=== PATIENT | female | born 1955 | race Caucasian/White ===

== ENCOUNTER 2016-11-24 10:54 | Inpatient (IN) | payer OTHER ==
--- NOTE | 2016-11-24 11:01 | EDPHY ---
[id number] in emergently by EMS from [place], presenting with altered mental status. The patient was admitted 10/28/16 with pneumonia and severe sepsis. She was treated with Vancomycin and Zosyn for 7 days. Over the past 3- 4 days the patient's mental status has decreased. Her family visited this morning and had difficulty arousing the patient. She had slurred speech and appeared altered. BGL in the field was 179. Pulse oxygen was 70s during transport, but improved to 90s after supplemental O2. Patient's family insisted the patient be transferred here instead of [place]. Further history is unobtainable due to patient's altered mental status. REVIEW OF SYSTEMS: ROS is unobtainable due to patient's altered mental status. Past Medical/Surgical History: Past medical records reviewed form admission 10/28/16 with pneumonia and severe sepsis. Ongoing Diabetes II, Hypertension, Morbid obesity, Chronic pain with narcotic dependency Social History: . Lives in [place]. Physical Exam: General Appearance: Responds to name Eyes: Pupils equal and round, no conjunctival pallor or injection ENT, Mouth: Mucous membranes moist Neck: Normal inspection Respiratory: Lungs are clear to auscultation Cardiovascular: Regular rate and rhythm Gastrointestinal: Abdomen is soft and non-tender Neurological: A&O, nonfocal, normal gait Skin: Warm and dry, no rash Extremities: Nontender, no pedal edema Psychiatric: Mood and affect normal Constitutional: Initial Vital Signs Temperature (C) 37.7 C 11/24/16 11:00 Heart Rate 97 11/24/16 11:00 Respiratory Rate 16 11/24/16 11:00 Blood Pressure 110/91 H 11/24/16 11:00 O2 Sat (%) 94 11/24/16 11:00 O2 Delivery Mode Nasal Cannula O2 (L/minute) 5 Allergies/Adverse Reactions: pregabalin [From Lyrica] Allergy (Severe, Verified 09/03/16 13:57) MOUTH SORES/ AFFECTS VISION Sulfa (Sulfonamide Antibiotics) Allergy (Severe, Verified 09/03/16 13:57) Anaphylaxis lactose Allergy (Intermediate, Verified 11/02/16 14:03) Diarrhea niacin [From Niaspan Extended-Release] Allergy (Intermediate, Verified 09/03/16 13:57) FLUSHING EXTREME ketorolac tromethamine [From Toradol] Allergy (Mild, Verified 09/03/16 13:57) DOESN'T WORK atorvastatin calcium [From Lipitor] Allergy (Unknown, Verified 09/03/16 13:57) MOLDS Allergy (Intermediate, Uncoded 08/30/14 10:44) WHEEZING /HIVES ENVIRONMENTAL Allergy (Mild, Uncoded 08/30/14 10:44) RUNNY NOSE/NASAL CONGESTION Home Medications: Medication Instructions Recorded Albuterol [Proventil Inhaler HFA 2 puffs IH QID PRN 08/30/14 (*)] Cyclobenzaprine [Flexeril 10 MG 10 mg PO TID@,,08/30/14 (*)] Fluticasone/Salmeter 250/50Mcg 1 puffs IH BID 08/30/14 [Advair 250/50 (*)] HYDROcodone/APAP 10325 [[place] 1 tab PO Q8 PRN 08/30/14 10325 (*)] Montelukast Sodium [Singulair 10 10 mg PO DAILY@08/30/14 mg (*)] oxyCODONE CR [Oxycontin] 20 mg PO TID@,,08/30/14 Diazepam [Valium 10 MG (*)] 5 mg PO BID PRN 09/03/16 Gabapentin [Neurontin 300 MG (*)] 900 mg PO TID@,,09/03/16 Sertraline HCl [Zoloft 100mg (*)] 150 mg PO DAILY 09/03/16 Amlodipine Besylate 5 mg PO DAILY@199910/28/16 Lisinopril [Zestril 20 mg (*)] 20 mg PO DAILY@199910/28/16 Furosemide [Lasix 40 MG (*)] 40 mg PO DAILY #2 tab 11/11/16 Acetaminophen/Caffeine [Excedrin 2 each PO TID PRN 11/24/16 Tension Headache Cplt] Cetirizine [ZyrTEC 10 mg (*)] 10 mg PO DAILY@199911/24/16 Cholecalciferol Vit D3 [Vitamin D3 2,000 units PO DAILY@199911/24/16 2000 units tab (OTC)] Herbals/Supplements -Info Only 1 ea PO AD 11/24/16 Ipratropium/Albuterol [Duoneb (*)] 3 ml IH TID@06,13,20 11/24/16 Lisinopril/Hydrochlorothiazide 1 each PO DAILY 11/24/16 [Zestoretic 20-25 mg Tablet] Multivitamins [Multivitamin (*)] 1 each PO DAILY@199911/24/16 Simpson-3 Fatty Acids [Fish Oil 1000 2,000 mg PO DAILY@1300 11/24/16 mg (*)] Sennosides/Docusate Sodium 1 each PO DAILY PRN 11/24/16 [Senokot-S (OTC)] Medical Decision Making - Diagnostics Imaging: Study: X-ray of the chest was obtained. Results: Hypoventilation, bibasilar atelectasis, and small left pleural effusion. Images were interpreted by the radiologist, Dr. Bradley. I viewed the images myself on the PACS system. ED Course/Re-evaluation: This patient presents with altered mental status, respiratory failure and probable recurrent pneumonia. The patient was placed on BiPAP on arrival. Chest x-ray reveals poor inspiration and no definite pneumonia. Blood cultures were drawn. Levaquin and Zosyn IV given as well as 125mg Solu-MEDROL IV. Tylenol administered rectally. 11:30 am: ABG shows CO2 of 68. Initial lactate normal. This ABG was performed while patient was on 100% non rebreather. Now on BiPAP 70% O2 and will decrease oxygen level. 11:35 am: I consulted the hospitalist, the patient will be admitted to Dr. Davis. 12:00 pm: After first liter of fluid, patient has pressure of 76 systolically. Plan for second liter of fluids. Pt much more alert. Now on O2 45% BIPAP. Repeat ABG reveals CO2 55. The patient is now more alert and conversant. Mars catheter was placed. The patient continues to be hypotensive. IV fluids given per the sepsis protocol, in case of early sepsis, though pt does not clearly fit the sepsis protocol. PICC line placed on way to ICU. Differential Diagnosis: Altered mental status including but not limited to respiratory failure, bronchospasm, hypoglycemia, infectious process, electrolyte abnormality, head injury and intoxicants. - Data Points Laboratory Results: Laboratory Results 11/24/16 10:50 11/24/16 10:50 Microbiology Results: MICROBIOLOGY 11/24/16 11:02 Blood Blood Culture - Preliminary Gram Positive Dameon Medications Given: Discontinued Medications Acetaminophen (Tylenol Rectal) 650 mg NC EDNOW ONE Stop: 11/24/16 11:26 Last Admin: 11/24/16 12:01 Dose: 650 mg Heparin Sodium (Porcine) (Heparin Injection) 0 unit IVP ONCE ONE PRN Reason: Protocol Stop: 11/24/16 15:02 Last Admin: 11/24/16 16:20 Dose: 7,000 units Sodium Chloride (Ns) 1,000 mls @ 0 mls/hr IV ONCE ONE PRN Reason: Wide Open Stop: 11/24/16 11:06 Last Admin: 11/24/16 11:20 Dose: 1,000 mls Levofloxacin/Dextrose (Levaquin 750 Mg (Premix)) 150 mls @ 100 mls/hr IV EDNOW ONE PRN Reason: Protocol Stop: 11/24/16 12:53 Last Admin: 11/24/16 11:43 Dose: 150 mls Piperacillin/Tazobactam/Dextrose (Zosyn (Premix)) 100 mls @ 200 mls/hr IV EDNOW ONE PRN Reason: Protocol Stop: 11/24/16 11:53 Last Admin: 11/24/16 12:15 Dose: 100 mls Sodium Chloride (Ns) 1,000 mls @ 0 mls/hr IV ONCE ONE PRN Reason: Wide Open Stop: 11/24/16 12:08 Last Admin: 11/24/16 12:45 Dose: 1,000 mls Heparin Sodium (Porcine) (Heparin 50 Units/Ml (Premix)) 500 mls @ 0 mls/hr IV CONT FATOUMATA; Per Protocol PRN Reason: Protocol Stop: 05/23/17 15:29 Last Admin: 11/24/16 21:58 Dose: 500 mls Sodium Chloride (Ns) 1,000 mls @ 0 mls/hr IV ONCE ONE PRN Reason: Wide Open Stop: 11/24/16 16:31 Last Admin: 11/24/16 16:19 Dose: 1,000 mls Sodium Chloride (Ns) 1,000 mls @ 0 mls/hr IV ONCE ONE PRN Reason: Wide Open Stop: 11/24/16 16:31 Last Admin: 11/24/16 16:20 Dose: 1,000 mls Famotidine/Sodium Chloride (Pepcid 20 Mg (Premix)) 50 mls @ 200 mls/hr IV DAILY FATOUMATA Stop: 05/24/17 08:59 Last Admin: 11/25/16 08:13 Dose: 50 mls Methylprednisolone Sodium Succinate (Solu-Medrol) 125 mg IVP EDNOW ONE Stop: 11/24/16 11:22 Last Admin: 11/24/16 11:26 Dose: 125 mg Departure - Departure Disposition: [facility] Inpatient Acute Clinical Impression: Altered mental status Qualifiers: Altered mental status type: stupor Qualifier Code: (R40.1) Stupor Pneumonia Qualifiers: Pneumonia type: due to unspecified organism Condition: Fair Report Scribed for: Gina Mcmahon Report Scribed by: Shayla Molina Date of Report: 11/24/16 Time of Report: 11:01 Physician Review and Approval Statement: 11/24/16 11:01 Portions of this note were transcribed by a emergency medicine medical director. I personally performed the history, physical exam, and medical decision-making; and confirmed the accuracy of the information in the transcribed note.
[2016-11-24] MEDS ORDERED: NS 1,000 ML IV ONE ×2 (11:05→12:07)
[2016-11-24 11:11] LABS: % IMMATURE GRANULYOCYTES 0.8 % (0.0-1.1); ABSOLUTE IMMATURE GRANULOCYTES 0.14 10^3/uL (0.00-0.10); ADD DIFF? NO; ADD MORPH? NO; ADD SCAN? NO; ATYPICAL LYMPHOCYTE FLAG 0 (0-99); FRAGMENT RBC FLAG 0 (0-99); HEMOGLOBIN 13.5 g/dL (12.6-16.3); LEFT SHIFT FLG 10 (0-99); LIPEMIA HEMOLYSIS FLAG 80 (0-99); MEAN CELL HEMOGLOBIN 31.5 pg (27.9-34.1); MEAN CELL HEMOGLOBIN CONCENTR. 32.9 g/dL (32.4-36.7); MEAN CELL VOLUME 95.8 fL (81.5-99.8); MEAN PLATELET VOLUME 10.5 fL (8.7-11.7); PLATELET CLUMPS FLAG 0 (0-99); PLATELET COUNT 243 10^3/uL (150-400); RED BLOOD CELL COUNT 4.28 10^6/uL (4.18-5.33); RED CELL DISTRIBUTION WIDTH 13.6 % (11.5-15.2)
[2016-11-24 11:21] LABS: BASE EXCESS 0.2 mEq/L (-2.5-2.5); BICARBONATE 29 mEq/L (22-26); MEASURED OXYGEN SATURATION 98 % (92-95); PCO2 68 mmHg (34-38); PO2 111 mmHg (65-75); TCO2 31 mEq/L (23-27)
[2016-11-24] MEDS ORDERED: methylPREDNISolone SOD SUCC 125 MG/2 ML VIAL IVP ONE (11:21)
--- NOTE | 2016-11-24 11:23 | CPEKG ---
Heart Rate: 96 RR Interval: 625 P-R Interval: 168 QRSD Interval: 90 QT Interval: 368 QTC Interval: 465 P Prosper: 44 QRS Prosper: -8 T Wave Prosper: 37 EKG Severity - NORMAL ECG - EKG Impression: SINUS RHYTHM Electronically Signed By: Gina Mcmahon 24-Nov-2016 15:05:55
[2016-11-24] MEDS ORDERED: PIPERACILLIN/TAZO 4.5 GM/DEX 100 ML IV ONE (11:24)
[2016-11-24] MEDS ORDERED: ACETAMINOPHEN 650 MG SUPP PR ONE (11:25)
[2016-11-24 11:26] LABS: APTT 26.7 SEC (23.0-38.0); INR 1.06 (0.83-1.16); PROTIME(PATIENT) 13.7 SEC (12.0-15.0)
[2016-11-24 11:31] LABS: ANION GAP 11 mEq/L (8-16); BILIRUBIN,TOTAL 0.8 mg/dL (0.1-1.4); CALCIUM 8.7 mg/dL (8.5-10.4); CARBON DIOXIDE 32 mEq/l (22-31); CHLORIDE 98 mEq/L (97-110); CREATININE 2.5 mg/dL (0.6-1.0); GLOMERULAR FILTRATION RATE 20; GLUCOSE 151 mg/dL (70-100); POTASSIUM 3.9 mEq/L (3.5-5.2); SODIUM 141 mEq/L (134-144)
--- NOTE | 2016-11-24 11:35 | DX ---
Portable Chest, Single View November 24, 2016 11:11 a.m. Indication: Altered mental status. Comparison: Two-view chest and CT chest dated November 11, 2016. Findings: Hypoventilation, diffuse peribronchial thickening, and bibasilar linear opacities, likely r eflecting atelectasis, are worse. The left costophrenic angle is blunted suggesting new small left pl eural effusion. Retrocardiac fat superimposed on the heart is unchanged. Heart size within normal anderson it for degree of inspiration and AP technique. Impression: Hypoventilation, bibasilar atelectasis, and small left pleural effusion.
[2016-11-24 12:44] LABS: COLOR YELLOW; LEUKOCYTE ESTERASE,URINE NEGATIVE (NEGATIVE); NITRITE,URINE NEGATIVE (NEGATIVE)
[2016-11-24 13:00] LABS: BASE EXCESS -0.7 mEq/L (-2.5-2.5); BICARBONATE 26 mEq/L (22-26); MEASURED OXYGEN SATURATION 95 % (92-95); PCO2 55 mmHg (34-38); PO2 87 mmHg (65-75); TCO2 28 mEq/L (23-27)
[2016-11-24 13:02] LABS: BIPAP YES
[2016-11-24 13:03] LABS: EXP PRESSURE 5; INSP PRESSURE 12; O2 CONCENTRATIION 45 % (0-100); P/F RATIO 193 RATIO
[2016-11-24 13:04] LABS: I-TIME 1 SECS; PIP 13
--- NOTE | 2016-11-24 14:22 | DX ---
PICC Clinical Indication: Respiratory failure. Procedures Performed: 1. Ultrasound-guided puncture of the right basilic vein. 2. Microwire was passed under ultrasound guidance and serially exchanged for the peel-away. 3. Measuring wire was used to estimate the length of the PICC, and it was trimmed at the 50 cm armando. It was pulled back 5 cm between the first and second film. 4. The PICC was advanced to the SVC/right atrial junction over the measuring wire. The measuring wire and dilator were removed. 5. A stat chest x-ray was ordered to document positioning. EBL: Less than 10 mL. Specimens: None. Fluoroscopy Time: 0 minutes. 0 mGy. Operative Report: After obtaining informed consent and performing a formal timeout, the right arm was prepped and draped. 1% lidocaine local field block was achieved. The basilic vein was punctured unde r direct ultrasound visualization after deeming the vessel patent. Microwire was passed under ultraso und guidance and serially exchanged for the peel-away dilator. The patient was measured to estimate t he length of the PICC. The PICC was trimmed at 50 cm. The PICC was advanced over the measuring wire t o the SVC/right atrial junction. The measuring wire and peel-away were removed. The PICC was secured and dressed with sterile gauze dressing. A stat chest x-ray was ordered to document positioning, was pulled back 5 cm and the second film was obtained. Informed consent: Obtained from the patient. Risks and benefits were discussed. Crosscutting Measure: Patient's current list of medications including all known prescriptions, over- the-counters, herbals, and vitamin/mineral/dietary supplements are reviewed. Medications' name, dosa ge, frequency, and route of administration are confirmed. Prophylactic Antibiotic: Cefazolin was not ordered and administered for antimicrobial prophylaxis be cause it was not medically necessary. VTE Prophylaxis: There is not an order for VTE prophylaxis to be given within 24 hours of the proced ure end time. VTE prophylaxis was not given because it was not medically necessary. Technique: Patient was placed in supine position. A "timeout" procedure was performed to identify t he correct patient and the correct procedure. 1% Xylocaine was used for local anesthetic. All eleme nts of maximal sterile barrier technique including cap, mask, sterile gown, sterile gloves, large edin rile sheet, hand hygiene, and 2% chlorhexidine for cutaneous antisepsis, followed. Ultrasound evaluation of potential access site was performed. After successfully identifying a patent vessel, ultrasound guidance was used to puncture the vein. A permanent recording was created for the patient's record. When ultrasound is used, sterile gel and probe covers are used. Plan: Triple-lumen PICC ready for use.
[2016-11-24] MEDS ORDERED: NOREPINEPHRINE BITARTRATE 16 MG in D5W 250 ML IV SCH (15:00)
[2016-11-24] MEDS ORDERED: HEPARIN 10,000 UNIT/10 ML MDV IVP PRN (15:01)
[2016-11-24] MEDS ORDERED: HEPARIN 10,000 UNIT/10 ML MDV IVP ONE (15:01)
[2016-11-24 15:15] LABS: BASE EXCESS -3.6 mEq/L (-2.5-2.5); BICARBONATE 25 mEq/L (22-26); MEASURED OXYGEN SATURATION 92 % (92-95); PCO2 62 mmHg (34-38); PO2 69 mmHg (65-75); TCO2 27 mEq/L (23-27)
[2016-11-24 15:17] LABS: BIPAP YES; EXP PRESSURE 5; INSP PRESSURE 12; O2 CONCENTRATIION 45 % (0-100); P/F RATIO 153 RATIO
[2016-11-24 15:22] LABS: % IMMATURE GRANULYOCYTES 0.9 % (0.0-1.1); ABSOLUTE IMMATURE GRANULOCYTES 0.14 10^3/uL (0.00-0.10); ADD DIFF? NO; ADD MORPH? NO; ADD SCAN? NO; ATYPICAL LYMPHOCYTE FLAG 0 (0-99); FRAGMENT RBC FLAG 0 (0-99); HEMATOCRIT 35.9 % (38.0-47.0); HEMOGLOBIN 11.8 g/dL (12.6-16.3); LEFT SHIFT FLG 10 (0-99); LIPEMIA HEMOLYSIS FLAG 80 (0-99); MEAN CELL HEMOGLOBIN 32.2 pg (27.9-34.1); MEAN CELL HEMOGLOBIN CONCENTR. 32.9 g/dL (32.4-36.7); MEAN CELL VOLUME 97.8 fL (81.5-99.8); MEAN PLATELET VOLUME 10.4 fL (8.7-11.7); PLATELET CLUMPS FLAG 0 (0-99); PLATELET COUNT 198 10^3/uL (150-400); RED BLOOD CELL COUNT 3.67 10^6/uL (4.18-5.33); RED CELL DISTRIBUTION WIDTH 13.6 % (11.5-15.2)
[2016-11-24] MEDS ORDERED: NOREPINEPHRINE BITARTRATE 4 MG in D5W 500 ML IV SCH (15:30)
[2016-11-24 15:31] LABS: INR 1.19 (0.83-1.16); PROTIME(PATIENT) 15.1 SEC (12.0-15.0)
[2016-11-24 15:32] LABS: APTT 27.7 SEC (23.0-38.0)
[2016-11-24] MEDS: NS 1,000 ML IV SCH (16:20)
[2016-11-24] MEDS: HEPARIN/DEXTROSE 500 ML IV SCH ×2 (16:21→21:58)
[2016-11-24] MEDS ORDERED: NS BOLUS 1000 ML (Wide open) IV ONE ×2 (16:30)
--- NOTE | 2016-11-24 17:31 | PDGENHP ---
History and Physical History and Physical: HISTORY: brought in obtunded with sob and hypoxemia, no hx of chest pain little other acute hx On arrival to ER she was normal BP and no fever, but in ER developed she has chronic lung dz with CO2 retention and home O2 has two prior episodes of acute resp failure and hypotension in Oct and Dec PMHx septic shock asthma pneumonia chronic resp failure w co2 retention chronic pain syndrome chronic prescribed narcotics gait instabilitiy falls retinal art occlusion no known dvt/pe hx Family hx: mother may have have DVT per social: nonsmoker no etoh lives w wants full cor and intubation ASSESSMENT: # ACUTE RESP FAILURE, PRIMARILY HYPERCARBIC REQUIRING BIPAP AT PRESENT -would not rule out need for mech vent overnight # ACUTE FEVER WITH HYPOTENSION WITH ACUTE RENAL FAILURE - diff dx includes septic shock and PE -can not do contrast CT due to renal # ACUTE RENAL FAILURE # ? ACUTE RESP INFECTION # CHRONIC HYPERCARBIC/HYPOXEMIC RESP FAILURE # CPS with chronic prescirbed narcotics She has had two other very similar episodes in 08/27 and 10/27 here, requiring mech ventilation, and for both there was not a defining etiology found though they were presumed to be caused by infeciton and or mentation changes from her chronic narcotics At this time she has received 5 L NS which has chandni CVT from 4 to 19, and has a good BP on levofed; She is on bipap and still w some mixed but primarily resp acidosis but w good O2 sats. I have reviewed in detial w Dr Neville Richter who has seen her. PLANS: contineu current abx, pressor support, and BIPAP may need mech vent during night repeat CXR and labs in am anticoagulation, consider CT angio if renal fxn resolves
[2016-11-24] MEDS ORDERED: ACETAMINOPHEN 325 MG TAB PO PRN (17:38)
[2016-11-24] MEDS ORDERED: PIPERACILLIN SODIUM/TAZOBACTAM 3.375 GM in D5W 50 ML IV SCH (18:30)
--- NOTE | 2016-11-24 20:41 | US ---
Bilateral Lower Extremity Venous Duplex Doppler Studies Clinical Indications: 61-year-old female inpatient with pneumonia and respiratory failure; rule out D VT. Technique: A high-frequency transducer was used for compression imaging and Doppler study of the deep veins of both legs, from the upper calves to the groins. Pulsed Doppler and color Doppler were utili zed, along with various maneuvers to assess flow in the deep veins. Comparison Study: None. Findings: Right Leg: The deep veins of the groin, thigh, knee, and upper calf are well-displayed, and are norm ally compressible. Doppler flow patterns are unremarkable. There is no evidence of deep venous thro mbosis. The greater saphenous vein is patent. The popliteal fossa is unremarkable. Left Leg: The deep veins of the groin, thigh, knee, and upper calf are well-displayed, and are clarice lly compressible. Doppler flow patterns are unremarkable. There is no evidence of deep venous throm bosis. There is normal compression of the greater saphenous vein, without superficial thrombosis. The popliteal fossa is unremarkable. Impression: Normal bilateral lower extremity venous Doppler studies.
[2016-11-24] MEDS: FLUTICASONE/SALMETER 250/50MCG DISKUS IH SCH (20:59)
[2016-11-24] MEDS: IPRATROPIUM/ALBUTEROL 3 ML DEYVIAL IH SCH ×2 (21:00→21:05)
--- NOTE | 2016-11-24 21:25 | GCON ---
[f rep st] CONSULTATION PULMONARY CRITICAL CARE CONSULTATION DATE OF CONSULTATION: 11/24/2016 REASON FOR CONSULTATION: Acute respiratory failure, altered mental status. HISTORY: The patient was reportedly found down at home by her . She was transported to the e mergency department, where she initially had a normal blood pressure. She developed a fever in the e mergency department and dropped her blood pressure. Apparently, for several days prior to her presen tation today, she has had gradually declining mental status. She has had hospitalizations recently for similar presentations. Her last was 3 to 4 weeks ago when she presented with altered mental status and acute respiratory failure. Narcotic overdose was felt t o be playing a role as she is on chronic narcotics. At that time, she had recently been treated for pneumonia and had a persistent infiltrate. She initially responded to Narcan on that admission, but despite ongoing Narcan, she became more somnolent and required intubation. Bronchoscopy was unremark able for evidence of purulent sputum and it was felt that her infiltrate was likely residual from a p reviously treated pneumonia. She also has a history of asthma but was not wheezing on that admission . No wheezing was reported on this admission. In the emergency department, blood cultures were drawn and she was started on Levaquin, Zosyn and Mary u-Medrol. I do not believe that Narcan was given on this admission. A PICC line was placed. She was transported to the intensive care unit on BiPAP. She has remained on BiPAP, arouses weakly a nd does respond appropriately to commands. ALLERGIES: Past medical history is remarkable for multiple drug allergies. These include Lyrica, deluna lfa preparations, lactose, niacin, Toradol, Lipitor, and environmental agents. PAST MEDICAL HISTORY: As outlined in her previous charts. This includes a chronic pain syndrome and chronic narcotics, recent hospitalizations as outlined above, cervical stenosis and cervical surgery , asthma, systemic hypertension, depression, chronic hypoxemic and hypercarbic respiratory failure re quiring oxygen, obesity, and diverticulitis. Sleep apnea is also a possible diagnosis from the past. SOCIAL HISTORY: The patient is . She lives in [place]. She has a pain physician but I do n ot know if she has seen him recently. In the past, she was getting prescriptions from multiple provi ders. These included various opiates, Flexeril, and benzodiazepines. FAMILY HISTORY: Noncontributory/unobtainable. REVIEW OF SYSTEMS: Unobtainable. PHYSICAL EXAMINATION: GENERAL: Physical examination reveals an obese woman who is on BiPAP. She is somnolent but will arouse. VITAL SIGNS: Blood pressure is approximately 105/60, respiratory rate 1 2, saturations 90% on 45% oxygen BiPAP mask, CVP is 18. Heart rate is 80 with sinus rhythm on the mo nitor. HEENT: Remarkable for relatively small pupils. BiPAP mask is in place. Mucous membranes ar e dry. NECK: The neck is large. Jugular venous distention is present. There is no lymphadenopathy or thyromegaly. The trachea is midline. LUNGS: Clear bilaterally. Excursions are diminished, in part secondary to body habitus. HEART: Regular in rate and rhythm. Heart tones are quite distant. No obvious murmurs or gallops are appreciated. ABDOMEN: Obese, soft, nontender. Bowel sounds are diminished but present. EXTREMITIES: Remarkable for trace plus edema. There is no obvious swelling of the calves, and no cords. NEUROLOGIC: Nonfocal. She does move all extremities to command. DATABASE: Chest x-ray shows hypoventilatory changes with some mild basilar atelectasis. A small lef t pleural effusion cannot be excluded. Laboratory: White blood cell count is 15,000, hematocrit 36. Platelets are normal. PT was 13.7 on admission, PTT 26. D-dimer was 0.7. pH on BiPAP is 7.22 with a pCO2 of 62 and a pO2 of 69. Sodium is 141, potassium 3.9, CO2 32, BUN 43, with a creatinine of 2.5. Creatinine has been close to 1 prev iously. Glucose is 151. Urinalysis was negative. A toxicology screen was not done. ASSESSMENT: 1. Acute respiratory failure. The patient came in obtunded and hypoxemic. The etiology for this is not entirely known at this time. It is likely multifactorial and includes home use of opiates and b enzodiazepines, obesity/hypoventilation, and possibly acute infectious illness as temperature did spi ke to 38 degrees and was associated with hypotension. Sepsis cannot be excluded. Thromboembolic dis ease seems unlikely. When she was last here, a CT angiogram of the chest was negative, lower extremi ties appear normal. However, she has been started on heparin until this can be evaluated in more det ail. CT angiogram was not done secondary to her elevated BUN and creatinine. 2. Possible sepsis. This seems unlikely as blood lactate was less than 1. However, early sepsis or a systemic inflammatory response syndrome cannot be excluded. 3. Possible infection. Pneumonia cannot absolutely be excluded at this time, as chest x-ray is mild ly abnormal. The urine is clean. White blood cell count was elevated and she was febrile. She is b eing treated currently with broad-spectrum antibiotics pending cultures and further evaluation. She is being given Levaquin and Zosyn. She also received steroids in the emergency department. 4. History of asthma. There is no wheezing, no prolongation of the expiratory phase. She is on Duo Nebs. PLAN AND RECOMMENDATIONS: The patient will be kept in the intensive care unit. BiPAP ventilatory deluna pport will be used as needed. If indicated, she may need to be intubated and placed on the ventilato r. This does not appear to be the case currently. Cultures will be awaited. Intravenous fluids allen l be given. Antibiotics will be continued. Heparin will be continued for now. Ultrasounds of the l ower extremities will be considered tomorrow and repeat CT angiogram of the chest can be considered i f indicated once her renal function normalizes. Laboratory, chest x-ray, and blood gas will be follo wed. Further plans and recommendations will be made based on her progress over the next 12 to 24 hours. /[id number]/MODL
[2016-11-24 21:27] LABS: ALBUMIN 3.3 g/dL (3.5-5.0); ANION GAP 13 mEq/L (8-16); CALCIUM 7.9 mg/dL (8.5-10.4); CARBON DIOXIDE 29 mEq/l (22-31); CHLORIDE 101 mEq/L (97-110); CREATININE 1.4 mg/dL (0.6-1.0); GLOMERULAR FILTRATION RATE 38; GLUCOSE 266 mg/dL (70-100); MAGNESIUM 2.2 mg/dL (1.6-2.3); POTASSIUM 3.6 mEq/L (3.5-5.2); SODIUM 143 mEq/L (134-144)
[2016-11-24] MEDS: PIPERACILLIN SODIUM/TAZOBACTAM 3.375 GM in D5W 50 ML IV SCH (21:58)
[2016-11-24] MEDS ORDERED: PIPERACILLIN/TAZO 3.375 GM/DEX 50 ML IV SCH (22:00)
[2016-11-25 01:45] LABS: BASE EXCESS -0.8 mEq/L (-2.5-2.5); BICARBONATE 25 mEq/L (22-26); MEASURED OXYGEN SATURATION 95 % (92-95); PCO2 50 mmHg (34-38); PO2 74 mmHg (65-75); TCO2 27 mEq/L (23-27)
[2016-11-25 03:54] LABS: PCO2 VENOUS 57 mmHg (40-44); PH VENOUS BLOOD 7.31 (7.31-7.42); PO2 VENOUS 74 mmHg (35-40); TCO2 VENOUS 30 mEq/L (23-27); VEN MEASURED OXYGEN SATURATION 95 % (65-75)
[2016-11-25 03:55] LABS: ABSOLUTE IMMATURE GRANULOCYTES 0.12 10^3/uL (0.00-0.10); ADD DIFF? NO; ADD MORPH? NO; ADD SCAN? NO; ATYPICAL LYMPHOCYTE FLAG 0 (0-99); FRAGMENT RBC FLAG 0 (0-99); HEMATOCRIT 35.1 % (38.0-47.0); HEMOGLOBIN 12.1 g/dL (12.6-16.3); LEFT SHIFT FLG 10 (0-99); LIPEMIA HEMOLYSIS FLAG 90 (0-99); MEAN CELL HEMOGLOBIN 31.9 pg (27.9-34.1); MEAN CELL HEMOGLOBIN CONCENTR. 34.5 g/dL (32.4-36.7); MEAN CELL VOLUME 92.6 fL (81.5-99.8); MEAN PLATELET VOLUME 10.4 fL (8.7-11.7); PLATELET CLUMPS FLAG 0 (0-99); PLATELET COUNT 196 10^3/uL (150-400); RED BLOOD CELL COUNT 3.79 10^6/uL (4.18-5.33); RED CELL DISTRIBUTION WIDTH 12.8 % (11.5-15.2)
[2016-11-25 04:35] LABS: ALANINE AMINOTRANSFERASE 30 IU/L (9-52); ALBUMIN 2.8 g/dL (3.5-5.0); ALKALINE PHOSPHATASE 43 IU/L (38-126); ANION GAP 10 mEq/L (8-16); ASPARTATE AMINOTRANSFERASE 24 IU/L (14-46); BILIRUBIN,TOTAL 0.5 mg/dL (0.1-1.4); CALCIUM 7.6 mg/dL (8.5-10.4); CARBON DIOXIDE 29 mEq/l (22-31); CHLORIDE 106 mEq/L (97-110); GLOMERULAR FILTRATION RATE 56; GLUCOSE 224 mg/dL (70-100); MAGNESIUM 2.2 mg/dL (1.6-2.3); POTASSIUM 3.7 mEq/L (3.5-5.2); SODIUM 145 mEq/L (134-144); TOTAL PROTEIN 5.3 g/dL (6.3-8.2)
[2016-11-25] MEDS: NS 1,000 ML IV SCH (05:05)
[2016-11-25] MEDS: PIPERACILLIN SODIUM/TAZOBACTAM 3.375 GM in D5W 50 ML IV SCH ×3 (05:30→21:58)
[2016-11-25] MEDS: IPRATROPIUM/ALBUTEROL 3 ML DEYVIAL IH SCH ×4 (06:11→21:15)
[2016-11-25 08:10] LABS: BASE EXCESS 1.6 mEq/L (-2.5-2.5); BICARBONATE 27 mEq/L (22-26); MEASURED OXYGEN SATURATION 74 % (92-95); PCO2 50 mmHg (34-38); TCO2 29 mEq/L (23-27)
--- NOTE | 2016-11-25 08:18 | DX ---
Portable Chest November 25, 2016 at 0600 hours Clinical Indications: Altered mental status; followup atelectasis with comparison to the prior study November 24, 2016. Findings: Hypoventilatory changes are again identified. Bibasilar atelectasis is noted. The heart siz e is normal allowing for portable technique. The right PICC is in stable position. Impression: Atelectasis with hypoventilatory changes.
[2016-11-25 08:31] LABS: BASE EXCESS 1.1 mEq/L (-2.5-2.5); BICARBONATE 26 mEq/L (22-26); MEASURED OXYGEN SATURATION 96 % (92-95); PCO2 44 mmHg (34-38); PO2 73 mmHg (65-75); TCO2 27 mEq/L (23-27)
[2016-11-25] MEDS ORDERED: FAMOTIDINE 20 MG/NACL 50 ML IV SCH (09:00)
[2016-11-25 09:30] LABS: PO2 38 mmHg (65-75)
--- NOTE | 2016-11-25 09:54 | HOSPPROG ---
Hospitalist Progress Note Assessment/Plan: DIAGNOSIS: # ACUTE RESP FAILURE, PRIMARILY HYPERCARBIC REQUIRING BIPAP AT PRESENT # ACUTE FEVER WITH HYPOTENSION WITH ACUTE RENAL FAILURE - diff dx includes septic shock and PE, other potential causes # ACUTE RENAL FAILURE # ? ACUTE RESP INFECTION # CHRONIC HYPERCARBIC/HYPOXEMIC RESP FAILURE/OBESITY HYPOVENTILATION SYNDROME, ? GRICEL # CPS with chronic prescirbed narcotics Overnight she has improved quite remarkably and is now doing very well breathing nasal cannula oxygen comfortably, and is off pressor support. She has very stable vital signs. Her arterial blood gas is now essentially normal Initially this morning she was somewhat delirious but will much more alert and interactive and conversant. However now after a large bowel movement she is actually much better oriented very near to normal mental function. Her renal function has very quickly normalized back to her baseline creatinine 1.0. At this time I do not feel like she needs to stay in ICU but particularly without a known etiology for her illness would watch at least 1 more day in the hospital. It is still not clear to me what the underlying cause of this episode was. We have identified nothing in cultures. There is no deep venous thrombosis. She had a CT angio chest in October with a similar episode and there was no PE or other specific finding then. The rapidity of complete recovery seems likely inconsistant with an infectious etiology, and her previous episodes did not have an identified infectious agent. One possibility could be that she gets oversedated from multiple home meds, leading to acute CO2 retention/narcosis, followed by aspiration and atelectasis, with positive feedback loop leading to collapse. PLANS: -transfer out of intensive care unit -for now continue her current antibiotics, and will review w ID -will stop her heparin -I have asked Dr Lugo to see her from ID -will check for influenza -she should have a sleep study; this was prevoiusly scheduled as outpt, but she had cancelled it; we have reviewed need for this study w pt and -for now will keep only resume her usual pain meds if significant pain resumes; will try to review all of above with Dr Madie Morales, her pain specialist I have reviewed the patient's condition and care plan in detail with Dr Richter Pt also seen on multidisc rounds today SUBJECTIVE: She is not short of breath. She has some ache in both shoulders but no other new pains. She has some chronic neck pain. Her mouth is very dry and irritated Is not hungry but not nauseous Denies abdominal pain OBJECTIVE Vitals reviewed: now overall quite stable without fever quality assurance monitor chassis, my personal review: Sinus rhythm with now normal rate Exam: alert oriented skin warm dry color ok resps not labored lungs clear BSs heart regular abd soft nondistended nontender, bowel sounds present limbs warm, no edema iv site ok Labs reviewed: marked improvement in renal fxn Objective: Vital Signs Temp Pulse Resp BP Pulse Ox 36.6 C 94 16 132/62 H 93 11/25/16 07:00 11/25/16 09:00 11/25/16 09:00 11/25/16 09:00 11/25/16 09:00 Laboratory Results 11/25/16 03:45 11/25/16 03:45 11/24/16 11/25/16 11/26/16 06:59 06:59 06:59 Intake Total 5638.5 Output Total 3415 Balance 2223.5 PT 15.1 SEC (12.0-15.0) H 11/24/16 15:13 INR 1.19 (0.83-1.16) H 11/24/16 15:13 ICD10 Worksheet Patient Problems: Problems Problem Status Diagnosed Altered mental status Acute Hypoxemia Acute Narcotic overdose Acute Pneumonia Acute
[2016-11-25] MEDS ORDERED: CAFFEINE PO PRN (11:37)
[2016-11-25] MEDS ORDERED: ACETAMINOPHEN PO PRN (11:37)
[2016-11-25] MEDS: FLUTICASONE/SALMETER 250/50MCG DISKUS IH SCH ×2 (11:44→21:18)
[2016-11-25] MEDS: OMEGA-3 FATTY ACIDS 1,000 MG CAP PO SCH (12:08)
[2016-11-25] MEDS: GABAPENTIN 300 MG CAP PO SCH ×2 (12:08→19:32)
[2016-11-25] MEDS: CYCLOBENZAPRINE 10 MG TAB PO SCH ×2 (12:08→19:33)
[2016-11-25] MEDS: SERTRALINE HCL 100 MG TAB PO SCH (12:11)
[2016-11-25] MEDS ORDERED: ACETAMINOPHEN/ASA/CAFFEINE 1 EACH TAB PO PRN (12:23)
--- NOTE | 2016-11-25 13:59 | PDINTPN ---
Vehicle Trimmer Progress Note Assessment/Plan: Assessment: Acute respiratory failure. I suspect that this was primarily secondary to overuse of narcotics and sedating medications at home. Her does state that he found her increasingly lethargic on the night prior to her admission when he found her unresponsive. I suspect that when she becomes less responsive she hypoventilated more, possibly has more sleep apnea, becomes hypercarbic with further decreases in mental status? Doubt pneumonia. No evidence of ongoing active infection. No evidence of thromboembolic disease. Will stop heparin. I do not feel she needs a CT angiogram. This was negative when she was here 3-4 weeks ago. Morbid obesity Fever. Now resolved. Query secondary to atelectasis or possibly some aspiration? No evidence of significant ongoing infection at present. History of chronic pain and narcotic use, anxiety with benzodiazepine use, Flexeril, etc. Possible obstructive sleep apnea. Has all the risk factors for this. She does have a sleep study ordered but has had to cancel the last 2. This definitely needs to be done as an outpatient. Asthma. No evidence of any wheezing or exacerbation. Medications are appropriate. DVT prophylaxis: Enoxaparin Plan: Continue care. Restart home medications but use narcotics and benzodiazepines sparingly. Mobilize. Can transfer to a medical-surgical bed. Would favor telemetry. Needs to be monitored for another 24 hours prior to discharge however I anticipate she will be stable and do well. Subjective: Doing well, up in the chair, off BiPAP. Awake and alert, not somnolent, no complaints of shortness of breath. Does not recall events of yesterday leading to her hospitalization. Objective: Vital Signs Temp Pulse Resp BP Pulse Ox 36.6 C 103 H 18 132/62 H 94 11/25/16 07:00 11/25/16 11:35 11/25/16 11:35 11/25/16 09:00 11/25/16 11:35 Laboratory Results 11/25/16 03:45 11/25/16 03:45 11/24/16 11/25/16 11/26/16 05:59 05:59 05:59 Intake Total 5638.5 Output Total 3415 100 Balance 2223.5 -100 PT 15.1 SEC (12.0-15.0) H 11/24/16 15:13 INR 1.19 (0.83-1.16) H 11/24/16 15:13 Laboratory Tests 11/25/16 11/25/16 03:45 08:25 Heparin Anti-Xa, Unfract 0.52 pCO2 44 H pO2 73 ABG pH 7.39 Total O2 Concentration 3.0 Sodium 145 H Potassium 3.7 Chloride 106 Carbon Dioxide 29 BUN 26 H Creatinine 1.0 Glucose 224 H Calcium 7.6 L Magnesium 2.2 Total Bilirubin 0.5 AST 24 ALT 30 Albumin 2.8 L CXR: Hypoventilatory changes with some bibasilar atelectasis. No obvious infiltrates. Vascular plethora possible may be related to small lung volumes Physical Exam - Physical Exam General Appearance: alert, no apparent distress, obese, other (In chair) EENT: other (Nasal cannula at 4 L), No PERRL/EOMI Neck: normal inspection (Large neck) Respiratory: lungs clear, decreased breath sounds (At bases. No significant rales, consolidation), No rales, No rhonchi, No wheezing Cardiac/Chest: regular rate, rhythm (Distant heart tones secondary to body habitus) Abdomen: normal bowel sounds, non-tender, soft (Morbidly obese) Pelvic Exam: other (Amrs catheter removed) Skin: normal color, warm/dry Extremities: pedal edema Neuro/Psych: no motor/sensory deficits, oriented x 3, No cognition abnormalities (Awake and alert, responsive.) ICD10 Worksheet Patient Problems: Problems Problem Status Diagnosed Altered mental status Acute Hypoxemia Acute Narcotic overdose Acute Pneumonia Acute
--- NOTE | 2016-11-25 18:15 | DX ---
PA and Lateral Upright Views of the Chest November 25, 2016 at 5:18 p.m. Clinical History: 61-year-old female inpatient; follow-up respiratory status. Comparison Study: Chest, from earlier this morning at 6:00 a.m. Findings: Telemetry monitoring lead lines and oxygen tubing are present. There is a cervical arthrode sis plate. There is a right-sided PICC line which terminates in the inferior right atrium, just above the IVC/right atrial junction. The patient has had an improved inspiratory effort, although there is some persistent bibasilar subsegmental atelectasis. There is less pronounced peribronchial thickenin g. There is no pneumothorax or pleural effusion. The osseous structures are age-appropriate. Impression: Improved inspiratory effort compared to 6:00 a.m., with some persistent bibasilar subsegm ental atelectasis.
[2016-11-25] MEDS: CHOLECALCIFEROL VIT D3 2,000 UNITS TAB/CAP PO SCH (19:33)
[2016-11-25] MEDS: amLODIPine BESYLATE 5 MG TAB PO SCH (19:33)
[2016-11-25] MEDS: MULTIVITAMINS 1 EACH TAB PO SCH (19:42)
[2016-11-25] MEDS: MONTELUKAST SODIUM 10 MG TAB PO SCH (19:42)
[2016-11-25] MEDS ORDERED: CETIRIZINE 10 MG TAB PO SCH (20:00)
[2016-11-26] MEDS: ALTEPLASE 2 MG VIAL IVP PRN (00:41)
[2016-11-26] MEDS: CYCLOBENZAPRINE 10 MG TAB PO SCH ×3 (05:09→21:29)
[2016-11-26] MEDS: GABAPENTIN 300 MG CAP PO SCH ×3 (05:09→21:20)
[2016-11-26] MEDS: PIPERACILLIN SODIUM/TAZOBACTAM 3.375 GM in D5W 50 ML IV SCH (05:09)
[2016-11-26 05:31] LABS: % IMMATURE GRANULYOCYTES 0.7 % (0.0-1.1); ABSOLUTE IMMATURE GRANULOCYTES 0.08 10^3/uL (0.00-0.10); ADD DIFF? NO; ADD MORPH? NO; ADD SCAN? NO; ATYPICAL LYMPHOCYTE FLAG 0 (0-99); FRAGMENT RBC FLAG 0 (0-99); HEMATOCRIT 33.7 % (38.0-47.0); HEMOGLOBIN 11.6 g/dL (12.6-16.3); LEFT SHIFT FLG 0 (0-99); LIPEMIA HEMOLYSIS FLAG 90 (0-99); MEAN CELL HEMOGLOBIN 31.9 pg (27.9-34.1); MEAN CELL HEMOGLOBIN CONCENTR. 34.4 g/dL (32.4-36.7); MEAN CELL VOLUME 92.6 fL (81.5-99.8); MEAN PLATELET VOLUME 10.5 fL (8.7-11.7); PLATELET CLUMPS FLAG 0 (0-99); PLATELET COUNT 198 10^3/uL (150-400); RED BLOOD CELL COUNT 3.64 10^6/uL (4.18-5.33)
[2016-11-26 05:47] LABS: ANION GAP 7 mEq/L (8-16); CALCIUM 8.8 mg/dL (8.5-10.4); CARBON DIOXIDE 31 mEq/l (22-31); CHLORIDE 107 mEq/L (97-110); CREATININE 0.7 mg/dL (0.6-1.0); GLOMERULAR FILTRATION RATE > 60; GLUCOSE 115 mg/dL (70-100); POTASSIUM 3.3 mEq/L (3.5-5.2); SODIUM 145 mEq/L (134-144)
[2016-11-26] MEDS: IPRATROPIUM/ALBUTEROL 3 ML DEYVIAL IH SCH (05:55)
[2016-11-26] MEDS ORDERED: DILTIAZEM 125 MG in D5W 125 ML IV SCH (06:30)
[2016-11-26] MEDS ORDERED: DILTIAZEM 25 MG/5 ML VIAL IVP ONE (06:30)
[2016-11-26] MEDS ORDERED: IPRATROPIUM/ALBUTEROL 3 ML DEYVIAL IH PRN (06:36)
[2016-11-26] MEDS: DILTIAZEM 125 MG in D5W 125 ML IV SCH ×2 (06:43→18:47)
[2016-11-26] MEDS ORDERED: PROTOCOL MAGNESIUM 1 DOSE IV PRN (07:18)
[2016-11-26] MEDS ORDERED: PROTOCOL POTASSIUM 1 DOSE MISC PRN (07:18)
--- NOTE | 2016-11-26 07:27 | HOSPPROG ---
Hospitalist Progress Note Assessment/Plan: STAT team brief note: At approximately 640 am a STAT team was called for the patient for the development of SVT. On my arrival pt's HR was in the 180-190 range, BP stable. Patient reported some mild symptoms of lightheadedness, but denied palpitations , shortness of breath or chest pain. Just prior to the onset of the SVT patient had been receiving a duoneb treatment. On exam, patient did not appear in distress, CV was tachycardic and irregular; lungs did not reveal any wheezing or rhonchi. Vagal maneuvers were attempted, including valsalva and cold ice to the forehead without improvement in HR range. EKG was obtained and revealed a narrow complex tachycardia, appeared to be consistent with Afib. Adenosine 6 mg IVP was then given, with brief improvement in HR to the 130 range. HR however continued to oscillate between 130-160 range, so Diltiazem 10 mg IVP was given and a diltiazem drip was started. Patient remained largely asymptomatic throughout this event. She was transferred to the PCU given her new tachyarrhythmia and for management of the diltiazem drip. A/P: Pt is 61/F with chronic respiratory failure who was admitted on 11/24 with acute on chronic respiratory failure due to possible pneumonia vs narcotic overuse, acute renal failure. On 11/26 AM she developed an SVT, which appeared consistent with atrial fibrillation. HR improved with diltiazem. - repeat EKG now that rate is more controlled - cont diltiazem drip for HR control - appears pt's [id number] is 1 (female), so no indication for systemic anticoagulation at this time - transferred pt to PCU for further management In addition to the above events, patient also expressed her desire to change her code status from full to DNR/DNI. She reports she was intubated once before in her life and would never want to experience that again, and also would not want to be resuscitated. This was changed [facility]. Sammie Woo DO Objective: Vital Signs Temp Pulse Resp BP Pulse Ox 36.6 C 104 H 19 141/94 H 93 11/25/16 22:59 11/26/16 06:43 11/26/16 05:55 11/25/16 22:59 11/26/16 05:55 Laboratory Results 11/26/16 05:20 11/26/16 05:20 11/25/16 11/26/16 11/27/16 05:59 05:59 05:59 Intake Total 5638.5 675 Output Total 3415 100 Balance 2223.5 575 PT 15.1 SEC (12.0-15.0) H 11/24/16 15:13 INR 1.19 (0.83-1.16) H 11/24/16 15:13 ICD10 Worksheet Patient Problems: Problems Problem Status Diagnosed Altered mental status Acute Pneumonia Acute Hypoxemia Acute Narcotic overdose Acute
[2016-11-26] MEDS ORDERED: POTASSIUM CL 10 MEQ TAB PO ONE ×2 (07:29→19:27)
[2016-11-26] MEDS: NS 1,000 ML IV SCH (08:45)
[2016-11-26] MEDS ORDERED: HYDROCHLOROTHIAZIDE PO SCH (09:00)
[2016-11-26] MEDS ORDERED: [UNRECOGNIZED DRUG - OTHER] PO SCH (09:00)
[2016-11-26] MEDS ORDERED: LISINOPRIL PO SCH (09:00)
[2016-11-26] MEDS: SERTRALINE HCL 100 MG TAB PO SCH (09:33)
[2016-11-26] MEDS: LISINOPRIL/HCTZ 10/12.5 MG 1 EA TAB PO SCH (09:34)
[2016-11-26] MEDS: FLUTICASONE/SALMETER 250/50MCG DISKUS IH SCH ×2 (10:04→21:55)
--- NOTE | 2016-11-26 12:51 | CPEKG ---
Heart Rate: 96 RR Interval: 625 P-R Interval: 200 QRSD Interval: 88 QT Interval: 368 QTC Interval: 465 P [place]: 52 QRS [place]: -3 T Wave [place]: 38 EKG Severity - NORMAL ECG - EKG Impression: SINUS RHYTHM Electronically Signed By: Benton Morgan 27-Nov-2016 07:40:52
--- NOTE | 2016-11-26 13:00 | GCON ---
[f rep st] CONSULTATION INFECTIOUS DISEASE CONSULTATION DATE OF CONSULTATION: 11/26/2016 REASON FOR CONSULTATION: Recurrent respiratory failure. HISTORY OF PRESENT ILLNESS: A 61-year-old woman with a past medical history of chronic respiratory failure with CO2 retention, morbid obesity, who has been admitted to the hospital 3 times in the last 4 months for respiratory failure. She was hospitalized from September 03 to , October 28 through , and was most recently admitted on the . Review of her arterial blood gases show initial CO2 retention which required intubation during the October hospitalization. Also during that hospitalization, she underwent BAL in which no pertinent pathogens were identified. Subsequent ER visit on November 11 where she underwent a CT/PE showed no focal infiltrates and no pulmonary embolus. 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 She reports a specific decline in health since 2005 and subsequently was unable to work. Her decline in health is attributed to diffuse, all-over body pain. She does endorse some recurrent episodes of bronchitis in childhood. Otherwise, she is not aware of recurrent infection. She does point out to surgical infections related to left total knee arthroplasty in 1995 and a right foot infection in 2004, but denies a history of MRSA. 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 Prior to these episodes with respiratory failure, she denies any prodrome or syndrome of fever, chills, malaise. She reports that they typically occur while she is sleeping and she has a rapid loss of consciousness for which her calls EMS. She denies dysphagia or trouble swallowing, or recent changes in her appetite. She notes 6 months ago that she had increasing troubles with her memory which she corresponds to initiation of gabapentin which was started in an effort to decrease her narcotics. She also complains of a yeast infection under her breasts and between her abdominal folds that has been difficult to manage and she uses Fraga's goo to manage at home. The patient's hospital course: Initially, patient presented with an ABG with a pH of 7.25, a pCO2 of 68, a PO2 of 111, with BiPAP and supportive care in the ICU. Initially, she had a significant leukocytosis with a white count of 17, 000 and a creatinine of 2.5. Both of these have improved to 11 and 0.7, respectively with supportive ICU care in short order. Chest x-ray imaging was without focal infiltrate. Blood cultures were obtained on admission and are growing 1/2 bacillus which is likely contaminant. Influenza PCR was negative. Currently, patient is on the telemetry floor on 4 L nasal cannula. Patient was transferred to the telemetry floor early this morning after being transferred to a general medical floor after an episode of SVT, diltiazem broke her episode. PAST MEDICAL HISTORY: Multiple episodes of respiratory failure, as per HPI, underlying asthma and pneumonia, presumed chronic respiratory failure with CO2 retention. She has never had a sleep study. Chronic pain with chronic narcotics, history of retinal artery occlusion, left total knee arthroplasty in 1997, right total knee arthroplasty, right foot surgery in 2004. FAMILY HISTORY: Positive for xerocytosis. SOCIAL HISTORY: She is a nonsmoker. No alcohol. She lives with her . She has adult children. They have a dog and a cat. She denies any specific TB exposures. She is not using a hot tub or steam room. No travel of any sort recently. REVIEW OF SYSTEMS: A complete 10-point review of systems was performed and is negative, except as mentioned in the HPI. ALLERGIES: Only antibiotic allergy is to sulfa. MEDICATIONS: The was given Solu-Medrol initially upon presentation and was started on levofloxacin IV daily (11/24) and Zosyn (11/24). She is on Excedrin , Norvasc 5 mg daily, Zyrtec, vitamin D, Flexeril, diltiazem, Neurontin 900 three times daily, lisinopril 2 mg daily, multivitamin daily, Singulair 10 mg daily, Zoloft 150 mg daily, Advair twice daily. PHYSICAL EXAM: VITAL SIGNS: Blood pressure 169/100, heart rate 105, respiratory rate 16, saturation 94% on room air, temperature 37.3, T-max 38. During prior hospitalizations, the patient was afebrile her entire course and, other than a low-grade temperature as above, has been afebrile here. GENERAL: This is a morbidly obese woman with fluent speech. No respiratory distress. HEENT: No conjunctival hemorrhages. Pupils are reactive. Oropharynx: She had good dentition, dry mucous membranes, no oral ulcerations or exudates. NECK : Supple. No lymphadenopathy. CARDIOVASCULAR: Distant heart sounds, tachycardia, no murmurs. CHEST: She had crackles in the right base and distant breath sounds throughout. ABDOMEN: Morbidly obese, soft, nontender. She had very scant intertrigo between her abdominal folds. : No Mars. EXTREMITIES: Trace lower extremity edema. No joint swelling. Obvious prior knee surgeries with well-healed scars. SKIN: No rashes. NEUROLOGICAL: She was alert and oriented x4. Moving all 4 extremities equally. LABS: Laboratory today: White count 11, hematocrit 33, platelets of 198. Creatinine 0.7. LFTs: AST 24, ALT 30, alkaline phosphatase 43, albumin 2.8. Imaging as per HPI. Microbiology as per HPI. ASSESSMENT AND PLAN: This is a 61-year-old woman with recurrent bouts of respiratory failure. Infectious Disease is consulted to comment on whether this was due to recurrent infection versus immune compromise. Current impression is that this could be multifactorial. Suspect that leading etiology is related to anatomic issues, specifically obstructive sleep apnea with underlying CAGE UNLOADER modifying drugs such as gabapentin and narcotics, but cannot completely rule out recurrent aspiration, immunoglobulin deficiency, or could be a combination of all of the above. 1. Current Respiratory failure with associated leukocytosis and acute renal failure consistent with sepsis. Notably no focal infiltrate on CXR. The patient was empirically and appropriately started on Zosyn and levofloxacin with acute resp failure. No specific organisms were isolated; therefore, will tailor antibiotics to levofloxacin alone for short course of 5 days. 2. Recurrent episodes of respiratory failure. The patient reports no prior sleep study. Certainly this would be an important component of the data evaluating patient's respiratory failure. Would recommend an esophagram to evaluate for asymptomatic aspiration, obtain immunoglobulin panel to evaluate for underlying immune deficiency and rule out HIV. Could also consider occult arrhythmia, defer further work up to primary team. 3. Blood cultures 1 of 2 positive for bacillus, likely contaminant, no directed therapy at this time. After all data is obtained, may have to reassess current CAGE UNLOADER modifying agents in this patient with obstructive sleep apnea. Thank you for this consultation. Will continue to follow along with you. /[id number]/MODL MTDD
[2016-11-26] MEDS: OMEGA-3 FATTY ACIDS 1,000 MG CAP PO SCH (14:29)
--- NOTE | 2016-11-26 15:35 | WOCRNPDOC ---
WOCRN Advanced Assessment Note - Skin Integrity Problem, Advanced Assess Bilateral Breast fold Intertrigo Dressing Type: Open to Air Exudate Amount: Scant Exudate Color: Clear Exudate Characteristic(s): Clear Integumentary Issue Intervention: Dressing Applied (--provided Interdry sheets with instructions for use and verbal education to patient and .) Marilin Wound Swelling: None Wound Bed Color: [place] Wound Bed Constitution: Smooth Tissue Site Odor: None Skin Integrity Problem Comment: Mild pink-redness with slightly moist, mostly intact folds at distal breasts. A thread-thin, 2cm wide open area is present at the right breast fold. Report to PARAG Lorenzo about Interdry sheets provided for patient use. Bilateral Pannus Intertrigo Dressing Type: Open to Air Exudate Amount: Scant Exudate Color: Clear Exudate Characteristic(s): Clear Integumentary Issue Intervention: Dressing Applied (--provided Interdry sheets with instructions for use and verbal education to patient and .) Marilin Wound Swelling: None Skin Integrity Problem Comment: Mild pink-redness with slightly moist, intact pannus folds. Report to PARAG Lorenzo about Interdry sheets provided for patient use.
[2016-11-26 18:57] LABS: POTASSIUM 3.3 mEq/L (3.5-5.2)
[2016-11-26] MEDS: amLODIPine BESYLATE 5 MG TAB PO SCH (21:28)
[2016-11-26] MEDS: MULTIVITAMINS 1 EACH TAB PO SCH (21:29)
[2016-11-26] MEDS: LISINOPRIL 20 MG TAB PO SCH (21:29)
[2016-11-26] MEDS: CHOLECALCIFEROL VIT D3 2,000 UNITS TAB/CAP PO SCH (21:29)
[2016-11-26] MEDS: MONTELUKAST SODIUM 10 MG TAB PO SCH (21:29)
[2016-11-27] MEDS: ONDANSETRON 4 MG/2 ML VIAL IVP PRN ×3 (02:51→20:12)
[2016-11-27] MEDS: PROMETHAZINE HCL 25 MG/ML INJ IVP PRN ×3 (03:51→21:03)
[2016-11-27 04:25] LABS: MAGNESIUM 1.7 mg/dL (1.6-2.3); POTASSIUM 3.5 mEq/L (3.5-5.2)
[2016-11-27] MEDS ORDERED: LORazepam 0.5 MG TAB PO PRN (06:07)
[2016-11-27] MEDS ORDERED: POTASSIUM CL 10 MEQ TAB PO ONE (07:12)
[2016-11-27] MEDS: DILTIAZEM 125 MG in D5W 125 ML IV SCH ×2 (07:31→22:57)
[2016-11-27] MEDS: LISINOPRIL/HCTZ 10/12.5 MG 1 EA TAB PO SCH (07:55)
[2016-11-27] MEDS: GABAPENTIN 300 MG CAP PO SCH ×3 (07:55→20:31)
[2016-11-27] MEDS: CYCLOBENZAPRINE 10 MG TAB PO SCH ×3 (07:55→20:31)
[2016-11-27] MEDS: POTASSIUM Cl (KCl) 50 ML IV SCH ×3 (08:07→10:15)
[2016-11-27] MEDS: FLUTICASONE/SALMETER 250/50MCG DISKUS IH SCH ×2 (08:31→21:21)
[2016-11-27] MEDS ORDERED: LORazepam 2 MG/ML INJ IVP ONE (10:21)
--- NOTE | 2016-11-27 10:23 | CPEKG ---
Heart Rate: 158 RR Interval: 380 QRSD Interval: 78 QT Interval: 304 QTC Interval: 493 QRS [place]: -1 T Wave [place]: 59 EKG Severity - ABNORMAL ECG - EKG Impression: atrial flutter with variable A-V block Electronically Signed By: Donovan Ruano 28-Nov-2016 17:23:26
--- NOTE | 2016-11-27 10:23 | HOSPPROG ---
Hospitalist Progress Note Assessment/Plan: DIAGNOSIS: # ATRIAL FLUTTER W RAPID RATE - ? also some VT on tele # WITHDRAWAL FROM NARCOTIC # ACUTE RESP FAILURE, PRIMARILY HYPERCARBIC REQUIRING BIPAP, LARGELY RESOLVED AT PRESENT # ACUTE FEVER WITH HYPOTENSION WITH ACUTE RENAL FAILURE - RESOLVED - diff dx includes septic shock and PE, other potential causes # ACUTE RENAL FAILURE - RESOLVED # ? ACUTE RESP INFECTION OR ASPIRATION # CHRONIC HYPERCARBIC/HYPOXEMIC RESP FAILURE/OBESITY HYPOVENTILATION SYNDROME, ? GRICEL # CPS with chronic prescirbed narcotics PLANS: -increase ativan now; will add some narcotic analgesic and as nausea resolves begin her back on po -will discuss w cardiology, consider amio if does not convert and to assess for ? VT (she had EF 65 in August) -add lovenox -B lyn now for rate control and will likely try to wean off dilt drip today -will stop levaquin with the arrythmias -she should have a sleep study; this was prevoiusly scheduled as outpt, but she had cancelled it; we have reviewed need for this study w pt and SUBJECTIVE: overnight developed abd pain, nausea, vomiting, diarrhea with higher BPs and pulse not sob, still using O2 has been given clonidine and very small dose of ativan w minor benefit OBJECTIVE Vitals reviewed: pulse variable mostly 130s but faster at times; no response high dose diltiazem drip but now < 110 after metoprolol; some HTN, no fever, resps ok night monitor, my personal review: rapid atrial flutter Exam: alert oriented, mildly anxious skin warm dry color ok resps not labored lungs clear BSs heart regular abd soft nondistended nontender, bowel sounds present limbs warm, no edema iv site ok Objective: Vital Signs Temp Pulse Resp BP Pulse Ox 97.6 C H 140 H 19 173/125 H 94 11/27/16 10:06 11/27/16 10:06 11/27/16 07:37 11/27/16 10:06 11/27/16 07:37 Laboratory Results 11/26/16 05:20 11/27/16 04:00 11/26/16 11/27/16 11/28/16 06:59 06:59 06:59 Intake Total 675 1981 Output Total 100 1156 Balance 575 825 PT 15.1 SEC (12.0-15.0) H 11/24/16 15:13 INR 1.19 (0.83-1.16) H 11/24/16 15:13 ICD10 Worksheet Patient Problems: Problems Problem Status Diagnosed Altered mental status Acute Pneumonia Acute Hypoxemia Acute Narcotic overdose Acute
[2016-11-27] MEDS: SERTRALINE HCL 100 MG TAB PO SCH (10:26)
[2016-11-27] MEDS ORDERED: MAGNESIUM SULF 1 GM/DEXTROSE 100 ML IV ONE (10:28)
[2016-11-27] MEDS ORDERED: METOPROLOL TARTRATE 5 MG/5 ML INJ IVP ONE (11:00)
[2016-11-27] MEDS: ENOXAPARIN 120 MG/0.8 ML SYR SC SCH ×2 (12:26→20:25)
--- NOTE | 2016-11-27 13:43 | GCON ---
[f rep st] CONSULTATION CARDIAC CONSULTATION DATE OF CONSULTATION: 11/27/2016 REASON: Atrial tachycardia, possibly ventricular tachycardia. HISTORY OF PRESENT ILLNESS: This is a 61-year-old female who was admitted on November 24, 2016 with a history of altered mental status and acute respiratory failure. She had similar presentation approx imately 1 month ago. There is a question of infectious etiology as well. She has a long history of narcotic use. She had a cervical neck fusion and apparently sees Dr. Morales as a chronic pain specia list. She may have recently been placed on Levaquin as well. Additionally, she has a history of sleep apnea by overnight pulse oximetry. She has not had a formal sleep study or CPAP in the past, which she says. At this time, she is alert and oriented. She apparently required BiPAP and Narcan on admission for a rousal. Apparently, bronchoscopy did not show any significant plugging. She was on BiPAP and in the ICU. She has subsequently been transferred to the floor. At this point, she seems to be maintaining normal sinus rhythm, but has periods of definite 2:1 atria l flutter, which she denies any symptoms of when she was at home, or prior knowledge of any atrial ar rhythmias. There are some wider complex arrhythmias suspicious for possible ventricular tachycardia versus SVT with aberrancy. An echocardiogram done in August of this past year was normal. In reviewing her labs, her magnesium is 1.7, her potassium is 3.5. She was on Levaquin, which was discontinued. In looking at old EKGs, I found the QT of 459. In speaking to her, she has had no known history of coronary artery disease, any syncope. No clear C HF, although she is on oxygen and most likely has significant respiratory issues. MEDICATIONS: Her outpatient meds on this admission, included Lasix, lisinopril, amlodipine, Zoloft, multiple pain medications and pulmonary medicines as well. At this point, she is complaining of "flu-like" syndromes of unknown etiology. Other review of her show her white count initially was 17,000, not it is 11,000. She has a mild left shift. Chemistries: Sodium was 145, creatinine was 0.7. SOCIAL HISTORY: The patient lives at home with her . Apparently, according to her, she has a n "active life" taking care of her dogs. She recently was placed on oxygen. Unclear of her complian ce with that. She is a nonsmoker. She does not abuse alcohol. FAMILY HISTORY: Noncontributory. PHYSICAL EXAM: VITAL SIGNS: Blood pressure is hypertensive at 160/104, pulse at this point is regul ar in the 80s (she has had higher pulse rates when she is in atrial arrhythmias). Her ins and outs a re positive, 825 mL. GENERAL: She is a middle-aged female who is in no acute distress, lying flat. She is obese. She is alert and oriented x3. LUNGS: Were clear anteriorly. No wheezing or cough. CARDIOVASCULAR: Regular rate and rhythm. ABDOMEN: Was nontender. MUSCULOSKELETAL: Showed no carolin ma. She had good peripheral pulses. ASSESSMENT AND PLAN: 1. Atrial arrhythmias, clearly could be influenced by acute respiratory issue as well as probable un treated sleep apnea. At this point, I agree with Lovenox and would initiate Coumadin at this time. She has no active bleeding by history and does not appear at high risk for falls. I think it will be important to evaluate this woman not only in the hospital setting, but as an outpatient to assess th e chronicity of these arrhythmias. She understands, accepts and wishes to proceed with the risk of Ted ac. Echocardiogram in August was essentially normal, with normal LV function. 2. Wide-complex tachycardia, unclear if it is ventricular tachycardia or atrial tachycardia with chloe rrancy. At this point, will make sure that her potassium is kept greater than 4, magnesium greater t cuellar 2. I would stay away from QT prolonging drugs, such as quinolones. Would continue to monitor wh ile in the hospital. She has been given beta blockers, by Dr. Davis and seems to be tolerating thes e well. I would continue the beta blockers not only for potential arrhythmias, but also for hyperten malcolm control. 3. Hypertension. The patient is currently on amlodipine, diltiazem p.r.n. and lisinopril. Beta blo ckers will be given per Dr. Davis as needed. 4. Probable obstructive sleep apnea. This will need to be addressed with an outpatient formal sleep study. Apparently she has seen Dr. Collado in the past, so hopefully this can be done sooner rather than later. 5. Chronic narcotic use. Obviously needs to be closely monitored given her pain situation. At this point, she claims not to take extra medicines. However, she has had 2 hospitalizations with altered mental status in the last month. We will continue to follow the patient in the hospital and make recommendations depending on her clin ical course. /[id number]/MODL
[2016-11-27] MEDS: OMEGA-3 FATTY ACIDS 1,000 MG CAP PO SCH (15:31)
[2016-11-27] MEDS: WARFARIN SODIUM 5 MG TAB PO SCH (15:38)
[2016-11-27] MEDS: ALTEPLASE 2 MG VIAL IVP PRN (17:33)
[2016-11-27] MEDS: METOPROLOL TARTRATE 5 MG/5 ML INJ IVP SCH ×2 (17:40→23:02)
--- NOTE | 2016-11-27 18:14 | PCMIDPN ---
Assessment/Plan: Assessment: episodic presentations of mental status changes and respiratory distress with elements of inflammation -- high lactate levels and hemodynamic instability -- however this state is relatively short lived and no pathogen recovered. Nor does there appear to be any clear source site of infection - no UTI, pneumonia, GI or abdominal source. Odd sequence of presentation and quick recovery for this to be bacterial or viral. 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 She has ongoing severe cervical spine pain and has had numerous fixation procedures. Wonder if there is any possibility of fat emboli periodically being liberated either from cervical vertebrae or from her B knee replacement tibial or femoral stem interface that may explain STATION ENGINEER and pulmonary findings with inflammation but without a bacterial pathogen. Would recommend imaging of her cervical spine hardware as well a baseline brain MRI with gadolinium. She may be too far out from presentation on this event to find embolic FLAIR signs, but there is high chance this happens again given recent history. Plan: 1) No antibiotics. 2) Brain MRI with gadolinium. 3) C-spine imaging - CT probably. 11/28/16 00:03 Subjective: Patient quite sleepy. Resting comfortably. Spoke mostly with her who is present at bedside. No fevers. He states episodes start with amlaise and fatigue for about 8 hours, then progress to STATION ENGINEER/word finding issues, and then ultimately to respiratory distress. Objective: no abx (removed FQ due to arrhythmia) Vital Signs Temp Pulse Resp BP Pulse Ox 36.4 C 96 20 173/106 H 92 11/27/16 16:20 11/27/16 17:49 11/27/16 16:20 11/27/16 17:49 11/27/16 16:20 Laboratory Results 11/26/16 05:20 11/27/16 04:00 11/26/16 11/27/16 11/28/16 05:59 05:59 05:59 Intake Total 675 1981 Output Total 100 1156 Balance 575 825 - Physical Exam General Appearance: WD/WN, alert, obese, non-toxic, No no apparent distress Respiratory: lungs clear, normal breath sounds, No respiratory distress Cardiac/Chest: regular rate, rhythm, No tachycardia Skin: normal color, warm/dry, No rash Neuro/Psych: alert ICD10 Worksheet Patient Problems: Problems Problem Status Diagnosed Altered mental status Acute Pneumonia Acute Hypoxemia Acute Narcotic overdose Acute
[2016-11-27] MEDS: NS 1,000 ML IV SCH (19:04)
[2016-11-27] MEDS: LORazepam 2 MG/ML INJ IVP PRN (20:12)
[2016-11-27 20:24] LABS: POTASSIUM 3.9 mEq/L (3.5-5.2)
[2016-11-27] MEDS: amLODIPine BESYLATE 5 MG TAB PO SCH (20:31)
[2016-11-27] MEDS: MONTELUKAST SODIUM 10 MG TAB PO SCH (20:31)
[2016-11-27] MEDS: LISINOPRIL 20 MG TAB PO SCH (20:31)
[2016-11-27] MEDS ORDERED: POTASSIUM Cl (KCl) 50 ML IV ONE (20:59)
[2016-11-27] MEDS: MULTIVITAMINS 1 EACH TAB PO SCH (21:44)
[2016-11-27] MEDS: CHOLECALCIFEROL VIT D3 2,000 UNITS TAB/CAP PO SCH (21:44)
[2016-11-28] MEDS: NS 1,000 ML IV SCH (03:33)
[2016-11-28] MEDS: LORazepam 2 MG/ML INJ IVP PRN ×2 (03:34→13:26)
[2016-11-28 04:00] LABS: INR 1.31 (0.83-1.16); PROTIME(PATIENT) 16.3 SEC (12.0-15.0)
[2016-11-28 04:05] LABS: MAGNESIUM 1.7 mg/dL (1.6-2.3); POTASSIUM 3.3 mEq/L (3.5-5.2)
[2016-11-28] MEDS: METOPROLOL TARTRATE 5 MG/5 ML INJ IVP SCH ×3 (06:31→19:23)
[2016-11-28] MEDS ORDERED: MAGNESIUM SULF 1 GM/DEXTROSE 100 ML IV ONE (06:34)
[2016-11-28] MEDS: DILTIAZEM 125 MG in D5W 125 ML IV SCH (08:00)
--- NOTE | 2016-11-28 08:41 | CPEKG ---
Heart Rate: 171 RR Interval: 351 QRSD Interval: 80 QT Interval: 268 QTC Interval: 452 QRS [place]: 7 T Wave [place]: 154 EKG Severity - ABNORMAL ECG - EKG Impression: ATRIAL FIBRILLATION WITH RAPID V-RATE EKG Impression: REPOLARIZATION ABNORMALITY, PROB RATE RELATED Electronically Signed By: Tito Langley 28-Nov-2016 13:44:26
[2016-11-28] MEDS: POTASSIUM Cl (KCl) 50 ML IV SCH ×3 (09:27→12:24)
--- NOTE | 2016-11-28 09:42 | SOAPPROG ---
SUSSY Progress Note Assessment/Plan: Assessment:1. p afib...now in nsr....probably multifactorial ..now in nsr..would coumadinize and pt will need 30 day moniter upon d/c 2. htn..restart home b/p meds when taking po hopefully today 3. ? VT may have been due to PICC line irritation..keep electrolytes replaced 4 mike..needs formal sleep study as out pt Plan:1. as ordered 11/28/16 09:42 Subjective: pt feeling better today...PICC line may have been irritating RA and causing some of the arrhythmias..she in in NSR now...none the less she will need coumadin for atrial flutter...when she is taking po we can wean off the dilt drip Objective: Vital Signs Temp Pulse Resp BP Pulse Ox 37.1 C 82 18 129/81 H 92 11/28/16 08:00 11/28/16 08:00 11/28/16 08:00 11/28/16 08:00 11/28/16 08:00 Laboratory Results 11/26/16 05:20 11/28/16 03:35 11/27/16 11/28/16 11/29/16 05:59 05:59 05:59 Intake Total 1981 2975 Output Total 1156 300 Balance 825 2675 PT 16.3 SEC (12.0-15.0) H 11/28/16 03:35 INR 1.31 (0.83-1.16) H 11/28/16 03:35 Physical Exam - Physical Exam Respiratory: lungs clear Cardiac/Chest: normal peripheral pulses, regular rate, rhythm, No edema ICD10 Worksheet Patient Problems: Problems Problem Status Diagnosed Altered mental status Acute Pneumonia Acute Hypoxemia Acute Narcotic overdose Acute
[2016-11-28] MEDS: SERTRALINE HCL 100 MG TAB PO SCH (10:35)
[2016-11-28] MEDS: ENOXAPARIN 120 MG/0.8 ML SYR SC SCH ×2 (10:35→19:51)
[2016-11-28] MEDS: LISINOPRIL/HCTZ 10/12.5 MG 1 EA TAB PO SCH (10:35)
[2016-11-28] MEDS: GABAPENTIN 300 MG CAP PO SCH ×3 (10:36→19:55)
[2016-11-28] MEDS: CYCLOBENZAPRINE 10 MG TAB PO SCH ×3 (10:36→19:54)
[2016-11-28] MEDS: ONDANSETRON 4 MG/2 ML VIAL IVP PRN (10:46)
[2016-11-28] MEDS: FLUTICASONE/SALMETER 250/50MCG DISKUS IH SCH ×2 (12:31→21:36)
[2016-11-28] MEDS ORDERED: MAGNESIUM SULF 1 GM/DEXTROSE 100 ML BAG IV ONE (15:09)
[2016-11-28 16:47] LABS: IMMUNOGLOBULIN A 118 mg/dL (61 - 356); IMMUNOGLOBULIN G 588 mg/dL (767 - 1590); IMMUNOGLOBULIN M 80 mg/dL (37 - 286)
[2016-11-28] MEDS: OMEGA-3 FATTY ACIDS 1,000 MG CAP PO SCH (17:20)
[2016-11-28] MEDS: WARFARIN SODIUM 5 MG TAB PO SCH (17:21)
--- NOTE | 2016-11-28 19:07 | HOSPPROG ---
Hospitalist Progress Note Assessment/Plan: HOSPITAL SUMMARY: This is the 3rd recent hospitalization for this patient with a very similar story which appears acute respiratory failure with a syndrome that looks like sepsis both with rapid recovery from that sepsis with brief resuscitation and with no evidence of a diagnosed infection. As we refer retrospectively look at her picture it is suspected that was actually happening is a woman with obesity hypoventilation syndrome and CO2 retention and likely sleep apnea is taking chronic prescribe narcotics for pain syndrome. It is suspected that the narcotics induce increased CO2 retention which leads to a CO2 narcosis decreasing further her respirations which leads to obtundation and acute respiratory failure with a hypercarbic state. She does have a diagnosis of chronic respiratory failure from obesity hypoventilation syndrome. She has been set up for outpatient sleep apnea testing but this has not occurred yet. This hospitalization started with obtundation dyspnea but normal vital signs including blood pressure and temperature which brought her here from hospital. She was treated with BiPAP and this did improve things. However in the ER she did develop fever and hypotension. It is now suspected that this may have been either from aspiration but we have not specifically found any other organism or specific infection. She had a dramatic improvement in what was profound hypotension, respiratory suppression, and renal failure in a very short time of 12 hours overnight. Since then her hospital stay has been complicated in other ways. Initially the patient developed some atrial fibrillation/flutter and she is now on rate control with beta-lyn for that and also on anticoagulation. It is unclear whether this is something she will have in the future as it may have just been triggered by her severe illness. She is currently in sinus rhythm and has converted from atrial flutter spontaneously after several episodes of atrial flutter. She has no prior history of palpitations syncope or arrhythmia. In addition here she had ventricular tachycardia and this actually appears to have been caused by the tip of the PICC catheter advanced into the inferior right atrial appendage. The ventricular tachycardia appears to have stopped as we have pulled back on the catheter. As she did have Levaquin prescribed initially we have stopped the Levaquin in part because of the arrhythmia but also in part is it did not appear to be further indicated. At this time she is remaining in a sinus rhythm. Additionally the patient, given the above scenario, had desire to not take further narcotics. She had originally been prescribed OxyContin 40 twice daily as an outpatient along with some short-acting and she had herself cut this back to 20 mg twice daily with less short-acting medicine. Here without any narcotic she did start to develop some narcotic withdrawal which required briefly treatment with some Ativan, clonidine, and some IV narcotics. She is now not in withdrawal and able to eat and drink well so we are starting her back on a lower dose of 15 mg twice daily OxyContin without short-acting oral medicine. She would desire to attempt going home on 10 mg twice daily if she does well on the 15 here. DIAGNOSIS: # ATRIAL FLUTTER W RAPID RATE - spontaneously converted to sinus # VENTRICULAR TACHYCARDIA CAUSED BY PICC CATHETER IN LOW RIGHT ATRIUM, RESOLVED WITH 5 CM WITHDRAWAL OF THE PICC CATHETER # WITHDRAWAL FROM NARCOTIC RESOLVED # ACUTE ON CHRONIC RESP FAILURE, PRIMARILY HYPERCARBIC REQUIRING BIPAP, LARGELY RESOLVED AT PRESENT # ACUTE FEVER WITH HYPOTENSION WITH ACUTE RENAL FAILURE - RESOLVED # ACUTE RENAL FAILURE - RESOLVED # CHRONIC HYPERCARBIC/HYPOXEMIC RESP FAILURE/OBESITY HYPOVENTILATION SYNDROME, SUSPECTED GRICEL # CPS with chronic prescirbed narcotics; PATIENT AT THIS TIME DESIRES TO CONTINUE TAPERING SLOWLY OFF OF HER CHRONIC NARCOTICS WHICH SHE HAD STARTED PREVIOUSLY AT HOME PLANS: -start her on a lower dose of OxyContin 15 mg twice daily -continue on potline monitor overnight -continue beta-lyn and lovenox for AFib; cardiology intense to send her with a potline monitor at home to see how much AFib she is having determine what treatment need to be continued -she should have an outpatient sleep study; this was prevoiusly scheduled as outpt, but she had cancelled it; we have reviewed need for this study w pt and and she is very interested in getting the study done If the patient does well overnight it is anticipated she may be able to go home on November 29 or depending on her cardiac rhythm issues SUBJECTIVE: Doing much better now without nausea and with not more than her usual abdominal pain. She is eating now. She is voiding her bladder significantly better now OBJECTIVE Vitals reviewed: Current Ras stable with sinus rhythm pulse in the 80s, no fever air sampling and monitoring, my personal review: Sinus rhythm is recurrent rhythm this evening. This morning she was still having ventricular tachycardia in fact increasingly frequently in longer runs. However is noted by nurses that she had this much more prominently when lying on her right side and it disappeared when she lay on her left side. We reviewed her chest x-ray which showed her PICC catheter tip in the low right atrium. The V-tach seems to have stopped as we have pulled the catheter back 5 cm. Exam: alert oriented, mildly anxious skin warm dry color ok resps not labored lungs clear BSs heart regular abd soft nondistended nontender, bowel sounds present limbs warm, no edema iv site ok Objective: Vital Signs Temp Pulse Resp BP Pulse Ox 37.1 C 85 18 151/92 H 95 11/28/16 16:00 11/28/16 16:00 11/28/16 16:00 11/28/16 16:00 11/28/16 16:00 Laboratory Results 11/26/16 05:20 11/28/16 03:35 11/27/16 11/28/16 11/29/16 06:59 06:59 06:59 Intake Total 1981 2975 Output Total 1156 300 Balance 825 2675 PT 16.3 SEC (12.0-15.0) H 11/28/16 03:35 INR 1.31 (0.83-1.16) H 11/28/16 03:35 ICD10 Worksheet Patient Problems: Problems Problem Status Diagnosed Altered mental status Acute Pneumonia Acute Hypoxemia Acute Narcotic overdose Acute
[2016-11-28] MEDS: LISINOPRIL 20 MG TAB PO SCH (19:53)
[2016-11-28] MEDS: METOPROLOL TARTRATE 25 MG TAB PO SCH (19:53)
[2016-11-28] MEDS: MULTIVITAMINS 1 EACH TAB PO SCH (19:54)
[2016-11-28] MEDS: CHOLECALCIFEROL VIT D3 2,000 UNITS TAB/CAP PO SCH (19:54)
[2016-11-28] MEDS: guaiFENesin 600 MG TAB.ER PO SCH (19:54)
[2016-11-28] MEDS: MONTELUKAST SODIUM 10 MG TAB PO SCH (19:55)
[2016-11-28] MEDS: amLODIPine BESYLATE 5 MG TAB PO SCH (19:55)
[2016-11-28 20:03] LABS: POTASSIUM 3.3 mEq/L (3.5-5.2)
[2016-11-28] MEDS: oxyCODONE CR 15 MG TAB PO SCH (22:03)
[2016-11-29] MEDS ORDERED: POTASSIUM CL 10 MEQ TAB PO ONE ×3 (00:29→19:56)
[2016-11-29] MEDS: PROMETHAZINE HCL 25 MG/ML INJ IVP PRN ×2 (01:00→08:29)
[2016-11-29] MEDS: CYCLOBENZAPRINE 10 MG TAB PO SCH ×3 (06:00→20:53)
[2016-11-29] MEDS: GABAPENTIN 300 MG CAP PO SCH ×3 (06:00→20:55)
[2016-11-29 06:30] LABS: INR 3.2 (0.83-1.16); PROTIME(PATIENT) 33.2 SEC (12.0-15.0)
[2016-11-29 06:39] LABS: MAGNESIUM 1.8 mg/dL (1.6-2.3); POTASSIUM 3.3 mEq/L (3.5-5.2)
[2016-11-29] MEDS ORDERED: MAGNESIUM SULF 1 GM/DEXTROSE 100 ML IV ONE (07:38)
[2016-11-29] MEDS: ENOXAPARIN 120 MG/0.8 ML SYR SC SCH (08:36)
[2016-11-29] MEDS: SERTRALINE HCL 100 MG TAB PO SCH (09:33)
[2016-11-29] MEDS: LISINOPRIL/HCTZ 10/12.5 MG 1 EA TAB PO SCH (09:33)
[2016-11-29] MEDS: oxyCODONE CR 15 MG TAB PO SCH ×2 (09:34→20:54)
[2016-11-29] MEDS: guaiFENesin 600 MG TAB.ER PO SCH ×2 (09:34→20:58)
[2016-11-29] MEDS: METOPROLOL TARTRATE 25 MG TAB PO SCH (09:34)
[2016-11-29] MEDS: FLUTICASONE/SALMETER 250/50MCG DISKUS IH SCH ×2 (09:46→22:15)
--- NOTE | 2016-11-29 09:48 | SOAPPROG ---
SUSSY Progress Note Assessment/Plan: Assessment:1. p afib...now in nsr....probably multifactorial ..now in nsr..would coumadinize and pt will need 30 day moniter upon d/c 2. htn..restart home b/p meds ..b/p stil high will change metoprolo to labetolol 100 mg po bid and titrate as needed 3. ? VT may have been due to PICC line irritation..keep electrolytes replaced..no VT since picc line adjustments 4 mike..needs formal sleep study as out pt Plan:1. as ordered 11/28/16 09:42 11/29/16 09:47 Subjective: pt without any further arrthymias since pulling back PICC line....diarrhea continues wit low k and mg Objective: Vital Signs Temp Pulse Resp BP Pulse Ox 37.3 C 102 H 18 168/104 H 92 11/29/16 07:47 11/29/16 07:47 11/29/16 07:47 11/29/16 07:47 11/29/16 07:47 Laboratory Results 11/26/16 05:20 11/29/16 06:00 11/28/16 11/29/16 11/30/16 05:59 05:59 05:59 Intake Total 2975 2886 Output Total 300 300 Balance 2675 2586 PT 33.2 SEC (12.0-15.0) H D 11/29/16 06:00 INR 3.20 (0.83-1.16) H 11/29/16 06:00 Physical Exam - Physical Exam Respiratory: lungs clear Cardiac/Chest: normal peripheral pulses, regular rate, rhythm, No edema ICD10 Worksheet Patient Problems: Problems Problem Status Diagnosed Altered mental status Acute Pneumonia Acute Hypoxemia Acute Narcotic overdose Acute
[2016-11-29] MEDS: LABETALOL HCL 100 MG TAB PO SCH ×2 (10:30→20:59)
[2016-11-29] MEDS: OMEGA-3 FATTY ACIDS 1,000 MG CAP PO SCH (13:15)
[2016-11-29] MEDS: LOPERAMIDE HCL 2 MG CAP PO PRN ×2 (17:15→21:19)
[2016-11-29] MEDS: HYDROCODONE/APAP 10/325 TAB PO PRN (17:15)
[2016-11-29] MEDS: WARFARIN SODIUM 5 MG TAB PO SCH (17:16)
--- NOTE | 2016-11-29 17:17 | HOSPPROG ---
Hospitalist Progress Note Assessment/Plan: * new a flutter * back in sinus * will need anticoagulation outpatient * ventricular tachycardia * due to PICC line placement * resolved with pulling PICC back * acute fever with hypertension and acute on chronic respiratory failure * suspecting aspiration from narcotics along with untreated obstructive sleep apnea * off antibiotics * probable obstructive sleep apnea * will need sleep study * acute diarrhea * off antibiotics * C diff negative * will try some Imodium * chronic pain * slowly tapering medications # ATRIAL FLUTTER W RAPID RATE - spontaneously converted to sinus # VENTRICULAR TACHYCARDIA CAUSED BY PICC CATHETER IN LOW RIGHT ATRIUM, RESOLVED WITH 5 CM WITHDRAWAL OF THE PICC CATHETER # WITHDRAWAL FROM NARCOTIC RESOLVED # ACUTE ON CHRONIC RESP FAILURE, PRIMARILY HYPERCARBIC REQUIRING BIPAP, LARGELY RESOLVED AT PRESENT # ACUTE FEVER WITH HYPOTENSION WITH ACUTE RENAL FAILURE - RESOLVED # ACUTE RENAL FAILURE - RESOLVED # CHRONIC HYPERCARBIC/HYPOXEMIC RESP FAILURE/OBESITY HYPOVENTILATION SYNDROME, SUSPECTED GRICEL # CPS with chronic prescirbed narcotics; PATIENT AT THIS TIME DESIRES TO CONTINUE TAPERING SLOWLY OFF OF HER CHRONIC NARCOTICS WHICH SHE HAD STARTED PREVIOUSLY AT HOME Objective: Vital Signs Temp Pulse Resp BP Pulse Ox 36.9 C 79 16 154/94 H 96 11/29/16 15:13 11/29/16 15:13 11/29/16 15:13 11/29/16 15:13 11/29/16 15:13 Laboratory Results 11/26/16 05:20 11/29/16 06:00 11/28/16 11/29/16 11/30/16 05:59 05:59 05:59 Intake Total 2975 2886 Output Total 300 300 Balance 2675 2586 PT 33.2 SEC (12.0-15.0) H D 11/29/16 06:00 INR 3.20 (0.83-1.16) H 11/29/16 06:00 ICD10 Worksheet Patient Problems: Problems Problem Status Diagnosed Altered mental status Acute Pneumonia Acute Hypoxemia Acute Narcotic overdose Acute
[2016-11-29 18:37] LABS: POTASSIUM 2.9 mEq/L (3.5-5.2)
[2016-11-29] MEDS: CHOLECALCIFEROL VIT D3 2,000 UNITS TAB/CAP PO SCH (20:53)
[2016-11-29] MEDS: MULTIVITAMINS 1 EACH TAB PO SCH (20:53)
[2016-11-29] MEDS: amLODIPine BESYLATE 5 MG TAB PO SCH (20:55)
[2016-11-29] MEDS: MONTELUKAST SODIUM 10 MG TAB PO SCH (20:56)
[2016-11-29] MEDS: LISINOPRIL 20 MG TAB PO SCH (20:56)
[2016-11-29] MEDS: LORazepam 2 MG/ML INJ IVP PRN (21:20)
[2016-11-30] MEDS: GABAPENTIN 300 MG CAP PO SCH ×3 (06:07→21:32)
[2016-11-30] MEDS: CYCLOBENZAPRINE 10 MG TAB PO SCH ×3 (06:07→21:28)
[2016-11-30 06:23] LABS: INR 3.8 (0.83-1.16); PROTIME(PATIENT) 38.1 SEC (12.0-15.0)
[2016-11-30 06:36] LABS: MAGNESIUM 1.7 mg/dL (1.6-2.3); POTASSIUM 3.6 mEq/L (3.5-5.2)
[2016-11-30] MEDS ORDERED: POTASSIUM CL 10 MEQ TAB PO ONE ×2 (06:42→10:00)
[2016-11-30] MEDS ORDERED: MAGNESIUM SULF 1 GM/DEXTROSE 100 ML IV ONE (08:13)
[2016-11-30] MEDS: SERTRALINE HCL 100 MG TAB PO SCH (09:40)
[2016-11-30] MEDS: LOPERAMIDE HCL 2 MG CAP PO PRN ×2 (09:40→21:27)
[2016-11-30] MEDS: LABETALOL HCL 100 MG TAB PO SCH (09:41)
[2016-11-30] MEDS: LISINOPRIL/HCTZ 10/12.5 MG 1 EA TAB PO SCH (09:41)
[2016-11-30] MEDS: oxyCODONE CR 15 MG TAB PO SCH (09:41)
[2016-11-30] MEDS: guaiFENesin 600 MG TAB.ER PO SCH ×2 (09:41→21:34)
--- NOTE | 2016-11-30 09:58 | SOAPPROG ---
SOAP Progress Note Assessment/Plan: Assessment:1. p afib...now in nsr....probably multifactorial ..now in nsr..would coumadinize and pt will need 30 day moniter upon d/c 2. htn..restart home b/p meds ..b/p stil high will increase labetolol to 200 mg bid 3. ? VT may have been due to PICC line irritation..keep electrolytes replaced..no VT since picc line adjustments 4 mike..needs formal sleep study as out pt Plan:1. as ordered 11/28/16 09:42 11/29/16 09:47 11/30/16 09:57 Subjective: feeling better today..b/p still high..i.o for the last few days Objective: Vital Signs Temp Pulse Resp BP Pulse Ox 37.2 C 89 14 170/100 H 92 11/30/16 07:50 11/30/16 07:50 11/30/16 07:50 11/30/16 07:50 11/30/16 07:50 Laboratory Results 11/26/16 05:20 11/30/16 06:00 11/29/16 11/30/16 12/01/16 05:59 05:59 05:59 Intake Total 2886 1765 975 Output Total 300 1200 600 Balance 2586 565 375 PT 38.1 SEC (12.0-15.0) H 11/30/16 06:00 INR 3.80 (0.83-1.16) H 11/30/16 06:00 Physical Exam - Physical Exam Respiratory: lungs clear ICD10 Worksheet Patient Problems: Problems Problem Status Diagnosed Altered mental status Acute Pneumonia Acute Hypoxemia Acute Narcotic overdose Acute
[2016-11-30] MEDS ORDERED: LABETALOL HCL 100 MG TAB PO ONE (10:00)
[2016-11-30] MEDS: FLUTICASONE/SALMETER 250/50MCG DISKUS IH SCH ×2 (10:07→20:37)
[2016-11-30] MEDS: OMEGA-3 FATTY ACIDS 1,000 MG CAP PO SCH (13:26)
--- NOTE | 2016-11-30 16:30 | HOSPPROG ---
Hospitalist Progress Note Assessment/Plan: * new a flutter * back in sinus * will need anticoagulation outpatient * ventricular tachycardia * due to PICC line placement * resolved with pulling PICC back * acute fever with hypertension and acute on chronic respiratory failure * off antibiotics * discussed with Infectious Disease. Some suspicion of intermittent fat embolization. They are requesting baseline MRI of head and neck with and without contrast and repeating S if she comes back again with similar symptoms * probable obstructive sleep apnea * will need sleep study * acute diarrhea * off antibiotics * C diff negative * will try some Imodium * chronic pain * slowly tapering medications * requesting to increase OxyContin back to 20 mg Subjective: diarrhea is better. Is feeling better overall. Does have a headache. Also with neck pain Objective: Vital Signs Temp Pulse Resp BP Pulse Ox 36.8 C 86 20 122/102 H 96 11/30/16 12:00 11/30/16 12:00 11/30/16 12:00 11/30/16 12:00 11/30/16 12:00 Laboratory Results 11/26/16 05:20 11/30/16 06:00 11/29/16 11/30/16 12/01/16 05:59 05:59 05:59 Intake Total 2886 1765 1889 Output Total 300 1200 600 Balance 2586 565 1289 PT 38.1 SEC (12.0-15.0) H 11/30/16 06:00 INR 3.80 (0.83-1.16) H 11/30/16 06:00 - Physical Exam Constitutional: no apparent distress, appears nourished, not in pain Eyes: anicteric sclera, EOMI Ears, Nose, Mouth, Throat: moist mucous membranes, hearing normal, ears appear normal Cardiovascular: regular rate and rhythym, no murmur, rub, or gallop Respiratory: no respiratory distress, no rales or rhonchi, clear to auscultation Gastrointestinal: normoactive bowel sounds, soft, non-tender abdomen, no palpable masses Skin: warm Neurologic: AAOx3 Psychiatric: interacting appropriately, not anxious, not encephalopathic, thought process linear ICD10 Worksheet Patient Problems: Problems Problem Status Diagnosed Altered mental status Acute Pneumonia Acute Hypoxemia Acute Narcotic overdose Acute
[2016-11-30 19:37] LABS: POTASSIUM 3.5 mEq/L (3.5-5.2)
[2016-11-30] MEDS ORDERED: POTASSIUM CL 20 MEQ TAB PO ONE (20:58)
[2016-11-30] MEDS: amLODIPine BESYLATE 5 MG TAB PO SCH (21:28)
[2016-11-30] MEDS: LISINOPRIL 20 MG TAB PO SCH (21:30)
[2016-11-30] MEDS: LABETALOL HCL 200 MG TAB PO SCH (21:31)
[2016-11-30] MEDS: MONTELUKAST SODIUM 10 MG TAB PO SCH (21:32)
[2016-11-30] MEDS: CHOLECALCIFEROL VIT D3 2,000 UNITS TAB/CAP PO SCH (21:34)
[2016-11-30] MEDS: MULTIVITAMINS 1 EACH TAB PO SCH (21:34)
[2016-12-01] MEDS: LOPERAMIDE HCL 2 MG CAP PO PRN ×2 (01:49→14:22)
[2016-12-01] MEDS: LABETALOL HCL 200 MG TAB PO SCH ×2 (05:55→22:09)
[2016-12-01] MEDS: CYCLOBENZAPRINE 10 MG TAB PO SCH ×3 (05:56→22:10)
[2016-12-01] MEDS: GABAPENTIN 300 MG CAP PO SCH ×3 (05:56→22:09)
[2016-12-01 06:37] LABS: MAGNESIUM 1.8 mg/dL (1.6-2.3); POTASSIUM 3.5 mEq/L (3.5-5.2)
[2016-12-01 06:55] LABS: INR 2.71 (0.83-1.16); PROTIME(PATIENT) 29.1 SEC (12.0-15.0)
[2016-12-01] MEDS ORDERED: POTASSIUM CL 10 MEQ TAB PO ONE (07:04)
[2016-12-01] MEDS: FLUTICASONE/SALMETER 250/50MCG DISKUS IH SCH ×2 (08:29→20:38)
[2016-12-01] MEDS: SERTRALINE HCL 100 MG TAB PO SCH (08:51)
[2016-12-01] MEDS: LISINOPRIL/HCTZ 10/12.5 MG 1 EA TAB PO SCH (08:51)
[2016-12-01] MEDS: guaiFENesin 600 MG TAB.ER PO SCH ×2 (08:51→22:08)
[2016-12-01] MEDS ORDERED: LABETALOL HCL 100 MG TAB PO ONE ×2 (10:30→13:30)
--- NOTE | 2016-12-01 10:30 | SOAPPROG ---
SUSSY Progress Note Assessment/Plan: Assessment:1. p afib...now in nsr....probably multifactorial ..now in nsr..would coumadinize and pt will need 30 day moniter upon d/c 2. htn..restart home b/p meds ..b/p stil high will increase labetolol to 300 mg bid 3. ? VT may have been due to PICC line irritation..keep electrolytes replaced..no VT since picc line adjustments 4 mike..needs formal sleep study as out pt Plan:1. as ordered 11/28/16 09:42 11/29/16 09:47 11/30/16 09:57 12/01/16 10:29 Subjective: pt continues to improve..answered many questions..hopefully d/c tomorrow Objective: Vital Signs Temp Pulse Resp BP Pulse Ox 37.0 C 78 16 148/96 H 91 L 12/01/16 07:33 12/01/16 08:31 12/01/16 08:31 12/01/16 07:33 12/01/16 08:31 Laboratory Results 11/26/16 05:20 12/01/16 05:45 11/30/16 12/01/16 12/02/16 05:59 05:59 05:59 Intake Total 1765 2889 200 Output Total 1200 600 Balance 565 2289 200 PT 29.1 SEC (12.0-15.0) H D 12/01/16 05:45 INR 2.71 (0.83-1.16) H 12/01/16 05:45 Physical Exam - Physical Exam Respiratory: lungs clear Cardiac/Chest: normal peripheral pulses, regular rate, rhythm, No edema ICD10 Worksheet Patient Problems: Problems Problem Status Diagnosed Altered mental status Acute Pneumonia Acute Hypoxemia Acute Narcotic overdose Acute
[2016-12-01] MEDS ORDERED: GADOBUTROL 10 ML VIAL IVP ONE (11:41)
[2016-12-01] MEDS: OMEGA-3 FATTY ACIDS 1,000 MG CAP PO SCH (13:12)
--- NOTE | 2016-12-01 13:38 | MR ---
MRI of the Brain (Without and With Contrast) at 1132 Hours Clinical Indication: Fever, sepsis, hypoxia. Technique: T1-weighted images were acquired axially and sagittally from the foramen magnum to the ve rtex. Axial fast inversion recovery, fast T2-weighted, and diffusion-weighted axial images were obta ined without contrast. Postcontrast axial and coronal images with the uneventful intravenous administ ration of 10 mL Gadavist contrast. Findings: The ventricles, cisterns, and sulci are normal without atrophy, hydrocephalus, midline parag ft, herniation, or epidural/subdural hematomas. No intracranial hemorrhage or masses. Diffusion-weigh elizabeth images demonstrate no acute infarct. Cerebellar tonsils are in normal position. Pituitary gland i s normal in size. Normal signal flow-void in the superior sagittal sinus, basilar artery, and bilater al internal carotid arteries indicating patency. Postcontrast images demonstrate no enhancing lesions or abnormal leptomeningeal enhancement. Peripheral mucosal thickening involving the inferior aspect of the left maxillary sinus and left sphenoid sinus. No air-fluid levels. Throughout the white matter of bilateral cerebral hemispheres, there are multiple predominantly subcentimeter nonspecific hyperi ntense T2/FLAIR signal abnormalities without hemorrhage or mass effect. Impression: 1. Multiple nonspecific hyperintense T2/FLAIR signal abnormalities in the white matter of bilateral c erebral hemispheres. Differential diagnosis includes moderate microvascular ischemic gliosis, migrain e-related sequela, atypical demyelinating disease, or postinfectious/post inflammatory sequela. 2. Left maxillary and sphenoid sinusitis. 3. No acute infarct, acute hemorrhage, hydrocephalus or mass effect. 4. No intraaxial enhancing lesions, cerebral abscess, or leptomeningeal fluid abscess.
[2016-12-01] MEDS: HYDROCODONE/APAP 10/325 TAB PO PRN (14:22)
[2016-12-01] MEDS ORDERED: MAGNESIUM SULF 1 GM/DEXTROSE 100 ML IV ONE (14:30)
--- NOTE | 2016-12-01 15:44 | MR ---
MRI Cervical Spine (Without and With Contrast) History: Fever, sepsis, suspect infection. Technique: Sagittal T1, T2 and axial T1, T2 MR sequences of the cervical spine without contrast. Post contrast sagittal and axial T1-weighted sequences obtained with the uneventful intravenous administra tion of 10 mL Gadavist contrast for the MRI of the brain and cervical spine. Findings: Anterior cervical fusion hardware noted at C4, C5, C6 and C7 with metal susceptibility artifact. No cervical compression fractures or destructive osseous lesions. No epidural hematomas or abscesses. No enhancing cord lesions or enhancing paraspinal fluid collections. Craniocervical juncti on appears patent. Cerebellar tonsils are in normal position. Cervical spinal cord demonstrates norm al signal without cord edema or myelomalacia. C2-C3: No disc herniation or stenosis. C3-C4: Moderate degenerative disc disease with dorsal disc/osteophyte complex and bilateral uncoverte bral osteophytes with mild bilateral facet arthropathy resulting in mild central canal stenosis and m oderate to severe bilateral neural foraminal stenosis. C4-C5: Previous anterior cervical discectomy and fusion without bony central canal or neural foramina l stenosis. C5-C6: Previous anterior cervical discectomy and fusion without bony central canal or neural foramina l stenosis. Mild bilateral facet arthropathy, left worse than right. C6-C7: Previous anterior cervical discectomy without central canal or neural foraminal stenosis. C7-T1: Moderate bilateral facet arthropathy and degenerative grade 1 anterolisthesis resulting in mil [id number] right neural foraminal stenosis without central canal stenosis or left neural foraminal stenosis. No enhancing lesions, diskitis, or osteomyelitis. Impression: 1. No evidence of discitis, osteomyelitis, epidural abscess, or infectious process. 2. Anterior cervical discectomies and fusion from C4 through C7 without stenosis at these levels. 3. C3-C4 mild central canal and moderate to severe bilateral neural foraminal stenosis secondary to b ilateral uncovertebral osteophytes and moderate degenerative disc disease. 4. C7-T1: Degenerative grade 1 anterolisthesis resulting in [id number] right neural foraminal s tenosis without central canal stenosis.
[2016-12-01] MEDS ORDERED: WARFARIN SODIUM 2.5 MG TAB PO ONE (16:00)
--- NOTE | 2016-12-01 17:00 | HOSPPROG ---
Hospitalist Progress Note Assessment/Plan: * new a flutter * back in sinus * will need anticoagulation outpatient * ventricular tachycardia * due to PICC line placement * resolved with pulling PICC back * acute fever with hypertension and acute on chronic respiratory failure * off antibiotics * discussed with Infectious Disease. Some suspicion of intermittent fat embolization. They are requesting baseline MRI of head and neck with and without contrast and repeating S if she comes back again with similar symptoms * probable obstructive sleep apnea * will need sleep study * acute diarrhea * off antibiotics * C diff negative * will try some Imodium * chronic pain * slowly tapering medications * requesting to increase OxyContin back to 20 mg * hypertension * labetalol being titrated up Subjective: is feeling better overall Objective: Vital Signs Temp Pulse Resp BP Pulse Ox 37.3 C 84 16 155/84 H 91 L 12/01/16 15:10 12/01/16 15:10 12/01/16 15:10 12/01/16 15:10 12/01/16 15:53 Laboratory Results 11/26/16 05:20 12/01/16 05:45 11/30/16 12/01/16 12/02/16 05:59 05:59 05:59 Intake Total 1765 2889 200 Output Total 1200 600 Balance 565 2289 200 PT 29.1 SEC (12.0-15.0) H D 12/01/16 05:45 INR 2.71 (0.83-1.16) H 12/01/16 05:45 - Physical Exam Constitutional: no apparent distress, appears nourished Eyes: anicteric sclera, EOMI Ears, Nose, Mouth, Throat: moist mucous membranes, hearing normal, ears appear normal Cardiovascular: regular rate and rhythym, no murmur, rub, or gallop Respiratory: no respiratory distress, no rales or rhonchi, clear to auscultation Skin: warm Neurologic: AAOx3 Psychiatric: interacting appropriately, not anxious, not encephalopathic, thought process linear ICD10 Worksheet Patient Problems: Problems Problem Status Diagnosed Altered mental status Acute Pneumonia Acute Hypoxemia Acute Narcotic overdose Acute
[2016-12-01 20:18] LABS: POTASSIUM 3.6 mEq/L (3.5-5.2)
[2016-12-01] MEDS: CHOLECALCIFEROL VIT D3 2,000 UNITS TAB/CAP PO SCH (22:08)
[2016-12-01] MEDS: MONTELUKAST SODIUM 10 MG TAB PO SCH (22:09)
[2016-12-01] MEDS: MULTIVITAMINS 1 EACH TAB PO SCH (22:09)
[2016-12-01] MEDS: LISINOPRIL 20 MG TAB PO SCH (22:10)
[2016-12-01] MEDS: amLODIPine BESYLATE 5 MG TAB PO SCH (22:10)
[2016-12-01] MEDS ORDERED: POTASSIUM CL 20 MEQ TAB PO ONE (22:16)
[2016-12-02] MEDS: GABAPENTIN 300 MG CAP PO SCH (05:32)
[2016-12-02] MEDS: HYDROCODONE/APAP 10/325 TAB PO PRN (05:32)
[2016-12-02] MEDS: CYCLOBENZAPRINE 10 MG TAB PO SCH (05:32)
[2016-12-02 06:13] LABS: INR 2.56 (0.83-1.16); PROTIME(PATIENT) 27.8 SEC (12.0-15.0)
[2016-12-02 06:19] LABS: MAGNESIUM 1.9 mg/dL (1.6-2.3); POTASSIUM 4.1 mEq/L (3.5-5.2)
[2016-12-02 08:27] VITALS: BP 118/71; PULSE 88; RESP 16; TEMP 99.7; O2SAT 95
[2016-12-02] MEDS: LABETALOL HCL 200 MG TAB PO SCH (08:30)
[2016-12-02] MEDS: guaiFENesin 600 MG TAB.ER PO SCH (08:31)
[2016-12-02] MEDS: SERTRALINE HCL 100 MG TAB PO SCH (08:32)
[2016-12-02] MEDS: LISINOPRIL/HCTZ 10/12.5 MG 1 EA TAB PO SCH (08:32)
--- NOTE | 2016-12-02 08:40 | PDIAF ---
- Diagnosis Diagnosis: afib, Code Status: Do Not Resuscitate - Medication Management Discharge Medications: Medications to Continue on Transfer Albuterol [Proventil Inhaler HFA (*)] 2 puffs IH QID PRN 08/30/14 [Last Taken ] Cyclobenzaprine [Flexeril 10 MG (*)] 10 mg PO TID@08/30/14 [Last Taken 11/23/16] Fluticasone/Salmeter 250/50Mcg [Advair 250/50 (*)] 1 puffs IH BID 08/30/14 [ Last Taken 11/23/16] HYDROcodone/APAP 10/325 [[place] 10/325 (*)] 1 tab PO Q8 PRN 08/30/14 [Last Taken 11/23/16] Montelukast Sodium [Singulair 10 mg (*)] 10 mg PO DAILY@08/30/14 [Last Taken 11/23/16] Diazepam [Valium 10 MG (*)] 5 mg PO BID PRN 09/03/16 [Last Taken 11/17/16] Gabapentin [Neurontin 300 MG (*)] 900 mg PO TID@09/03/16 [Last Taken ] Sertraline HCl [Zoloft 100mg (*)] 150 mg PO DAILY 09/03/16 [Last Taken 11/23/16] Amlodipine Besylate 5 mg PO DAILY@199910/28/16 [Last Taken 11/23/16] Lisinopril [Zestril 20 mg (*)] 20 mg PO DAILY@199910/28/16 [Last Taken 11/23/16 ] Furosemide [Lasix 40 MG (*)] 40 mg PO DAILY #2 tab 11/11/16 [Last Taken Unknown] Acetaminophen/Caffeine [Excedrin Tension Headache Cplt] 2 each PO TID PRN [Last Taken Unknown] Cetirizine [ZyrTEC 10 mg (*)] 10 mg PO DAILY@199911/24/16 [Last Taken 11/23/16] Cholecalciferol Vit D3 [Vitamin D3 2000 units tab (OTC)] 2,000 units PO DAILY@ 199911/24/16 [Last Taken 11/23/16] Herbals/Supplements -Info Only 1 ea PO AD 11/24/16 [Last Taken Unknown] Ipratropium/Albuterol [Duoneb (*)] 3 ml IH TID@,11/24/16 [Last Taken Unknown] Lisinopril/Hydrochlorothiazide [Zestoretic 20-25 mg Tablet] 1 each PO DAILY [Last Taken 11/23/16] Multivitamins [Multivitamin (*)] 1 each PO DAILY@199911/24/16 [Last Taken 11/23] [place]-3 Fatty Acids [Fish Oil 1000 mg (*)] 2,000 mg PO DAILY@129911/24/16 [ Last Taken 11/23/16] Sennosides/Docusate Sodium [Senokot-S] 1 each PO DAILY PRN 11/24/16 [Last Taken Unknown] Labetalol HCl [Trandate 200 mg (*)] 300 mg PO BID #90 tab 12/02/16 [Last Taken Unknown] Warfarin Sodium 2.5 mg PO MOWEFR #20 tablet 12/02/16 [Last Taken Unknown] Warfarin Sodium [Coumadin] 1.25 mg PO SUTUTHSA #0 tablet 12/02/16 [Last Taken Unknown] oxyCODONE CR [Oxycontin] 20 mg PO BID #0 tab 12/02/16 [Last Taken Unknown] Discharge Medications: Refer to the Discharge Home Medication list for PRN reason. - Orders Services needed: Home Care, Registered Nurse, Physical Therapy, Occupational Therapy Home Care Face to Face: I certify that this patient was under my care and that I had the required [id number] encounter meeting the encounter requirements on the discharge day. My findings support the fact that the patient is homebound as defined in CMS Chapter 7 Medicare Benefits Manual 30.1.1, The condition of the patient is such that there exists a normal inability to leave home and consequently, leaving home would require a considerable and taxing effort. - Labs/Radiology PT/INR Date: 12/06/16 - Follow Up Care Current Providers and Referrals: NONE *PRIMARY CARE P,. [Primary Care Provider] - As per Instructions Donovan Ruano MD [Medical Doctor] - follow up in 2 weeks
[2016-12-02] MEDS: FLUTICASONE/SALMETER 250/50MCG DISKUS IH SCH (09:39)
--- NOTE | 2016-12-02 17:23 | GDS ---
[f rep st] DISCHARGE SUMMARY DISCHARGE DIAGNOSES: 1. Sepsis-like presentation on admission. 2. [id number] hypoxic respiratory failure. 3. Possible obstructive sleep apnea. 4. New onset atrial fibrillation. 5. Acute renal failure, resolved. 6. Chronic pain syndrome with chronic narcotics. 7. Hypertension. HISTORY: This is a 61-year-old female who has had 2 previous hospitalizations with altered mental st atus and sepsis-like presentations with acute respiratory failure. She presented with the same. HOSPITAL COURSE: 1. Possible sepsis. Patient was hypotensive with elevated white blood cell count, although her lact ate was normal, though. She did require pressure support initially. She also was hypercarbic and ac idotic initially. Symptoms resolved fairly quickly. There are 2 running theories about what has bee n going on. The 1st is that she is aspirating, is having aspiration events, complicated by probable obstructive sleep apnea/obesity hypoventilation syndrome. She gets pneumonitis and hypercarbia which quickly resolve. The next theory is that she may be having some embolic phenomenon like a fat embol i, although we are not seeing that on CAT scan. Again, she has quite dramatically improved. She did have an MRI of her C-spine and brain to use as a baseline in case she does do this again. Infectiou s Disease wanted to repeat MRIs of these areas if she were to present again. I more suspect that thi s is aspiration and hypercarbic respiratory failure from narcotics and obstructive sleep apnea. 2. Atrial fibrillation. Patient had new-onset atrial fibrillation. Cardiology was consulted. They do want her to be on Coumadin for a month and they will set up a Holter monitor outpatient. 3. Hypertension. Her blood pressures were quite high and labetalol was started and this has been ti trated up. 4. Chronic pain. The patient initially wanted to reduce her medications, but then complained of mor e pain and has gone back close to her previous doses. DISPOSITION: Home. DISCHARGE MEDICATIONS: She is to resume her home medicines, in addition to begin labetalol and Couma din. FOLLOWUP: 1. She is to follow up with the [facility] next week. 2. She also is to follow up with a sleep study. TIME SPENT: Greater than 30 minutes were spent on discharge. /[id number]/[facility]
== END 2016-12-02 12:03 | disposition home health service (06) | DRG 871 ==
LOC: EDUNIT# → F2N 13:46 → F3E 11-25 14:06 → F2W 11-26 06:58
PROVIDERS: ADMIT Internal Medicine; ATTEND Internal Medicine
PROC: 02HV33Z Insertion of Infusion Device into Superior Vena Cava, Percutaneous Approach (ICD-10-PCS; principal; 2016-11-24)
DX: A41.9 Sepsis, unspecified organism (principal); J96.21 Acute and chronic respiratory failure with hypoxia; N17.9 Acute kidney failure, unspecified; F11.20 Opioid dependence, uncomplicated; G47.33 Obstructive sleep apnea (adult) (pediatric); I48.91 Unspecified atrial fibrillation; G89.29 Other chronic pain; I10 Essential (primary) hypertension; E11.9 Type 2 diabetes mellitus without complications; E66.01 Morbid (severe) obesity due to excess calories; J45.909 Unspecified asthma, uncomplicated; Z66 Do not resuscitate
CPT/HCPCS: 82784-90; 85520-90; 97110-GP; 97116-GP; 97162-GP; 97166-GO; 97530-GO; 97530-GP; 97535-GO; A9585; C1751; J1644; J1650; J1956; J2405; J2543; J2550; J2997; J3475

== ENCOUNTER → 2017-01-09 | Outpatient (CLI) | payer OTHER | LOC: FIMAGING 11:13 | PROVIDERS: ATTEND Internal Medicine Critical Care Medicine | DX: J40 Bronchitis, not specified as acute or chronic (principal); J98.11 Atelectasis ==

== ENCOUNTER → 2017-01-19 | Outpatient (CLI) | payer OTHER | LOC: FCPNEURO 21:00 | PROVIDERS: ATTEND Psychiatry & Neurology Sleep Medicine | DX: G47.31 Primary central sleep apnea (principal); G47.33 Obstructive sleep apnea (adult) (pediatric); G47.52 REM sleep behavior disorder; G47.36 Sleep related hypoventilation in conditions classified elsewhere ==

== ENCOUNTER 2017-01-25 16:40 | Emergency (ER) | payer OTHER ==
--- NOTE | 2017-01-25 17:13 | EDPHY ---
H & P Stated Complaint: SOB/Chest Pain Time Seen by Provider: 01/25/17 17:13 - Personal History Current Tetanus/Diphtheria Vaccine: Unsure Current Tetanus Diphtheria and Acellular Pertussis (TDAP): Unsure Tetanus Vaccine Date: - Medical/Surgical History Hx Asthma: Yes Hx Chronic Respiratory Disease: No Hx Diabetes: No Hx Cardiac Disease: No Hx Renal Disease: No Hx Cirrhosis: No Hx Alcoholism: No Hx HIV/AIDS: No Hx Splenectomy or Spleen Trauma: No Other PMH: appy/neck fusion/chronic pain/knee replacement, PNA - Social History Smoking Status: Never smoked Constitutional: Initial Vital Signs Temperature (C) 37.1 C 01/25/17 16:55 Heart Rate 87 01/25/17 16:55 Respiratory Rate 16 01/25/17 16:55 Blood Pressure 155/69 H 01/25/17 16:55 O2 Sat (%) 91 L 01/25/17 16:55 O2 Delivery Mode Nasal Cannula O2 (L/minute) 3 Allergies/Adverse Reactions: pregabalin [From Lyrica] Allergy (Severe, Verified 09/03/16 13:57) MOUTH SORES/ AFFECTS VISION Sulfa (Sulfonamide Antibiotics) Allergy (Severe, Verified 09/03/16 13:57) Anaphylaxis lactose Allergy (Intermediate, Verified 11/02/16 14:03) Diarrhea niacin [From Niaspan Extended-Release] Allergy (Intermediate, Verified 09/03/16 13:57) FLUSHING EXTREME ketorolac tromethamine [From Toradol] Allergy (Mild, Verified 09/03/16 13:57) DOESN'T WORK atorvastatin calcium [From Lipitor] Allergy (Unknown, Verified 09/03/16 13:57) MOLDS Allergy (Intermediate, Uncoded 08/30/14 10:44) WHEEZING /HIVES ENVIRONMENTAL Allergy (Mild, Uncoded 08/30/14 10:44) RUNNY NOSE/NASAL CONGESTION Home Medications: Medication Instructions Recorded Albuterol [Proventil Inhaler HFA 2 puffs IH QID PRN 08/30/14 (*)] Cyclobenzaprine [Flexeril 10 MG 10 mg PO TID@06,13,20 08/30/14 (*)] Fluticasone/Salmeter 250/50Mcg 1 puffs IH BID 08/30/14 [Advair 250/50 (*)] HYDROcodone/APAP 10/325 [[place] 1 tab PO Q8 PRN 08/30/14 10/325 (*)] Montelukast Sodium [Singulair 10 10 mg PO DAILY@08/30/14 mg (*)] Diazepam [Valium 10 MG (*)] 5 mg PO BID PRN 09/03/16 Gabapentin [Neurontin 300 MG (*)] 900 mg PO TID@,,09/03/16 Sertraline HCl [Zoloft 100mg (*)] 150 mg PO DAILY 09/03/16 Amlodipine Besylate 5 mg PO DAILY@199910/28/16 Lisinopril [Zestril 20 mg (*)] 20 mg PO DAILY@199910/28/16 Acetaminophen/Caffeine [Excedrin 2 each PO TID PRN 11/24/16 Tension Headache Cplt] Cetirizine [ZyrTEC 10 mg (*)] 10 mg PO DAILY@199911/24/16 Cholecalciferol Vit D3 [Vitamin D3 2,000 units PO DAILY@199911/24/16 2000 units tab (OTC)] Herbals/Supplements -Info Only 1 ea PO AD 11/24/16 Ipratropium/Albuterol [Duoneb (*)] 3 ml IH TID@11/24/16 Lisinopril/Hydrochlorothiazide 1 each PO DAILY 11/24/16 [Zestoretic 20-25 mg Tablet] Multivitamins [Multivitamin (*)] 1 each PO DAILY@199911/24/16 [place]-3 Fatty Acids [Fish Oil 1000 2,000 mg PO DAILY@129911/24/16 mg (*)] Sennosides/Docusate Sodium 1 each PO DAILY PRN 11/24/16 [Senokot-S] Labetalol HCl [Trandate 200 mg (*)] 300 mg PO BID #90 tab 12/02/16 Lisinopril/Hctz 10/12.5 mg 1 ea PO DAILY #30 tab 12/02/16 [Zestoretic/Prinzide 10/12.5MG (*)] Warfarin Sodium 2.5 mg PO MOWEFR #20 tablet 12/02/16 Warfarin Sodium [Coumadin] 1.25 mg PO SUTUTHSA #0 tablet 12/02/16 oxyCODONE CR [Oxycontin] 20 mg PO BID #0 tab 12/02/16 Medical Decision Making ED Course/Re-evaluation: CHIEF COMPLAINT: Cough, chest pain HISTORY OF PRESENT ILLNESS: The patient is an anticoagulated 61 y/o female complaining of a productive cough and malaise for the last day and chest pain onset 13:00 today, about 5 hours ago. She has a history of atrial fibrillation, recent CVA, hypertension, and asthma. She had multiple admissions for pneumonia in the last 6 months with one episode requiring intubation. She was feeling relatively normal until today. She describes her chest pain today as located substernally, constant, "heavy," and aggravated by her cough, which makes her pain "sharp as a knife." Her pain does not radiate. She cannot identify any alleviating factors. She notes her most recent chest x-ray 10 days ago showed improvement from her admission in November. REVIEW OF SYSTEMS: A 10 point review of systems was performed and is negative with the exception of the elements mentioned in the history of present illness. PHYSICAL EXAM: HR, BP, O2 Sat, RR. Temp noted General Appearance: Alert, well hydrated, appropriate, and chronically-ill appearing. Obese. Head: Atraumatic without scalp tenderness or obvious injury Eyes: Pupils equal, round, reactive to light and accommodation, EOMI, no trauma , no injection. Ears: Clear bilaterally, no perforation, normal landmarks Nose: Atraumatic, no rhinorrhea, clear. Throat: There is no erythema or exudates, no lesions, normal tonsils, mucus membranes moist. Neck: Supple, 2+ carotid upstroke, nontender, no lymphadenopathy. Respiratory: No retractions, no distress, no wheezes, and no accessory muscle use. Diminished breath sounds at bases. Cardiovascular: Regular rate and rhythm, no murmurs, rubs, or gallops. Bilateral carotid, radial, dorsalis pedis, and posterior tibial pulses intact. Good capillary refill all extremities. Gastrointestinal: Abdomen is soft, nontender, non-distended, no masses, no rebound, no guarding, no peritoneal signs. Musculoskeletal: Normal active ROM of all extremities, atraumatic. Chest wall pain over sternum with palpation. No peripheral edema. Neurological: Alert, appropriate, and interactive. The patient has normal DTRs and non-focal cranial nerves, motor, sensory, and cerebellar exam. Partial blindness right eye. Skin: No rashes, good turgor, no nodules on palpation. 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 See hard copy and/or "tracemaster" electronic copy for interpretation. Study: Chest x-ray Indication: cough, dyspnea, chest pain Results: Chest x-ray was obtained. The results of the study are 1. Diminished lung volumes. 2. Query airways disease with no superimposed pneumonia. The study was read by the radiologist, Dr. Bokyin. I viewed the images myself on the PACS system. DIFFERENTIAL DIAGNOSIS: The differential diagnosis for the patient's shortness of breath and hypoxemia included but was not limited to pneumonia, myocardial infarction, acute mountain sickness, high altitude pulmonary edema, congestive heart failure, and pulmonary embolus. MEDICAL DECISION MAKING: This is a 61 y/o female with several comorbidities and recent admissions for pneumonia presenting with cough and chest tightness. She has diminished breath sounds on exam, but is well-appearing. IV established. Sepsis labs, troponin, and d-dimer ordered. Chest x-ray and EKG ordered. Labs are unremarkable. Chest x-ray does not show pneumonia. 750mg IV Levaquin and 10mg IV Decadron administered. Patient is comfortable being discharged home. Return precautions given. She will follow up with her PCP on Sunday. - Data Points Laboratory Results: Laboratory Results 01/25/17 18:08 01/25/17 18:08 01/25/17 01/25/17 01/25/17 18:18 18:08 18:08 WBC RBC Hgb Hct MCV MCH MCHC RDW Plt Count MPV Neut % (Auto) Lymph % (Auto) [place] % (Auto) Eos % (Auto) Baso % (Auto) Nucleat RBC Rel Count Absolute Neuts (auto) Absolute Lymphs (auto) Absolute Monos (auto) Absolute Eos (auto) Absolute Basos (auto) Absolute Nucleated RBC Immature Gran % Immature Gran # PT 24.3 SEC H SEC (12.0-15.0) INR 2.16 H (0.83-1.16) APTT 36.6 SEC SEC (23.0-38.0) D-Dimer < 0.27 ug/mLFEU ug/mLFEU (0.00-0.50) VBG Lactic Acid 0.8 mmol/L mmol/L (0.7-2.1) Sodium 142 mEq/L mEq/L (134-144) Potassium 4.1 mEq/L mEq/L (3.5-5.2) Chloride 103 mEq/L mEq/L (97-110) Carbon Dioxide 29 mEq/l mEq/l (22-31) Anion Gap 10 mEq/L mEq/L (8-16) BUN 18 mg/dL mg/dL (7-23) Creatinine 0.6 mg/dL mg/dL (0.6-1.0) Estimated GFR > 60 Glucose 95 mg/dL mg/dL (70-100) Calcium 9.7 mg/dL mg/dL (8.5-10.4) Total Bilirubin 0.9 mg/dL mg/dL (0.1-1.4) Troponin I < 0.012 ng/mL ng/mL (0-0.034) NT-Pro-B Natriuret Pep 165 pg/mL H pg/mL (0-125) 01/25/17 18:08 WBC 9.72 10^3/uL H 10^3/uL (3.80-9.50) RBC 4.37 10^6/uL 10^6/uL (4.18-5.33) Hgb 13.9 g/dL g/dL (12.6-16.3) Hct 40.3 % % (38.0-47.0) MCV 92.2 fL fL (81.5-99.8) MCH 31.8 pg pg (27.9-34.1) MCHC 34.5 g/dL g/dL (32.4-36.7) RDW 11.6 % % (11.5-15.2) Plt Count 279 10^3/uL 10^3/uL (150-400) MPV 10.4 fL fL (8.7-11.7) Neut % (Auto) 59.2 % % (39.3-74.2) Lymph % (Auto) 27.8 % % (15.0-45.0) [place] % (Auto) 7.8 % % (4.5-13.0) Eos % (Auto) 4.3 % % (0.6-7.6) Baso % (Auto) 0.6 % % (0.3-1.7) Nucleat RBC Rel Count 0.0 % % (0.0-0.2) Absolute Neuts (auto) 5.75 10^3/uL 10^3/uL (1.70-6.50) Absolute Lymphs (auto) 2.70 10^3/uL 10^3/uL (1.00-3.00) Absolute Monos (auto) 0.76 10^3/uL 10^3/uL (0.30-0.80) Absolute Eos (auto) 0.42 10^3/uL H 10^3/uL (0.03-0.40) Absolute Basos (auto) 0.06 10^3/uL 10^3/uL (0.02-0.10) Absolute Nucleated RBC 0.00 10^3/uL 10^3/uL (0-0.01) Immature Gran % 0.3 % % (0.0-1.1) Immature Gran # 0.03 10^3/uL 10^3/uL (0.00-0.10) PT INR APTT D-Dimer VBG Lactic Acid Sodium Potassium Chloride Carbon Dioxide Anion Gap BUN Creatinine Estimated GFR Glucose Calcium Total Bilirubin Troponin I NT-Pro-B Natriuret Pep Departure - Departure Disposition: Home, Routine, Self-Care Clinical Impression: Hx: recurrent pneumonia Acute bronchitis Qualifiers: Bronchitis organism: other organism Qualified Code(s): J20.8 - Acute bronchitis due to other specified organisms Condition: Good Instructions: Acute Bronchitis (ED) Additional Instructions: Take Levaquin as prescribed. Follow up with your primary care provider on Sunday. Return for worsening of condition. Referrals: Grady Bonds MD [Primary Care Provider] - As per Instructions Report Scribed for: Goldy Torrez Report Scribed by: Vania Gomez Date of Report: 01/25/17 Time of Report: 18:18
--- NOTE | 2017-01-25 17:35 | CPEKG ---
Heart Rate: 72 RR Interval: 833 P-R Interval: 196 QRSD Interval: 88 QT Interval: 396 QTC Interval: 434 P Salyer: 38 QRS Salyer: -17 T Wave Salyer: 24 EKG Severity - ABNORMAL ECG - EKG Impression: SINUS RHYTHM EKG Impression: LEFT VENTRICULAR HYPERTROPHY Electronically Signed By: Goldy Torrez 25-Jan-2017 20:06:27
[2017-01-25 18:27] LABS: % IMMATURE GRANULYOCYTES 0.3 % (0.0-1.1); ABSOLUTE IMMATURE GRANULOCYTES 0.03 10^3/uL (0.00-0.10); ADD DIFF? NO; ADD MORPH? NO; ADD SCAN? NO; ATYPICAL LYMPHOCYTE FLAG 20 (0-99); FRAGMENT RBC FLAG 0 (0-99); HEMATOCRIT 40.3 % (38.0-47.0); HEMOGLOBIN 13.9 g/dL (12.6-16.3); LEFT SHIFT FLG 0 (0-99); LIPEMIA HEMOLYSIS FLAG 90 (0-99); MEAN CELL HEMOGLOBIN 31.8 pg (27.9-34.1); MEAN CELL HEMOGLOBIN CONCENTR. 34.5 g/dL (32.4-36.7); MEAN CELL VOLUME 92.2 fL (81.5-99.8); MEAN PLATELET VOLUME 10.4 fL (8.7-11.7); PLATELET CLUMPS FLAG 10 (0-99); PLATELET COUNT 279 10^3/uL (150-400); RED BLOOD CELL COUNT 4.37 10^6/uL (4.18-5.33); RED CELL DISTRIBUTION WIDTH 11.6 % (11.5-15.2)
[2017-01-25 18:49] LABS: ANION GAP 10 mEq/L (8-16); BILIRUBIN,TOTAL 0.9 mg/dL (0.1-1.4); CALCIUM 9.7 mg/dL (8.5-10.4); CARBON DIOXIDE 29 mEq/l (22-31); CHLORIDE 103 mEq/L (97-110); CREATININE 0.6 mg/dL (0.6-1.0); GLOMERULAR FILTRATION RATE > 60; GLUCOSE 95 mg/dL (70-100); POTASSIUM 4.1 mEq/L (3.5-5.2); SODIUM 142 mEq/L (134-144)
[2017-01-25 18:51] LABS: INR 2.16 (0.83-1.16); PROTIME(PATIENT) 24.3 SEC (12.0-15.0)
[2017-01-25 18:52] LABS: APTT 36.6 SEC (23.0-38.0)
[2017-01-25 19:00] LABS: TROPONIN I < 0.012 ng/mL (0-0.034)
[2017-01-25 19:17] VITALS: BP 104/63; PULSE 68; RESP 14; O2SAT 97
[2017-01-25] MEDS ORDERED: DEXAMETHASONE 10 MG/ML VIAL IVP ONE (19:22)
[2017-01-25 19:34] VITALS: TEMP 98.6
== END 2017-01-25 19:34 | disposition home or self-care (01) ==
DX: J20.8 Acute bronchitis due to other specified organisms (principal); J45.909 Unspecified asthma, uncomplicated; Z87.01 Personal history of pneumonia (recurrent); Z79.01 Long term (current) use of anticoagulants
CPT/HCPCS: 96374

== ENCOUNTER 2017-02-03 12:06 | Inpatient (IN) | payer OTHER ==
--- NOTE | 2017-02-03 12:33 | EDPHY ---
General Narrative: CHIEF COMPLAINT: Sleep apnea, nocturnal hypoxia, mental status change HISTORY OF PRESENT ILLNESS: Patient's spouse provides the history. Spouse says that she has history of sleep apnea and has had difficulty with this for months. She was admitted November discharged home with follow up for sleep study. She had a sleep study done but she has no definitive diagnosis and is awaiting intervention. They have been told that she will need more than just a CPAP, but they are not able to have this provided until February reportedly according to his spouse. He has no chest pain or cough. No recent fever or chills. No abdominal urinary complaints. He says the primary concern is that the sleep apnea is causing her to to be so altered despite having her oxygen by nasal cannula. This is also occurring in the evening prior to going to sleep and persisting throughout today. She has been intermittently disoriented to time and place. She also becomes disoriented to spatial awareness and falls. She fell last night and struck her face on a bedside table. No way to quantify these symptoms at this time. She is on home O2 2 L 24 hours a day. No previous diagnosis of COPD REVIEW OF SYSTEMS: Ten systems reviewed and are negative unless otherwise noted in the HPI PERTINENT MEDICAL HISTORY: Sleep apnea, asthma EXAMINATION General Appearance: Alert, no distress Head: normocephalic, atraumatic Eyes: Pupils equal and round, no conjunctival pallor or injection. EOMs intact. ENT, Mouth: Mucous membranes dry. Uvula midline. No erythema or edema. Neck: Normal inspection, supple, non-tender. Painless range of motion all planes. No rigidity or meningismus. Respiratory: Lungs are clear to auscultation. No wheezing, rhonchi or crackles. Cardiovascular: Regular rate and rhythm. No murmur. Pulses intact distally. Gastrointestinal: Abdomen is soft and nontender. No CVA tenderness. Nonacute abdomen. Back: non-tender, no bony abnormalities Neurological: cranial nerves 2-12 grossly intact. Hearing intact from compensation. Strength is symmetric in all limbs. No dysmetria. No pronator drift. She is intermittently oriented to time and place. Skin: Warm and dry, no rash Extremities: Nontender, no pedal edema Psychiatric: Mood and affect normal DIFFERENTIAL DIAGNOSES: Including but not limited to CO2 narcosis, hypoxia, edema, encephalopathy, sleep apnea, COPD, pneumonia MDM: 12:30 p.m. Reports of persistent sleep apnea. The patient has been evaluated by medical practitioners Dr. Cui, as well as her toll mechanic Dr. Ruano. Reportedly they have had difficulty obtaining definitive diagnoses and/or interventions for sleep apnea. He reports ongoing, worsening nocturnal hypoxia that he attributes to the sleep apnea. This is now a splint over to the evenings before bedtime as well as during the day. She is presenting with altered mental status at times. She has been afebrile. No cough, chest pain or shortness of breath. No urinary complaints. 1:35 p.m. Notified by radiologist at the CT scan of the head shows some chronic sinusitis but no acute findings. Laboratory studies are not yet returned. We will contact labs to determine why. The CBC shows hemoconcentration and leukocytosis. 2:20 p.m. Chemistry has finally returned. There is a significant elevation in the creatinine. She has gone from 0.6-5.3 in 9 days. This does explain her encephalopathy as she does appear uremic now. Urinalysis is not yet been obtained. Potassium is within acceptable limits given the creatinine. Her BUN creatinine ratio suggests prerenal azotemia. I revisited the patient with this information. The spouse says that she has not been drinking enough water lately. She has not been taking any anti-inflammatories. I then contacted the Hospitalists and Dr. Millan will admit the patient. I discussed the case with Dr. Fry and checked the patient out to him. He has ordered an EKG and will follow up on this and the urinalysis. She has been admitted to PCU in stable condition. SUPERVISION: Patient was evaluated in conjunction with the supervising physician. Please see their note for details. Dr. Fry - History Smoking Status: Never smoked - Objective Vital Signs: Initial Vital Signs Temperature (C) 97.9 F 02/03/17 12:10 Heart Rate 70 02/03/17 12:10 Respiratory Rate 22 H 02/03/17 12:10 Blood Pressure 150/93 H 02/03/17 12:10 O2 Sat (%) 90 L 02/03/17 12:10 O2 Delivery Mode Nasal Cannula O2 (L/minute) 3 Allergies/Adverse Reactions: pregabalin [From Lyrica] Allergy (Severe, Verified 02/03/17 12:09) MOUTH SORES/ AFFECTS VISION Sulfa (Sulfonamide Antibiotics) Allergy (Severe, Verified 02/03/17 12:09) Anaphylaxis lactose Allergy (Intermediate, Verified 02/03/17 12:09) Diarrhea niacin [From Niaspan Extended-Release] Allergy (Intermediate, Verified 02/03/17 12:09) FLUSHING EXTREME ketorolac tromethamine [From Toradol] Allergy (Mild, Verified 02/03/17 12:09) DOESN'T WORK atorvastatin calcium [From Lipitor] Allergy (Unknown, Verified 02/03/17 12:09) MOLDS Allergy (Intermediate, Uncoded 08/30/14 10:44) WHEEZING /HIVES ENVIRONMENTAL Allergy (Mild, Uncoded 08/30/14 10:44) RUNNY NOSE/NASAL CONGESTION Home Medications: Medication Instructions Recorded Cyclobenzaprine [Flexeril 10 MG 10 mg PO TID@,,08/30/14 (*)] Fluticasone/Salmeter 250/50Mcg 1 puffs IH BID 08/30/14 [Advair 250/50 (*)] HYDROcodone/APAP 10325 [[place] 1 tab PO BID PRN 08/30/14 10325 (*)] Montelukast Sodium [Singulair 10 10 mg PO DAILY@08/30/14 mg (*)] Gabapentin [Neurontin 300 MG (*)] 900 mg PO TID@,,09/03/16 Sertraline HCl [Zoloft 100mg (*)] 150 mg PO DAILY 09/03/16 Amlodipine Besylate 5 mg PO DAILY@199910/28/16 Lisinopril [Zestril 20 mg (*)] 20 mg PO DAILY@199910/28/16 Acetaminophen/Caffeine [Excedrin 2 each PO TID PRN 11/24/16 Tension Headache Cplt] Cetirizine [ZyrTEC 10 mg (*)] 10 mg PO DAILY@199911/24/16 Cholecalciferol Vit D3 [Vitamin D3 2,000 units PO DAILY@199911/24/16 2000 units tab (OTC)] Herbals/Supplements -Info Only 1 ea PO AD 11/24/16 Ipratropium/Albuterol [Duoneb (*)] 3 ml IH TID@,, PRN 11/24/16 Multivitamins [Multivitamin (*)] 1 each PO DAILY@199911/24/16 [place]-3 Fatty Acids [Fish Oil 1000 2,000 mg PO DAILY@1300 11/24/16 mg (*)] Sennosides/Docusate Sodium 1 each PO DAILY PRN 11/24/16 [Senokot-S] Lisinopril/Hctz 10/12.5 mg 1 ea PO DAILY #30 tab 12/02/16 [Zestoretic/Prinzide 10/12.5MG (*)] oxyCODONE CR [Oxycontin] 20 mg PO BID #0 tab 12/02/16 Acetaminophen [Tylenol ES 500 mg 1,000 mg PO TID PRN 02/03/17 (*)] Ipratropium/Albuterol [Duoneb (*)] 3 ml IH HS 02/03/17 Labetalol HCl [Trandate 200 mg (*)] 200 mg PO BID 02/03/17 Warfarin Sodium 2.5 mg PO DAILY@1900 02/03/17 Laboratory Results: Laboratory Results 02/03/17 12:45 02/03/17 12:45 02/03/17 02/03/17 02/03/17 14:10 12:45 12:45 WBC RBC Hgb Hct MCV MCH MCHC RDW Plt Count MPV Neut % (Auto) Lymph % (Auto) [place] % (Auto) Eos % (Auto) Baso % (Auto) Nucleat RBC Rel Count Absolute Neuts (auto) Absolute Lymphs (auto) Absolute Monos (auto) Absolute Eos (auto) Absolute Basos (auto) Absolute Nucleated RBC Immature Gran % Immature Gran # PT 28.1 SEC H SEC (12.0-15.0) INR 2.60 H (0.83-1.16) Puncture Site VENOUS Patient Temperature 37.0 DEGREES DEGREES VBG pH 7.27 L (7.31-7.42) VBG HCO3 23 mEQ/L mEQ/L (22-26) VBG Total CO2 25 mEq/L mEq/L (23-27) VBG O2 Saturation 99 % H % (65-75) VBG Base Excess -3.7 mEq/L L mEq/L (-2.5-2.5) Mixed VBG pCO2 53 mmHg H mmHg (40-44) Mixed VBG pO2 186 mmHg H mmHg (35-40) Sodium Potassium Chloride Carbon Dioxide Anion Gap BUN Creatinine Estimated GFR Glucose Calcium Ammonia 24.0 uMOL/L uMOL/L (9.0-30.0) Lipase 02/03/17 02/03/17 12:45 12:45 WBC 11.66 10^3/uL H 10^3/uL (3.80-9.50) RBC 3.89 10^6/uL L 10^6/uL (4.18-5.33) Hgb 11.9 g/dL L g/dL (12.6-16.3) Hct 36.1 % L % (38.0-47.0) MCV 92.8 fL fL (81.5-99.8) MCH 30.6 pg pg (27.9-34.1) MCHC 33.0 g/dL g/dL (32.4-36.7) RDW 11.9 % % (11.5-15.2) Plt Count 226 10^3/uL 10^3/uL (150-400) MPV 11.0 fL fL (8.7-11.7) Neut % (Auto) 65.3 % % (39.3-74.2) Lymph % (Auto) 18.7 % % (15.0-45.0) [place] % (Auto) 13.3 % H % (4.5-13.0) Eos % (Auto) 1.9 % % (0.6-7.6) Baso % (Auto) 0.3 % % (0.3-1.7) Nucleat RBC Rel Count 0.0 % % (0.0-0.2) Absolute Neuts (auto) 7.61 10^3/uL H 10^3/uL (1.70-6.50) Absolute Lymphs (auto) 2.18 10^3/uL 10^3/uL (1.00-3.00) Absolute Monos (auto) 1.55 10^3/uL H 10^3/uL (0.30-0.80) Absolute Eos (auto) 0.22 10^3/uL 10^3/uL (0.03-0.40) Absolute Basos (auto) 0.04 10^3/uL 10^3/uL (0.02-0.10) Absolute Nucleated RBC 0.00 10^3/uL 10^3/uL (0-0.01) Immature Gran % 0.5 % % (0.0-1.1) Immature Gran # 0.06 10^3/uL 10^3/uL (0.00-0.10) PT INR Puncture Site Patient Temperature VBG pH VBG HCO3 VBG Total CO2 VBG O2 Saturation VBG Base Excess Mixed VBG pCO2 Mixed VBG pO2 Sodium 133 mEq/L L mEq/L (134-144) Potassium 4.8 mEq/L mEq/L (3.5-5.2) Chloride 95 mEq/L L mEq/L (97-110) Carbon Dioxide 25 mEq/l mEq/l (22-31) Anion Gap 13 mEq/L mEq/L (8-16) BUN 68 mg/dL H mg/dL (7-23) Creatinine 5.3 mg/dL H mg/dL (0.6-1.0) Estimated GFR 8 Glucose 123 mg/dL H mg/dL (70-100) Calcium 9.3 mg/dL mg/dL (8.5-10.4) Ammonia Lipase 58.0 IU/L IU/L (23-300) Medications Given: Discontinued Medications Sodium Chloride (Ns) 1,000 mls @ 0 mls/hr IV ONCE ONE PRN Reason: Wide [place] Stop: 02/03/17 12:51 Last Admin: 02/03/17 12:50 Dose: 1,000 mls Departure - Departure Disposition: [facility] Inpatient Acute Clinical Impression: KATY (acute kidney injury), Encephalopathy acute Condition: Good
[2017-02-03] MEDS ORDERED: NS 1,000 ML IV ONE (12:50)
[2017-02-03 12:58] LABS: % IMMATURE GRANULYOCYTES 0.5 % (0.0-1.1); ABSOLUTE IMMATURE GRANULOCYTES 0.06 10^3/uL (0.00-0.10); ADD DIFF? NO; ADD MORPH? NO; ADD SCAN? NO; ATYPICAL LYMPHOCYTE FLAG 10 (0-99); FRAGMENT RBC FLAG 0 (0-99); HEMATOCRIT 36.1 % (38.0-47.0); HEMOGLOBIN 11.9 g/dL (12.6-16.3); LEFT SHIFT FLG 0 (0-99); LIPEMIA HEMOLYSIS FLAG 80 (0-99); MEAN CELL HEMOGLOBIN 30.6 pg (27.9-34.1); MEAN CELL VOLUME 92.8 fL (81.5-99.8); PLATELET CLUMPS FLAG 10 (0-99); PLATELET COUNT 226 10^3/uL (150-400); RED BLOOD CELL COUNT 3.89 10^6/uL (4.18-5.33); RED CELL DISTRIBUTION WIDTH 11.9 % (11.5-15.2)
[2017-02-03 14:01] LABS: ANION GAP 13 mEq/L (8-16); CALCIUM 9.3 mg/dL (8.5-10.4); CARBON DIOXIDE 25 mEq/l (22-31); CHLORIDE 95 mEq/L (97-110); CREATININE 5.3 mg/dL (0.6-1.0); GLOMERULAR FILTRATION RATE 8; GLUCOSE 123 mg/dL (70-100); POTASSIUM 4.8 mEq/L (3.5-5.2); SODIUM 133 mEq/L (134-144)
[2017-02-03 14:17] LABS: PCO2 VENOUS 53 mmHg (40-44); PH VENOUS BLOOD 7.27 (7.31-7.42); PO2 VENOUS 186 mmHg (35-40); TCO2 VENOUS 25 mEq/L (23-27); VEN MEASURED OXYGEN SATURATION 99 % (65-75)
--- NOTE | 2017-02-03 14:38 | CPEKG ---
Heart Rate: 68 RR Interval: 882 P-R Interval: 188 QRSD Interval: 86 QT Interval: 396 QTC Interval: 422 P [place]: 11 QRS [place]: 3 T Wave [place]: 24 EKG Severity - NORMAL ECG - EKG Impression: SINUS RHYTHM EKG Impression: Agree with above EKG Impression: No significant change from January 25, 2017 Electronically Signed By: Hoang Conde 06-Feb-2017 18:36:40
[2017-02-03] MEDS ORDERED: ACETAMINOPHEN 500 MG TAB PO PRN (15:25)
[2017-02-03] MEDS ORDERED: HYDROCODONE/APAP 10/325 TAB PO PRN (15:25)
[2017-02-03] MEDS ORDERED: SENNOSIDES/DOCUSATE SODIUM TAB PO PRN (15:25)
[2017-02-03] MEDS ORDERED: NS 1,000 ML IV SCH (15:30)
[2017-02-03 15:45] LABS: INR 2.6 (0.83-1.16); PROTIME(PATIENT) 28.1 SEC (12.0-15.0)
--- NOTE | 2017-02-03 15:57 | GHP ---
[f rep st] HISTORY AND PHYSICAL DATE OF ADMISSION: 02/03/2017 CHIEF COMPLAINT: Increased confusion. HISTORY OF PRESENT ILLNESS: This is a 61-year-old female with history of both central and obstructive sleep apnea who was hospitalized in November of 2016 when she presented with a sepsis-like presentation as well as acute on chronic respiratory failure and altered mental status. Apparently, the patient has had 3 previous hospitalizations with a similar constellation of symptoms. The patient was evaluated at [facility] Emergency Department on after she presented with shortness of breath and was ultimately discharged home. The patient presented to the emergency department today with her who tells me that his has had increasing confusion over the past 12 hours. She has not taken any new medications. She does take OxyContin 20 mg every 12 hours as well as [place] for breakthrough, but has not changed her dosing. She has been intermittently disoriented to time and place since last night. She also sustained an unwitnessed fall from bed last night where she struck her face on the bedside table. Today the patient was noted to have a room air oxygen saturation of 82% which triggered the patient's to bring her to the emergency department for further evaluation. Also to note, she has been complaining of difficulty with urination. During the time of my exam the patient is unable to respond to my questions. All history was obtained via report from her and by review of medical records. The patient has not been using NSAIDs. She has also not been drinking much water. PAST MEDICAL HISTORY: 1. Septic shock. 2. Asthma. 3. Pneumonia. 4. Chronic respiratory failure with CO2 retention. 5. Chronic pain syndrome with chronic narcotic dependency. 6. Gait instability. 7. Falls. 8. Renal artery occlusion. PAST SURGICAL HISTORY: 1. Bilateral total knee replacements. 2. Right foot surgery in 2004. HOME MEDICATIONS: Were reviewed. Refer to [email or web address] for details. ALLERGIES: Sulfa. SOCIAL HISTORY: She denies any alcohol, tobacco, or illicit drug use. She lives with her . FAMILY HISTORY: Reviewed and noncontributory. REVIEW OF SYSTEMS: A comprehensive 10-point review of systems was attempted and was negative except for as mentioned in the history of present illness. PHYSICAL EXAMINATION: VITAL SIGNS: Blood pressure 149/87, pulse of 67, respiratory rate 20, O2 saturation 91%. GENERAL: Somnolent, opens eyes to voice. HEAD: Normocephalic atraumatic. EYES: PERRLA. MOUTH: Dry oral mucosa. NECK: Supple. No lymphadenopathy. CARDIOVASCULAR: S1, S2. No murmurs, rubs, clicks, gallops, no JVD. No lower extremity edema. PULMONARY: Lungs are clear. No wheezes, rales, or rhonchi. Decreased breath sounds in bilateral bases. ABDOMEN: Soft, nontender, nondistended. No guarding or rebound tenderness. Normoactive bowel sounds. EXTREMITIES: No clubbing or cyanosis. NEUROLOGIC: Face is symmetric. Cranial nerves 2-12 grossly intact. The patient appears to have involuntary twitching movements. DTRs are 3 minus and symmetric. Patient appears to have some degree of clonus. Pupils are 5 mm and reactive. SKIN: Clear, no rashes. DIAGNOSTICS: WBC 11.6, hemoglobin 11.9, hematocrit 36.1, platelets 226. Venous blood gas pH was 7.27, bicarb 23, CO2 25. Sodium 133, potassium 4.8, chloride 95, CO2 25, BUN 68, creatinine 5.3, glucose 123, lipase 58, ammonia 24. Head CT shows no acute intracranial abnormality. Chest x-ray, which I visualized and personally interpreted and final read is pending: Moderate cardiomegaly. No obvious infiltrates. Possible left pleural effusion. EKG, which I visualized and personally interpreted: Sinus rhythm, rate 68 beats per minute, no acute ischemic changes. ASSESSMENT PLAN: This is a 61-year-old female with history of central and obstructive sleep apnea, presents with: 1. Acute encephalopathy of unclear etiology. Differential diagnosis includes metabolic versus seizure, versus medication induced. Plan: The patient will be placed in the step-down unit where her oxygen saturations will be closely monitored. We will consult Neurology and obtain LFTs. The patient's ammonia is in the high normal range. We will also look for infectious causes of her symptoms. 2. Acute kidney injury with a creatinine of 5.3 and a normal potassium. Plan: Per the patient's history it sounds like she has been having trouble voiding which is concerning for a possible post obstructive etiology for her kidney failure. We will obtain a renal ultrasound. Will also start IV fluids since clinically the patient appears to be dehydrated. We will obtain urine lytes and consult Nephrology if her kidney function continues to worsen. Will avoid nephrotoxins. A Mars catheter has been ordered. 3. History of chronic pain syndrome with opioid dependence. Plan: At this time we will attempt to hold opiates to see if this improves her sedation. 4. History of Afib on Warfarin Plan: Check INR and continue Warfarin Once again, the patient will be admitted to the step-down unit given the severity of her illness and confusion. Will order subcutaneous heparin for DVT prophylaxis. /[id number]/MODL MTDD
[2017-02-03 17:52] LABS: COLOR YELLOW; LEUKOCYTE ESTERASE,URINE NEGATIVE (NEGATIVE); NITRITE,URINE NEGATIVE (NEGATIVE)
[2017-02-03 18:45] LABS: BASE EXCESS -4.2 mEq/L (-2.5-2.5); BICARBONATE 24 mEq/L (22-26); MEASURED OXYGEN SATURATION 99 % (92-95); PCO2 59 mmHg (34-38); PO2 162 mmHg (65-75); TCO2 25 mEq/L (23-27)
[2017-02-03 18:46] LABS: BIPAP YES; EXP PRESSURE 5; INSP PRESSURE 12; O2 CONCENTRATIION 60 % (0-100); P/F RATIO 270 RATIO
[2017-02-03] MEDS ORDERED: WARFARIN SODIUM 2.5 MG TAB PO SCH (19:00)
[2017-02-03 19:05] LABS: ALANINE AMINOTRANSFERASE 28 IU/L (9-52); ALBUMIN 3.7 g/dL (3.5-5.0); ALKALINE PHOSPHATASE 39 IU/L (38-126); ANION GAP 13 mEq/L (8-16); ASPARTATE AMINOTRANSFERASE 23 IU/L (14-46); BILIRUBIN,TOTAL 0.6 mg/dL (0.1-1.4); CALCIUM 9.3 mg/dL (8.5-10.4); CARBON DIOXIDE 25 mEq/l (22-31); CHLORIDE 96 mEq/L (97-110); CREATININE 5.6 mg/dL (0.6-1.0); GLOMERULAR FILTRATION RATE 8; GLUCOSE 112 mg/dL (70-100); POTASSIUM 5.1 mEq/L (3.5-5.2); SODIUM 134 mEq/L (134-144); TOTAL PROTEIN 5.9 g/dL (6.3-8.2)
[2017-02-03] MEDS ORDERED: IPRATROPIUM/ALBUTEROL 3 ML DEYVIAL IH PRN (20:00)
[2017-02-03] MEDS ORDERED: MONTELUKAST SODIUM 10 MG TAB PO SCH (20:00)
--- NOTE | 2017-02-03 20:42 | GCON ---
[f rep st] CONSULTATION NEUROLOGY CONSULT. REFERRING PHYSICIAN: Dano Millan DO BILLING INFORMATION: 50 minutes floor time today; over 50% in counseling and coordination of care with Hospital Medicine, Nursing, and Care Team. CHIEF COMPLAINT: Encephalopathy and myoclonus. HISTORY OF PRESENT ILLNESS: The patient is a very pleasant, 61-year-old lady, who is well known to the [facility] for multiple previous admissions. She comes in for confusion. She has a well known history of chronic pain on chronic opiates including long and immediate release oxycodone from what I can tell. It is not clear to me exactly how much immediate p.r.n. oxycodone she takes. She is taking 20 mg of OxyContin every 12 hours, and she may be taking [place] and immediate release oxycodone as well. She has central sleep apnea likely opiate related and obstructive sleep apnea. She is above her ideal body weight. She may have some obesity-related hypoventilation as well. She comes in today with confusion as mildly elevated PCO2 at 59. She is also found to be in significant acute renal failure with a creatinine of 5.3. Sodium is low at 133. She also has a home medication of gabapentin I believe at 900 mg twice a day. However, I am not entirely certain about that dose. PAST MEDICAL HISTORY: Sepsis, chronic failure, chronic pain. She has a history of knee replacements. ALLERGIES: Sulfa. FAMILY HISTORY: Not obtained. REVIEW OF SYSTEMS: I could not obtain. The patient is too confused. PHYSICAL EXAMINATION: VITAL SIGNS: Blood pressure 143/78, afebrile at 36.7. Respiratory rate was 12, heart rate 73. NEUROLOGIC: The patient was awake and alert using BiPAP or positive airway pressure when I walked in, rebreather mask , interacted. She was very pleasant and conversant, though she was significantly confused. She thought the year was 2019. She could tell me her name but other answers were tangential and hard to understand. There was no facial asymmetry. Extraocular movements were normal when tracking me across the room. The patient had spontaneous and startle-induced myoclonus on exam. She likely had a little bit of asterixis as well. The patient was moving all 4 extremities equally. There was no tonoclonic or seizure activity on my exam. IMPRESSION / PLAN: 1. Acute on chronic respiratory failure. 2. Acute renal failure. 3. Chronic pain on opiate therapy. 4. Toxic metabolic encephalopathy with myoclonus The patient's overall clinical history, laboratory exam, and physical exam are consistent with a toxic metabolic encephalopathy with myoclonus and probable asterixis. I wonder if the patient's opiate pain medicine is causing some cyclic acute on chronic respiratory failure with encephalopathy. With this admission she may have had encephalopathy causing decreased oral intake with dehydration leading to acute renal failure exacerbating all of the above. Now with her decreased renal clearance, she may be acutely accumulating gabapentin with multifactorial myoclonus and asterixis with her toxic metabolic encephalopathy. I think we need to completely discontinue her gabapentin and certainly minimize or temporarily hold narcotic medication. Going forward, her outpatient physician likely needs to closely streamline or decrease her narcotics down the line. I would certainly defer to her prescribing physician as an outpatient. I defer to my colleagues in intensive care and hospital medicine in terms of the acute management of her general medical condition. I reviewed her head CT without contrast, which showed no acute hemorrhage or other acute findings. I have no further recommendations now. We will continue to be available and follow along with this very pleasant patient as needed. Please do not hesitate to call with any further questions or changes in neurologic status. Thank you for this consultation. /[id number]/MODL MTDD
--- NOTE | 2017-02-03 20:47 | GCON ---
[f rep st] CONSULTATION PULMONARY CONSULT DATE OF CONSULTATION: 02/03/2017 HISTORY: The patient is a 61-year-old female with a history of central and obstructive sleep apnea, who is yet to start on her ASV device as she has been having difficulty with insurance companies to get it set up. She apparently was hospitalized in November 2016, when she presented with a sepsis-l nestor presentation and altered mental status, and required respiratory support at that time. She was admitted today with increasing confusion and shortness of breath. Her confusion has cleared over e past 12 hours though she has not taken any new medication. She does take OxyContin 20 mg every 12 hours as well as [place] for breakthrough pain related to previous cervical spine surgery. She has b een intermittently disoriented and had an unwitnessed fall last night when she struck her face on a bedside table. Her room air oxygen saturation was noted to be 82%, and she was also complaining of difficulty with urination. She has not able to give many historical details either. At the time my evaluation was quite confused. REVIEW OF SYSTEMS: Otherwise negative according to the . PAST MEDICAL HISTORY: 1. Chronic respiratory failure with some CO2 retention though evidence from our labs show bicarbs p robably in the upper 20s and maybe 30s from time to time. 2. Pneumonia. 3. Asthma. 4. Previous septic shock. 5. Chronic pain syndrome. 6. Narcotic dependency. 7. Falls. 8. Renal artery occlusion. PAST SURGICAL HISTORY: 1. Bilateral knee replacements. 2. Right foot surgery. ALLERGIES: Sulfa. SOCIAL HISTORY: She is a nonsmoker. No alcohol or IV drug use. FAMILY HISTORY: Noncontributory. MEDICATIONS: At home include [place], Singulair, Flexeril, Advair, Zoloft, Neurontin at 900 mg p.o. t .i.d., lisinopril, amlodipine, Zyrtec, vitamin D3, multivitamins, fish oil, DuoNeb, lisinopril/hydro chlorothiazide, oxycodone, warfarin, labetalol. EXAM: VITAL SIGNS: She had a blood pressure 143/78, heart rate is 73, respirations 20, oxygen satu ration was only 88% on 2 L nasal cannula. GENERAL: She was morbidly obese and markedly confused an d unable to answer questions. I could understand her words but they were not making any sense. SHAGGY NT: Pupils were equally round, reactive to light. Nonicteric and noninjected. Mucous membranes we re moist without erythema or exudate. NECK: Supple without adenopathy or jugular vein distention. LUNGS: Breath sounds were diminished but clear to auscultation bilaterally without wheezes, rubs o r rales. HEART: Regular rate and rhythm without murmurs, rubs, gallops. ABDOMEN: Morbidly obese but soft, nontender, nondistended. EXTREMITIES: Show 1 to 2+ edema bilaterally. NEUROLOGICAL: Other than the confusion was otherwise nonfocal including cranial nerves, deep tendon reflexes. SKIN: Warm and dry without evidence of rash. OBJECTIVE DATA: Includes a white count of 11.6, hematocrit was 36, platelets 266. INR was 2.6. A venous pH was 7.27 with a bicarb of 23, and a pCO2 of 53, PO2 186. Sodium is 133, potassium 4.8, ch loride 95, bicarb was 25, BUN 68, and creatinine was 5.3. Urinalysis was negative. Chest x-ray was hypoventilation but no evidence of pneumonia. ASSESSMENT AND PLAN: 1. Probable combined respiratory as well as metabolic acidosis. It is not entirely clear to me if she is a chronic CO2 retainer though she certainly could be having not been treated for her central and obstructive sleep apnea. I think because of marginal saturations at this time, it is reasonable to start her on BiPAP now until her mental status improves. She was not particularly tachypneic th ough she may have obesity hypoventilation syndrome, which would prevent that from occurring. In eit her case I will start her at 12 infuse a followup blood gas subsequently. I suspect that she has a narcotic issue particularly in the face of her renal insufficiency that may have resulted in prolo nged effect of that. She is otherwise stable. I do not feel that emergent Narcan is required at th is time. 2. Asthma, by history. She is on quite a few inhalers and I would simply continue her outpatient m edications including her Singulair, but this does not look to be an asthma exacerbation to me at thi s time. I do not feel that systemic steroids are required. 3. Obstructive sleep apnea. I will review Dr. Cui's notes. Will use BiPAP with a backup rate fo r now until she can get her ASV set up hopefully at home prior to being discharged. 4. Acute kidney injury. The etiology is not exactly clear to me. Mars catheter is being placed. Urine electrolytes have been sent. If I understand her home medications correctly, it looks like s he may have been taking excessive EDMUND inhibitor, which certainly would contribute to this situation. I do not feel that dialysis is imminent at this time. I would probably treat her with some IV flu ids and consider renal consult in the near future should it not resolve soon. /[id number]/MODL
[2017-02-03] MEDS ORDERED: IPRATROPIUM/ALBUTEROL 3 ML DEYVIAL IH SCH (21:00)
[2017-02-03] MEDS: FLUTICASONE/SALMETER 250/50MCG DISKUS IH SCH (21:39)
[2017-02-03] MEDS: HEPARIN 5,000 UNIT/0.5 ML SYR SC SCH (22:49)
[2017-02-04] MEDS ORDERED: hydrALAZINE 20 MG/ML VIAL IVP PRN (01:26)
[2017-02-04 04:44] LABS: BASE EXCESS -3.6 mEq/L (-2.5-2.5); BICARBONATE 23 mEq/L (22-26); MEASURED OXYGEN SATURATION 93 % (92-95); PCO2 56 mmHg (34-38); PO2 74 mmHg (65-75); TCO2 25 mEq/L (23-27)
[2017-02-04 04:44] LABS: ABSOLUTE IMMATURE GRANULOCYTES 0.13 10^3/uL (0.00-0.10); ADD DIFF? NO; ADD MORPH? NO; ADD SCAN? NO; ATYPICAL LYMPHOCYTE FLAG 0 (0-99); FRAGMENT RBC FLAG 0 (0-99); HEMATOCRIT 35.6 % (38.0-47.0); HEMOGLOBIN 11.6 g/dL (12.6-16.3); LEFT SHIFT FLG 0 (0-99); LIPEMIA HEMOLYSIS FLAG 80 (0-99); MEAN CELL HEMOGLOBIN 30.5 pg (27.9-34.1); MEAN CELL HEMOGLOBIN CONCENTR. 32.6 g/dL (32.4-36.7); MEAN CELL VOLUME 93.7 fL (81.5-99.8); MEAN PLATELET VOLUME 10.9 fL (8.7-11.7); PLATELET CLUMPS FLAG 0 (0-99); PLATELET COUNT 209 10^3/uL (150-400); RED CELL DISTRIBUTION WIDTH 11.8 % (11.5-15.2)
[2017-02-04 04:48] LABS: BIPAP YES
[2017-02-04 04:49] LABS: EXP PRESSURE 5; INSP PRESSURE 12; O2 CONCENTRATIION 60 % (0-100); P/F RATIO 123 RATIO
[2017-02-04 04:53] LABS: INR 2.55 (0.83-1.16); PROTIME(PATIENT) 27.7 SEC (12.0-15.0)
[2017-02-04 05:16] LABS: ANION GAP 12 mEq/L (8-16); CALCIUM 9.2 mg/dL (8.5-10.4); CARBON DIOXIDE 20 mEq/l (22-31); CHLORIDE 101 mEq/L (97-110); CREATININE 4.6 mg/dL (0.6-1.0); GLOMERULAR FILTRATION RATE 10; GLUCOSE 109 mg/dL (70-100); POTASSIUM 5.2 mEq/L (3.5-5.2); SODIUM 133 mEq/L (134-144)
[2017-02-04] MEDS: HEPARIN 5,000 UNIT/0.5 ML SYR SC SCH (06:24)
[2017-02-04] MEDS: FLUTICASONE/SALMETER 250/50MCG DISKUS IH SCH (08:38)
--- NOTE | 2017-02-04 08:43 | HOSPPROG ---
Hospitalist Progress Note Assessment/Plan: 61 y/o female with h/o chronic pain on Neurontin and daily opiates with underlying central and obstructive sleep apnea presents with: #acute encephalopathy suspect toxic metabolic encephalopathy with concomitant CO2 narcosis (not improving) -cont to hold neurontin -I discussed intubation with Dr. 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 pt is at risk for aspiration -will defer starting abx at this time, but have a low threshold to start empiric abx if fever persists Pt is high risk Will transfer to ICU status 35 minutes of critical care time were spent on the care of this patient Subjective: pt is unarousable. not responding to voice Objective: Vital Signs Temp Pulse Resp BP Pulse Ox 37.5 C 91 15 167/154 H 95 02/04/17 08:00 02/04/17 08:16 02/04/17 08:16 02/04/17 08:00 02/04/17 08:16 Laboratory Results 02/04/17 04:20 02/04/17 04:20 02/03/17 02/04/17 02/05/17 05:59 05:59 05:59 Intake Total 1660 Output Total 660 Balance 1000 PT 27.7 SEC (12.0-15.0) H 02/04/17 04:20 INR 2.55 (0.83-1.16) H 02/04/17 04:20 renal ultrasound reviewed neg for hydronephrosis - Time Spent With Patient Time Spent with Patient: greater than 35 minutes Time Spent with Patient: Greater than 35 minutes spent on this patients care, greater than 50% of time spent counseling, educating, and coordinating care regarding the above mentioned plan. - Physical Exam Constitutional: chronically ill appearing, obese Cardiovascular: regular rate and rhythym, no murmur, rub, or gallop, edema, No JVD Respiratory: reduced air movement, respiratory distress, No inspiratory crackles , No rhonchi Gastrointestinal: normoactive bowel sounds, soft, non-tender abdomen, no palpable masses, No guarding, No rebound Skin: no rashes or abrasions, no fluctuance, no induration Neurologic: other (AAOx0; myoclonic jerking), No facial droop Psychiatric: encephalopathic ICD10 Worksheet Patient Problems: Problems Problem Status Onset Pneumonia Acute Hypoxemia Acute Narcotic overdose Acute Altered mental status Acute KATY (acute kidney injury) Acute Encephalopathy acute Acute
[2017-02-04] MEDS ORDERED: SERTRALINE HCL 100 MG TAB PO SCH (09:00)
[2017-02-04] MEDS ORDERED: MIDAZOLAM 2 MG/2 ML VIAL IVP ONE ×2 (10:00→11:00)
[2017-02-04] MEDS ORDERED: ETOMIDATE 40 MG/20 ML INJ IV ONE (10:00)
[2017-02-04] MEDS ORDERED: PROPOFOL/EMULSION 1,000 MG/100 ML BOTTLE IV ONE (10:03)
[2017-02-04] MEDS ORDERED: LIDOCAINE 1% 30 ML SDV ONE (10:03)
[2017-02-04] MEDS ORDERED: ALTEPLASE 2 MG VIAL IVP PRN (10:12)
[2017-02-04] MEDS: PROPOFOL/EMULSION 100 ML IV SCH ×4 (11:03→23:50)
[2017-02-04] MEDS ORDERED: HYDROCODONE/APAP 10/325 TAB TUBE PRN (12:02)
[2017-02-04] MEDS ORDERED: ETOMIDATE 40 MG/20 ML INJ ONE (12:21)
[2017-02-04] MEDS: SODIUM BICARBONATE 75 MEQ in 1/2 NS 1,000 ML IV SCH ×2 (13:59→22:29)
--- NOTE | 2017-02-04 16:16 | PDINTPN ---
Senior Net Web Developer Progress Note Assessment/Plan: Assessment/plan: 61 F with complex sleep apnea (AHI= 68) that has not yet been treated with ASV device, admitted on numerous occasions with hypercapnic respiratory failure in conjunction with chronic narcotic dependency following remote cervical spine surgery. She had a reported mechanical fall LOAD TESTER and decreased urination associated with increasing confusion. On arrival she was found to be intermittently obtunded with KATY (Cr 5.6), and pH 7.23 with CO2 59. She was thought to have poor clearance of her chronic narcotics resulting in acute respiratory failure so was placed on Bipap overnight, but this was largely unsuccessful and required intubation the morning of 02/04. The ETT was in the ZAKI and required bronchoscopic evaluation for improved placement. * Respiratory failure with hypercapnea. I suspect she is still slowly metabolizing narcotics and her high dose gabapentin in the setting of complex sleep apnea, but failed non-invasive ventilation. She was intubated with a glide scope and subsequently had her tube adjusted via bronch. We will sedate her for comfort today and re-evaluate in AM. No evidence of PNA. We can try to mobilize her outpatient equipment so she can have this in place at the time of DC. Will discuss with Dr. Cui. * Altered MS- likely 2/2 above. Appreciate neuro eval. Continue to support for now. * Myclonus- suspected to be from gabapentin. Observation * KATY- renal to see today. I dont see an urgent need for HD unless that was thought to provide more rapid clearance of both narcotics and Gabapentin, which might result in faster liberation from vent. Defer to renal. Creatinine down from 5.6 to 4.6 with adequate, though oliguric, UOP. * Chronic pain- holding narcotics for now, but will likely require resumption to avoid excess pain and withdrawal. * * critical care time at least 60 minutes separate from procedures Subjective: Placed bipap overnight, but little change in status with severely irregular respiratory pattern and ongoing reduced mental status. Objective: Vital Signs Temp Pulse Resp BP Pulse Ox 37.5 C 76 25 H 97/50 L 100 02/04/17 08:00 02/04/17 12:22 02/04/17 12:22 02/04/17 12:00 02/04/17 12:22 Laboratory Results 02/04/17 04:20 02/03/17 02/04/17 02/05/17 05:59 05:59 05:59 Intake Total 1660 Output Total 660 Balance 1000 PT 27.7 SEC (12.0-15.0) H 02/04/17 04:20 INR 2.55 (0.83-1.16) H 02/04/17 04:20 Physical Exam - Physical Exam General Appearance: moderate distress, obtunded, obese EENT: PERRL/EOMI Neck: supple Respiratory: lungs clear, normal breath sounds, respiratory distress, accessory muscle use, decreased breath sounds Cardiac/Chest: normal peripheral pulses, regular rate, rhythm, No edema Abdomen: normal bowel sounds, non-tender, soft, No distended Skin: normal color, warm/dry, No cyanosis Lymphatic: no adenopathy Extremities: No pedal edema Neuro/Psych: cognition abnormalities ICD10 Worksheet Patient Problems: Problems Problem Status Onset KATY (acute kidney injury) Acute Encephalopathy acute Acute Altered mental status Acute Hypoxemia Acute Narcotic overdose Acute Pneumonia Acute
[2017-02-04 16:25] LABS: ALBUMIN 3.3 g/dL (3.5-5.0); ANION GAP 12 mEq/L (8-16); CALCIUM 9.3 mg/dL (8.5-10.4); CARBON DIOXIDE 22 mEq/l (22-31); CHLORIDE 105 mEq/L (97-110); CREATININE 2.8 mg/dL (0.6-1.0); GLOMERULAR FILTRATION RATE 17; GLUCOSE 94 mg/dL (70-100); POTASSIUM 3.7 mEq/L (3.5-5.2); SODIUM 139 mEq/L (134-144)
--- NOTE | 2017-02-04 18:46 | PDGENHP ---
History and Physical - Chief Complaint KATY, acidemia - History of Present Illness Ms. Philippe is a 61 yo F with h/o central and obstructive sleep apnea who hsa not yet started on her ASV device due to problems with insurance company. She has had multiple recent hospitalizations that have involved respiratory failure , has previously been intubated. Her baseline Cr is around 0.6. She was admitted yesteday for worsening confusion and dyspnea at home. states that she has not been her usual self since maybe , less po intake, getting more confused. He denies any new medications, NSAIDs, PPIs. He states she does chronically use opiates. She fell just before her presentation and hit her face. She also had noted at the time that she was not urinating much. Pt has had ongoing respiratory distress, pH persistently around 2.5, was intubated this morning. on presentation, Cr was up to 5.3, is improving with IVFs. History Information - Allergies/Home Medication List Allergies/Adverse Reactions: pregabalin [From Lyrica] Allergy (Severe, Verified 02/03/17 12:09) MOUTH SORES/ AFFECTS VISION Sulfa (Sulfonamide Antibiotics) Allergy (Severe, Verified 02/03/17 12:09) Anaphylaxis lactose Allergy (Intermediate, Verified 02/03/17 12:09) Diarrhea niacin [From Niaspan Extended-Release] Allergy (Intermediate, Verified 02/03/17 12:09) FLUSHING EXTREME ketorolac tromethamine [From Toradol] Allergy (Mild, Verified 02/03/17 12:09) DOESN'T WORK atorvastatin calcium [From Lipitor] Allergy (Unknown, Verified 02/03/17 12:09) MOLDS Allergy (Intermediate, Uncoded 08/30/14 10:44) WHEEZING /HIVES ENVIRONMENTAL Allergy (Mild, Uncoded 08/30/14 10:44) RUNNY NOSE/NASAL CONGESTION Home Medications: Cyclobenzaprine [Flexeril 10 MG (*)] 10 mg PO TID@06,13,20 08/30/14 [Last Taken 02/03/17] Fluticasone/Salmeter 250/50Mcg [Advair 250/50 (*)] 1 puffs IH BID 08/30/14 [ Last Taken 02/03/17] HYDROcodone/APAP 10/325 [[place] 10/325 (*)] 1 tab PO BID PRN 08/30/14 [Last Taken 11/23/16] Montelukast Sodium [Singulair 10 mg (*)] 10 mg PO DAILY@08/30/14 [Last Taken 11/23/16] Gabapentin [Neurontin 300 MG (*)] 900 mg PO TID@,09/03/16 [Last Taken ] Sertraline HCl [Zoloft 100mg (*)] 150 mg PO DAILY 09/03/16 [Last Taken 02/03/17] Amlodipine Besylate 5 mg PO DAILY@199910/28/16 [Last Taken 11/23/16] Lisinopril [Zestril 20 mg (*)] 20 mg PO DAILY@199910/28/16 [Last Taken 11/23/16 ] Acetaminophen/Caffeine [Excedrin Tension Headache Cplt] 2 each PO TID PRN [Last Taken Unknown] Cetirizine [ZyrTEC 10 mg (*)] 10 mg PO DAILY@199911/24/16 [Last Taken 11/23/16] Cholecalciferol Vit D3 [Vitamin D3 2000 units tab (OTC)] 2,000 units PO DAILY@ 199911/24/16 [Last Taken 02/03/17] Herbals/Supplements -Info Only 1 ea PO AD 11/24/16 [Last Taken Unknown] Ipratropium/Albuterol [Duoneb (*)] 3 ml IH TID@ PRN 11/24/16 [Last Taken Unknown] Multivitamins [Multivitamin (*)] 1 each PO DAILY@199911/24/16 [Last Taken 11/23] Loa-3 Fatty Acids [Fish Oil 1000 mg (*)] 2,000 mg PO DAILY@129911/24/16 [ Last Taken 11/23/16] Sennosides/Docusate Sodium [Senokot-S] 1 each PO DAILY PRN 11/24/16 [Last Taken Unknown] Acetaminophen [Tylenol ES 500 mg (*)] 1,000 mg PO TID PRN 02/03/17 [Last Taken Unknown] Ipratropium/Albuterol [Duoneb (*)] 3 ml IH HS 03/25/17 [Last Taken Unknown] Labetalol HCl [Trandate 200 mg (*)] 200 mg PO BID 02/03/17 [Last Taken 02/03/17] Warfarin Sodium 2.5 mg PO DAILY@1900 02/03/17 [Last Taken Unknown] I have personally reviewed and updated: medical history - Past Medical History Additional medical history: Cervical stenosis with chronic pain and continuous opiate dependency, asthma with use of Advair and as needed albuterol, diverticulitis, mechanical fall with [facility] hospitalization, 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 R foot surgery - Family History Additional family history: No family history of asthma - Social History Smoking Status: Never smoked Additional social history: The patient is minimally mobile and ambulatory at home Review of Systems Review of Systems: unable to obtain 2/2 clinical condition Physical Exam Temp Pulse Resp BP Pulse Ox 37.7 C 92 25 H 96/49 L 100 02/04/17 18:17 02/04/17 18:17 02/04/17 18:17 02/04/17 18:17 02/04/17 18:17 O2 (L/minute) 96 FIO2 (%) 60 Constitutional: no apparent distress, not in pain, obese Eyes: PERRL, anicteric sclera, EOMI Ears, Nose, Mouth, Throat: dry mucous membranes, other (intubated) Cardiovascular: regular rate and rhythym, pulses symmetric bilaterally Peripheral Pulses: 2+: carotid (R), carotid (L) Respiratory: other (intubated and on vent, no crackles) Skin: warm, no rashes or abrasions Musculoskeletal: no muscle tenderness, no joint effusions Neurologic: CN II-XII Intact, No asterixes Lab Data & Imaging Review 02/04/17 04:20 02/04/17 15:40 WBC 12.47 10^3/uL (3.80-9.50) H 02/04/17 04:20 RBC 3.80 10^6/uL (4.18-5.33) L 02/04/17 04:20 Hgb 11.6 g/dL (12.6-16.3) L 02/04/17 04:20 Hct 35.6 % (38.0-47.0) L 02/04/17 04:20 MCV 93.7 fL (81.5-99.8) 02/04/17 04:20 MCH 30.5 pg (27.9-34.1) 02/04/17 04:20 MCHC 32.6 g/dL (32.4-36.7) 02/04/17 04:20 RDW 11.8 % (11.5-15.2) 02/04/17 04:20 Plt Count 209 10^3/uL (150-400) 02/04/17 04:20 MPV 10.9 fL (8.7-11.7) 02/04/17 04:20 Neut % (Auto) 75.0 % (39.3-74.2) H 02/04/17 04:20 Lymph % (Auto) 11.0 % (15.0-45.0) L 02/04/17 04:20 [place] % (Auto) 11.8 % (4.5-13.0) 02/04/17 04:20 Eos % (Auto) 0.9 % (0.6-7.6) 02/04/17 04:20 Baso % (Auto) 0.3 % (0.3-1.7) 02/04/17 04:20 Nucleat RBC Rel Count 0.0 % (0.0-0.2) 02/04/17 04:20 Absolute Neuts (auto) 9.35 10^3/uL (1.70-6.50) H 02/04/17 04:20 Absolute Lymphs (auto) 1.37 10^3/uL (1.00-3.00) 02/04/17 04:20 Absolute Monos (auto) 1.47 10^3/uL (0.30-0.80) H 02/04/17 04:20 Absolute Eos (auto) 0.11 10^3/uL (0.03-0.40) 02/04/17 04:20 Absolute Basos (auto) 0.04 10^3/uL (0.02-0.10) 02/04/17 04:20 Absolute Nucleated RBC 0.00 10^3/uL (0-0.01) 02/04/17 04:20 Immature Gran % 1.0 % (0.0-1.1) 02/04/17 04:20 Immature Gran # 0.13 10^3/uL (0.00-0.10) H 02/04/17 04:20 PT 27.7 SEC (12.0-15.0) H 02/04/17 04:20 INR 2.55 (0.83-1.16) H 02/04/17 04:20 Puncture Site RIGHT RADIAL 02/04/17 04:32 Patient Temperature 38.5 DEGREES 02/04/17 04:32 pCO2 56 mmHg (34-38) H 02/04/17 04:32 pO2 74 mmHg (65-75) 02/04/17 04:32 Total CO2 25 mEq/L (23-27) 02/04/17 04:32 ABG pH 7.25 (7.35-7.45) L 02/04/17 04:32 ABG PO2/FiO2 Ratio 123 RATIO 02/04/17 04:32 ABG O2 Saturation 93 % (92-95) 02/04/17 04:32 ABG Base Excess -3.6 mEq/L (-2.5-2.5) L 02/04/17 04:32 VBG pH 7.27 (7.31-7.42) L 02/03/17 14:10 VBG HCO3 23 mEQ/L (22-26) 02/03/17 14:10 VBG Total CO2 25 mEq/L (23-27) 02/03/17 14:10 VBG O2 Saturation 99 % (65-75) H 02/03/17 14:10 VBG Base Excess -3.7 mEq/L (-2.5-2.5) L 02/03/17 14:10 Mixed VBG pCO2 53 mmHg (40-44) H 02/03/17 14:10 Mixed VBG pO2 186 mmHg (35-40) H 02/03/17 14:10 O2 Concentration % 60 % (0-100) 02/04/17 04:32 Expiratory Pressure 5 02/04/17 04:32 Inspiratory Pressure 12 02/04/17 04:32 Mode BiPAP YES 02/04/17 04:32 Sodium 139 mEq/L (134-144) 02/04/17 15:40 Potassium 3.7 mEq/L (3.5-5.2) 02/04/17 15:40 Chloride 105 mEq/L (97-110) 02/04/17 15:40 Carbon Dioxide 22 mEq/l (22-31) 02/04/17 15:40 Bicarbonate 23 mEq/L (22-26) 02/04/17 04:32 Anion Gap 12 mEq/L (8-16) 02/04/17 15:40 BUN 57 mg/dL (7-23) H 02/04/17 15:40 Creatinine 2.8 mg/dL (0.6-1.0) H 02/04/17 15:40 Estimated GFR 17 02/04/17 15:40 Glucose 94 mg/dL (70-100) 02/04/17 15:40 POC Glucose 111 mg/dL (70-100) H 02/03/17 17:29 Calcium 9.3 mg/dL (8.5-10.4) 02/04/17 15:40 Phosphorus 4.2 mg/dL (2.5-4.5) 02/04/17 15:40 Total Bilirubin 0.6 mg/dL (0.1-1.4) 02/03/17 18:40 AST 23 IU/L (14-46) 02/03/17 18:40 ALT 28 IU/L (9-52) 02/03/17 18:40 Alkaline Phosphatase 39 IU/L (38-126) 02/03/17 18:40 Ammonia 24.0 uMOL/L (9.0-30.0) 02/03/17 12:45 Total Protein 5.9 g/dL (6.3-8.2) L 02/03/17 18:40 Albumin 3.3 g/dL (3.5-5.0) L 02/04/17 15:40 Lipase 58.0 IU/L (23-300) 02/03/17 12:45 Urine Color YELLOW 02/03/17 17:40 Urine Appearance HAZY 02/03/17 17:40 Urine pH 5.0 (5.0-7.5) 02/03/17 17:40 Ur Specific [place] 1.016 (1.002-1.030) 02/03/17 17:40 Urine Protein NEGATIVE (NEGATIVE) 02/03/17 17:40 Urine Ketones NEGATIVE (NEGATIVE) 02/03/17 17:40 Urine Blood NEGATIVE (NEGATIVE) 02/03/17 17:40 Urine Nitrate NEGATIVE (NEGATIVE) 02/03/17 17:40 Urine Bilirubin NEGATIVE (NEGATIVE) 02/03/17 17:40 Urine Urobilinogen NEGATIVE EU (0.2-1.0) 02/03/17 17:40 Ur Leukocyte Esterase NEGATIVE (NEGATIVE) 02/03/17 17:40 Ur Culture Indicated? NOT INDICATED (NI) 02/03/17 17:40 Ur Random Creatinine 179.7 mg/dL 02/03/17 17:40 Ur Random Sodium 16 mEq/L (30-90) L 02/03/17 17:40 Urine Glucose NEGATIVE (NEGATIVE) 02/03/17 17:40 Assessment & Plan Assessment: Assessment/Plan: KATY: no renal disease at baseline, Cr up to 5.6, now improved to 2.8 with IVFs. Likely prerenal given her quick response to IVFs, , nonoliguric, FeNa <1%. Renal US done, no acute findings. - Continue IVFs. - No need for HD. - Will continue to monitor. - Avoid MOM, morphine, demerol, NSAIDs, contrast, aminoglycosides, fleets, and other nephrotoxins. Acidemia: pt has a respiratory acidosis, likely acute on chronic, with an additional nongap metabolic acidosis, which is likely due to KATY. - Pt now intubated and on vent. - Will add bicarb to IVFs. - Will continue to monitor. Anemia: no need for epo, will continue to monitor. Thank you for the interesting consult. Nephrology will continue to follow, please call if you have any additional questions or concerns.
[2017-02-04] MEDS ORDERED: MONTELUKAST SODIUM 10 MG TAB TUBE SCH (20:00)
[2017-02-04] MEDS ORDERED: FLUTICASONE IH SCH (21:00)
[2017-02-04] MEDS ORDERED: SALMETER IH SCH (21:00)
[2017-02-04] MEDS ORDERED: SENNOSIDES 17.6 MG/10 ML UDL - IF LIQUID ORDERED PO SCH (21:00)
[2017-02-04] MEDS: ACETAMINOPHEN 650 MG SUPP PR PRN (23:58)
--- NOTE | 2017-02-05 02:24 | GPN ---
[f rep st] PROCEDURE NOTE DATE OF PROCEDURE: 02/04/2017 PROCEDURE: Emergent intubation. INDICATION: Respiratory failure. CONSENT: Waived due to the urgent nature of the procedure as was a time-out. ANESTHESIA: Sedation was achieved using a total of 3 mg of IV Versed and 40 mg of IV etomidate, whi ch the patient tolerated well without complication. DESCRIPTION OF PROCEDURE: After the patient was placed in appropriate position, I used a Mac-4 blad e with direct laryngoscopy and though, I did have some difficulty with her vocal cords which were so mewhat anterior, the first attempt did not result in adequate cannulation of the trachea and was juany ndoned. Subsequently, I used a GlideScope which provided substantially better view, and was able to advance the endotracheal tube appropriately. Following this placement, there was appropriate color change on capnography as well as tube compensation, chest rise, and oxygen saturations at 100%. A postprocedure film, however, revealed the endotracheal tube to be in the right mainstem and this was adjusted using a fiberoptic bronchoscopy evaluation. There was difficulty with sedation during thi s period of time, and the fiberoptic bronchoscope was inadequate for visualization and maneuvering o f the endotracheal tube. Once we changed to an adequate scope, we were able to visualize quite well and put the endotracheal tube in the appropriate position. Both procedures were tolerated without adverse complications. /[id number]/MODL
[2017-02-05] MEDS: fentaNYL/NACL 100 ML IV SCH ×2 (02:54→18:30)
[2017-02-05 05:17] LABS: ALBUMIN 3.1 g/dL (3.5-5.0); ANION GAP 10 mEq/L (8-16); CALCIUM 8.8 mg/dL (8.5-10.4); CARBON DIOXIDE 28 mEq/l (22-31); CHLORIDE 106 mEq/L (97-110); CREATININE 1.2 mg/dL (0.6-1.0); GLOMERULAR FILTRATION RATE 46; GLUCOSE 111 mg/dL (70-100); POTASSIUM 3.4 mEq/L (3.5-5.2); SODIUM 144 mEq/L (134-144)
[2017-02-05] MEDS: SODIUM BICARBONATE 75 MEQ in 1/2 NS 1,000 ML IV SCH (06:26)
[2017-02-05 09:49] LABS: % IMMATURE GRANULYOCYTES 0.3 % (0.0-1.1); ABSOLUTE IMMATURE GRANULOCYTES 0.04 10^3/uL (0.00-0.10); ADD DIFF? NO; ADD MORPH? NO; ADD SCAN? NO; ATYPICAL LYMPHOCYTE FLAG 0 (0-99); FRAGMENT RBC FLAG 0 (0-99); HEMATOCRIT 32.3 % (38.0-47.0); HEMOGLOBIN 11.3 g/dL (12.6-16.3); LEFT SHIFT FLG 0 (0-99); LIPEMIA HEMOLYSIS FLAG 90 (0-99); MEAN CELL HEMOGLOBIN 31.1 pg (27.9-34.1); MEAN PLATELET VOLUME 11.4 fL (8.7-11.7); PLATELET CLUMPS FLAG 0 (0-99); PLATELET COUNT 190 10^3/uL (150-400); RED BLOOD CELL COUNT 3.63 10^6/uL (4.18-5.33); RED CELL DISTRIBUTION WIDTH 11.9 % (11.5-15.2)
[2017-02-05 09:59] LABS: INR 1.85 (0.83-1.16); PROTIME(PATIENT) 21.4 SEC (12.0-15.0)
--- NOTE | 2017-02-05 11:28 | SOAPPROG ---
SOAP Progress Note Assessment/Plan: Assessment/Plan: KATY: no renal disease at baseline, Cr up to 5.6, now improved to 1.2 with IVFs. Likely prerenal given her quick response to IVFs, nonolguric, FeNa <1%. Renal US done, no acute findings. - No need for HD. - Continue IVFs, changing to 1/2NS. Acidemia: pt has a respiratory acidosis, likely acute on chronic, also had a nongap metabolic acidosis from KATY. KATY now improved, bicarb up with bicarb given, will stop supplemental bicarb. Pt remains on vent. Anemia: no need for epo. Hypokalemia: K down with resolving KATY as well as bicarb given. - Will stop bicarb in fluids. - Will give KCl 30meq x1 today. Thank you for the interesting consult. Nephrology will sign off at this time, please call if you have any additional questions or concerns. Subjective: No acute events overnight. Pt remains sedated and intubated, good UOP. Objective: Vital Signs Temp Pulse Resp BP Pulse Ox 37.8 C 101 H 25 H 129/62 H 95 02/05/17 10:00 02/05/17 10:00 02/05/17 10:00 02/05/17 10:00 02/05/17 10:00 Laboratory Results 02/05/17 09:30 02/05/17 04:50 02/04/17 02/05/17 02/06/17 05:59 05:59 05:59 Intake Total 1660 2726.6 Output Total 660 3460 400 Balance 1000 -733.4 -400 PT 21.4 SEC (12.0-15.0) H 02/05/17 09:30 INR 1.85 (0.83-1.16) H 02/05/17 09:30 General: sedated, no acute distress OP: intubated CV: RRR Resp: intubated and on vent Abd: Soft, ND Ext: trace edema BLE ICD10 Worksheet Patient Problems: Problems Problem Status Onset KATY (acute kidney injury) Acute Encephalopathy acute Acute Altered mental status Acute Hypoxemia Acute Narcotic overdose Acute Pneumonia Acute
[2017-02-05] MEDS: POTASSIUM Cl (KCl) 100 ML IV SCH ×3 (13:05→14:18)
[2017-02-05] MEDS: 1/2 NS 1,000 ML IV SCH (13:06)
[2017-02-05] MEDS: PROPOFOL/EMULSION 100 ML IV SCH ×3 (14:17→22:08)
--- NOTE | 2017-02-05 14:53 | PDINTPN ---
Data Processing Systems Project Planner Progress Note Assessment/Plan: Assessment: 61 F with obstructive and central sleep apnea (AHI= 68), currently on supplemental oxygen alone, that has not yet been treated with ASV device, admitted on numerous occasions with hypercapnic respiratory failure in conjunction with chronic narcotic dependency following remote cervical spine surgery. 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 On arrival she was found to be intermittently obtunded with KATY (Cr 5.6), and pH 7.23 with CO2 59. She was thought to have poor clearance of her chronic narcotics resulting in acute respiratory failure so was placed on Bipap overnight, but this was largely unsuccessful and required intubation the morning of 02/04. * Respiratory failure with hypercapnea: Recurrent. Intubated 02/04. Currently doing OK on vent, although O2 needs still quite high. * Altered MS- likely 2/2 above. Appreciate neuro eval. Continue to support for now. * Myclonus- suspected to be from gabapentin. Improved * KATY- Resolved, urine output good. * Chronic pain- holding narcotics for now, but will likely require resumption to avoid excess pain and withdrawal. Would like to resume at lower dose, as this will likely help with her sleep apnea. Plan: Continue mechanical vent for now, wean today as tolerated. Follow urine output and renal Fx. Repeat CXR. ABG in AM. 02/05/17 14:58 Subjective: Intubated, sedated, unresponsive. Objective: Vital Signs Temp Pulse Resp BP Pulse Ox 38 C 102 H 25 H 141/70 H 96 02/05/17 14:00 02/05/17 14:00 02/05/17 14:00 02/05/17 14:00 02/05/17 14:00 Laboratory Results 02/05/17 09:30 02/05/17 04:50 02/04/17 02/05/17 02/06/17 05:59 05:59 05:59 Intake Total 1660 2726.6 Output Total 660 3460 580 Balance 1000 -733.4 -580 PT 21.4 SEC (12.0-15.0) H 02/05/17 09:30 INR 1.85 (0.83-1.16) H 02/05/17 09:30 ECHO 09/05/16: EF 60-65%, diastolic dysfunction, RVSP 41 mmHg. CXR: Basilar atelectasis. Images reviewed. Laboratory Tests 02/04/17 04:32 pCO2 56 H pO2 74 Total CO2 25 ABG pH 7.25 L O2 Concentration % 60 Expiratory Pressure 5 Inspiratory Pressure 12 ICD10 Worksheet Patient Problems: Problems Problem Status Onset KATY (acute kidney injury) Acute Encephalopathy acute Acute Altered mental status Acute Hypoxemia Acute Narcotic overdose Acute Pneumonia Acute
--- NOTE | 2017-02-05 15:56 | HOSPPROG ---
Hospitalist Progress Note Assessment/Plan: Assessment: 61-year-old female presents with acute hypercapnic respiratory failure in the setting of acute encephalopathy and KATY Plan: # acute encephalopathy. evidenced by global brain dysfunction and inability to arouse, unresponsive, acute change from baseline, suspect toxic metabolic encephalopathy from pain Rx with concomitant CO2 narcosis - cont to hold neurontin # KATY. 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 evidenced by elevated pCO2 and acidosis w/ suppressed resp drive, requiring intubation, 2/2 combination of acute worsening central apnea (from pain Rx) and underlying GRICEL - cont on vent # myoclonus. possibly due to Neurontin vs prior anoxic brain injury # afib. paroxysmal, cont on Warfarin with therapeutic inr - daily INR # htn. chronic, cont Rx via OGT # SIRS. fever + tachycardia + leukocytosis, unclear if 2/2 atelectasis vs. unrevealed infxn - cont to monitor CBC - CXR w/o focal infiltrate (personally interpreted) - monitor CXR and CBC, low threshold to tx w/ Abx for possible aspiration pneumonia given high risk # hyponatremia. acute, 2/2 hypovolemia, cont NS # atelectasis. on cxr, cont on vent diet. OGT TF code. full at present, lengthy goals/code d/w who wants to engage his in this convo when she is off vent to determine if she wants future presentations for same issue ppx. high risk, on coumadin dispo. ADD uncertain, critically ill Subjective: would like to discuss goals of care Objective: Vital Signs Temp Pulse Resp BP Pulse Ox 38 C 102 H 25 H 141/70 H 96 02/05/17 14:00 02/05/17 14:00 02/05/17 14:00 02/05/17 14:00 02/05/17 14:00 Laboratory Results 02/05/17 09:30 02/05/17 04:50 02/04/17 02/05/17 02/06/17 05:59 05:59 05:59 Intake Total 1660 2726.6 Output Total 660 3460 580 Balance 1000 -733.4 -580 PT 21.4 SEC (12.0-15.0) H 02/05/17 09:30 INR 1.85 (0.83-1.16) H 02/05/17 09:30 - Time Spent With Patient Time Spent with Patient: greater than 35 minutes Time Spent with Patient: Greater than 35 minutes spent on this patients care, greater than 50% of time spent counseling, educating, and coordinating care regarding the above mentioned plan. - Physical Exam Constitutional: not in pain, chronically ill appearing, No uncomfortable Cardiovascular: systolic murmur (1/6 at sternum, distant heart sounds), No irregularly irregular, No tachycardia Respiratory: inspiratory crackles, No expiratory wheeze, No bronchial breath sounds Gastrointestinal: normoactive bowel sounds, soft, non-tender abdomen, no palpable masses Neurologic: other (No response to verbal stimuli) ICD10 Worksheet Patient Problems: Problems Problem Status Onset KATY (acute kidney injury) Acute Encephalopathy acute Acute Altered mental status Acute Hypoxemia Acute Narcotic overdose Acute Pneumonia Acute
[2017-02-05] MEDS: DEXMEDETOMIDINE HCL 400 MCG in NS 100 ML IV SCH ×2 (18:31→20:58)
[2017-02-06] MEDS: PROPOFOL/EMULSION 100 ML IV SCH ×2 (01:51→05:07)
[2017-02-06] MEDS: DEXMEDETOMIDINE HCL 400 MCG in NS 100 ML IV SCH ×3 (02:52→23:10)
[2017-02-06 04:29] LABS: % IMMATURE GRANULYOCYTES 0.4 % (0.0-1.1); ABSOLUTE IMMATURE GRANULOCYTES 0.07 10^3/uL (0.00-0.10); ADD DIFF? NO; ADD MORPH? NO; ADD SCAN? NO; ATYPICAL LYMPHOCYTE FLAG 0 (0-99); FRAGMENT RBC FLAG 0 (0-99); HEMATOCRIT 36.1 % (38.0-47.0); HEMOGLOBIN 12.6 g/dL (12.6-16.3); LEFT SHIFT FLG 10 (0-99); LIPEMIA HEMOLYSIS FLAG 90 (0-99); MEAN CELL HEMOGLOBIN 30.4 pg (27.9-34.1); MEAN CELL HEMOGLOBIN CONCENTR. 34.9 g/dL (32.4-36.7); MEAN PLATELET VOLUME 11.1 fL (8.7-11.7); PLATELET CLUMPS FLAG 10 (0-99); PLATELET COUNT 201 10^3/uL (150-400); RED BLOOD CELL COUNT 4.15 10^6/uL (4.18-5.33); RED CELL DISTRIBUTION WIDTH 11.7 % (11.5-15.2)
[2017-02-06 04:45] LABS: ALBUMIN 3.2 g/dL (3.5-5.0); ANION GAP 10 mEq/L (8-16); CARBON DIOXIDE 27 mEq/l (22-31); CHLORIDE 105 mEq/L (97-110); CREATININE 0.6 mg/dL (0.6-1.0); GLOMERULAR FILTRATION RATE > 60; GLUCOSE 155 mg/dL (70-100); POTASSIUM 3.3 mEq/L (3.5-5.2); SODIUM 142 mEq/L (134-144)
[2017-02-06 04:53] LABS: INR 1.47 (0.83-1.16); PROTIME(PATIENT) 17.8 SEC (12.0-15.0)
[2017-02-06] MEDS: 1/2 NS 1,000 ML IV SCH (05:06)
[2017-02-06] MEDS ORDERED: PROTOCOL POTASSIUM 1 DOSE MISC PRN (05:14)
[2017-02-06] MEDS: fentaNYL/NACL 100 ML IV SCH (05:37)
[2017-02-06] MEDS: POTASSIUM Cl (KCl) 50 ML IV SCH ×3 (05:37→07:37)
[2017-02-06 05:44] LABS: BASE EXCESS 3.7 mEq/L (-2.5-2.5); BICARBONATE 26 mEq/L (22-26); MEASURED OXYGEN SATURATION 97 % (92-95); PCO2 31 mmHg (34-38); PO2 84 mmHg (65-75); TCO2 27 mEq/L (23-27)
[2017-02-06 05:46] LABS: ASSIST CONTROL YES; END TIDAL CO2 25; O2 CONCENTRATIION 50 % (0-100); P/F RATIO 168 RATIO; TOTAL RATE 25
--- NOTE | 2017-02-06 09:52 | PDINTPN ---
Tool And Die Manager Progress Note Assessment/Plan: Assessment: 61 F with obstructive and central sleep apnea (AHI= 68), currently on supplemental oxygen alone, that has not yet been treated with ASV device, admitted on numerous occasions with hypercapnic respiratory failure in conjunction with chronic narcotic dependency following remote cervical spine surgery. 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 On arrival she was found to be intermittently obtunded with KATY (Cr 5.6), and pH 7.23 with CO2 59. She was thought to have poor clearance of her chronic narcotics resulting in acute respiratory failure so was placed on Bipap overnight, but this was largely unsuccessful and required intubation the morning of 02/04. * Respiratory failure with hypercapnea: Recurrent. Intubated 02/04. O2 needs down slightly. CO2 now low. New infiltrate, WBC trending up, ? pneumonia. No fever for 24 hours. * Altered MS- likely 2/2 above. Appreciate neuro eval. Continue to support for now. * Hypotension: New problem this morning. ? Cause. Has improved somewhat with holding sedation, fluid bolus. ? infection, acute blood loss, medication effect. * KATY- Resolved, urine output good. * Hypokalemia: Still low * Chronic pain- holding narcotics for now, but will likely require resumption to avoid excess pain and withdrawal. Would like to resume at lower dose, as this will likely help with her sleep apnea. * GRICEL with CSA: Currently ventilated. ASV titration 01/19/17 showed persistent events despite ASV, possibly due to large leak with mask. May need AVAPS or BiPAP ST given CO2 retention. Plan: Continue mechanical vent for now, wean today as tolerated. Follow BP closely, add NE if remains low. Cxs and antibiotics if has more fever or CXR/ WBC worsen. 02/06/17 10:00 Subjective: Intubated, sedated Objective: Vital Signs Temp Pulse Resp BP Pulse Ox 36.5 C 61 14 127/69 H 93 02/06/17 08:00 02/06/17 08:00 02/06/17 08:00 02/06/17 08:00 02/06/17 08:00 Laboratory Results 02/06/17 03:55 02/06/17 03:55 02/05/17 02/06/17 02/07/17 05:59 05:59 05:59 Intake Total 2726.6 6288 Output Total 3460 1330 Balance -733.4 4958 PT 17.8 SEC (12.0-15.0) H 02/06/17 03:55 INR 1.47 (0.83-1.16) H 02/06/17 03:55 CXR: Increased LLL basilar density. Images reviewed. Laboratory Tests 02/06/17 05:30 pCO2 31 L pO2 84 H Total CO2 27 ABG pH 7.53 H O2 Concentration % 50 Set Respiration Rate 25 Assist Control YES Tidal Volume 500 PEEP 5 Physical Exam - Physical Exam General Appearance: No alert EENT: normal ENT inspection Neck: normal inspection Respiratory: lungs clear, normal breath sounds Cardiac/Chest: regular rate, rhythm, edema Abdomen: normal bowel sounds, non-tender Skin: normal color, warm/dry Extremities: non-tender Neuro/Psych: No alert, No normal mood/affect, No oriented x 3 ICD10 Worksheet Patient Problems: Problems Problem Status Onset KATY (acute kidney injury) Acute Encephalopathy acute Acute Altered mental status Acute Hypoxemia Acute Narcotic overdose Acute Pneumonia Acute
[2017-02-06] MEDS: VANCOMYCIN 1.5 GM in D5W 250 ML IV SCH ×2 (11:28→23:10)
[2017-02-06] MEDS: PIPERACILLIN/TAZO 4.5 GM/DEX 100 ML IV SCH ×3 (13:44→23:10)
--- NOTE | 2017-02-06 15:57 | HOSPPROG ---
Hospitalist Progress Note Assessment/Plan: Assessment: 61-year-old female presents with acute hypercapnic respiratory failure in the setting of acute encephalopathy and KATY, c/b aspiration pneumonia Plan: # acute encephalopathy. evidenced by global brain dysfunction and inability to arouse, unresponsive, acute change from baseline, suspect toxic metabolic encephalopathy from pain Rx with concomitant CO2 narcosis - cont to hold neurontin # KATY. 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 evidenced by elevated pCO2 and acidosis w/ suppressed resp drive, requiring intubation, 2/2 combination of acute worsening central apnea (from pain Rx) and underlying GRICEL - cont on vent # aspiration pneumonia. acute, new problem, further w/u indicated. evidenced by bilat air space disease on CXR (personally interpreted) + fever + worsening leukocytosis - d/w Dr. Cui, we agree on treating for HCAP w/ vanco/zosyn - BCx sent, will sent sputum if producing # myoclonus. possibly due to Neurontin vs prior anoxic brain injury # afib. paroxysmal, cont on Warfarin, initially held - daily INR # htn. chronic, cont Rx via OGT # hyponatremia. acute, 2/2 hypovolemia, cont NS # atelectasis. on cxr, cont on vent diet. OGT TF code. full at present ppx. high risk, on coumadin (lovenox 40 while INR < 2) dispo. ADD uncertain, critically ill Subjective: patient is intubated and sedated, at bedside Objective: Vital Signs Temp Pulse Resp BP Pulse Ox 37.7 C 74 20 126/63 H 99 02/06/17 14:00 02/06/17 14:00 02/06/17 14:00 02/06/17 14:00 02/06/17 14:00 Laboratory Results 02/06/17 03:55 02/06/17 03:55 02/05/17 02/06/17 02/07/17 05:59 05:59 05:59 Intake Total 2726.6 6288 Output Total 3460 1330 475 Balance -733.4 4958 -475 PT 17.8 SEC (12.0-15.0) H 02/06/17 03:55 INR 1.47 (0.83-1.16) H 02/06/17 03:55 - Physical Exam Eyes: PERRL, anicteric sclera, No pale conjunctiva, No scleral injection Cardiovascular: regular rate and rhythym, no murmur, rub, or gallop, No irregularly irregular, No edema Respiratory: inspiratory crackles ( on inspiration in the bilateral bases), other ( remains on ventilator), No reduced air movement, No expiratory wheeze, No bronchial breath sounds Gastrointestinal: normoactive bowel sounds, no palpable masses, distension ( obese mildly distended), No tenderness Genitourinary: marroquin in urethra Neurologic: other ( does not respond to verbal stimuli) ICD10 Worksheet Patient Problems: Problems Problem Status Onset KATY (acute kidney injury) Acute Encephalopathy acute Acute Altered mental status Acute Hypoxemia Acute Narcotic overdose Acute Pneumonia Acute
[2017-02-06] MEDS: ENOXAPARIN 40 MG/0.4 ML SYR SC SCH (16:13)
[2017-02-06] MEDS: ACETAMINOPHEN 650 MG SUPP PR PRN (17:14)
[2017-02-06] MEDS: WARFARIN SODIUM 2.5 MG TAB TUBE SCH (17:25)
[2017-02-06] MEDS ORDERED: BENZOCAINE UNIT DOSE SPRAY HURRICAINE MM PRN (19:55)
[2017-02-06] MEDS ORDERED: CANN-EASE 2 GM TUBE TP PRN (19:55)
[2017-02-07] MEDS ORDERED: PROTOCOL POTASSIUM 1 DOSE MISC PRN ×2 (06:48→16:49)
[2017-02-07] MEDS ORDERED: PROTOCOL MAGNESIUM 1 DOSE IV PRN ×2 (06:48→16:49)
--- NOTE | 2017-02-07 09:31 | PDINTPN ---
Project Drilling Engineer Progress Note Assessment/Plan: Assessment: 61 F with obstructive and central sleep apnea (AHI= 68), currently on supplemental oxygen alone, that has not yet been treated with ASV device, admitted on numerous occasions with hypercapnic respiratory failure in conjunction with chronic narcotic dependency following remote cervical spine surgery. 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 On arrival she was found to be intermittently obtunded with KATY (Cr 5.6), and pH 7.23 with CO2 59. She was thought to have poor clearance of her chronic narcotics resulting in acute respiratory failure so was placed on Bipap overnight, but this was largely unsuccessful and required intubation the morning of 02/04. * Respiratory failure with hypercapnea: Recurrent. Intubated 02/04, self- extubated 02/06. O2 needs down slightly. CO2 now low. * Pneumonia: Started Zosyn/Vanco 02/06. Infiltrate improved after extubation. Fever last 24 hours. WBC up today. New infiltrate * Altered MS- likely 2/2 above. Appreciate neuro eval. Continue to support for now. * Hypotension: Resolved * KATY- Resolved, urine output good. * Hypokalemia: Persists * Chronic pain- holding narcotics for now, doesn't have IV, not taking PO safely. May try Roxinol. Will reduce Oxycontin to 15 BID in an attempt to continue to wean. * GRICEL with CSA: Currently extubated. ASV titration 01/19/17 showed persistent events despite ASV, possibly due to large leak with mask. May need AVAPS or BiPAP ST given CO2 retention. Plan: Follow closely in ICU. BiPAP PRN. Minimize narcotics. NPO for now, hopefully can start PO soon. Replace K+ 02/07/17 16:36 Subjective: C/O pain 05/21. Weak, but getting stronger. Some right calf pain. Diarrhea today. Objective: Vital Signs Temp Pulse Resp BP Pulse Ox 37.8 C 115 H 20 142/51 H 96 02/07/17 08:00 02/07/17 08:00 02/07/17 08:00 02/07/17 08:00 02/07/17 08:00 Microbiology 02/06/17 16:46 - Final Sputum, Induced/Suctioned Laboratory Results 02/06/17 03:55 02/06/17 03:55 02/06/17 02/07/17 02/08/17 05:59 05:59 05:59 Intake Total 6288 3412 Output Total 1330 1800 Balance 4958 1612 PT 17.8 SEC (12.0-15.0) H 02/06/17 03:55 INR 1.47 (0.83-1.16) H 02/06/17 03:55 Sputum: Rare GPC. CXR: Improved left base. Right pradeep atelectasis/elevated diaphragm. Images reviewed. Physical Exam - Physical Exam General Appearance: alert, no apparent distress EENT: normal ENT inspection Neck: normal inspection Respiratory: decreased breath sounds (bases) Cardiac/Chest: regular rate, rhythm, No edema Abdomen: normal bowel sounds, non-tender Skin: normal color, warm/dry Extremities: normal inspection Neuro/Psych: alert, normal mood/affect, oriented x 3 ICD10 Worksheet Patient Problems: Problems Problem Status Onset KATY (acute kidney injury) Acute Encephalopathy acute Acute Altered mental status Acute Hypoxemia Acute Narcotic overdose Acute Pneumonia Acute
[2017-02-07] MEDS: oxyCODONE CR 15 MG TAB PO SCH ×2 (11:32→20:26)
[2017-02-07 15:07] LABS: % IMMATURE GRANULYOCYTES 1.1 % (0.0-1.1); ABSOLUTE IMMATURE GRANULOCYTES 0.26 10^3/uL (0.00-0.10); ADD DIFF? NO; ADD MORPH? NO; ADD SCAN? NO; ATYPICAL LYMPHOCYTE FLAG 0 (0-99); FRAGMENT RBC FLAG 0 (0-99); HEMATOCRIT 37.1 % (38.0-47.0); HEMOGLOBIN 12.8 g/dL (12.6-16.3); LEFT SHIFT FLG 10 (0-99); LIPEMIA HEMOLYSIS FLAG 90 (0-99); MEAN CELL HEMOGLOBIN 30.1 pg (27.9-34.1); MEAN CELL HEMOGLOBIN CONCENTR. 34.5 g/dL (32.4-36.7); MEAN CELL VOLUME 87.3 fL (81.5-99.8); PLATELET CLUMPS FLAG 0 (0-99); PLATELET COUNT 212 10^3/uL (150-400); RED BLOOD CELL COUNT 4.25 10^6/uL (4.18-5.33); RED CELL DISTRIBUTION WIDTH 11.8 % (11.5-15.2)
[2017-02-07] MEDS: PIPERACILLIN/TAZO 4.5 GM/DEX 100 ML IV SCH ×3 (15:07→17:57)
[2017-02-07] MEDS: VANCOMYCIN 1.5 GM in D5W 250 ML IV SCH ×2 (15:08→22:15)
[2017-02-07 15:17] LABS: INR 1.31 (0.83-1.16); PROTIME(PATIENT) 16.3 SEC (12.0-15.0)
[2017-02-07 15:25] LABS: ALBUMIN 3.1 g/dL (3.5-5.0); ANION GAP 11 mEq/L (8-16); CALCIUM 9.1 mg/dL (8.5-10.4); CARBON DIOXIDE 27 mEq/l (22-31); CHLORIDE 111 mEq/L (97-110); CREATININE 0.5 mg/dL (0.6-1.0); GLOMERULAR FILTRATION RATE > 60; GLUCOSE 123 mg/dL (70-100); POTASSIUM 3.1 mEq/L (3.5-5.2); SODIUM 149 mEq/L (134-144)
[2017-02-07] MEDS ORDERED: ONDANSETRON DISINTEGRATING 4 MG TAB PO PRN (15:39)
[2017-02-07] MEDS ORDERED: DILTIAZEM 25 MG/5 ML VIAL IVP SCH (15:39)
--- NOTE | 2017-02-07 15:43 | HOSPPROG ---
Hospitalist Progress Note Assessment/Plan: INTERVAL SUMMARY & DAILY PROGRESS NOTE DATE OF ADMISSION:02/03/17 INTERVAL DIAGNOSES 1. Acute encephalopathy 2. Acute kidney injury 3. Acute hypercapnic respiratory failure 4. Acute aspiration pneumonia 5. Acute myoclonus while hypercapnic 6. Paroxysmal atrial fibrillation 7. Chronic hypertension 8. Chronic pain with continuous opiate dependency 9. Atelectasis 10. Acute hyponatremia 10. Acute hypokalemia 11. Suspected acute opiate withdraw CONSULTATIONS Pulmonary Critical Care, Nephrology PROCEDURES / IMAGING Chest x-ray demonstrating poor inspiration, bibasilar airspace disease, PICC line placed CHIEF COMPLAINT Acutely unresponsive SUBJECTIVE Complains of abdominal discomfort, pain everywhere, distressed HOSPITAL COURSE BY PROBLEM The patient presented acutely unresponsive in the setting of pain medications, suspected obesity hypoventilation syndrome, suspected GRICEL, complicated by what appeared to be aspiration pneumonia and now recurrent paroxysmal atrial fibrillation. She initially required intubation and mechanical ventilation, she self extubated overnight and also removed her PICC line out of frustration. Today, the patient is beginning to experience total body pain which I suspect is acute opiate withdrawal as well as potential C diff colitis. She has been placed on a diltiazem drip, continued on antibiotics, we are checking her for C diff. Assessment: 61-year-old female presents with acute hypercapnic respiratory failure in the setting of acute encephalopathy and KATY, c/b aspiration pneumonia , PAF Plan: # acute encephalopathy. Most likely 2/2 pain Rx with concomitant CO2 narcosis - cont to hold neurontin, reduced pain Rx # KATY. 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 evidenced by elevated pCO2 and acidosis w/ suppressed resp drive, requiring intubation, 2/2 combination of acute worsening central apnea (from pain Rx) and underlying GRICEL - cont on vent - Dr. Cui addressing sleep study recs w/ patient and # aspiration pneumonia. likely occurred in setting of encephalopathy - D#2 Abx (vanc/zosyn), no e/o worsening on CXR # paroxysmal atrial fibrillation. acute, new problem, further w/u indicated. likely stimulated by above, reviewed outside records (11/27/[address] Donovan Ruano, reported 2:1 aflutter w/ possible SVT w/ aberrancy, rate controlled at that time and placed on systemic anticoagulation) - Echo 08/27 wnl - RVR on tele (personally interpreted), getting EKG to r/o ischemic changes - trop monitoring - give 10mg IV dilt now, then dilt gtt - add therapeutic lovenox now, given low INR and not taking PO, since she may chemically cardiovert and we do not know if she has been in and out of afib since 11/28 (which would predispose her to LA thrombus) - daily INR # SIRS. tachycardic and worsening leukocytosis, suspect CDiff - send CDiff PCR - if recurrent abd discomfort, get CT abd w/ IV contrast # htn. chronic, on dilt gtt # hyponatremia. acute, 2/2 hypovolemia, s/p IVF # hypernatremia. acute, 2/2 free water deficit, start on D5 1/2 NS # hypokalemia. acute, replete w/ Mg # atelectasis. on cxr # suspected acute opiate withdraw and continuous opiate dependency. total body pain, tachycardia, hypertension, will see how dilt gtt drives HR/SBP - d/w Dr. Cui, we agree on trial of lower dose sustained release oxycodone if she is able to alena PO - if patient cannot take PO, fent patch may be good 2nd option diet. NPO, ULTRASONOGRAPHER reassessments code. full at present, would like to have palliative consultation once she is at her cog baseline to discuss whether she wants re-hospitalization in the future ppx. high risk, on coumadin/lovenox dispo. ADD uncertain, critically ill Subjective: Patient reports total body pain Objective: Vital Signs Temp Pulse Resp BP Pulse Ox 36.6 C 124 H 20 176/90 H 94 02/07/17 12:00 02/07/17 14:00 02/07/17 14:00 02/07/17 14:00 02/07/17 14:00 Microbiology 02/06/17 16:46 - Final Sputum, Induced/Suctioned Laboratory Results 02/07/17 14:40 02/07/17 14:40 02/06/17 02/07/17 02/08/17 05:59 05:59 05:59 Intake Total 6288 3412 Output Total 1330 1800 Balance 4958 1612 PT 16.3 SEC (12.0-15.0) H 02/07/17 14:40 INR 1.31 (0.83-1.16) H 02/07/17 14:40 - Physical Exam Constitutional: chronically ill appearing, obese, uncomfortable, No no apparent distress ( moderately distressed), No not in pain Cardiovascular: irregularly irregular, tachycardia, edema ( trace bilateral lower extremity), No systolic murmur Respiratory: reduced air movement ( poor inspiratory effort), inspiratory crackles ( bilateral bases), No expiratory wheeze, No bronchial breath sounds Gastrointestinal: normoactive bowel sounds, distension ( mildly, obese), No tenderness, No guarding Psychiatric: anxious, agitated, poor insight, poor judgement, poor memory ICD10 Worksheet Patient Problems: Problems Problem Status Onset KATY (acute kidney injury) Acute Encephalopathy acute Acute Altered mental status Acute Hypoxemia Acute Narcotic overdose Acute Pneumonia Acute
--- NOTE | 2017-02-07 15:57 | CPEKG ---
Heart Rate: 115 RR Interval: 522 P-R Interval: 152 QRSD Interval: 84 QT Interval: 288 QTC Interval: 399 P [place]: -45 QRS [place]: -1 T Wave [place]: 18 EKG Severity - OTHERWISE NORMAL ECG - EKG Impression: SINUS OR ECTOPIC ATRIAL TACHYCARDIA EKG Impression: Diffuse ST-T wave abnormalities-- new since February 03, 2017 Electronically Signed By: Hoang Conde 07-Feb-2017 20:16:41
[2017-02-07] MEDS: WARFARIN SODIUM 2.5 MG TAB TUBE SCH (17:52)
[2017-02-07] MEDS: D5W 1/2 NS W/ 40 KCl/L 1,000 ML IV SCH (17:56)
[2017-02-07] MEDS: POTASSIUM Cl (KCl) 50 ML IV SCH (17:57)
[2017-02-07] MEDS: ENOXAPARIN 40 MG/0.4 ML SYR SC SCH (18:12)
[2017-02-07] MEDS: ONDANSETRON 4 MG/2 ML VIAL IVP PRN ×2 (19:52→23:43)
[2017-02-07] MEDS: DILTIAZEM 125 MG in D5W 125 ML IV SCH (20:16)
[2017-02-07] MEDS: ENOXAPARIN 120 MG/0.8 ML SYR SC SCH (20:20)
[2017-02-08] MEDS: PIPERACILLIN/TAZO 4.5 GM/DEX 100 ML IV SCH ×4 (00:20→18:36)
[2017-02-08 00:49] LABS: POTASSIUM 3.7 mEq/L (3.5-5.2)
[2017-02-08] MEDS ORDERED: POTASSIUM Cl (KCl) 50 ML IV ONE ×4 (01:33→22:46)
[2017-02-08] MEDS: ONDANSETRON 4 MG/2 ML VIAL IVP PRN ×2 (01:49→05:12)
[2017-02-08 04:37] LABS: ADD DIFF? YES; ADD MORPH? NO; ATYPICAL LYMPHOCYTE FLAG 0 (0-99); FRAGMENT RBC FLAG 0 (0-99); HEMATOCRIT 44.9 % (38.0-47.0); HEMOGLOBIN 15.2 g/dL (12.6-16.3); LEFT SHIFT FLG 10 (0-99); LIPEMIA HEMOLYSIS FLAG 90 (0-99); MEAN CELL HEMOGLOBIN 29.8 pg (27.9-34.1); MEAN CELL HEMOGLOBIN CONCENTR. 33.9 g/dL (32.4-36.7); MEAN PLATELET VOLUME 10.7 fL (8.7-11.7); PLATELET CLUMPS FLAG 20 (0-99); PLATELET COUNT 310 10^3/uL (150-400)
[2017-02-08 04:41] LABS: ADD SCAN? NO
[2017-02-08 04:49] LABS: INR 1.46 (0.83-1.16); PROTIME(PATIENT) 17.7 SEC (12.0-15.0)
[2017-02-08 04:57] LABS: ALBUMIN 3.1 g/dL (3.5-5.0); ANION GAP 14 mEq/L (8-16); CALCIUM 8.8 mg/dL (8.5-10.4); CARBON DIOXIDE 21 mEq/l (22-31); CHLORIDE 111 mEq/L (97-110); CREATININE 0.8 mg/dL (0.6-1.0); GLOMERULAR FILTRATION RATE > 60; GLUCOSE 246 mg/dL (70-100); MAGNESIUM 1.7 mg/dL (1.6-2.3); POTASSIUM 3.9 mEq/L (3.5-5.2); SODIUM 146 mEq/L (134-144)
[2017-02-08 05:08] LABS: PLATELET ESTIMATE ADEQUATE (ADEQ)
[2017-02-08 05:58] LABS: BASE EXCESS -2.6 mEq/L (-2.5-2.5); BICARBONATE 20 mEq/L (22-26); MEASURED OXYGEN SATURATION 94 % (92-95); PCO2 30 mmHg (34-38); PO2 71 mmHg (65-75); TCO2 21 mEq/L (23-27)
[2017-02-08 05:59] LABS: BIPAP YES; EXP PRESSURE 8; INSP PRESSURE 14
[2017-02-08 06:00] LABS: O2 CONCENTRATIION 50 % (0-100); P/F RATIO 142 RATIO
[2017-02-08] MEDS ORDERED: MAGNESIUM SULF 1 GM/DEXTROSE 100 ML IV ONE (07:53)
[2017-02-08] MEDS: VANCOMYCIN 1.5 GM in D5W 250 ML IV SCH ×2 (09:05→22:15)
[2017-02-08] MEDS: ENOXAPARIN 120 MG/0.8 ML SYR SC SCH ×2 (09:13→20:33)
[2017-02-08] MEDS: oxyCODONE CR 15 MG TAB PO SCH ×2 (09:14→21:16)
[2017-02-08] MEDS ORDERED: D50W 25 GM/50 ML SYR IVP PRN (09:18)
--- NOTE | 2017-02-08 09:25 | HOSPPROG ---
Hospitalist Progress Note Assessment/Plan: # acute on chronic hypoxic/hypercapnic resp failure - intubated, self extubated 02/06 - cont bipap # aspiration pna - cont vanc/zosyn today # marked leukocytosis - much worse today, c. dif neg - check abd CT given abd pain, check blood cultures # tachycardia - currently sinus, was a-fib with RVR - on dilt gtt at high rate (10/hr) - check CT chest given tachycardia and low INR # atrial fib - currently on warfarin, full dose lovenox - sinus # chronic pain with continuous narcotic dependence - holding PO, cont iv narcotics # opiate withdrawal # hyperNa - improved with D5 1/2 NS # morbid obesity # acute encephalopathy - improved # KATY - resolved # hyperglycemia - check A1c, start SSI lispro; occurred on D5 1/2NS # FCFT - palliative care c/s once improved ## critically ill given ongoing resp failure, marked leukocytosis, ongoing tachycardia with dilt gtt critical care time 35 minutes Subjective: very distressed off bipap Objective: Vital Signs Temp Pulse Resp BP Pulse Ox 37.2 C 119 H 27 H 122/89 H 95 02/08/17 04:00 02/08/17 06:00 02/08/17 06:00 02/08/17 06:00 02/08/17 06:00 Microbiology 02/06/17 16:46 - Final Sputum, Induced/Suctioned Laboratory Results 02/08/17 04:28 02/08/17 04:28 02/07/17 02/08/17 02/09/17 05:59 05:59 05:59 Intake Total 3412 2304 Output Total 1800 750 Balance 1612 1554 PT 17.7 SEC (12.0-15.0) H 02/08/17 04:28 INR 1.46 (0.83-1.16) H 02/08/17 04:28 - Physical Exam Constitutional: uncomfortable Cardiovascular: no murmur, rub, or gallop, tachycardia Respiratory: no rales or rhonchi, clear to auscultation, reduced air movement, other (severe respi distress on face mask) Gastrointestinal: normoactive bowel sounds, soft, non-tender abdomen, no palpable masses ICD10 Worksheet Patient Problems: Problems Problem Status Onset Pneumonia Acute Hypoxemia Acute Narcotic overdose Acute Altered mental status Acute KATY (acute kidney injury) Acute Encephalopathy acute Acute
[2017-02-08] MEDS: LORazepam 2 MG/ML INJ IVP PRN ×2 (09:32→12:29)
--- NOTE | 2017-02-08 11:00 | WOCRNPDOC ---
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 Coccyx Pressure Injury Dressing Type: Open to Air Site Measurement - Head-to-Toe Length X Width X Depth (cm): 0.5x0.5x0.1 Pressure Injury Stage: Stage 2 Pressure Injury Present on Admit: No
--- NOTE | 2017-02-08 11:01 | PDINTPN ---
Cost Estimating Manager Progress Note Assessment/Plan: Assessment: 61 F with obstructive and central sleep apnea (AHI= 68), currently on supplemental oxygen alone, that has not yet been treated with ASV device, admitted on numerous occasions with hypercapnic respiratory failure in conjunction with chronic narcotic dependency following remote cervical spine surgery. 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 On arrival she was found to be intermittently obtunded with KATY (Cr 5.6), and pH 7.23 with CO2 59. She was thought to have poor clearance of her chronic narcotics resulting in acute respiratory failure so was placed on Bipap overnight, but this was largely unsuccessful and required intubation the morning of 02/04. * Respiratory failure with hypercapnea: Recurrent. Intubated 02/04, self- extubated 02/06. O2 needs down slightly. CO2 brought down with mechanical vent, and remains low on BiPAP * Pneumonia: Started Zosyn/Vanco 02/06. Infiltrate improved after extubation. Continues to have fever. WBC up markedly today. * Altered MS- likely 2/2 above. Appreciate neuro eval. Continue to support for now. * Hypotension: Resolved * KATY- Resolved, urine output good. * Hypokalemia: Persists * Chronic pain- On MSO4 IV 2 mg q4h. Once able to take PO will reduce Oxycontin to 15 BID in an attempt to continue to wean. * GRICEL with CSA: Currently extubated. ASV titration 01/19/17 showed persistent events despite ASV, possibly due to large leak with mask. May need AVAPS or BiPAP ST if CO2 retention persists. * Tachycardia: Sinus. ? due to infection with markedly elevated WBC. PE, CHF also a possibility. Plan: Follow closely in ICU. BiPAP PRN. Minimize narcotics. NPO for now, hopefully can start PO soon. Continue antibiotics, may stop Vanco if cultures negative today. CT Chest to R/O PE, worsening pneumonia, effusion, and CT Abdomen to look for diverticulitis or other cause of WBC, fever. Will titrate Cardizem to control HR, monitoring BP to avoid hypotension. 02/08/17 11:08 02/08/17 11:10 Subjective: [place] more dyspneic overnight, improved with BiPAP. Mild abdominal pain. Objective: Vital Signs Temp Pulse Resp BP Pulse Ox 38.0 C 128 H 32 H 124/78 H 93 02/08/17 08:00 02/08/17 10:00 02/08/17 10:00 02/08/17 10:00 02/08/17 10:00 Microbiology 02/06/17 16:46 - Final Sputum, Induced/Suctioned Laboratory Results 02/08/17 04:28 02/08/17 04:28 02/07/17 02/08/17 02/09/17 05:59 05:59 05:59 Intake Total 3412 2304 Output Total 1800 750 Balance 1612 1554 PT 17.7 SEC (12.0-15.0) H 02/08/17 04:28 INR 1.46 (0.83-1.16) H 02/08/17 04:28 Laboratory Tests 02/08/17 04:28 INR 1.46 H Laboratory Tests 02/08/17 05:50 pCO2 30 L pO2 71 Total CO2 21 L ABG pH 7.44 O2 Concentration % 50 Inspiratory Pressure 14 Mode BiPAP YES Physical Exam - Physical Exam General Appearance: alert, no apparent distress EENT: normal ENT inspection Neck: normal inspection Respiratory: lungs clear Cardiac/Chest: edema, tachycardia Abdomen: normal bowel sounds, non-tender, soft Skin: normal color, warm/dry Extremities: normal inspection Neuro/Psych: alert, normal mood/affect, oriented x 3 ICD10 Worksheet Patient Problems: Problems Problem Status Onset KATY (acute kidney injury) Acute Encephalopathy acute Acute Altered mental status Acute Hypoxemia Acute Narcotic overdose Acute Pneumonia Acute
[2017-02-08] MEDS ORDERED: IOPAMIDOL (ISOVUE 370) 100 ML BTL IV ONE ×2 (11:29→16:04)
[2017-02-08] MEDS ORDERED: ADENOSINE 6 MG/2 ML VIAL IVP ONE (12:35)
[2017-02-08] MEDS ORDERED: ADENOSINE 6 MG/2 ML VIAL ONE (12:35)
[2017-02-08] MEDS: INSULIN LISPRO 100 UNIT/ML SC SCH ×2 (12:46→18:35)
[2017-02-08] MEDS: D5W 1/2 NS W/ 40 KCl/L 1,000 ML IV SCH (12:47)
[2017-02-08] MEDS ORDERED: FUROSEMIDE 20 MG/2 ML VIAL IVP ONE (13:17)
[2017-02-08 13:19] LABS: POTASSIUM 3.9 mEq/L (3.5-5.2)
[2017-02-08 13:55] LABS: HEMOGLOBIN A1C 5.9 % (4.0-6.0)
--- NOTE | 2017-02-08 14:18 | CPEKG ---
Heart Rate: 111 RR Interval: 541 P-R Interval: 204 QRSD Interval: 78 QT Interval: 292 QTC Interval: 397 P [place]: 58 QRS [place]: 11 T Wave [place]: -15 EKG Severity - BORDERLINE ECG - EKG Impression: SINUS TACHYCARDIA EKG Impression: BORDERLINE T ABNORMALITIES, DIFFUSE LEADS -- No significant change from January EKG Impression: 2016 EKG Impression: Low voltage throughout EKG Impression: Possible left atrial abnormality Electronically Signed By: Hoang Conde 08-Feb-2017 15:32:24
[2017-02-08 15:03] LABS: COLOR YELLOW; LEUKOCYTE ESTERASE,URINE NEGATIVE (NEGATIVE); NITRITE,URINE NEGATIVE (NEGATIVE)
[2017-02-08 15:10] LABS: MUCUS TRACE /lpf (NONE-1+); RBC,URINE 25-50 /hpf (0-3)
[2017-02-08] MEDS ORDERED: PERFLUTREN LIPID MICROSPHERES 1.1 MG/ML VIAL IV ONE (16:00)
[2017-02-08] MEDS ORDERED: METOPROLOL TARTRATE 5 MG/5 ML INJ ONE (16:01)
[2017-02-08] MEDS ORDERED: LIDOCAINE 1% 30 ML SDV ONE (16:03)
[2017-02-08] MEDS ORDERED: fentaNYL 100 MCG/2 ML INJ ONE (16:04)
[2017-02-08] MEDS ORDERED: MIDAZOLAM 2 MG/2 ML VIAL ONE (16:04)
[2017-02-08] MEDS: METOPROLOL TARTRATE 5 MG/5 ML INJ IVP SCH ×3 (16:07→16:51)
[2017-02-08] MEDS: DILTIAZEM 125 MG in D5W 125 ML IV SCH (16:16)
[2017-02-08] MEDS ORDERED: VERAPAMIL 5 MG/2 ML VIAL ONE (16:47)
[2017-02-08] MEDS ORDERED: HEPARIN 10,000 UNIT/10 ML MDV ONE (16:47)
[2017-02-08] MEDS ORDERED: NITROGLYCERIN 0.4 MG BTL SL PRN (17:00)
[2017-02-08] MEDS ORDERED: ATROPINE SULFATE 1 MG/10 ML SYR IVP PRN (17:00)
--- NOTE | 2017-02-08 17:03 | PDDXCAT ---
Diagnostic Cath Note - . Date: 02/08/17 Slumber Room Attendant: Gerson High-risk criteria on non-invasive testing: severe resting left ventricular dysfunction (LVEF<35%) - Procedure Access: left wrist Procedure: left heart catheterization - Materials Left Heart Cath materials: JL3.5, JR4.0 - Findings-Left Heart Catheterization LM: Unobstructed LAD: Unobstructed LCX: Unobstructed RCA: Dominant: Unobstructed Wall motion: Large anteroapical akinetic segment by echo consistent with Takotsubo's cardiomyopathy Complications: None Estimated blood loss: <50ml Closure method: TR Band Assessment: Takotsubo's cardiomyopathy. Angiographically normal coronary arteries. Plan: Takotsubo's cardiomyopathy Angiographically normal coronary arteries. Patient Problems: Problems Problem Status Onset Pneumonia Acute Hypoxemia Acute Narcotic overdose Acute Altered mental status Acute KATY (acute kidney injury) Acute Encephalopathy acute Acute
--- NOTE | 2017-02-08 17:35 | GCON ---
[f rep st] CONSULTATION CARDIAC CONSULTATION CHIEF COMPLAINT: Abnormal troponins, EKG, new. HISTORY OF PRESENT ILLNESS: The patient is a 61-year-old female, who I first met in August this year when she was admitted for confusion, dyspnea. While hospitalized, she had atrial fibrillation which converted. She was placed on Coumadin at that time. She has been diagnosed with obstructive sleep apnea and is awaiting her overnight sleep apnea setup for the last month or so. She has been followed in our office and doing well, in normal sinus rhythm. On February 03, however, she was admitted for episode of confusion, dyspnea at home which has been probably her 3rd or 4th admission for the same situation. There were no changes in her medicines, there is no chest pain or other issues. She is on chronic steroids. When she presented, she was in acute renal failure requiring intubation. She was extubated and was doing fairly well until yesterday, when apparently she had fairly protracted nausea, vomiting. Today, they had noted that each day her WBC has been increasing without clear etiology or infectious source. A troponin came back at 10. An echocardiogram showed a large anteroapical defect, which was new when compared to the echocardiogram of August. In speaking to her, as she is now on BiPAP, and her family, she has had no chest pain or other issues prior to this. She has had no history of known coronary artery disease. At this point, she will be taken to the cardiac catheterization laboratory for cardiac catheterization to help sort out whether this is an ischemic situation or a Takotsubo cardiomyopathy situation. The procedure, risks, benefits, complications and alternatives were discussed with her with her family present. They understand, accept and wish to proceed. She has no stated iodine allergies. This will be done through her wrist approach, given her body habitus and her being unable to lie flat. PAST MEDICAL HISTORY: 1. Cervical stenosis and chronic pain, and opiate dependency. 2. History of asthma. 3. History of atrial fibrillation, paroxysmal, as noted above. 4. History of a retinal artery CVA, not thought to be embolic but patient is on chronic Coumadin for her atrial fibrillation. 5. History of hypertension, on labetalol. 6. History of obstructive sleep apnea, with hypoventilation syndrome. PAST SURGICAL HISTORY: Knee surgeries. FAMILY HISTORY: Noncontributory. SOCIAL HISTORY: She lives with her . She is a nonsmoker. PHYSICAL EXAMINATION: GENERAL: She is on BiPAP, in respiratory distress but alert and nods to questions. LUNGS: Essentially clear anteriorly. CARDIOVASCULAR: Tachycardic, regular rate without gallops or rubs. ABDOMEN: Soft, nontender. MUSCULOSKELETAL: No edema. LABORATORY DATA: EKG on admission showed normal sinus rhythm, nonspecific changes. EKG today showed [address]-elevation in inferoanterior leads but no clear reciprocal changes inferiorly. Echocardiogram showed a large anteroapical lateral wall defect. Definity was used. No thrombus was noted. Other labs: Creatinine initially was 5.3, now is 0.3. She is urinating well. ASSESSMENT: 1. Acute cardiac condition of unknown etiology. Whether it is ischemic or stress-induced needs to be further delineated with cardiac catheterization. The role of procedure, risks, benefits, complications, alternatives discussed with her and her family, and consents were signed. At this point, she is hemodynamically stable, remaining in normal sinus rhythm. She has good urine output. She did have acute renal failure which was resolved with IV hydration, and contrast earlier today. I discussed with the family the added risk of renal insufficiency, especially given her 2 contrast loads today, but her cardiac condition is serious at this point. She is maintaining normal sinus rhythm at this time. 2. Hypoventilation, sleep apnea. Waiting obstructive sleep study or sleep apnea set up at home. 3. Cervical pain with chronic opioid dependency. She is followed by her PCP. 4. Leukocytosis of unclear etiology. Followed by Infectious Disease service. PLAN: Cardiac catheterization today to help delineate cardiac cause of new regional wall motion abnormality and troponin leak. Further care depending on her clinical course, whether she will need medicine, PCI intervention or surgery is yet to be determined. This was all discussed with the family and the patient. /[id number]/MODL MTDD
--- NOTE | 2017-02-08 18:20 | GCON ---
[f rep st] CONSULTATION INFECTIOUS DISEASE CONSULTATION. DATE OF CONSULTATION: 02/08/2017 REASON FOR CONSULTATION: Unexplained leukocytosis. HISTORY OF PRESENT ILLNESS: This is a 61-year-old woman, with a past medical history of obstructive sleep apnea, asthma, morbid obesity, since August of 2016 has had 5 hospitalizations. To review hospitalization, she was hospitalized from 09/03/2016 through September 07, 2016 with a diagnosis of asthma and sepsis with associated fever to 102, she was diagnosed with community -acquired pneumonia. She was initially treated with Rocephin and azithromycin and was discharged on levofloxacin. In addition, she had visual changes during this hospitalization, had a negative workup of stroke, and temporal arteritis was in the differential diagnosis. Subsequently, a similar hospitalization with initial altered mental status on October 19, 2016 for 3 days at [facility]. Notably she had a markedly elevated white count, patient was discharged off antibiotics at that time. She was readmitted to [facility] October 28, 2016 through November 03, 2016 with diagnoses of severe sepsis and acute hypercapnic respiratory failure. She was given vancomycin and Zosyn through 11/03/2016, and discharged on no antibiotics. She was noted to have some acute renal failure, and possibly was thought to have an unintentional opiate overdose as the driving force of her respiratory failure. Then, on November 24, 2016 she also presented again with altered mental status to the hospital, received Solu-Medrol, Zosyn, vancomycin, and had an immunoglobulin level that was mildly depressed at 588. She was discharged from the hospital in November with a diagnosis of possible sepsis, acute on chronic respiratory failure, new onset atrial fibrillation. Patient was again admitted for this hospitalization on 02/03/2017 with altered mental status and worsening hypoxia. Patient was diagnosed with encephalopathy of unclear etiology, again acute renal failure with a creatinine of 5.3, initially was not given IV antibiotics. She subsequently required intubation on the morning of 02/04/2017 , but was not felt to have pneumonia at that time. The patient in the interim self extubated, and then subsequently developed a fever to 38.9 on 02/06/2017. Simultaneously she was found to have an increasing white count, 16, to 23, to 37 today, therefore precipitating an ID consult. Further, patient's cardiac status was evaluated and she was found to have a troponin of 10.9. A CT of chest, abdomen and pelvis was performed, CT chest showed large bilateral pleural effusions with associated atelectasis. She also had some patchy enhancement of the kidneys that sometimes can suggest pyelonephritis, unclear significance. This was personally reviewed by me with Radiology. Otherwise no focal sources of infection were identified on CT scans. In talking with the family, she has not been having fevers at home, and basically they see the primary problem as recurrent development of somnolence, which precipitates bringing her to the emergency room. PAST MEDICAL HISTORY: Ischemic optic neuropathy, atrial fibrillation, history of a stroke, colonic polyps, constipation due to opioid therapy, diverticulosis , hypercapnic respiratory failure, hypertension, lower extremity neuropathy, obstructive sleep apnea, ulcerative colitis, and a remote history of osteomyelitis in 1996 and 2005, details unclear. Prior workup for arthralgia, weight loss and low-grade temperature by Dr. Hoang Boykin, in November of 2009, Lyme and Bartonella antibodies were negative. Also, patient had p-ANCA, KYLAH, rheumatoid factor, complement levels, HLA testing, all negative. Antigliadin IgA and IgG were also negative. The patient's weight at that time, was documented at 134, and is now 259. PAST SURGICAL HISTORY: Appendectomy, , cervical spinal fusion, cervical spine surgery, foot surgery, bilateral knee replacement, bilateral lumpectomy. SOCIAL HISTORY: Two children. No alcohol, no tobacco. 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 No hot tubs, no travel, originally from [place], but has been in [place] for over 20 years. FAMILY HISTORY: Positive for liver cancer, lung disease, lung cancer, and severe steatosis. ALLERGIES: Anaphylaxis to sulfa, mild to atorvastatin. MEDICATIONS: [place], benzocaine, diltiazem 125 mg IV per protocol, Lovenox, insulin, Ativan, morphine, Zofran, oxycodone, Zosyn 4.5 g IV q.6 hours, started 02/06/2017, and vancomycin 1.5 g IV q.8 hours started 02/06/2017, and Coumadin. REVIEW OF SYSTEMS: With the assistance of her son and father, a full 10-point review of systems was performed and is negative, except as mentioned in the HPI. PHYSICAL EXAM: VITAL SIGNS: Blood pressure 134/89, heart rate 102 to 125, saturation 95% on a BiPAP of 55. GENERAL: This is an obese woman lying in bed , in significant respiratory distress with BiPAP in place. HEENT: Oral exam was limited due to BiPAP. Eye exam showed no splinter hemorrhages. NECK: Supple. CARDIOVASCULAR: Tachycardic, regular rate, possible systolic murmur. CHEST: Decreased breath sounds throughout. ABDOMEN: Obese, soft, nontender. Decreased bowel sounds. EXTREMITIES: No clubbing, cyanosis, or edema. NEUROLOGIC: Patient had point tenderness throughout, which is typical for her. She was moving all 4 extremities equally, and following commands. SKIN: No peripheral stigmata of endocarditis. LABORATORY: Creatinine is 0.8, on admission was 5.6, AST 23, ALT 28, albumin 3.1. HIV negative, 11/26/2016. Immunoglobulin IgG 588, IgA 118, IgM 80. Urinalysis showed 25-50 RBCs, 3-5 WBCs, 1+ glucose. On admission her urinalysis was negative. Blood cultures, 02/04/2017, from admission are no growth to date. A sputum from 02/06/2017 is showing Melissa albicans, repeat blood cultures were collected on 02/08/2017. Clostridium difficile PCR on 02/07 was negative. INR 1.46. ABG of 7.44, pCO2 of 30, pO2 of 71, white count of 37,000; 83% neutrophils, 3% lymphocytes, 9% lymphocytes, and 6% monocytes. Platelets are 310, hematocrit 44. IMAGING: As per HPI. ASSESSMENT AND PLAN: This is a 61-year-old woman with recurrent respiratory failure and hypercapnia, likely leading to altered mental status, who now has a worsening clinical picture, associated with fever and marked leukocytosis. Overall she has components of sepsis physiology but not clear to me there is underlying infection. Volume overload (up 8L since admit) and Takotsubo's cardiomyopathy with significantly reduced EF + underlying GRICEL likely accounting for respiratory failure Leukocytosis not uncommon for Mrs. Philippe. After review of records, patient when undergoing medical stress she develops significant leukocytosis, although not to the degree seen here. It is not clear to me if she has a separate infectious process outside of current ME and volume overload, which could cause some degree of leukocytosis and fever. Infectious etiologies of fever and leukocytosis to consider include aspiration PNA due to decreased mental status. CT scan showed findings c/w pyelonephritis but this does not fit with UA or symptoms. With underlying lung disease, patient could be at risk for more uncommon causes of lung infections such as Nocardia, mycobacteria or fungal infections. Nonetheless, current radiographic evidence not suggestive of these processes. Could consider underlying malignancy or rheumatologic disease. No peripheral stigmata of endocarditis Recommendations: * Agree with empiric antibiotic therapy, Zosyn and vancomycin are reasonable, Vanco T pending for AM * Eval with BAL seem reasonable but would only perform if patient required re intubation would perform bronchoscopy with AFB fungal, Nocardia and standard cultures. * Could consider repeat rheumatologic w/u * monitor blood cultures Time was 75 minutes, with greater than 50% of time spent with education and counseling, review of records, and coordination of care. /[id number]/MODL MTDMarisol
--- NOTE | 2017-02-08 18:45 | BCON ---
[f rep st] BEHAVIORAL HEALTH CONSULTATION PSYCHIATRIC CONSULTATION. PATIENT IDENTIFICATION: The patient presents as a 61-year-old white female, who lives at home with her ; she was admitted to the ICU via the [facility] emergency room on 02/04/2016 for complaints of progressive confusion over a 12-hour period prior to admission; the patient had an unwitnessed fall from her bed at home prior to admission. Oxygen saturation on room air as measured by the at home, prior to bringing her to the emergency room, was 82%. CONSULTATIVE REQUEST: Psychiatry was asked to see the patient to assess by exam and history for the presence of a primary psychiatric syndrome, as well as a closer assessment of patient's known opiate dependence. UPDATE: The consultation was requested on 02/07/2017, at a time when patient was showing partial improvement from her multiple medical problems, including her delirium secondary to acute respiratory distress, aspiration pneumonia, and resolving acute renal failure. However, within the past 24 hours, the patient has taken a medical turn for the worse. Her admission white count of 11.0 had increased on 02/07/2017 to 23.6, and earlier today was measured at 37.33. 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 She has also either had or has pending studies, including a CT of her chest, pending blood cultures which have been drawn, and a CT of the abdomen. I will contact patient's for intake, and respond to the consultative request formally with pt reaching state of sufficient medical restabilization. I can be reached at [phone]. /[id number]/MODL MTDD
[2017-02-08] MEDS: ACETAMINOPHEN 650 MG SUPP PR PRN (20:03)
[2017-02-08] MEDS: WARFARIN SODIUM 2.5 MG TAB TUBE SCH (21:16)
[2017-02-08 22:38] LABS: POTASSIUM 3.9 mEq/L (3.5-5.2)
[2017-02-09] MEDS: PIPERACILLIN/TAZO 4.5 GM/DEX 100 ML IV SCH ×3 (00:06→11:54)
[2017-02-09] MEDS: DILTIAZEM 125 MG in D5W 125 ML IV SCH ×3 (00:06→16:24)
[2017-02-09] MEDS: METOPROLOL TARTRATE 5 MG/5 ML INJ IVP PRN ×2 (01:02→05:41)
[2017-02-09 04:59] LABS: HEMATOCRIT 37.8 % (38.0-47.0); HEMOGLOBIN 12.6 g/dL (12.6-16.3); MEAN CELL HEMOGLOBIN 30.4 pg (27.9-34.1); MEAN CELL HEMOGLOBIN CONCENTR. 33.3 g/dL (32.4-36.7); MEAN CELL VOLUME 91.3 fL (81.5-99.8); RED BLOOD CELL COUNT 4.14 10^6/uL (4.18-5.33); RED CELL DISTRIBUTION WIDTH 12.5 % (11.5-15.2)
[2017-02-09] MEDS: ACETAMINOPHEN 650 MG SUPP PR PRN (05:21)
[2017-02-09 05:28] LABS: SODIUM 148 mEq/L (134-144)
[2017-02-09 05:29] LABS: ALBUMIN 3.1 g/dL (3.5-5.0); ANION GAP 9 mEq/L (8-16); CALCIUM 8.9 mg/dL (8.5-10.4); CARBON DIOXIDE 26 mEq/l (22-31); CHLORIDE 113 mEq/L (97-110); CREATININE 1.5 mg/dL (0.6-1.0); GLOMERULAR FILTRATION RATE 35; GLUCOSE 172 mg/dL (70-100); MAGNESIUM 2.3 mg/dL (1.6-2.3); POTASSIUM 3.9 mEq/L (3.5-5.2)
[2017-02-09 06:43] LABS: GLUCOSE 174 mg/dL (70-100)
[2017-02-09] MEDS ORDERED: PROPOFOL/EMULSION 1,000 MG/100 ML BOTTLE IV ONE (06:44)
[2017-02-09] MEDS ORDERED: fentanYL/NACL/100 ML BAG IV ONE (06:49)
--- NOTE | 2017-02-09 07:08 | EDPHY ---
Inpatient Procedure Narrative: 0704: I was called by the medicine team to come and emergently intubate this patient. Reason for intubation was respiratory failure and hypoxia and agitation and altered mental status. Spoke with Dr. Mcknight in the ICU room the patient was on full face BiPAP failing full face BiPAP with ongoing hypoxia in the 70s to 80s percent. Tachycardic. Agitated. ABG showed a low pH. Patient was previously intubated and self extubated. Upon arrival this patient on my evaluation is obese, tachycardic, in respiratory distress with hypoxia. She requires emergent intubation. Procedure: Intubation: This patient was intubated with a 7.O endotracheal tube. [place] scope was used. The patient required RSI medications she was given 25 mg of IV etomidate push, 150 mg IV succinylcholine. She tolerated RSI very well. She was bagged to appropriately oxygenate her. There were no complications during the intubation. He did take me 2 attempts to intubate her. I did visualize her cords with direct visualization with glide scope. Endotracheal tube was directly visualized passing the cords, there is humidified air in endotracheal tube. Good capnography Change. An x-ray has been ordered for tube placement confirmation. Critical Care: Total Critical Care Time Spent Managing this Patient: 25 Minutes. This time was spent Exclusively with this patient. This Care was exclusive of procedures. The Organ System/life at risk was respiratory failure This Patient was in Critical Condition because respiratory failure, hypoxia, agitation, altered mental status, tachycardia, sepsis
--- NOTE | 2017-02-09 07:12 | CPEKG ---
Heart Rate: 104 RR Interval: 577 P-R Interval: 168 QRSD Interval: 80 QT Interval: 364 QTC Interval: 479 P [place]: 34 QRS [place]: 20 T Wave [place]: 262 EKG Severity - ABNORMAL ECG - EKG Impression: SINUS TACHYCARDIA EKG Impression: NONSPECIFIC T ABNORMALITIES, INFERIOR LEADS EKG Impression: Slight ST elevation in the precordial leads-- New since February 07, 2017, but EKG Impression: comparable to February 08, 2017. Consider injury current Electronically Signed By: Hoang Conde 09-Feb-2017 08:53:50
--- NOTE | 2017-02-09 07:12 | HOSPPROG ---
Hospitalist Progress Note Assessment/Plan: 50 minutes of bedside critical care time spent w/ patient, addressing the following issues: - called by RN for worsening tachypnea, declining o2 sats (80s%) on BiPAP FiO2 100%, worsening mentation (non-directible) - patient having visibly labored breathing, in distress, unable to follow commands, breath sounds coarse bilat, tachycardic but regular rhythm - patient unable to have a coherent conversation about whether she would want to be re-intubated, goals of care family convo noted in notes - ABG pH 7.25, PCO2 55 - Dr. Zuniga called to bedside, performed intubation, ET retracted approx 4-5cm s/p CXR (in R main stem bronchus per Dr. Boykin) - CXR demonstrating either worsening CHF vs. PNA - notes from 02/08 reviewed, notably EF < 35%, non-ischemic cardiomyopathy based on cath - febrile all night, suspect that she is septic, already on vanco/zosyn, melissa in 02/06 sputum, give fluconazole 200mg IV - s/p 20mg IV lasix on 02/08, Cr rise may be more related to worsening overload and poor renal perfusion, remains hypertensive, will give additional 40mg IV lasix - notified Dr. Cui - EKG w/o overtly worsening DAMION or other ischemic changes, adding trop onto AM labs - getting f/u ABG and CXR now - patient remains critically ill w/ high risk of worsening morbidity/mortality Objective: Vital Signs Temp Pulse Resp BP Pulse Ox 39.3 C H 99 13 161/84 H 96 02/09/17 06:44 02/09/17 06:44 02/09/17 06:44 02/09/17 06:44 02/09/17 06:44 Microbiology 02/06/17 16:46 - Final Sputum, Induced/Suctioned Sputum Culture - Final Melissa Albicans Laboratory Results 02/09/17 04:50 02/09/17 04:50 02/08/17 02/09/17 02/10/17 05:59 05:59 05:59 Intake Total 2304 1034 Output Total 750 1500 Balance 1554 -466 PT 17.7 SEC (12.0-15.0) H 02/08/17 04:28 INR 1.46 (0.83-1.16) H 02/08/17 04:28 ICD10 Worksheet Patient Problems: Problems Problem Status Onset KATY (acute kidney injury) Acute Encephalopathy acute Acute Altered mental status Acute Hypoxemia Acute Narcotic overdose Acute Pneumonia Acute
[2017-02-09 07:22] LABS: CALCULATED OXYGEN SATURATION 90 % (92-95)
[2017-02-09] MEDS ORDERED: ETOMIDATE 40 MG/20 ML INJ IV ONE (07:30)
[2017-02-09] MEDS ORDERED: MIDAZOLAM 2 MG/2 ML VIAL IVP ONE (07:30)
[2017-02-09] MEDS ORDERED: SUCCINYLCHOLINE CHLORIDE 200 MG/10 ML VIAL IVP ONE (07:30)
[2017-02-09] MEDS: PROPOFOL/EMULSION 100 ML IV SCH ×4 (07:40→21:25)
[2017-02-09] MEDS: fentaNYL/NACL 100 ML IV SCH (07:41)
[2017-02-09] MEDS: CHLORHEXIDINE GLUCONATE 15 ML UDL PO SCH ×2 (08:04→21:38)
[2017-02-09] MEDS: INSULIN LISPRO 100 UNIT/ML SC SCH ×3 (08:04→18:20)
[2017-02-09 08:48] LABS: CALCULATED OXYGEN SATURATION 97 % (92-95)
[2017-02-09] MEDS ORDERED: POTASSIUM Cl (KCl) 50 ML IV ONE (08:56)
[2017-02-09] MEDS ORDERED: FAMOTIDINE 20 MG/NACL 50 ML IV SCH (09:00)
[2017-02-09] MEDS ORDERED: FLUCONAZOLE/NaCl 100 ML IV SCH (09:00)
--- NOTE | 2017-02-09 09:23 | PDINTPN ---
Supervisor Jewelry Department Progress Note Assessment/Plan: Assessment: 61 F with obstructive and central sleep apnea (AHI= 68), currently on supplemental oxygen alone, that has not yet been treated with ASV device, admitted on numerous occasions with hypercapnic respiratory failure in conjunction with chronic narcotic dependency following remote cervical spine surgery. 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 On arrival she was found to be intermittently obtunded with KATY (Cr 5.6), and pH 7.23 with CO2 59. She was thought to have poor clearance of her chronic narcotics resulting in acute respiratory failure so was placed on Bipap overnight, but this was largely unsuccessful and required intubation the morning of 02/04. * Respiratory failure with hypercapnea: Recurrent. Intubated 02/04, self- extubated 02/06, re-intubated 02/09 AM. O2 needs high today, likely due to worsened pulmonary edema. CO2 had climbed, now brought down with mechanical vent. * Pneumonia: Started Zosyn/Vanco 02/06. Infiltrate improved after extubation. Continues to have fever. WBC down but still high today. * Cardiomyopathy: ECHO with RWMA anterior/apical, EF 20-25%. Cath negative for CAD. Likely a major cause of respiratory failure and renal insufficiency. * Altered MS- likely 2/2 above. Appreciate neuro eval. Continue to support for now. * Hypotension: Resolved * KATY- Cr back up, urine output good. * Hypokalemia: Now normalized. * Chronic pain- On Fentanyl gtt. Once able to take PO will reduce Oxycontin to 15 BID in an attempt to continue to wean. * GRICEL with CSA: Currently intubated. ASV titration 01/19/17 showed persistent events despite ASV, possibly due to large leak with mask. ASV now contraindicated with low EF. May need AVAPS or BiPAP ST if CO2 retention persists. * Tachycardia: Sinus. ? due to infection with markedly elevated WBC. PE, CHF also a possibility. Plan: Follow closely in ICU. Adjusting vent, including increase in PEEP, monitoring response in oxygenation. Will follow sats, vitals and continue to adjust throughout the day. Will start Coreg and wean Cardizem as tolerated, monitoring BP to avoid hypotension. Follow urine output closely. Minimize narcotics. Continue antibiotics, may stop Vanco if cultures negative today. 40 min CC Time 02/09/17 09:31 02/10/17 09:35 Subjective: Intubated, sedated. Objective: Vital Signs Temp Pulse Resp BP Pulse Ox 38 C 78 26 H 126/70 H 95 02/09/17 09:00 02/09/17 09:00 02/09/17 09:00 02/09/17 09:00 02/09/17 09:00 Microbiology 02/04/17 04:30 Blood Culture - Final Blood 02/04/17 Unknown Blood Culture - Final Blood 02/06/17 16:46 - Final Sputum, Induced/Suctioned Sputum Culture - Final Melissa Albicans Laboratory Results 02/09/17 04:50 02/09/17 04:50 02/08/17 02/09/17 02/10/17 05:59 05:59 05:59 Intake Total 2304 1034 Output Total 750 1500 150 Balance 1554 -466 -150 PT 17.7 SEC (12.0-15.0) H 02/08/17 04:28 INR 1.46 (0.83-1.16) H 02/08/17 04:28 CXR: Increased edema and cardiac silhouette. ETT OK. Images reviewed. Laboratory Tests 02/09/17 08:34 pCO2 41 H pO2 100 H ABG pH 7.36 Physical Exam - Physical Exam General Appearance: alert, no apparent distress EENT: normal ENT inspection Neck: normal inspection Respiratory: lungs clear, normal breath sounds Cardiac/Chest: regular rate, rhythm, No edema Abdomen: normal bowel sounds, non-tender Skin: normal color, warm/dry Extremities: normal inspection Neuro/Psych: alert, normal mood/affect, oriented x 3 ICD10 Worksheet Patient Problems: Problems Problem Status Onset KATY (acute kidney injury) Acute Encephalopathy acute Acute Palliative care encounter Acute Altered mental status Acute Hypoxemia Acute Narcotic overdose Acute Pneumonia Acute
--- NOTE | 2017-02-09 09:58 | SOAPPROG ---
SOAP Progress Note Assessment/Plan: Assessment:1. gloria subo cm...ef 25-30%..stable in nsr..agree with BB and add acei when creatinine stabilizes...would also place on heparin drip until she can take coumadin again 2. h/o afib...remains now in nsr..would use iv amiodarone if needed 3.mike..chronically untreated has sleep apnea mask set up at home Plan:1. as ordered 02/09/17 09:55 Subjective: carolina was intubated last night and is remains hemodynamically stable..creat 1.5 with good urine output Objective: Vital Signs Temp Pulse Resp BP Pulse Ox 38 C 78 26 H 126/70 H 95 02/09/17 09:00 02/09/17 09:00 02/09/17 09:00 02/09/17 09:00 02/09/17 09:00 Microbiology 02/04/17 04:30 Blood Culture - Final Blood 02/04/17 Unknown Blood Culture - Final Blood 02/06/17 16:46 - Final Sputum, Induced/Suctioned Sputum Culture - Final Melissa Albicans Laboratory Results 02/09/17 04:50 02/09/17 04:50 02/08/17 02/09/17 02/10/17 05:59 05:59 05:59 Intake Total 2304 1034 Output Total 750 1500 150 Balance 1554 -466 -150 PT 17.7 SEC (12.0-15.0) H 02/08/17 04:28 INR 1.46 (0.83-1.16) H 02/08/17 04:28 Physical Exam - Physical Exam Respiratory: lungs clear (anteriorly) Cardiac/Chest: regular rate, rhythm, No edema ICD10 Worksheet Patient Problems: Problems Problem Status Onset KATY (acute kidney injury) Acute Encephalopathy acute Acute Altered mental status Acute Hypoxemia Acute Narcotic overdose Acute Pneumonia Acute
[2017-02-09] MEDS: oxyCODONE CR 15 MG TAB PO SCH (10:32)
[2017-02-09] MEDS: ENOXAPARIN 120 MG/0.8 ML SYR SC SCH (10:47)
--- NOTE | 2017-02-09 10:49 | HOSPPROG ---
Hospitalist Progress Note Assessment/Plan: # acute on chronic hypoxic/hypercapnic resp failure - intubated, self extubated 02/06 - reintubated 02/09 am emergently # fever - on broad spectrum abx - fluconazole added overnight - appreciate ID input # aspiration pna - cont vanc/zosyn # marked leukocytosis - improved today # stress cardiomyopathy - start coreg, wean dilt; marko-i when renal fxn better - cont AC - change to heparin from lovenox, check INR, cont warfarin # tachycardia - currently sinus, was a-fib with RVR - wean dilt gtt as tolerated while starting coreg # atrial fib - currently on warfarin, heparin # KATY - likely RIKKI - making urine, avoid nephrotoxins # chronic pain with continuous narcotic dependence - holding PO, cont iv narcotics # opiate withdrawal - on fentanyl gtt now # hyperNa - improved with D5 / NS # morbid obesity # hyperglycemia - d/t D5; A1c ok # FCFT - palliative care c/s with family today ## critical care time 45 minutes Subjective: intubated emergently overnight Objective: Vital Signs Temp Pulse Resp BP Pulse Ox 38 C 78 26 H 126/70 H 95 02/09/17 09:00 02/09/17 09:00 02/09/17 09:00 02/09/17 09:00 02/09/17 09:00 Microbiology 02/04/17 04:30 Blood Culture - Final Blood 02/04/17 Unknown Blood Culture - Final Blood 02/06/17 16:46 - Final Sputum, Induced/Suctioned Sputum Culture - Final Melissa Albicans Laboratory Results 02/09/17 04:50 02/09/17 04:50 02/08/17 02/09/17 02/10/17 05:59 05:59 05:59 Intake Total 2304 1034 Output Total 750 1500 150 Balance 1554 -466 -150 PT 17.7 SEC (12.0-15.0) H 02/08/17 04:28 INR 1.46 (0.83-1.16) H 02/08/17 04:28 - Physical Exam Constitutional: not in pain Cardiovascular: regular rate and rhythym, no murmur, rub, or gallop Respiratory: reduced air movement, inspiratory crackles, rhonchi, No clear to auscultation Gastrointestinal: normoactive bowel sounds, soft, non-tender abdomen, no palpable masses ICD10 Worksheet Patient Problems: Problems Problem Status Onset KATY (acute kidney injury) Acute Encephalopathy acute Acute Altered mental status Acute Hypoxemia Acute Narcotic overdose Acute Pneumonia Acute
[2017-02-09] MEDS ORDERED: ONDANSETRON DISINTEGRATING 4 MG TAB TUBE PRN (10:54)
[2017-02-09] MEDS ORDERED: HEPARIN 10,000 UNIT/10 ML MDV IVP PRN (10:56)
[2017-02-09] MEDS ORDERED: HEPARIN/DEXTROSE 500 ML IV SCH (11:00)
[2017-02-09] MEDS: VANCOMYCIN 1.5 GM in D5W 250 ML IV SCH (11:53)
[2017-02-09] MEDS ORDERED: TRANEXAMIC ACID 1,000 MG in NS 100 ML IV ONE (12:25)
[2017-02-09] MEDS ORDERED: TRANEXAMIC ACID 1,000 MG in NS 500 ML IV ONE (12:25)
[2017-02-09 13:02] LABS: ADD DIFF? YES; ADD MORPH? NO; ADD SCAN? YES; ATYPICAL LYMPHOCYTE FLAG 0 (0-99); FRAGMENT RBC FLAG 0 (0-99); HEMATOCRIT 35.1 % (38.0-47.0); HEMOGLOBIN 11.6 g/dL (12.6-16.3); LEFT SHIFT FLG 10 (0-99); LIPEMIA HEMOLYSIS FLAG 80 (0-99); MEAN CELL HEMOGLOBIN 30.8 pg (27.9-34.1); MEAN CELL VOLUME 93.1 fL (81.5-99.8); MEAN PLATELET VOLUME 11.5 fL (8.7-11.7); PLATELET CLUMPS FLAG 0 (0-99); PLATELET COUNT 220 10^3/uL (150-400); RED BLOOD CELL COUNT 3.77 10^6/uL (4.18-5.33); RED CELL DISTRIBUTION WIDTH 12.5 % (11.5-15.2)
[2017-02-09 13:11] LABS: APTT 31.4 SEC (23.0-38.0); INR 1.72 (0.83-1.16); PROTIME(PATIENT) 20.2 SEC (12.0-15.0)
[2017-02-09 13:37] LABS: PLATELET ESTIMATE ADEQUATE (ADEQ)
[2017-02-09 13:43] LABS: POTASSIUM 4.1 mEq/L (3.5-5.2)
--- NOTE | 2017-02-09 14:29 | ECHO ---
[id number] + + [address] : : [place] [address] : : [phone] + + Adult Echocardiographic Report + -----+ :Name: HERNÁN OVERTON JStudy Date: 02/08/2017 02:42 PM : : Hospital Admission Number: [id number] Location : 246: :: 1955 Gender: Female Height: 64 in : :Age: 61 yrs Race: WH Weight: 261 lb : :Reason For Study: Atrial fibrillation/elevated troponin/CHF : : BSA: 2.2 meters2 : + -----+ MMode/2D Measurements \T\ Calculations LVIDd: 4.8 cm EDV(Teich): 105.6 ml Ao root diam: 3.6 cm LA dimension: 3.9 cm Normal Measurement Values: + + :LVIDd (3.5-5.7cm) IVSd (0.6-1.1cm) LVPWd (0.6-1.1cm) Aortic Root (2.0-3.7cm)Left Atrium (1.5-4.0cm): :LV Vol(d) (76-115ml) LV Vol(s) (29-48ml) Ejec Fraction (50-65%)PV Kishore (0.6- 1.2m/s) TV Kishore (0.4-1.0m/s) : :MV E Kishore (0.8-1.0m/s)MV A Kishore (0.3-1.0m/s)LVOT Kishore (0.7-1.2m/s) Asc Ao Kishore ( 0.9-1.8m/s) : + + Doppler Measurements \T\ Calculations MV E max kishore: Ao mean PG: AI max kishore: TR max kishore: 91.3 cm/sec 2.0 mmHg 355.8 cm/sec 312.2 cm/sec MV A max kishore: Ao V2 mean: AI max P.7 mmHgTR max P.4 cm/sec 66.0 cm/sec AI dec slope: 39.0 mmHg MV E/A: 1.9 Ao V2 VTI: 226.2 cm/sec2 RAP systole: 13.5 cm AI P1/2t: 460.8 msec10.0 mmHg RVSP(TR): 49.0 mmHg Left Ventricle The left ventricle is normal in size. No LV apical thrombus (confirmed by Definity image enhancer). There is normal left ventricular wall thickness. All LV basal and mid segments are akinetic. LV basal segments have normal wall motion. EF estimate is 20-25%. There is Doppler evidence for diastolic dysfunction. Right Ventricle The right ventricle is normal in size and function. Atria The left atrium is mildly dilated. The right atrium is mildly dilated. The interatrial septum is intact with no evidence for an atrial septal defect. Mitral Valve The mitral valve is normal in structure and function. There is no evidence of mitral valve prolapse. There is no mitral valve stenosis. There is moderate mitral regurgitation. Tricuspid Valve Normal tricuspid valve. There is moderate to severe tricuspid regurgitation. Right ventricular systolic pressure is 49mmHg. There is Doppler evidence for mild pulmonary hypertension. Aortic Valve The aortic valve is trileaflet. The aortic valve opens well. There is no aortic stenosis. Mild aortic regurgitation. Pulmonic Valve The pulmonic valve is not well visualized. There is no pulmonic valvular regurgitation. Great Vessels The aortic root is normal size. Pericardium/Pleural There is no pericardial effusion. Left pleural effusion. Conclusion A complete two-dimensional transthoracic echocardiogram was performed (2D, M-mode, Doppler and color flow Doppler). Compared to the echo of 08/27, there are new wall motion abnormalities and TR has increased in severity. 0.165 mg of Definity was administered. There is Doppler evidence for diastolic dysfunction. All LV basal and mid segments are akinetic. LV basal segments have normal wall motion. EF estimate is 20-25%. No LV apical thrombus (confirmed by Definity image enhancer). The left atrium is mildly dilated. The right atrium is mildly dilated. There is moderate mitral regurgitation. There is moderate to severe tricuspid regurgitation. Right ventricular systolic pressure is 49mmHg. There is Doppler evidence for mild pulmonary hypertension. Mild aortic regurgitation. Left pleural effusion. Final Reading Physician: Donovan Hesham Stockton signed on 02/09/2017 02:28 PM Ordering Physician: LEXY LINO Performed By: Shalonda Rocha RDCS
[2017-02-09] MEDS ORDERED: LIDOCAINE 2% JELLY 5 ML TUBE ONE (14:52)
[2017-02-09] MEDS: CARVEDILOL 6.25 MG TAB TUBE SCH ×2 (16:12→16:25)
[2017-02-09 16:24] LABS: TROPONIN I 4.66 ng/mL (0-0.034)
[2017-02-09] MEDS: WARFARIN SODIUM 2.5 MG TAB TUBE SCH (16:25)
[2017-02-09] MEDS ORDERED: PIPERACILLIN/TAZO 4.5 GM/DEX 100 ML IV SCH (16:30)
[2017-02-09 16:31] LABS: BILIRUBIN,TOTAL 1.1 mg/dL (0.1-1.4); BILIRUBIN-CONJUGATED 0.8 mg/dL (0.0-0.5); BILIRUBIN-UNCONJUGATED 0.3 mg/dL (0.0-1.1); TOTAL PROTEIN 5.4 g/dL (6.3-8.2)
[2017-02-09] MEDS: PIPERACILLIN/TAZO 2.25 GM/DEX 50 ML IV SCH (17:08)
--- NOTE | 2017-02-09 17:41 | PDPCPN ---
Palliative Care Progress Note Assessment/Plan: Referring provider: Dr Mcknight Reason for consult: Complex medical decision making Symptom control HPI: Velvet Philippe is a 61 yo female with PMH asthma, PNA, chronic resp failure, and chronic pain admitted to the hospital with increasing resp failure. Recent hospitalization for similar issue Nov 2016. On admission with sepsis 2/2 possible PNA. Required intubation and ICU level care, had to be re intubated emergently following self extubation. Hospitalization complicated by ongoing resp failure requiring intubation as well as new onset cardiomyopathy. Palliative care consulted for complex medical decision making. Met with Denny with son Artis and daughter Cary over the phone. Reviewed medical status of Velvet Quinonez. The family feels they have a good understanding of where she is medically and understand her setbacks but also plan to continue full medical care in hopes of complete recovery. They state Velvet Quinonez once off sedation often gets very confused and anxious. She is used to being a very independent person so with her confusion the family is not surprised she self extubated. They feel if she is told what is going on, she is usually more cooperative. She does not have any hx of memory loss at baseline and was independent, driving over the summer. She has had chronic medical issues stemming from her chronic pain but was able to go about life and have a good quality. Pain has been an issue since 2007 when she fell off a ladder and then again in 2013 when she fell again. Denny and Velvet Quinonez had spoken about retiring prior to hospitalization and finally being able to focus on themselves and "living life". They were excited to start this new chapter of their lives and had plans to travel. They feel pain is a big issue and Velvet Quinonez has not been able to get off of narcotics as her pain is not tolerable without some level of pain relief. Assessment: Physical: - Pain: chronic cervical neuropathy - continue fentanyl drip- would continue until able to swallow her long acting oxycontin 15mg BID - continue PRN morphine for acute pain not controlled by above - can also consider non opiate related medications like lidocaine to neck and smaller dose of gabapentin - constipation - at risk while on opiates - bowel regimen as able with senna and colace liquids Emotional/psychological: hx of depression - seeing outpatient therapist prior to hospitalization Advanced Care Planning: Is patient decisional?: No Code Status: Full MD POA: Denny is MDPOA. Plan: Continue medical interventions. Family is hopeful for full recovery. Quality of life is important including pain control of her chronic pain. 02/12/17 09:55 Subjective: unable to obtain, pt sedated and ventilated Objective: Social History: to Denny. 2 children Artis and Cary. 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 Enjoys travel. Medications Reviewed ROM: unable to obtain patient sedated and ventilated Functional assessment: PPS: 20% Functional status: dependent on ADLs Vital Signs Temp Pulse Resp BP Pulse Ox 37.5 C 78 26 H 129/61 H 98 02/09/17 17:00 02/09/17 17:00 02/09/17 17:00 02/09/17 17:00 02/09/17 17:00 Microbiology 02/04/17 04:30 Blood Culture - Final Blood 02/04/17 Unknown Blood Culture - Final Blood 02/06/17 16:46 - Final Sputum, Induced/Suctioned Sputum Culture - Final Melissa Albicans Laboratory Results 02/09/17 12:45 02/09/17 12:45 02/08/17 02/09/17 02/10/17 05:59 05:59 05:59 Intake Total 2304 1034 Output Total 750 1500 325 Balance 1554 -466 -325 PT 20.2 SEC (12.0-15.0) H 02/09/17 12:45 INR 1.72 (0.83-1.16) H 02/09/17 12:45 Physical Exam - Physical Exam General Appearance: obtunded, other (ventilated) Skin: normal color, warm/dry Neuro/Psych: other (sedated ) ICD10 Worksheet Patient Problems: Problems Problem Status Onset KATY (acute kidney injury) Acute Encephalopathy acute Acute Palliative care encounter Acute Altered mental status Acute Hypoxemia Acute Narcotic overdose Acute Pneumonia Acute - ICD10 Problem Qualifiers (1) Palliative care encounter
[2017-02-09 19:02] LABS: POTASSIUM 3.6 mEq/L (3.5-5.2)
--- NOTE | 2017-02-09 19:31 | PCMIDPN ---
Assessment/Plan: Assessment/Plan: * Fever/leukocytosis: No clear etiology for above findings. Required intubation this a.m. for respiratory failure. Continue empiric vancomycin and Zosyn. Vancomycin held for renal insufficiency with increased level. Will continue to follow creatinine and vancomycin levels over time. Plan to repeat assessment of vancomycin level tomorrow. Will discontinue fluconazole as Melissa pneumonia would be exceedingly rare and unlikely etiology for patient's clinical findings. If no significant improvement with antibiotic therapy, consider bronchoscopy to assess for pulmonary pathogens although CT scan primarily showing pleural effusion and atelectasis. Findings and plan discussed with patient's and ICU team today. 02/09/17 19:28 02/09/17 19:32 Subjective: Intubated this a.m. for respiratory failure. Consult of Dr. Lugo reviewed from yesterday. Objective: Vital Signs Temp Pulse Resp BP Pulse Ox 37.6 C 75 26 H 116/48 L 98 02/09/17 19:00 02/09/17 19:00 02/09/17 19:00 02/09/17 19:00 02/09/17 19:00 Microbiology 02/04/17 04:30 Blood Culture - Final Blood 02/04/17 Unknown Blood Culture - Final Blood 02/06/17 16:46 - Final Sputum, Induced/Suctioned Sputum Culture - Final Melissa Albicans Laboratory Results 02/09/17 12:45 02/09/17 18:40 02/08/17 02/09/17 02/10/17 05:59 05:59 05:59 Intake Total 2304 1034 1013.8 Output Total 750 1500 450 Balance 1554 -466 563.8 Tm 39.3 Vancomycin # 4 Zosyn # 4 Fluconazole # 1 Blood cultures x2 no growth Sputum with Melissa albicans - Physical Exam General Appearance: other (Intubated, sedated) EENT: ET Tube, No scleral icterus Respiratory: coarse breath sounds Cardiac/Chest: regular rate, rhythm Abdomen: non-tender, No distended Skin: embolic lesions ICD10 Worksheet Patient Problems: Problems Problem Status Onset KATY (acute kidney injury) Acute Encephalopathy acute Acute Palliative care encounter Acute Altered mental status Acute Hypoxemia Acute Narcotic overdose Acute Pneumonia Acute
[2017-02-09] MEDS: FAMOTIDINE 20 MG/NACL 50 ML IV SCH (21:22)
[2017-02-09] MEDS: SENNOSIDES 17.6 MG/10 ML UDL - IF LIQUID ORDERED TUBE SCH (21:23)
[2017-02-09] MEDS: POTASSIUM Cl (KCl) 50 ML IV SCH ×2 (21:40→22:55)
[2017-02-10] MEDS ORDERED: HEPARIN 10,000 UNIT/10 ML MDV IVP PRN
[2017-02-10] MEDS ORDERED: HEPARIN/DEXTROSE 500 ML IV SCH
[2017-02-10] MEDS: POTASSIUM Cl (KCl) 50 ML IV SCH ×3 (00:10→22:40)
[2017-02-10] MEDS: PIPERACILLIN/TAZO 2.25 GM/DEX 50 ML IV SCH ×4 (00:29→18:23)
[2017-02-10] MEDS: DILTIAZEM 125 MG in D5W 125 ML IV SCH ×2 (00:29→08:03)
[2017-02-10 05:48] LABS: % IMMATURE GRANULYOCYTES 0.6 % (0.0-1.1); ABSOLUTE IMMATURE GRANULOCYTES 0.11 10^3/uL (0.00-0.10); ADD DIFF? NO; ADD MORPH? NO; ADD SCAN? NO; ATYPICAL LYMPHOCYTE FLAG 0 (0-99); FRAGMENT RBC FLAG 0 (0-99); HEMOGLOBIN 11.2 g/dL (12.6-16.3); LEFT SHIFT FLG 0 (0-99); LIPEMIA HEMOLYSIS FLAG 80 (0-99); MEAN CELL HEMOGLOBIN 30.8 pg (27.9-34.1); MEAN CELL HEMOGLOBIN CONCENTR. 32.9 g/dL (32.4-36.7); MEAN CELL VOLUME 93.4 fL (81.5-99.8); MEAN PLATELET VOLUME 11.8 fL (8.7-11.7); PLATELET CLUMPS FLAG 0 (0-99); PLATELET COUNT 191 10^3/uL (150-400); RED BLOOD CELL COUNT 3.64 10^6/uL (4.18-5.33); RED CELL DISTRIBUTION WIDTH 12.5 % (11.5-15.2)
[2017-02-10] MEDS: fentaNYL/NACL 100 ML IV SCH (05:51)
[2017-02-10] MEDS: PROPOFOL/EMULSION 100 ML IV SCH ×6 (05:51→23:30)
[2017-02-10 05:54] LABS: INR 1.6 (0.83-1.16); PROTIME(PATIENT) 19.1 SEC (12.0-15.0)
[2017-02-10 06:05] LABS: BASE EXCESS -0.6 mEq/L (-2.5-2.5); BICARBONATE 24 mEq/L (22-26); MEASURED OXYGEN SATURATION 93 % (92-95); PCO2 44 mmHg (34-38); PO2 74 mmHg (65-75); TCO2 26 mEq/L (23-27)
[2017-02-10 06:16] LABS: END TIDAL CO2 33; O2 CONCENTRATIION 60 % (0-100); P/F RATIO 123 RATIO; PATIENT RATE 26; PRESSURE SUPPORT 10; SIMV YES
[2017-02-10 06:26] LABS: ALBUMIN 2.9 g/dL (3.5-5.0); ANION GAP 9 mEq/L (8-16); CALCIUM 8.3 mg/dL (8.5-10.4); CARBON DIOXIDE 26 mEq/l (22-31); CHLORIDE 114 mEq/L (97-110); CREATININE 1.3 mg/dL (0.6-1.0); GLOMERULAR FILTRATION RATE 42; GLUCOSE 169 mg/dL (70-100); MAGNESIUM 2.4 mg/dL (1.6-2.3); POTASSIUM 3.7 mEq/L (3.5-5.2); SODIUM 149 mEq/L (134-144)
[2017-02-10] MEDS: SENNOSIDES 17.6 MG/10 ML UDL - IF LIQUID ORDERED TUBE SCH (07:15)
[2017-02-10] MEDS: INSULIN LISPRO 100 UNIT/ML SC SCH ×3 (07:15→18:23)
[2017-02-10] MEDS ORDERED: POTASSIUM Cl (KCl) 50 ML IV ONE (07:35)
[2017-02-10] MEDS: CHLORHEXIDINE GLUCONATE 15 ML UDL PO SCH ×2 (08:03→21:52)
[2017-02-10] MEDS: SERTRALINE HCL 100 MG TAB TUBE SCH (08:03)
[2017-02-10] MEDS: CARVEDILOL 6.25 MG TAB TUBE SCH (08:03)
--- NOTE | 2017-02-10 09:26 | PDINTPN ---
[facility] Builder Progress Note Assessment/Plan: Assessment: 61 F with obstructive and central sleep apnea (AHI= 68), currently on supplemental oxygen alone, that has not yet been treated with ASV device, admitted on numerous occasions with hypercapnic respiratory failure in conjunction with chronic narcotic dependency following remote cervical spine surgery. 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 On arrival she was found to be intermittently obtunded with KATY (Cr 5.6), and pH 7.23 with CO2 59. She was thought to have poor clearance of her chronic narcotics resulting in acute respiratory failure so was placed on Bipap overnight, but this was largely unsuccessful and required intubation the morning of 02/04. * Respiratory failure with hypercapnea: Recurrent. Intubated 02/04, self- extubated 02/06, re-intubated 02/09 AM. O2 needs high/stable today, likely due to worsened pulmonary edema. CO2 had climbed, now brought down with mechanical vent. * Pneumonia: Started Zosyn/Vanco 02/06, continues. Infiltrate improved after extubation. Continues to have fever. WBC down but still high today. * Cardiomyopathy: ECHO with RWMA anterior/apical, EF 20-25%. Cath negative for CAD. Likely a major cause of respiratory failure and renal insufficiency. * Altered MS- likely 2/2 above. Appreciate neuro eval. Continue to support for now. * Hypotension: Resolved * KATY- Cr ambrosio again, now coming back down, urine output good. * Hypokalemia: Now normalized. * Chronic pain- On Fentanyl gtt. Once able to take PO will reduce Oxycontin to 15 BID in an attempt to continue to wean. * GRICEL with CSA: Currently intubated. ASV titration 01/19/17 showed persistent events despite ASV, possibly due to large leak with mask. ASV now contraindicated with low EF. May need AVAPS or BiPAP ST if CO2 retention persists. * Tachycardia: Resolved Plan: Follow closely in ICU. Adjusting vent, including increase in PEEP. Will follow sats, vitals and continue to adjust throughout the day. Will titrate Coreg and wean Cardizem as tolerated, monitoring BP to avoid hypotension. Follow urine output closely. Minimize narcotics. Continue antibiotics, may stop Vanco if cultures remain negative. Lasix to get negative fluid balance. 02/10/17 09:28 02/10/17 09:33 Subjective: Intubated, sedated Objective: Vital Signs Temp Pulse Resp BP Pulse Ox 37.4 C 73 26 H 137/80 H 96 02/10/17 08:32 02/10/17 09:00 02/10/17 09:00 02/10/17 09:00 02/10/17 09:00 Microbiology 02/04/17 04:30 Blood Culture - Final Blood 02/04/17 Unknown Blood Culture - Final Blood Laboratory Results 02/10/17 05:40 02/10/17 05:40 02/09/17 02/10/17 02/11/17 05:59 05:59 05:59 Intake Total 1034 2318.8 Output Total 1500 950 Balance -466 1368.8 PT 19.1 SEC (12.0-15.0) H 02/10/17 05:40 INR 1.60 (0.83-1.16) H 02/10/17 05:40 Physical Exam - Physical Exam General Appearance: no apparent distress, unresponsive, No alert (sedated) EENT: normal ENT inspection Neck: normal inspection Respiratory: lungs clear, No normal breath sounds Cardiac/Chest: regular rate, rhythm, edema (1+ anasarca) Abdomen: normal bowel sounds, non-tender, soft Skin: normal color, warm/dry Extremities: normal inspection Neuro/Psych: alert, normal mood/affect, oriented x 3 ICD10 Worksheet Patient Problems: Problems Problem Status Onset KATY (acute kidney injury) Acute Encephalopathy acute Acute Palliative care encounter Acute Altered mental status Acute Hypoxemia Acute Narcotic overdose Acute Pneumonia Acute
--- NOTE | 2017-02-10 10:17 | SOAPPROG ---
SOAP Progress Note Assessment/Plan: Assessment: 61 y/o woman with severe aspiration pneumonia with respiratory failure intubated also with NQWMI peak troponin 10 with acute systolic CHF LVEF 23% and normal coronaries by cath yesterday. Overall stabilizing some. Still hypervolemic. REC: 1)stop Diltiazem gtt. 2)increase Coreg to 12.5mg PT BID if HR > 60bpm. 3)add aldactone 25mg PO qday. 4)probably start ACEI tommorrow if stable BP and renal function okay. 5)continue IV Zosyn. Plan: 02/10/17 10:14 Subjective: intubated, sedated. Objective: Vital Signs Temp Pulse Resp BP Pulse Ox 37.4 C 73 26 H 137/80 H 96 02/10/17 08:32 02/10/17 09:00 02/10/17 09:00 02/10/17 09:00 02/10/17 09:00 Microbiology 02/04/17 04:30 Blood Culture - Final Blood 02/04/17 Unknown Blood Culture - Final Blood Laboratory Results 02/10/17 05:40 02/10/17 05:40 02/09/17 02/10/17 02/11/17 05:59 05:59 05:59 Intake Total 1034 2318.8 Output Total 1500 950 Balance -466 1368.8 PT 19.1 SEC (12.0-15.0) H 02/10/17 05:40 INR 1.60 (0.83-1.16) H 02/10/17 05:40 Physical Exam - Physical Exam General Appearance: other (intubated and sedated) EENT: normal ENT inspection Neck: non-tender Respiratory: crackles (bilaterally.) Cardiac/Chest: regular rate, rhythm, other (distant heart sounds.), No gallop Peripheral Pulses: 1+: femoral (R), femoral (L), dorsalis-pedis (R), dorsalis- pedis (L), 2+: carotid (R), carotid (L) Abdomen: non-tender, soft Skin: warm/dry Extremities: pedal edema Neuro/Psych: other (sedated on Propofol gtt.) ICD10 Worksheet Patient Problems: Problems Problem Status Onset KATY (acute kidney injury) Acute Encephalopathy acute Acute Palliative care encounter Acute Altered mental status Acute Hypoxemia Acute Narcotic overdose Acute Pneumonia Acute
[2017-02-10] MEDS: ENOXAPARIN 120 MG/0.8 ML SYR SC SCH ×2 (10:39→21:52)
[2017-02-10] MEDS ORDERED: CARVEDILOL 6.25 MG TAB TUBE ONE (11:00)
[2017-02-10] MEDS: SPIRONOLACTONE 25 MG TAB TUBE SCH (11:18)
--- NOTE | 2017-02-10 13:36 | HOSPPROG ---
Hospitalist Progress Note Assessment/Plan: # acute on chronic hypoxic/hypercapnic resp failure - intubated, self extubated 02/06 - reintubated 02/09 am emergently # fever - on broad spectrum abx - appreciate ID input # aspiration pna - cont vanc/zosyn # marked leukocytosis - improved today # stress cardiomyopathy - incr coreg, stop dilt gtt, aldactone added; marko possibly tomorrow - lovenox # tachycardia - currently sinus, was a-fib with RVR - coreg, stop dilt # atrial fib - currently on warfarin, LMWH # KATY - likely RIKKI - slight improvement today # chronic pain with continuous narcotic dependence - holding PO, cont iv narcotics # opiate withdrawal - on fentanyl gtt now # hyperNa - incr free H2O flushes # morbid obesity # hyperglycemia - d/t D5; A1c ok # FCFT - ## high risk with ongoing mechanical ventilation Subjective: rectal tube placed overnight for loose stool Objective: Vital Signs Temp Pulse Resp BP Pulse Ox 37.1 C 68 26 H 112/73 94 02/10/17 12:00 02/10/17 13:00 02/10/17 13:00 02/10/17 13:00 02/10/17 13:00 Laboratory Results 02/10/17 05:40 02/10/17 05:40 02/09/17 02/10/17 02/11/17 05:59 05:59 05:59 Intake Total 1034 2318.8 Output Total 1500 950 Balance -466 1368.8 PT 19.1 SEC (12.0-15.0) H 02/10/17 05:40 INR 1.60 (0.83-1.16) H 02/10/17 05:40 - Physical Exam Constitutional: obese, other (intubated/sedated) Cardiovascular: regular rate and rhythym, no murmur, rub, or gallop, systolic murmur Respiratory: other (intubated, coarse, bilat basilar crackles), No reduced air movement Gastrointestinal: normoactive bowel sounds, soft, non-tender abdomen, no palpable masses ICD10 Worksheet Patient Problems: Problems Problem Status Onset Pneumonia Acute Hypoxemia Acute Narcotic overdose Acute Altered mental status Acute KATY (acute kidney injury) Acute Encephalopathy acute Acute Palliative care encounter Acute
[2017-02-10] MEDS: FUROSEMIDE 40 MG/4 ML VIAL IVP SCH (13:58)
[2017-02-10] MEDS ORDERED: FUROSEMIDE 20 MG/2 ML VIAL IVP SCH (15:00)
--- NOTE | 2017-02-10 17:26 | PCMIDPN ---
Assessment/Plan: Assessment/Plan: * Fever/leukocytosis: Potentially related to aspiration pneumonia. Clinically improved with decreased white blood cell count and temperature. Remains with therapeutic level of vancomycin. Plan to continue Zosyn. No plans for further dosing of vancomycin given no isolation of MRSA. 02/10/17 17:23 Subjective: Intubated, sedated. Objective: Vital Signs Temp Pulse Resp BP Pulse Ox 36.8 C 68 26 H 141/51 H 99 02/10/17 16:22 02/10/17 17:00 02/10/17 17:00 02/10/17 17:00 02/10/17 17:00 Microbiology 02/08/17 17:58 Urine Culture - Final Urine,Clean Catch Laboratory Results 02/10/17 05:40 02/10/17 05:40 02/09/17 02/10/17 02/11/17 05:59 05:59 05:59 Intake Total 1034 2318.8 1026 Output Total 7326 638 0041 Balance -466 1368.8 -574 Vancomycin # 5 Zosyn # 5 Laboratory Tests 02/09/17 02/10/17 10:00 05:40 Vancomycin Trough 28.3 H* Random Vancomycin 17.0 Chest x-ray consistent with pulmonary edema - Physical Exam General Appearance: other (Intubated, sedated) EENT: ET Tube, No scleral icterus, No conjunctival petechiae Respiratory: coarse breath sounds, No respiratory distress Cardiac/Chest: regular rate, rhythm Abdomen: non-tender, No distended Skin: No embolic lesions ICD10 Worksheet Patient Problems: Problems Problem Status Onset KATY (acute kidney injury) Acute Encephalopathy acute Acute Palliative care encounter Acute Altered mental status Acute Hypoxemia Acute Narcotic overdose Acute Pneumonia Acute
[2017-02-10] MEDS: WARFARIN SODIUM 2.5 MG TAB TUBE SCH (18:23)
[2017-02-10] MEDS: CARVEDILOL 25 MG TAB TUBE SCH (18:25)
[2017-02-10 18:48] LABS: POTASSIUM 3.5 mEq/L (3.5-5.2)
[2017-02-10] MEDS: FAMOTIDINE 20 MG/NACL 50 ML IV SCH (21:38)
[2017-02-11] MEDS: POTASSIUM Cl (KCl) 50 ML IV SCH
[2017-02-11] MEDS: PIPERACILLIN/TAZO 2.25 GM/DEX 50 ML IV SCH ×3 (02:53→12:43)
[2017-02-11] MEDS: PROPOFOL/EMULSION 100 ML IV SCH ×5 (02:54→20:15)
[2017-02-11] MEDS: SENNOSIDES 17.6 MG/10 ML UDL - IF LIQUID ORDERED TUBE SCH ×3 (02:54→20:04)
[2017-02-11 04:39] LABS: ABSOLUTE IMMATURE GRANULOCYTES 0.13 10^3/uL (0.00-0.10); ABSOLUTE NRBC COUNT 0.02 10^3/uL (0-0.01); ADD DIFF? NO; ADD MORPH? NO; ADD SCAN? NO; ATYPICAL LYMPHOCYTE FLAG 10 (0-99); FRAGMENT RBC FLAG 0 (0-99); HEMATOCRIT 31.2 % (38.0-47.0); HEMOGLOBIN 10.3 g/dL (12.6-16.3); LEFT SHIFT FLG 0 (0-99); LIPEMIA HEMOLYSIS FLAG 80 (0-99); MEAN CELL HEMOGLOBIN 30.3 pg (27.9-34.1); MEAN CELL VOLUME 91.8 fL (81.5-99.8); MEAN PLATELET VOLUME 11.6 fL (8.7-11.7); NRBC-AUTO% 0.1 % (0.0-0.2); PLATELET CLUMPS FLAG 0 (0-99); PLATELET COUNT 184 10^3/uL (150-400); RED CELL DISTRIBUTION WIDTH 12.2 % (11.5-15.2)
[2017-02-11 04:49] LABS: INR 1.52 (0.83-1.16); PROTIME(PATIENT) 18.3 SEC (12.0-15.0)
[2017-02-11 04:59] LABS: ANION GAP 8 mEq/L (8-16); CALCIUM 8.3 mg/dL (8.5-10.4); CARBON DIOXIDE 26 mEq/l (22-31); CHLORIDE 112 mEq/L (97-110); CREATININE 1.1 mg/dL (0.6-1.0); GLOMERULAR FILTRATION RATE 50; GLUCOSE 140 mg/dL (70-100); MAGNESIUM 2.2 mg/dL (1.6-2.3); POTASSIUM 3.7 mEq/L (3.5-5.2); SODIUM 146 mEq/L (134-144)
[2017-02-11 05:42] LABS: BASE EXCESS -0.4 mEq/L (-2.5-2.5); BICARBONATE 23 mEq/L (22-26); END TIDAL CO2 32; MEASURED OXYGEN SATURATION 93 % (92-95); O2 CONCENTRATIION 40 % (0-100); P/F RATIO 173 RATIO; PATIENT RATE 26; PCO2 37 mmHg (34-38); PO2 69 mmHg (65-75); SIMV YES; TCO2 24 mEq/L (23-27)
[2017-02-11 05:43] LABS: PRESSURE SUPPORT 10
--- NOTE | 2017-02-11 08:24 | SOAPPROG ---
SOAP Progress Note Assessment/Plan: Assessment: 61 y/o woman with severe aspiration pneumonia with respiratory failure intubated also with NQWMI peak troponin 10 with acute systolic CHF LVEF 23% and normal coronaries by cath yesterday. Overall stabilizing some with good diuresis last 24hrs. BP a little elevated. REC: 1)start Lisinopril 10mg PT BID 2)KCL 20 meq PT BID 3)rest of meds without changes. 4)hopefully start to do some trial ventilator weans soon. 5)daily labs (CBC and BMP and PT/INR). 02/11/17 08:21 Subjective: intubated, sedated. No hemodynamic instability reported by SHEATHER. Objective: Vital Signs Temp Pulse Resp BP Pulse Ox 37.5 C 95 36 H 169/95 H 91 L 02/11/17 04:00 02/11/17 07:56 02/11/17 07:56 02/11/17 06:00 02/11/17 07:56 Microbiology 02/08/17 17:58 Urine Culture - Final Urine,Clean Catch Laboratory Results 02/11/17 04:30 02/11/17 04:30 02/10/17 02/11/17 02/12/17 05:59 05:59 05:59 Intake Total 2318.8 2492 Output Total 950 2500 Balance 1368.8 -8 PT 18.3 SEC (12.0-15.0) H 02/11/17 04:30 INR 1.52 (0.83-1.16) H 02/11/17 04:30 Physical Exam - Physical Exam General Appearance: obese, other (intubated and sedated.) EENT: ET tube Neck: normal inspection Respiratory: crackles (but improved from yesterday) Cardiac/Chest: regular rate, rhythm, No gallop, No JVD (disant heart sounds) Peripheral Pulses: 1+: femoral (R), femoral (L), dorsalis-pedis (R), dorsalis- pedis (L), 2+: carotid (R), carotid (L) Abdomen: No guarding Skin: warm/dry Extremities: pedal edema Neuro/Psych: other (sedated on Propofol gtt.) ICD10 Worksheet Patient Problems: Problems Problem Status Onset KATY (acute kidney injury) Acute Encephalopathy acute Acute Palliative care encounter Acute Altered mental status Acute Hypoxemia Acute Narcotic overdose Acute Pneumonia Acute
[2017-02-11] MEDS: SPIRONOLACTONE 25 MG TAB TUBE SCH (08:41)
[2017-02-11] MEDS: CARVEDILOL 25 MG TAB TUBE SCH ×2 (08:41→17:35)
[2017-02-11] MEDS: FUROSEMIDE 40 MG/4 ML VIAL IVP SCH ×3 (08:41→22:15)
[2017-02-11] MEDS: LISINOPRIL 10 MG TAB TUBE SCH ×2 (08:41→20:04)
[2017-02-11] MEDS: SERTRALINE HCL 100 MG TAB TUBE SCH (08:42)
[2017-02-11] MEDS: CHLORHEXIDINE GLUCONATE 15 ML UDL PO SCH ×2 (08:42→20:03)
--- NOTE | 2017-02-11 09:03 | PDINTPN ---
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 She had a reported mechanical fall [employer] and decreased urination associated with increasing confusion. On arrival she was found to be intermittently obtunded with KATY (Cr 5.6), and pH 7.23 with CO2 59. She was thought to have poor clearance of her chronic narcotics resulting in acute respiratory failure so was placed on Bipap overnight, but this was largely unsuccessful and required intubation the morning of 02/04. * Respiratory failure with hypercapnea: Recurrent. Intubated 02/04, self- extubated 02/06, re-intubated 02/09 AM. O2 needs down a bit today, likely due to improved pulmonary edema. CO2 had climbed, now brought down with mechanical vent. * Pneumonia: Started Zosyn/Vanco 02/06. Infiltrate improved after extubation. No fever for 48 hours. WBC down significantly today. * Cardiomyopathy: ECHO with RWMA anterior/apical, EF 20-25%. Cath negative for CAD. Likely a major cause of respiratory failure and renal insufficiency. * Altered MS- likely 2/2 above. Appreciate neuro eval. Continue to support for now. * Hypotension: Resolved * KATY- Cr back down, urine output good. * Hypokalemia: Now normalized. * Chronic pain- On Fentanyl gtt. Once able to take PO will reduce Oxycontin to 15 BID in an attempt to continue to wean. * GRICEL with CSA: Currently intubated. ASV titration 01/19/17 showed persistent events despite ASV, possibly due to large leak with mask. ASV now contraindicated with low EF. May need AVAPS or BiPAP ST if CO2 retention persists. * Tachycardia: Sinus. ? due to infection with markedly elevated WBC. PE, CHF also a possibility. Plan: Follow closely in ICU. Will follow sats, vitals and continue to adjust throughout the day. Will continue Coreg, spironolactone and add lisinopril today , monitoring BP to avoid hypotension. Follow urine output closely, increase lasix to q8h. Minimize narcotics. Continue Zosyn, stop Vanco. 02/11/17 09:15 Objective: Vital Signs Temp Pulse Resp BP Pulse Ox 37.5 C 69 26 H 167/101 H 97 02/11/17 08:00 02/11/17 08:41 02/11/17 08:00 02/11/17 08:41 02/11/17 08:00 Microbiology 02/08/17 17:58 Urine Culture - Final Urine,Clean Catch Laboratory Results 02/11/17 04:30 02/11/17 04:30 02/10/17 02/11/17 02/12/17 05:59 05:59 05:59 Intake Total 2318.8 2492 Output Total 950 2500 Balance 1368.8 -8 PT 18.3 SEC (12.0-15.0) H 02/11/17 04:30 INR 1.52 (0.83-1.16) H 02/11/17 04:30 Laboratory Tests 02/11/17 05:30 pCO2 37 pO2 69 Total CO2 24 ABG pH 7.42 O2 Concentration % 40 Actual Respiration Rate 26 SIMV YES Tidal Volume 450 PEEP 8 ICD10 Worksheet Patient Problems: Problems Problem Status Onset KATY (acute kidney injury) Acute Encephalopathy acute Acute Palliative care encounter Acute Altered mental status Acute Hypoxemia Acute Narcotic overdose Acute Pneumonia Acute
[2017-02-11] MEDS ORDERED: POTASSIUM CL 10 MEQ TAB PO ONE ×2 (09:29→19:12)
[2017-02-11] MEDS: INSULIN LISPRO 100 UNIT/ML SC SCH ×3 (09:42→17:36)
[2017-02-11] MEDS: ENOXAPARIN 120 MG/0.8 ML SYR SC SCH ×2 (09:42→20:04)
--- NOTE | 2017-02-11 13:36 | HOSPPROG ---
Hospitalist Progress Note Assessment/Plan: # acute on chronic hypoxic/hypercapnic resp failure - intubated, self extubated 02/06 - reintubated 02/09 am emergently - continue ventilatory support # aspiration pna - cont zosyn # fever (not for 2 days) - cont zosyn, vanc stopped # marked leukocytosis - continues to improve # volume overload - lasix today # stress cardiomyopathy - cont coreg, aldactone - lisinopril started # atrial fib - currently on warfarin, LMWH # KATY - likely RIKKI - improving # chronic pain with continuous narcotic dependence # opiate withdrawal - on fentanyl gtt now # hyperNa - better today # morbid obesity # FCFT ## CXR personally reviewed discussed with Dr Cui on ICU rounds Subjective: no significant change; still intubated and sedated Objective: Vital Signs Temp Pulse Resp BP Pulse Ox 36.8 C 63 22 H 128/76 H 98 02/11/17 12:00 02/11/17 12:00 02/11/17 12:00 02/11/17 12:00 02/11/17 12:00 Microbiology 02/08/17 17:58 Urine Culture - Final Urine,Clean Catch Laboratory Results 02/11/17 04:30 02/11/17 04:30 02/10/17 02/11/17 02/12/17 05:59 05:59 05:59 Intake Total 2318.8 2492 Output Total 950 2500 Balance 1368.8 -8 PT 18.3 SEC (12.0-15.0) H 02/11/17 04:30 INR 1.52 (0.83-1.16) H 02/11/17 04:30 - Physical Exam Constitutional: no apparent distress, appears nourished Cardiovascular: regular rate and rhythym, no murmur, rub, or gallop Respiratory: other (intubated, coarse BS; no rales/rhonchi), No reduced air movement Gastrointestinal: normoactive bowel sounds, soft, non-tender abdomen, no palpable masses ICD10 Worksheet Patient Problems: Problems Problem Status Onset Pneumonia Acute Hypoxemia Acute Narcotic overdose Acute Altered mental status Acute KATY (acute kidney injury) Acute Encephalopathy acute Acute Palliative care encounter Acute
--- NOTE | 2017-02-11 16:49 | PCMIDPN ---
Assessment/Plan: Assessment/Plan: * Fever/leukocytosis: Potentially related to aspiration pneumonia. Clinically stable with continued decrease in white blood cell count and no significant fever over last 48 hours. Renal function also improving. Continue Zosyn with anticipated 10 day course of treatment; dose adjusted for improved renal function. No further vancomycin planned as no resistant gram positives isolated. 02/11/17 16:46 Subjective: Intubated, sedated. Objective: Vital Signs Temp Pulse Resp BP Pulse Ox 36.8 C 64 26 H 119/70 100 02/11/17 12:00 02/11/17 16:04 02/11/17 16:04 02/11/17 14:00 02/11/17 16:04 Microbiology 02/08/17 17:58 Urine Culture - Final Urine,Clean Catch Laboratory Results 02/11/17 04:30 02/11/17 04:30 02/10/17 02/11/17 02/12/17 05:59 05:59 05:59 Intake Total 2318.8 2492 Output Total 950 2500 1999 Balance 1368.8 -8 -1999 Zosyn # 6 Status post vancomycin (last dose 02/09/2017 - additional doses not planned) - Physical Exam General Appearance: other (Intubated, sedated, tries to open eyes to name) EENT: ET Tube, No scleral icterus Respiratory: coarse breath sounds Cardiac/Chest: regular rate, rhythm Abdomen: non-tender, No distended - Line/s RUE PICC Lines: No drainage, No erythema ICD10 Worksheet Patient Problems: Problems Problem Status Onset KATY (acute kidney injury) Acute Encephalopathy acute Acute Palliative care encounter Acute Altered mental status Acute Hypoxemia Acute Narcotic overdose Acute Pneumonia Acute
[2017-02-11] MEDS: fentaNYL/NACL 100 ML IV SCH (17:55)
[2017-02-11 18:09] LABS: POTASSIUM 3.2 mEq/L (3.5-5.2)
[2017-02-11] MEDS: WARFARIN SODIUM 2.5 MG TAB TUBE SCH (18:35)
[2017-02-11] MEDS ORDERED: POTASSIUM CL 20 MEQ/15 ML UDCUP PO ONE ×2 (19:30→20:00)
[2017-02-11] MEDS: FAMOTIDINE 20 MG TAB TUBE SCH (20:04)
[2017-02-11] MEDS: PIPERACILLIN/TAZO 3.375 GM/DEX 50 ML IV SCH (22:30)
[2017-02-12] MEDS ORDERED: POTASSIUM CL 10 MEQ TAB PO ONE ×2 (00:13→06:53)
[2017-02-12] MEDS: PROPOFOL/EMULSION 100 ML IV SCH ×3 (00:24→10:35)
[2017-02-12] MEDS: FUROSEMIDE 40 MG/4 ML VIAL IVP SCH ×3 (05:16→21:25)
[2017-02-12] MEDS: PIPERACILLIN/TAZO 3.375 GM/DEX 50 ML IV SCH ×3 (05:16→21:22)
[2017-02-12] MEDS: fentaNYL/NACL 100 ML IV SCH ×2 (05:51→21:31)
[2017-02-12 06:06] LABS: PCO2 VENOUS 50 mmHg (40-44); PH VENOUS BLOOD 7.39 (7.31-7.42); PO2 VENOUS 62 mmHg (35-40); TCO2 VENOUS 31 mEq/L (23-27); VEN MEASURED OXYGEN SATURATION 90 % (65-75)
[2017-02-12 06:08] LABS: % IMMATURE GRANULYOCYTES 1.7 % (0.0-1.1); ABSOLUTE IMMATURE GRANULOCYTES 0.17 10^3/uL (0.00-0.10); ADD DIFF? NO; ADD MORPH? NO; ADD SCAN? NO; ATYPICAL LYMPHOCYTE FLAG 20 (0-99); FRAGMENT RBC FLAG 0 (0-99); HEMATOCRIT 30.5 % (38.0-47.0); HEMOGLOBIN 10.2 g/dL (12.6-16.3); LEFT SHIFT FLG 10 (0-99); LIPEMIA HEMOLYSIS FLAG 80 (0-99); MEAN CELL HEMOGLOBIN 29.7 pg (27.9-34.1); MEAN CELL HEMOGLOBIN CONCENTR. 33.4 g/dL (32.4-36.7); MEAN CELL VOLUME 88.9 fL (81.5-99.8); PLATELET CLUMPS FLAG 10 (0-99); PLATELET COUNT 193 10^3/uL (150-400); RED BLOOD CELL COUNT 3.43 10^6/uL (4.18-5.33); RED CELL DISTRIBUTION WIDTH 12.1 % (11.5-15.2)
[2017-02-12 06:17] LABS: INR 1.61 (0.83-1.16); PROTIME(PATIENT) 19.2 SEC (12.0-15.0)
[2017-02-12 06:33] LABS: ANION GAP 9 mEq/L (8-16); CALCIUM 8.5 mg/dL (8.5-10.4); CARBON DIOXIDE 32 mEq/l (22-31); CHLORIDE 106 mEq/L (97-110); GLOMERULAR FILTRATION RATE 56; GLUCOSE 118 mg/dL (70-100); POTASSIUM 3.5 mEq/L (3.5-5.2); SODIUM 147 mEq/L (134-144)
[2017-02-12] MEDS: INSULIN LISPRO 100 UNIT/ML SC SCH (08:16)
[2017-02-12] MEDS ORDERED: POTASSIUM CL 20 MEQ/15 ML UDCUP TUBE PRN (08:35)
[2017-02-12] MEDS: CARVEDILOL 25 MG TAB TUBE SCH ×2 (08:36→18:14)
[2017-02-12] MEDS: ENOXAPARIN 120 MG/0.8 ML SYR SC SCH ×2 (08:36→21:23)
[2017-02-12] MEDS: CHLORHEXIDINE GLUCONATE 15 ML UDL PO SCH ×2 (08:36→21:22)
[2017-02-12] MEDS: SPIRONOLACTONE 25 MG TAB TUBE SCH (08:37)
[2017-02-12] MEDS: SERTRALINE HCL 100 MG TAB TUBE SCH (08:37)
[2017-02-12] MEDS: LISINOPRIL 10 MG TAB TUBE SCH ×2 (08:37→21:23)
[2017-02-12] MEDS: FAMOTIDINE 20 MG TAB TUBE SCH ×2 (08:37→21:22)
[2017-02-12] MEDS: SENNOSIDES 17.6 MG/10 ML UDL - IF LIQUID ORDERED TUBE SCH ×2 (08:38→21:22)
--- NOTE | 2017-02-12 11:42 | HOSPPROG ---
Hospitalist Progress Note Assessment/Plan: # acute on chronic hypoxic/hypercapnic resp failure - intubated, self extubated 02/06 - reintubated 02/09 am emergently - continue ventilatory support # aspiration pna - cont zosyn # fever (not for 2 days) - cont zosyn, vanc stopped # marked leukocytosis - almost resolved # volume overload - better, cont lasix # stress cardiomyopathy - cont coreg, aldactone - lisinopril started # atrial fib - currently on warfarin, LMWH # KATY - likely RIKKI - improving # chronic pain with continuous narcotic dependence # opiate withdrawal - on fentanyl gtt now # hyperNa - better today # morbid obesity # FCFT ## high risk on ventilator Subjective: no significant changes overnight Objective: Vital Signs Temp Pulse Resp BP Pulse Ox 37.2 C 58 L 22 H 108/59 L 91 L 02/12/17 10:00 02/12/17 10:00 02/12/17 10:00 02/12/17 10:00 02/12/17 10:00 Laboratory Results 02/12/17 05:55 02/12/17 05:55 02/11/17 02/12/17 02/13/17 05:59 05:59 05:59 Intake Total 2492 3021 Output Total 2500 8200 Balance -8 -5173 PT 19.2 SEC (12.0-15.0) H 02/12/17 05:55 INR 1.61 (0.83-1.16) H 02/12/17 05:55 - Physical Exam Constitutional: no apparent distress, appears nourished Cardiovascular: regular rate and rhythym, no murmur, rub, or gallop, systolic murmur Respiratory: other (ET tube, coarse BS, no diminished BS, mild rales, no rhonchi ) Gastrointestinal: normoactive bowel sounds, soft, non-tender abdomen, no palpable masses ICD10 Worksheet Patient Problems: Problems Problem Status Onset Pneumonia Acute Hypoxemia Acute Narcotic overdose Acute Altered mental status Acute KATY (acute kidney injury) Acute Encephalopathy acute Acute Palliative care encounter Acute
--- NOTE | 2017-02-12 12:10 | PDCARPN ---
Cardiology Progress Note Assessment/Plan: Assessment/plan: 61 yo F with mixed sleep apnea awaiting outpt treatment, obesity, chronic hypoxic respiratory failure admitted 02/03 with altered mental status and acute renal failure. Initial picture consistent with poor metabolism of gabapentin and chronic narcotics resulting in intermittent resp failure. Course complicated by aspiration pneumonia, intubation, and NSTEMI. LVEF 30%, normal cors on cath. This likely represents Takotsubo CMP. 1. CMP and NSTEMI: likely stress induced CMP. Tolerating EDMUND-I, coreg, aldactone. Responding well to diuresis. Would repeat limited echo prior to discharge 2. Resp failure: chronic hypoxia, mixed sleep apnea, asp pna. Vent wean per Dr Richter 3. PAF: in the past. Currently NSR. On warfarin 4. ARF: resolved 5. Anemia: chronic 6. Chronic pain with narcotic dependence: complicates care 02/12/17 12:11 Subjective: Velvet denies CP or abd pain Reviewed/Discussed With: family, multidisciplinary team Objective: Vital Signs (8 Hrs) Temp Pulse Resp BP Pulse Ox 02/12/17 11:35 65 94 02/12/17 10:00 37.2 C 58 L 22 H 108/59 L 91 L 02/12/17 08:36 70 148/89 H 02/12/17 08:05 62 99 02/12/17 08:00 37.5 C 70 23 H 148/89 H 97 02/12/17 06:00 56 L 22 H 118/70 94 Intake/Output (24 Hrs) 02/11/17 02/12/17 02/13/17 05:59 05:59 05:59 Intake Total 2492 3021 Output Total 2500 8200 Balance -8 0680 Intake: Oral (ml) 0 IV Intake (ml) 1258 993 IV Infused (ml) 262 700 Propofol/Emulsion 100 ml 234 569 @ Titrate IV CONT FATOUMATA Rx# :[id number] fentaNYL/NACL 100 ml @ As 28 131 Directed IV CONT FATOUMATA Rx# :[id number] Tube Feeding (ml) 322 473 Tube Flush (ml) 650 855 Output: Urine (ml) 2300 7600 Catheter 2300 7600 Liquid Stool (ml) 200 600 Catheter 200 600 Other: Weight 125.9 kg 118.2 kg 118.2 kg Output Comment Catheter rectal tube anxious. intubated. responding to questions RRR no m/r/g Rhonchi ant and lateral abd soft, NT No edema Result Diagrams: 02/12/17 05:55 02/12/17 05:55 Cardiac Labs: Cardiac Lab Results (72 Hrs) 02/09/17 10:00 Troponin I 4.660 H EKG: Initial: NSR. Later: ST with diffuse ST T abnl Telemetry: NSR. 4 beat run of VT on 02/11 Echocardiogram: reviewed and compared with 08/2016: decrement in LVEF to 30%. with anteroapical and inferoapical hypokinesis. cath films 02/08 reviewed: no obstructive CAD ICD10 Worksheet Patient Problems: Problems Problem Status Onset Pneumonia Acute Hypoxemia Acute Narcotic overdose Acute Altered mental status Acute KATY (acute kidney injury) Acute Encephalopathy acute Acute Palliative care encounter Acute
--- NOTE | 2017-02-12 12:39 | PDINTPN ---
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 She had a reported mechanical fall [employer] and decreased urination associated with increasing confusion. On arrival she was found to be intermittently obtunded with KATY (Cr 5.6), and pH 7.23 with CO2 59. She was thought to have poor clearance of her chronic narcotics resulting in acute respiratory failure so was placed on Bipap overnight, but this was largely unsuccessful and required intubation the morning of 02/04. * Respiratory failure with hypercapnea: Recurrent. Intubated 02/04, self- extubated 02/06, re-intubated 02/09 AM. Stable, on 40% FiO2 comma chest x-ray improving, will restart CPAP weans and hope to extubate in the next 1-2 days. Precedex may be better than propofol at this point.. * Pneumonia: On Zosyn alone. Vancomycin discontinued. Chest x-ray improving. * Cardiomyopathy: ECHO with RWMA anterior/apical, EF 20-25%. Cath negative for CAD. Likely a major cause of respiratory failure and renal insufficiency. * Altered MS- likely 2/2 above. Improved. * Hypotension: Resolved * KATY- creatinine normalized. Excellent diuresis with Lasix.. * Hypokalemia: On replacement protocol. * Chronic pain- On Fentanyl gtt. On propofol as well. Precedex may be better.. * GRICEL with CSA: Currently intubated. ASV titration 01/19/17 showed persistent events despite ASV, possibly due to large leak with mask. ASV now contraindicated with low EF. May need AVAPS or BiPAP ST if CO2 retention persists post extubation. * Tachycardia: Resolved. Plan: Try to actively wean today with re-initiation of CPAP trials. I will try Precedex verses propofol today. Will follow respiratory status closely and adjust ventilator as needed.. Continue aggressive diuresis, following laboratory. Will continue Coreg, spironolactone and add lisinopril today, monitoring BP to avoid hypotension. Continue antibiotics and bronchopulmonary therapies. Discussed with the patient's daughter, respiratory, nursing, hospitalist, and the ICU multi disciplinary team. 1 hour of critical care time was spent directly with the patient. Subjective: On the ventilator. Sedated. Opens eyes and responds to simple questions/ commands. Objective: Vital Signs Temp Pulse Resp BP Pulse Ox 37.2 C 65 22 H 108/59 L 94 02/12/17 10:00 02/12/17 11:35 02/12/17 10:00 02/12/17 10:00 02/12/17 11:35 Laboratory Results 02/12/17 05:55 02/12/17 05:55 02/11/17 02/12/17 02/13/17 05:59 05:59 05:59 Intake Total 2492 3021 Output Total 2500 8200 Balance -8 -5179 PT 19.2 SEC (12.0-15.0) H 02/12/17 05:55 INR 1.61 (0.83-1.16) H 02/12/17 05:55 Laboratory Tests 02/12/17 02/12/17 02/12/17 05:55 05:55 05:55 PT 19.2 H INR 1.61 H VBG pH 7.39 VBG Base Excess 4.5 H Mixed VBG pCO2 50 H Calcium 8.5 Magnesium 2.0 CXR: Improving infiltrates/pulmonary edema. Bi basilar atelectasis/ consolidation/effusions persist. Lines and tubes in good post admission Physical Exam - Physical Exam General Appearance: no apparent distress, obese, other (Sedated, on ventilator) EENT: PERRL/EOMI, ET tube, other (NG) Neck: normal inspection Respiratory: lungs clear (Anteriorly), decreased breath sounds (At the bases), rales (Few at the lateral bases), No rhonchi, No wheezing Cardiac/Chest: regular rate, rhythm (Distant heart tones) Abdomen: non-tender, soft (Obese), other (Tolerating tube feedings), No normal bowel sounds (Decreased, present) Pelvic Exam: other (Mars catheter in place: Output greater than input by about 5 L by 24 hours.) Skin: warm/dry, pallor Extremities: pedal edema Neuro/Psych: no motor/sensory deficits (Moves all extremities), No cognition abnormalities ICD10 Worksheet Patient Problems: Problems Problem Status Onset Pneumonia Acute Hypoxemia Acute Narcotic overdose Acute Altered mental status Acute KATY (acute kidney injury) Acute Encephalopathy acute Acute Palliative care encounter Acute
[2017-02-12 14:36] LABS: POTASSIUM 3.4 mEq/L (3.5-5.2)
[2017-02-12] MEDS: DEXMEDETOMIDINE HCL 400 MCG in NS 100 ML IV SCH ×3 (14:59→23:20)
--- NOTE | 2017-02-12 18:04 | PCMIDPN ---
Assessment/Plan: Assessment: fever and leukocytosis -- probably related to pneumonia - maybe aspiration. WBC continues to improve. Patient undergoing weaning protocol. Plan to continue the renally adjusted Zosyn for a total of a ten day course. Discussed case with family. Plan: 1) Continue the renally adjusted Zosyn. 2) Follow her respiratory status. Subjective: Patient remains intubated and her sedation is being decreased. She is able to nod answers to questions despite the intubation. No other significant changes. Objective: Zosyn #7 Vital Signs Temp Pulse Resp BP Pulse Ox 37.5 C 56 L 18 122/77 H 94 02/12/17 16:00 02/12/17 16:00 02/12/17 16:00 02/12/17 16:00 02/12/17 16:00 Laboratory Results 02/12/17 05:55 02/12/17 13:45 02/11/17 02/12/17 02/13/17 05:59 05:59 05:59 Intake Total 2492 3021 Output Total 2500 8200 Balance -8 -8164 - Physical Exam General Appearance: WD/WN, alert, no apparent distress, non-toxic, other ( intubated yet alert) Respiratory: crackles (at bases B), No lungs clear, No respiratory distress, No wheezing Cardiac/Chest: regular rate, rhythm, No tachycardia Extremities: non-tender, normal inspection Skin: normal color, warm/dry, No rash Neuro/Psych: alert ICD10 Worksheet Patient Problems: Problems Problem Status Onset KATY (acute kidney injury) Acute Encephalopathy acute Acute Palliative care encounter Acute Altered mental status Acute Hypoxemia Acute Narcotic overdose Acute Pneumonia Acute
[2017-02-12] MEDS: WARFARIN SODIUM 2.5 MG TAB TUBE SCH (18:15)
[2017-02-12 18:48] LABS: POTASSIUM 3.4 mEq/L (3.5-5.2)
[2017-02-12] MEDS: POTASSIUM Cl (KCl) 50 ML IV SCH ×3 (19:40→21:10)
[2017-02-13 05:28] LABS: BASE EXCESS 8.1 mEq/L (-2.5-2.5); BICARBONATE 33 mEq/L (22-26); MEASURED OXYGEN SATURATION 96 % (92-95); PCO2 50 mmHg (34-38); PO2 82 mmHg (65-75); TCO2 35 mEq/L (23-27)
[2017-02-13 05:29] LABS: CPAP YES; END TIDAL CO2 44; O2 CONCENTRATIION 40 % (0-100); P/F RATIO 205 RATIO; PATIENT RATE 13; PRESSURE SUPPORT 10
[2017-02-13] MEDS: PIPERACILLIN/TAZO 3.375 GM/DEX 50 ML IV SCH ×3 (05:39→21:11)
[2017-02-13] MEDS: FUROSEMIDE 40 MG/4 ML VIAL IVP SCH ×3 (05:39→21:13)
[2017-02-13 05:47] LABS: % IMMATURE GRANULYOCYTES 1.6 % (0.0-1.1); ABSOLUTE IMMATURE GRANULOCYTES 0.18 10^3/uL (0.00-0.10); ADD DIFF? NO; ADD MORPH? NO; ADD SCAN? NO; ATYPICAL LYMPHOCYTE FLAG 10 (0-99); FRAGMENT RBC FLAG 0 (0-99); HEMATOCRIT 31.7 % (38.0-47.0); HEMOGLOBIN 10.7 g/dL (12.6-16.3); LEFT SHIFT FLG 10 (0-99); LIPEMIA HEMOLYSIS FLAG 90 (0-99); MEAN CELL HEMOGLOBIN 30.2 pg (27.9-34.1); MEAN CELL HEMOGLOBIN CONCENTR. 33.8 g/dL (32.4-36.7); MEAN CELL VOLUME 89.5 fL (81.5-99.8); PLATELET CLUMPS FLAG 10 (0-99); PLATELET COUNT 203 10^3/uL (150-400); RED BLOOD CELL COUNT 3.54 10^6/uL (4.18-5.33); RED CELL DISTRIBUTION WIDTH 11.9 % (11.5-15.2)
[2017-02-13 05:57] LABS: INR 1.47 (0.83-1.16); PROTIME(PATIENT) 17.8 SEC (12.0-15.0)
[2017-02-13 05:59] LABS: ANION GAP 14 mEq/L (8-16); CALCIUM 9.1 mg/dL (8.5-10.4); CARBON DIOXIDE 31 mEq/l (22-31); CHLORIDE 100 mEq/L (97-110); GLOMERULAR FILTRATION RATE 56; GLUCOSE 150 mg/dL (70-100); POTASSIUM 3.3 mEq/L (3.5-5.2); SODIUM 145 mEq/L (134-144)
[2017-02-13] MEDS: DEXMEDETOMIDINE HCL 400 MCG in NS 100 ML IV SCH (06:09)
[2017-02-13] MEDS ORDERED: POTASSIUM CL 20 MEQ/15 ML UDCUP PO ONE (06:30)
[2017-02-13] MEDS: CHLORHEXIDINE GLUCONATE 15 ML UDL PO SCH ×2 (08:30→19:47)
[2017-02-13] MEDS: SPIRONOLACTONE 25 MG TAB TUBE SCH (08:30)
[2017-02-13] MEDS: LISINOPRIL 10 MG TAB TUBE SCH ×2 (08:30→20:02)
[2017-02-13] MEDS: FAMOTIDINE 20 MG TAB TUBE SCH ×2 (08:30→20:02)
[2017-02-13] MEDS: SERTRALINE HCL 100 MG TAB TUBE SCH (08:31)
[2017-02-13] MEDS: SENNOSIDES 17.6 MG/10 ML UDL - IF LIQUID ORDERED TUBE SCH ×2 (08:32→19:48)
[2017-02-13] MEDS: ENOXAPARIN 120 MG/0.8 ML SYR SC SCH ×2 (08:34→20:02)
--- NOTE | 2017-02-13 09:03 | PCMIDPN ---
Assessment/Plan: #Resp Failure: multifactorial volume overload, GRICEL and possible aspiration PNA. CXR B lower lobe infiltrates, minimal change today. Microbiology negative. --planning 7-10 day course of Zosyn for possible aspiration pneumonia. Patient has received IV antibiotics in the last 90 days therefore at risk for MDR organisms. #Leukocytosis: stress response + possible underlying infection, trending down #ARF at admit: resolved Medications 3 Generic Name Dose Route Start Last Admin Trade Name Freq PRN Reason Stop Dose Admin Piperacillin/Tazobactam/Dextrose 50 mls @ 100 mls/hr 02/11/17 22:00 02/13/17 05:39 Zosyn 3.375 Gm (Premix) IV 03/13/17 21:59 50 mls Q8 FATOUMATA, day #7 Microbiology 02/04 blood cx (2) neg 02/08 blood cx (2) NGTD Subjective: Possible extubation today Rectal tube + loose stooling interactive Objective: Vital Signs Temp Pulse Resp BP Pulse Ox 37.5 C 61 10 L 130/77 H 95 02/13/17 08:00 02/13/17 08:05 02/13/17 08:00 02/13/17 08:30 02/13/17 08:05 Laboratory Results 02/13/17 05:30 02/13/17 05:30 02/12/17 02/13/17 02/14/17 05:59 05:59 05:59 Intake Total 3021 2796 Output Total 8200 4980 700 [facility] -5179 -2184 -700 - Physical Exam General Appearance: alert, no apparent distress, obese EENT: ET Tube, NG Tube, No scleral icterus Respiratory: No respiratory distress, No crackles, No wheezing Neck: supple Cardiac/Chest: regular rate, rhythm Extremities: pedal edema Abdomen: normal bowel sounds, non-tender, soft, other (rectal tube) Pelvic Exam: marroquin Skin: warm/dry, pallor, No rash Neuro/Psych: alert - Line/s RUE PICC Lines: No drainage, No erythema ICD10 Worksheet Patient Problems: Problems Problem Status Onset KATY (acute kidney injury) Acute Encephalopathy acute Acute Palliative care encounter Acute Altered mental status Acute Hypoxemia Acute Narcotic overdose Acute Pneumonia Acute
--- NOTE | 2017-02-13 11:08 | PDCARPN ---
Cardiology Progress Note Assessment/Plan: Assessment/plan: 61 yo F with mixed sleep apnea awaiting outpt treatment, obesity, chronic hypoxic respiratory failure admitted 02/03 with altered mental status and acute renal failure. Initial picture consistent with poor metabolism of gabapentin and chronic narcotics resulting in hyerpcapnic resp failure. Course complicated by aspiration pneumonia, intubation, and NSTEMI. LVEF 30%, normal cors on cath. This likely represents Takotsubo CMP. 1. CMP and NSTEMI: likely stress induced CMP. Tolerating EDMUND-I, coreg, aldactone. Responding well to diuresis. Would repeat limited echo prior to discharge 2. Resp failure: chronic hypoxia, mixed sleep apnea, asp pna. Vent wean per Dr Richter; possible extubation today 3. PAF: in the past. Currently NSR. On warfarin bridging with lovenox 4. ARF: resolved 5. Anemia: chronic 6. Chronic pain with narcotic dependence: complicates care 02/13/17 11:09 Subjective: Velvet answers questions. No CP. No abd pain Reviewed/Discussed With: family, multidisciplinary team Objective: Vital Signs (8 Hrs) Temp Pulse Resp BP Pulse Ox 02/13/17 10:00 63 13 138/80 H 95 02/13/17 08:30 130/77 H 02/13/17 08:05 61 95 02/13/17 08:00 37.5 C 62 10 L 130/77 H 94 02/13/17 06:00 60 16 114/68 94 02/13/17 05:28 56 L 97 02/13/17 04:00 37.3 C 57 L 18 116/61 96 Intake/Output (24 Hrs) 02/12/17 02/13/17 02/14/17 05:59 05:59 05:59 Intake Total 3021 2796 Output Total 8200 4980 1350 Balance -5179 -2184 -1350 Intake: IV Intake (ml) 993 1020 IV Infused (ml) 700 596 Dexmedetomidine HCl 400 290 mcg In Ns 100 ml @ Titrate IV CONT FATOUMATA Rx#: [id number] Propofol/Emulsion 100 ml 569 148 @ Titrate IV CONT FATOUMATA Rx# :[id number] fentaNYL/NACL 100 ml @ As 131 158 Directed IV CONT FATOUMATA Rx# :[id number] Tube Feeding (ml) 473 605 Tube Flush (ml) 855 575 Output: Urine (ml) 7600 4630 1350 Catheter 7600 4630 1350 Liquid Stool (ml) 600 350 Catheter 600 350 Other: Weight 118.2 kg 118.2 kg 114.7 kg appears comfortable RRR no m/r/g Lungs clear anteriorly Abd soft, NT No edema Result Diagrams: 02/13/17 05:30 02/13/17 05:30 Telemetry: NSR ICD10 Worksheet Patient Problems: Problems Problem Status Onset Pneumonia Acute Hypoxemia Acute Narcotic overdose Acute Altered mental status Acute KATY (acute kidney injury) Acute Encephalopathy acute Acute Palliative care encounter Acute
[2017-02-13 11:19] LABS: BASE EXCESS 8.9 mEq/L (-2.5-2.5); BICARBONATE 34 mEq/L (22-26); MEASURED OXYGEN SATURATION 95 % (92-95); PCO2 49 mmHg (34-38); PO2 82 mmHg (65-75); TCO2 35 mEq/L (23-27)
[2017-02-13 11:21] LABS: CPAP YES; END TIDAL CO2 45; O2 CONCENTRATIION 40 % (0-100); P/F RATIO 205 RATIO; PATIENT RATE 10; PRESSURE SUPPORT 10
[2017-02-13] MEDS: CARVEDILOL 25 MG TAB TUBE SCH ×2 (11:38→17:20)
--- NOTE | 2017-02-13 12:32 | HOSPPROG ---
Hospitalist Progress Note Assessment/Plan: 61F with MMP, multiple recent hospitalizations presents with respiratory failure. Initially intubated, self extubated, then reintubated. Workup revealed Takutsubo's CM which may account for her recent hospitalizations. Also concerned for GRICEL/OHS and opiate overdose/withdrawal. Likely extubate today. # acute on chronic hypoxic/hypercapnic resp failure - intubated, self extubated 02/06 - reintubated 02/09 am emergently, hopefully extubate today # aspiration pna - cont zosyn, ID following # marked leukocytosis - almost resolved # volume overload - better, cont lasix # stress cardiomyopathy - cont coreg (some doses held for bradycardia), aldactone - lisinopril started # atrial fib - currently on warfarin, LMWH # KATY - likely RIKKI - improving # chronic pain with continuous narcotic dependence # opiate withdrawal - on fentanyl gtt now - this will be an ongoing issue # hyperNa - better today # morbid obesity # FCFT ## high risk Subjective: alert, still intubated Objective: Vital Signs Temp Pulse Resp BP Pulse Ox 38.0 C 60 12 125/70 H 93 02/13/17 12:00 02/13/17 12:00 02/13/17 12:00 02/13/17 12:00 02/13/17 12:00 Laboratory Results 02/13/17 05:30 02/13/17 05:30 02/12/17 02/13/17 02/14/17 05:59 05:59 05:59 Intake Total 3021 2796 Output Total 8200 4980 1350 Balance -5179 -2184 -1350 PT 17.8 SEC (12.0-15.0) H 02/13/17 05:30 INR 1.47 (0.83-1.16) H 02/13/17 05:30 - Physical Exam Constitutional: no apparent distress, appears nourished Cardiovascular: regular rate and rhythym, no murmur, rub, or gallop, systolic murmur Respiratory: no respiratory distress, no rales or rhonchi, inspiratory crackles , other (intubated) Gastrointestinal: normoactive bowel sounds, soft, non-tender abdomen, no palpable masses ICD10 Worksheet Patient Problems: Problems Problem Status Onset Pneumonia Acute Hypoxemia Acute Narcotic overdose Acute Altered mental status Acute KATY (acute kidney injury) Acute Encephalopathy acute Acute Palliative care encounter Acute
--- NOTE | 2017-02-13 13:01 | PDINTPN ---
[facility] [place] [employer] Progress Note Assessment/Plan: Assessment: 61 F with obstructive and central sleep apnea (AHI= 68), currently on supplemental oxygen alone, that has not yet been treated with ASV device, admitted on numerous occasions with hypercapnic respiratory failure in conjunction with chronic narcotic dependency following remote cervical spine surgery. She had a reported mechanical fall [employer] KEE[employer] and decreased urination associated with increasing confusion. On arrival she was found to be intermittently obtunded with KATY (Cr 5.6), and pH 7.23 with CO2 59. She was thought to have poor clearance of her chronic narcotics resulting in acute respiratory failure so was placed on Bipap overnight, but this was largely unsuccessful and required intubation the morning of 02/04. * Respiratory failure with hypercapnea: Recurrent. Intubated 02/04, self- extubated 02/06, re-intubated 02/09 AM. Stable, on 40% FiO2 and tolerating prolonged CPAP weans. Meets all criteria for extubation. Chest x-ray however looks little worse today. Will still extubate and observe closely. * Pneumonia: On Zosyn alone. Vancomycin discontinued. Chest x-ray still with abnormalities consistent with pneumonia and/or congestive heart failure.. * Cardiomyopathy: ECHO with WMA anterior/apical, EF 20-25%. Cath negative for CAD. Likely a major cause of respiratory failure and renal insufficiency. Diuresing well with Lasix. * Altered MS- likely 2/2 above. Resolving. * Hypotension: Resolved * KATY- creatinine normalized. Excellent diuresis with Lasix.. * Hypokalemia: On replacement protocol. * Chronic pain- On Fentanyl gtt. Will need to replace fentanyl with orals per her NG tube, with p.r.n. IV backup if needed. * GRICEL with CSA: ASV titration 01/19/17 showed persistent events despite ASV, possibly due to large leak with mask. ASV now contraindicated with low EF. May need AVAPS or BiPAP ST if CO2 retention persists in the future, however will use oxygen alone post extubation. * Tachycardia: Resolved. * Anticoagulation: On full-dose enoxaparin and Coumadin. INR however decreasing. Will need increase Coumadin. Plan: Will extubate today to nasal cannula despite chest x-ray changes. She will need to be followed closely. Bronchoscopy can be performed if secretions increased post extubation. Continue aggressive diuresis, following laboratory and chest x-ray. Will continue Coreg, spironolactone and lisinopril, monitoring BP to avoid hypotension. Continue antibiotics and bronchopulmonary therapies. Increase Coumadin. Restart oral pain medications per NG. Will need a swallow evaluation, perhaps of video comma in the next 1-2 days. Discussed with the patient's , respiratory, nursing, hospitalist, and the ICU multi disciplinary team. 45 min of critical care time was spent directly with the patient. Subjective: Comfortable on the ventilator, tolerating prolonged CPAP weans with good parameters. Will extubate. Patient wants tube out. Objective: Vital Signs Temp Pulse Resp BP Pulse Ox 38.0 C 60 12 125/70 H 93 02/13/17 12:00 02/13/17 12:00 02/13/17 12:00 02/13/17 12:00 02/13/17 12:00 Laboratory Results 02/13/17 05:30 02/13/17 05:30 02/12/17 02/13/17 02/14/17 05:59 05:59 05:59 Intake Total 3021 2796 Output Total 8200 4980 1350 Balance -5179 -2184 -1350 PT 17.8 SEC (12.0-15.0) H 02/13/17 05:30 INR 1.47 (0.83-1.16) H 02/13/17 05:30 Laboratory Tests 02/13/17 02/13/17 02/13/17 05:30 05:30 11:10 PT 17.8 H INR 1.47 H pCO2 49 H pO2 82 H ABG pH 7.45 O2 Concentration % 40 CPAP YES Calcium 9.1 CXR: Bibasilar infiltrate/atelectasis/effusions persists, move slightly worse today verses a poor inspiration. Lines and tubes in adequate position. Physical Exam - Physical Exam General Appearance: alert, no apparent distress, obese EENT: PERRL/EOMI, ET tube, other (Nasogastric to) Neck: normal inspection Respiratory: lungs clear (Anteriorly), decreased breath sounds (At the bases with dullness), rales (At bases), rhonchi (Few, with a small amount of yellow to white mucus at times), No wheezing Cardiac/Chest: regular rate, rhythm, other (Distant heart tones) Abdomen: normal bowel sounds, non-tender, soft (Obese) Pelvic Exam: other (Mars catheter in place with output significantly greater than input over the last several days.) Skin: normal color, warm/dry Extremities: pedal edema (Trace +) Neuro/Psych: no motor/sensory deficits (Moves all extremities equally), No cognition abnormalities ICD10 Worksheet Patient Problems: Problems Problem Status Onset KATY (acute kidney injury) Acute Encephalopathy acute Acute Palliative care encounter Acute Altered mental status Acute Hypoxemia Acute Narcotic overdose Acute Pneumonia Acute
[2017-02-13] MEDS ORDERED: oxyCODONE ORAL SOLUTION 10 MG/0.5 ML UDSYR TUBE PRN (13:11)
[2017-02-13] MEDS ORDERED: HYDROCOD/APAP 7.5/325 IN 15ML UDCUP TUBE PRN (13:14)
[2017-02-13] MEDS: ONDANSETRON 4 MG/2 ML VIAL IVP PRN (14:03)
[2017-02-13] MEDS ORDERED: HYDROCODONE/APAP 5/325 TAB PO PRN (16:50)
[2017-02-13 17:04] LABS: POTASSIUM 3.7 mEq/L (3.5-5.2)
[2017-02-13] MEDS ORDERED: POTASSIUM CL 10 MEQ TAB PO ONE (17:06)
[2017-02-13] MEDS: LIDOCAINE 5% 1 EA PATCH TD SCH (17:19)
[2017-02-13] MEDS: WARFARIN SODIUM 2 MG TAB TUBE SCH (17:20)
[2017-02-13] MEDS: ACETAMINOPHEN 325 MG TAB PO PRN (19:47)
[2017-02-13] MEDS: oxyCODONE IR 5 MG TAB PO PRN (19:50)
[2017-02-13] MEDS: PATCH REMOVAL 1 EA PATCH TD SCH (21:07)
--- NOTE | 2017-02-13 21:34 | PDPCPN ---
Palliative Care Progress Note Assessment/Plan: HPI: Velvet Philippe is a 61 yo female with PMH asthma, PNA, chronic resp failure, and chronic pain admitted to the hospital with increasing resp failure. Recent hospitalization for similar issue Nov 2016. On admission with sepsis 2/2 possible PNA. Required intubation and ICU level care, had to be re intubated emergently following self extubation. Hospitalization complicated by ongoing resp failure requiring intubation as well as new onset cardiomyopathy. Now extubated with improvement in resp failure. Palliative care consulted for complex medical decision making. Velvet pratt seen this afternoon. She stated her pain was not tolerable but she was eager to discuss a weaning plan. she states she understands the narcotics "almost killed me". She would like help with her pain but also a plan to wean off narcotics. She states she has plans for her life which she wants to live. Discussed with Dr Richter and Dr Tapia Assessment: Physical: - Pain: chronic cervical neuropathy - recommend for long acting fentanyl 12 mcg/hr patch if NPO or home oxycontin 15mg BID - added lidoderm patch - re add gabapentin at lower dose (home 900 mg TID) - constipation - at risk while on opiates - bowel regimen as able with senna and colace liquids Emotional/psychological: hx of depression - seeing outpatient therapist prior to hospitalization Advanced Care Planning: Is patient decisional?: Yes Code Status: Full MD POA: Denny is MDPOA. Plan: Continue medical interventions. To wean down opiates. Follows with Dr Desouza as outpt Subjective: pain is not tolerable Objective: Vital Signs Temp Pulse Resp BP Pulse Ox 38.1 C 71 15 152/84 H 97 02/13/17 20:00 02/13/17 20:00 02/13/17 20:00 02/13/17 20:02 02/13/17 20:00 Microbiology 02/08/17 13:04 Blood Culture - Final Blood 02/08/17 12:54 Blood Culture - Final Blood Laboratory Results 02/13/17 05:30 02/13/17 16:35 02/12/17 02/13/17 02/14/17 05:59 05:59 05:59 Intake Total 3021 2796 824 Output Total 8200 4980 2825 Balance -5179 -2184 -2001 PT 17.8 SEC (12.0-15.0) H 02/13/17 05:30 INR 1.47 (0.83-1.16) H 02/13/17 05:30 Physical Exam - Physical Exam General Appearance: alert, no apparent distress Respiratory: No respiratory distress, No accessory muscle use Skin: normal color, warm/dry Extremities: pedal edema Neuro/Psych: alert, oriented x 3 ICD10 Worksheet Patient Problems: Problems Problem Status Onset KATY (acute kidney injury) Acute Encephalopathy acute Acute Palliative care encounter Acute Altered mental status Acute Hypoxemia Acute Narcotic overdose Acute Pneumonia Acute - ICD10 Problem Qualifiers (1) Palliative care encounter
[2017-02-14] MEDS: oxyCODONE IR 5 MG TAB PO PRN ×2 (00:03→08:37)
[2017-02-14] MEDS: ACETAMINOPHEN 325 MG TAB PO PRN (04:27)
[2017-02-14 04:32] LABS: % IMMATURE GRANULYOCYTES 1.3 % (0.0-1.1); ABSOLUTE IMMATURE GRANULOCYTES 0.19 10^3/uL (0.00-0.10); ADD DIFF? NO; ADD MORPH? NO; ADD SCAN? NO; ATYPICAL LYMPHOCYTE FLAG 10 (0-99); FRAGMENT RBC FLAG 0 (0-99); HEMATOCRIT 39.2 % (38.0-47.0); HEMOGLOBIN 13.1 g/dL (12.6-16.3); LEFT SHIFT FLG 10 (0-99); LIPEMIA HEMOLYSIS FLAG 80 (0-99); MEAN CELL HEMOGLOBIN 29.8 pg (27.9-34.1); MEAN CELL HEMOGLOBIN CONCENTR. 33.4 g/dL (32.4-36.7); MEAN CELL VOLUME 89.1 fL (81.5-99.8); MEAN PLATELET VOLUME 11.1 fL (8.7-11.7); PLATELET CLUMPS FLAG 0 (0-99); PLATELET COUNT 283 10^3/uL (150-400); RED CELL DISTRIBUTION WIDTH 11.8 % (11.5-15.2)
[2017-02-14 04:42] LABS: INR 1.59 (0.83-1.16)
[2017-02-14 05:02] LABS: ANION GAP 13 mEq/L (8-16); CALCIUM 9.5 mg/dL (8.5-10.4); CARBON DIOXIDE 36 mEq/l (22-31); CHLORIDE 95 mEq/L (97-110); CREATININE 1.2 mg/dL (0.6-1.0); GLOMERULAR FILTRATION RATE 46; GLUCOSE 113 mg/dL (70-100); POTASSIUM 3.4 mEq/L (3.5-5.2); SODIUM 144 mEq/L (134-144)
[2017-02-14] MEDS: PIPERACILLIN/TAZO 3.375 GM/DEX 50 ML IV SCH ×3 (05:31→21:14)
[2017-02-14] MEDS: FUROSEMIDE 40 MG/4 ML VIAL IVP SCH (05:31)
[2017-02-14] MEDS: LISINOPRIL 10 MG TAB TUBE SCH ×2 (08:37→19:18)
[2017-02-14] MEDS: CARVEDILOL 25 MG TAB TUBE SCH (08:37)
[2017-02-14] MEDS: FAMOTIDINE 20 MG TAB TUBE SCH (08:37)
[2017-02-14] MEDS: SPIRONOLACTONE 25 MG TAB TUBE SCH (08:38)
[2017-02-14] MEDS: LIDOCAINE 5% 1 EA PATCH TD SCH (08:42)
[2017-02-14] MEDS: CHLORHEXIDINE GLUCONATE 15 ML UDL PO SCH (08:46)
[2017-02-14] MEDS: SERTRALINE HCL 100 MG TAB TUBE SCH (09:35)
[2017-02-14] MEDS: SENNOSIDES 17.6 MG/10 ML UDL - IF LIQUID ORDERED TUBE SCH (10:13)
[2017-02-14] MEDS: ENOXAPARIN 120 MG/0.8 ML SYR SC SCH ×2 (11:05→19:19)
[2017-02-14] MEDS ORDERED: CARVEDILOL 25 MG TAB PO ONE (11:21)
--- NOTE | 2017-02-14 11:22 | PDCARPN ---
Cardiology Progress Note Assessment/Plan: Assessment/plan: 61 yo F with mixed sleep apnea awaiting outpt treatment, obesity, chronic hypoxic respiratory failure admitted 02/03 with altered mental status and acute renal failure. Initial picture consistent with poor metabolism of gabapentin and chronic narcotics resulting in hyerpcapnic resp failure. Course complicated by aspiration pneumonia, intubation, and NSTEMI. LVEF 30%, normal cors on cath. This likely represents Takotsubo CMP. 1. CMP and NSTEMI: likely stress induced CMP. Tolerating EDMUND-I, coreg, aldactone. Responding well to diuresis. Increase Coreg today. Would repeat limited echo prior to discharge 2. Resp failure: chronic hypoxia, mixed sleep apnea, asp pna. Extubated February 13. 3. PAF: in the past. Currently NSR. On warfarin bridging with lovenox 4. ARF: resolved 5. Anemia: chronic 6. Chronic pain with narcotic dependence: complicates care 7. Nonsustained VT: This may be related to her PICC line. With Dr. Luke slightly. Increase Coreg. 02/14/17 11:24 Subjective: Velvet has significant neck and arm discomfort that is chronic. She denies chest pressure shortness of breath. She did not notice palpitations this morning when she was having nonsustained VT. Reviewed/Discussed With: other (Dr. Richter) Objective: Vital Signs (8 Hrs) Temp Pulse Resp BP Pulse Ox 02/14/17 08:00 37.6 C 72 18 142/72 H 92 02/14/17 06:00 70 14 143/78 H 94 02/14/17 04:00 74 16 161/82 H 95 Intake/Output (24 Hrs) 02/13/17 02/14/17 02/15/17 05:59 05:59 05:59 Intake Total 2796 1733 Output Total 4980 3735 Balance -7121 -7168 Intake: Oral (ml) 1150 IV Intake (ml) 1020 464 IV Infused (ml) 596 119 Dexmedetomidine HCl 400 290 92 mcg In Ns 100 ml @ Titrate IV CONT FATOUMATA Rx#: [id number] Propofol/Emulsion 100 ml 148 @ Titrate IV CONT FATOUMATA Rx# :[id number] fentaNYL/NACL 100 ml @ As 158 27 Directed IV CONT FATOUMATA Rx# :[id number] Tube Feeding (ml) 605 Tube Flush (ml) 575 Output: Urine (ml) 4630 4525 Catheter 4630 4525 Liquid Stool (ml) 350 600 Catheter 350 600 Other: Weight 118.2 kg 111.9 kg 111.9 kg Intake Quantity Yes Sufficient New acute distress. Lying flat. JVP less than 10. Regular rate and rhythm without murmur or gallop Lungs clear anteriorly. Extremities are warm well perfused without cyanosis clubbing or edema Result Diagrams: 02/14/17 04:20 02/14/17 04:20 Telemetry: NSR. Salvos of nonsustained VT just after 9 am this morning. ICD10 Worksheet Patient Problems: Problems Problem Status Onset Pneumonia Acute Hypoxemia Acute Narcotic overdose Acute Altered mental status Acute KATY (acute kidney injury) Acute Encephalopathy acute Acute Palliative care encounter Acute
--- NOTE | 2017-02-14 12:39 | PDINTPN ---
[facility] [employer] Progress Note Assessment/Plan: Assessment: 61 F with resolving respiratory failure secondary to congestive heart failure and possible pneumonia. She has a history of obstructive and central sleep apnea (AHI= 68), on supplemental oxygen alone at home. Has not yet been treated with ASV device, admitted on numerous occasions with hypercapnic respiratory failure in conjunction with chronic narcotic dependency following remote cervical spine surgery. 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 On arrival she was found to be intermittently obtunded with KATY (Cr 5.6), and pH 7.23 with CO2 59. She was thought to have poor clearance of her chronic narcotics resulting in acute respiratory failure so was placed on Bipap overnight, but this was largely unsuccessful and required intubation the morning of 02/04. * Respiratory failure with hypercapnea: Recurrent. Intubated 02/04, self- extubated 02/06, re-intubated 02/09 AM. Extubated 02/13 after tolerating prolonged CPAP weans. Chest x-ray improving but still abnormal. On 2 L. Clinically doing well from a pulmonary standpoint. * Pneumonia: On Zosyn alone. Vancomycin discontinued. Chest x-ray still with abnormalities consistent with pneumonia and/or congestive heart failure.. * Cardiomyopathy: ECHO with WMA anterior/apical, EF 20-25%. Cath negative for CAD, c/w Takasubo's.. Likely a major cause of respiratory failure and renal insufficiency. Diuresing well with Lasix. * Altered MS- resolved. * Hypotension: Resolved * KATY- creatinine normalized. Excellent diuresis with Lasix.. * Hypokalemia: On replacement protocol. * Chronic pain- On oral pain medications, with adequate control. * GRICEL with CSA: ASV titration 01/19/17 showed persistent events despite ASV, possibly due to large leak with mask. ASV now contraindicated with low EF. May need AVAPS or BiPAP ST if CO2 retention persists in the future, however will continue oxygen alone post extubation. * Tachycardia: Resolved. * Anticoagulation: On full-dose enoxaparin and Coumadin. INR coming up on increased Coumadin. Plan: Will continue care in the intensive care unit, nasal cannula oxygen, and bronchopulmonary therapies. No indication for Bronchoscopy, no significant secretions. Continue aggressive diuresis, following laboratory and chest x- ray. Will continue Coreg, spironolactone and lisinopril, monitoring BP to avoid hypotension. Continue antibiotics, Coumadin. Swallow precautions as indicated. Discussed with the patient's daughter, nursing, hospitalist, and the ICU multi disciplinary team. 35 min of critical care time was spent directly with the patient. Subjective: Doing well. Denies significant shortness of breath, cough or mucus. Denies chest pain. Has neck pain, arm pain, etc Objective: Vital Signs Temp Pulse Resp BP Pulse Ox 37.6 C 72 18 142/72 H 92 02/14/17 08:00 02/14/17 08:00 02/14/17 08:00 02/14/17 08:00 02/14/17 08:00 Microbiology 02/08/17 13:04 Blood Culture - Final Blood 02/08/17 12:54 Blood Culture - Final Blood Laboratory Results 02/14/17 04:20 02/14/17 04:20 02/13/17 02/14/17 02/15/17 05:59 05:59 05:59 Intake Total 2796 1733 Output Total 4980 5125 Balance -2184 -3392 PT 19.0 SEC (12.0-15.0) H 02/14/17 04:20 INR 1.59 (0.83-1.16) H 02/14/17 04:20 Laboratory Tests 02/14/17 02/14/17 02/14/17 04:20 04:20 04:20 PT 19.0 H INR 1.59 H Calcium 9.5 Magnesium 1.7 CXR: Improved on the left, still with right basilar opacifications consistent with infiltrate/atelectasis/effusion. Physical Exam - Physical Exam General Appearance: alert, no apparent distress, obese, other (Lying flat in bed ) EENT: PERRL/EOMI, No other (Nasal cannula at 2 L) Neck: normal inspection (No obvious JVD, large neck) Respiratory: lungs clear (Anteriorly), decreased breath sounds (At bases), rales (Few at the right base, with dullness), No rhonchi, No wheezing Cardiac/Chest: regular rate, rhythm ( possible gallop?) Abdomen: non-tender, soft (Obese), other (Rectal tube in place,), No normal bowel sounds (Decreased, present) Skin: normal color, warm/dry Extremities: pedal edema Neuro/Psych: no motor/sensory deficits (Moves all extremitiesEqually, weakly), No cognition abnormalities ICD10 Worksheet Patient Problems: Problems Problem Status Onset Pneumonia Acute Hypoxemia Acute Narcotic overdose Acute Altered mental status Acute KATY (acute kidney injury) Acute Encephalopathy acute Acute Palliative care encounter Acute
[2017-02-14] MEDS ORDERED: POTASSIUM CL 10 MEQ TAB PO ONE ×3 (13:10→21:51)
[2017-02-14] MEDS: LOPERAMIDE HCL 2 MG CAP PO PRN ×3 (13:34→23:04)
--- NOTE | 2017-02-14 14:11 | PDPCPN ---
Palliative Care Progress Note Assessment/Plan: HPI: Velvet Philippe is a 61 yo female with PMH asthma, PNA, chronic resp failure, and chronic pain admitted to the hospital with increasing resp failure. Recent hospitalization for similar issue Nov 2016. On admission with sepsis 2/2 possible PNA. Required intubation and ICU level care, had to be re intubated emergently following self extubation. Hospitalization complicated by ongoing resp failure requiring intubation as well as new onset cardiomyopathy. Now extubated with improvement in resp failure. Palliative care consulted for complex medical decision making. Pain is 7/10. Feels lidocaine helps somewhat but still with non tolerable pain. Using oxycodone 10mg PRN 20 mg yesterday and 10 mg so far today. Awake and alert , some bowel cramping but otherwise was up to chair x2 today and is feeling stronger overall. Discussed with family and Velvet Quinonez plan for continued PRN narcotics only for now with re-adding back lower dose gabapentin. Discussed with Dr Morales and updated over the phone. She agrees with getting off of narcotics completely. Assessment: Physical: - Pain: chronic cervical neuropathy - recommend for long acting fentanyl 12 mcg/hr patch if NPO or home oxycontin 15mg BID - added lidoderm patch - re add gabapentin at lower dose (home 900 mg TID) - constipation - at risk while on opiates - bowel regimen as able with senna and colace liquids Emotional/psychological: hx of depression - seeing outpatient therapist prior to hospitalization - might consider as outpt changing zoloft to cymbalta to help with pain Advanced Care Planning: Is patient decisional?: Yes Code Status: Full MD POA: Denny is MDPOA. Plan: Continue medical interventions. To wean down opiates. Follows with Dr Morales as outpt Subjective: pain is 7/10 Objective: Vital Signs Temp Pulse Resp BP Pulse Ox 37.6 C 60 18 148/82 H 93 02/14/17 08:00 02/14/17 12:00 02/14/17 12:00 02/14/17 12:00 02/14/17 12:00 Microbiology 02/08/17 13:04 Blood Culture - Final Blood 02/08/17 12:54 Blood Culture - Final Blood Laboratory Results 02/14/17 04:20 02/14/17 04:20 04/04/17 04/05/17 04/06/17 05:59 05:59 05:59 Intake Total 2796 1733 Output Total 4980 5125 Balance -0406 -9568 PT 19.0 SEC (12.0-15.0) H 02/14/17 04:20 INR 1.59 (0.83-1.16) H 02/14/17 04:20 Physical Exam - Physical Exam General Appearance: alert, no apparent distress Respiratory: No respiratory distress, No accessory muscle use Skin: normal color, warm/dry Extremities: pedal edema Neuro/Psych: alert, oriented x 3 ICD10 Worksheet Patient Problems: Problems Problem Status Onset KATY (acute kidney injury) Acute Encephalopathy acute Acute Palliative care encounter Acute Altered mental status Acute Hypoxemia Acute Narcotic overdose Acute Pneumonia Acute - ICD10 Problem Qualifiers (1) Palliative care encounter
--- NOTE | 2017-02-14 14:16 | HOSPPROG ---
Hospitalist Progress Note Assessment/Plan: * Acute respiratory failure - extubated * Acute on chronic systolic CHF - EF 30% - suspect takotsubo's -change to PO lasix -continue lisinopril, Coreg, Aldactone * Morbid obesity BMI 42 - suspect GRICEL/OHS * Continuous narcotic dependency -poor combination with chronic respiratory insufficiency -holding OxyContin -restart gabapentin at lower dose * Aspiration PNA - IV Zosyn * Afib -Lovenox until warfarin therapeutic * Abdominal pain - very tender on exam with increasing WBC -had CT abd earlier this stay - relatively unremarkable -check abd Xray -persistent severe diarrhea - recheck Cdiff * Metabolic encephalopathy - improved * ARF due to hypovolemia - resolved * Myoclonus due to high dose Neurontin -low dose restart but would not escalate back to previous doses Subjective: upset abdomen with increasing left sided abdominal pain, persistent severe diarrhea with rectal tube Objective: Vital Signs Temp Pulse Resp BP Pulse Ox 37.6 C 60 18 148/82 H 93 02/14/17 08:00 02/14/17 12:00 02/14/17 12:00 02/14/17 12:00 02/14/17 12:00 Microbiology 02/08/17 13:04 Blood Culture - Final Blood 02/08/17 12:54 Blood Culture - Final Blood Laboratory Results 02/14/17 04:20 02/14/17 04:20 02/13/17 02/14/17 02/15/17 05:59 05:59 05:59 Intake Total 2796 1733 Output Total 4980 5125 Balance -2184 -3392 PT 19.0 SEC (12.0-15.0) H 02/14/17 04:20 INR 1.59 (0.83-1.16) H 02/14/17 04:20 CT abd 02/08 - possible pyelo but otherwise unremarkable d/w Dr. Neville Richter - ICU rounds - regarding plan of care - Physical Exam Constitutional: no apparent distress, appears nourished, not in pain Cardiovascular: regular rate and rhythym, no murmur, rub, or gallop Respiratory: no respiratory distress, no rales or rhonchi, clear to auscultation Gastrointestinal: normoactive bowel sounds, soft, non-tender abdomen, no palpable masses Skin: no rashes or abrasions, no fluctuance, no induration Neurologic: AAOx3, sensation intact bilaterally Psychiatric: interacting appropriately, not anxious, not encephalopathic, thought process linear ICD10 Worksheet Patient Problems: Problems Problem Status Onset KATY (acute kidney injury) Acute Encephalopathy acute Acute Palliative care encounter Acute Altered mental status Acute Hypoxemia Acute Narcotic overdose Acute Pneumonia Acute
[2017-02-14] MEDS: GABAPENTIN 300 MG CAP PO SCH ×2 (16:24→21:14)
[2017-02-14] MEDS ORDERED: IOPAMIDOL (ISOVUE-300) 100 ML BTL IV ONE (16:29)
--- NOTE | 2017-02-14 16:29 | PCMIDPN ---
Assessment/Plan: Assessment/Plan: * Fever/leukocytosis: Extubated with improved respiratory status. Unclear if this was related to aspiration pneumonia. Recurrent low-grade temperature and slight increase in white blood cell count today. This is associated with abdominal pain in the left lower quadrant. C difficile toxin is negative. Agree with plans to proceed with CT scan of abdomen and pelvis to further evaluate based on left lower quadrant pain (patient notes different than prior diverticulitis). * Diarrhea: C difficile toxin on repeat is negative. 02/14/17 16:27 Subjective: Patient extubated. Complains of severe left lower quadrant pain. Continues to have some diarrhea but feels like this is improving. She notes left lower quadrant pain is different than that which she experienced previously with diverticulitis. Objective: Vital Signs Temp Pulse Resp BP Pulse Ox 37.3 C 62 18 114/68 93 02/14/17 14:00 02/14/17 14:00 02/14/17 14:00 02/14/17 14:00 02/14/17 14:00 Microbiology 02/08/17 13:04 Blood Culture - Final Blood 02/08/17 12:54 Blood Culture - Final Blood Laboratory Results 02/14/17 04:20 02/14/17 04:20 02/13/17 02/14/17 02/15/17 05:59 05:59 05:59 Intake Total 2796 1733 Output Total 4980 2005 Balance -0558 -8684 Zosyn # 9 Tm 38.1 C difficile toxin negative - Physical Exam General Appearance: alert, no apparent distress EENT: No thrush Respiratory: lungs clear, No respiratory distress Cardiac/Chest: regular rate, rhythm Abdomen: tender (Exquisite tenderness to palpation in left lower quadrant; bowel sounds present; no peritoneal signs) - Line/s RUE PICC Lines: No drainage, No erythema ICD10 Worksheet Patient Problems: Problems Problem Status Onset KATY (acute kidney injury) Acute Encephalopathy acute Acute Palliative care encounter Acute Altered mental status Acute Hypoxemia Acute Narcotic overdose Acute Pneumonia Acute
[2017-02-14] MEDS ORDERED: NS 1,000 ML IV SCH (16:45)
[2017-02-14] MEDS: WARFARIN SODIUM 2 MG TAB TUBE SCH (18:04)
[2017-02-14] MEDS: CETIRIZINE 10 MG TAB PO SCH (19:18)
[2017-02-14] MEDS: PATCH REMOVAL 1 EA PATCH TD SCH (20:27)
[2017-02-14] MEDS: CARVEDILOL 25 MG TAB PO SCH (20:29)
[2017-02-14 21:46] LABS: POTASSIUM 3.3 mEq/L (3.5-5.2)
[2017-02-15 04:51] LABS: % IMMATURE GRANULYOCYTES 0.9 % (0.0-1.1); ABSOLUTE IMMATURE GRANULOCYTES 0.15 10^3/uL (0.00-0.10); ADD DIFF? NO; ADD MORPH? NO; ADD SCAN? NO; ATYPICAL LYMPHOCYTE FLAG 0 (0-99); FRAGMENT RBC FLAG 0 (0-99); HEMATOCRIT 38.5 % (38.0-47.0); HEMOGLOBIN 12.8 g/dL (12.6-16.3); LEFT SHIFT FLG 0 (0-99); LIPEMIA HEMOLYSIS FLAG 80 (0-99); MEAN CELL HEMOGLOBIN 29.6 pg (27.9-34.1); MEAN CELL HEMOGLOBIN CONCENTR. 33.2 g/dL (32.4-36.7); MEAN CELL VOLUME 89.1 fL (81.5-99.8); MEAN PLATELET VOLUME 10.8 fL (8.7-11.7); PLATELET CLUMPS FLAG 0 (0-99); PLATELET COUNT 297 10^3/uL (150-400); RED BLOOD CELL COUNT 4.32 10^6/uL (4.18-5.33); RED CELL DISTRIBUTION WIDTH 11.9 % (11.5-15.2)
[2017-02-15] MEDS: PIPERACILLIN/TAZO 3.375 GM/DEX 50 ML IV SCH ×4 (05:02→20:49)
[2017-02-15 05:03] LABS: INR 2.23 (0.83-1.16); PROTIME(PATIENT) 24.9 SEC (12.0-15.0)
[2017-02-15 05:04] LABS: ALANINE AMINOTRANSFERASE 41 IU/L (9-52); ALBUMIN 3.8 g/dL (3.5-5.0); ALKALINE PHOSPHATASE 48 IU/L (38-126); ANION GAP 10 mEq/L (8-16); ASPARTATE AMINOTRANSFERASE 37 IU/L (14-46); BILIRUBIN,TOTAL 0.7 mg/dL (0.1-1.4); CALCIUM 9.1 mg/dL (8.5-10.4); CARBON DIOXIDE 34 mEq/l (22-31); CHLORIDE 97 mEq/L (97-110); CREATININE 1.1 mg/dL (0.6-1.0); GLOMERULAR FILTRATION RATE 50; GLUCOSE 163 mg/dL (70-100); POTASSIUM 3.3 mEq/L (3.5-5.2); SODIUM 141 mEq/L (134-144); TOTAL PROTEIN 6.8 g/dL (6.3-8.2)
[2017-02-15] MEDS ORDERED: POTASSIUM CL 10 MEQ TAB PO ONE ×2 (07:26→21:55)
[2017-02-15] MEDS: LIDOCAINE 5% 1 EA PATCH TD SCH (07:46)
[2017-02-15] MEDS: SPIRONOLACTONE 25 MG TAB TUBE SCH (07:47)
[2017-02-15] MEDS: LOPERAMIDE HCL 2 MG CAP PO PRN ×3 (07:47→20:30)
[2017-02-15] MEDS: LISINOPRIL 10 MG TAB TUBE SCH (07:47)
[2017-02-15] MEDS: SERTRALINE HCL 100 MG TAB TUBE SCH (07:47)
[2017-02-15] MEDS: CARVEDILOL 25 MG TAB PO SCH ×2 (07:48→18:07)
[2017-02-15] MEDS: FUROSEMIDE 40 MG TAB PO SCH (07:48)
[2017-02-15] MEDS: GABAPENTIN 300 MG CAP PO SCH ×3 (07:49→20:28)
--- NOTE | 2017-02-15 09:16 | PCMIDPN ---
Assessment/Plan: #Resp Failure ( Intubated 02/04, self-extubated 02/06, re-intubated 02/09 AM. extubated 02/13) Multifactorial with GRICEL, volume overload/CT, and possible HAP. Doing significantly better, currently receiving empiric therapy for HAP/VAP --stop zosyn tomorrow AM, MAR adjusted --will follow peripherally, call for additional questions #Leukocytosis, back up a bit without identified source of infection, suspect leukemoid reaction. AF entire hospitalization. # Abdominal pain, no change in character today: source not clear to me. CT (IV contrast but no oral contrast) and US identified uterine fibroids and a small amount of fluid adjacent to the cecum. cdiff 02/14 neg # ARF at admit: resolved Microbiology 02/04 blood cx (2) neg 02/08 blood cx (2) NGTD meds zosyn 3.375gm IV q6h, #9 Subjective: still with L sided abdominal pain, no change Objective: Vital Signs Temp Pulse Resp BP Pulse Ox 36.2 C 86 18 126/73 H 91 L 02/15/17 07:36 02/15/17 07:36 02/15/17 07:36 02/15/17 07:36 02/15/17 07:36 Laboratory Results 02/15/17 04:40 02/15/17 04:40 02/14/17 02/15/17 02/16/17 05:59 05:59 05:59 Intake Total 1733 1350 Output Total 5125 3325 [facility] - Physical Exam General Appearance: alert, no apparent distress, obese Respiratory: crackles, wheezing, No respiratory distress, No accessory muscle use Cardiac/Chest: regular rate, rhythm Abdomen: non-tender, soft, other (hyperactive bowel sounds, LLQ discomfort to palpation, no masses) Skin: pallor, No rash Neuro/Psych: alert, normal mood/affect, oriented x 3 - Line/s RUE PICC Lines: No drainage, No erythema - Time Spent With Patient Time Spent with Patient: greater than 35 minutes (reviewed scans with patient at bedside) Time Spent with Patient: Greater than 35 minutes spent on this patients care, greater than 50% of time spent counseling, educating, and coordinating care regarding the above mentioned plan. ICD10 Worksheet Patient Problems: Problems Problem Status Onset KATY (acute kidney injury) Acute Encephalopathy acute Acute Palliative care encounter Acute Altered mental status Acute Hypoxemia Acute Narcotic overdose Acute Pneumonia Acute
[2017-02-15] MEDS: oxyCODONE IR 5 MG TAB PO PRN ×3 (10:33→20:48)
--- NOTE | 2017-02-15 13:06 | PDINTPN ---
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 She has a history of obstructive and central sleep apnea (AHI= 68), on supplemental oxygen alone at home. Has not yet been treated with ASV device, admitted on numerous occasions with hypercapnic respiratory failure in conjunction with chronic narcotic dependency following remote cervical spine surgery. She had a reported mechanical fall BATCH TESTER and decreased urination associated with increasing confusion. On arrival she was found to be intermittently obtunded with KATY (Cr 5.6), and pH 7.23 with CO2 59. She was thought to have poor clearance of her chronic narcotics resulting in acute respiratory failure so was placed on Bipap overnight, but this was largely unsuccessful and required intubation the morning of 02/04. Extubated 02/13. * Respiratory failure with hypercapnea: Recurrent. Intubated 02/04, self- extubated 02/06, re-intubated 02/09 AM. Extubated 02/13 after tolerating prolonged CPAP weans. Chest x-ray improving but still abnormal. On 2-3 L. Clinically doing well from a pulmonary standpoint. Hemidiaphragm appears high. I wonder about paralysis? * Pneumonia: On Zosyn alone through 02/16. Vancomycin discontinued. Chest x- ray still with abnormalities consistent with pneumonia and/or congestive heart failure, but continues to improved. * Cardiomyopathy: ECHO with WMA anterior/apical, EF 20-25%. Cath negative for CAD, c/w Takasubo's.. Likely a major cause of respiratory failure and renal insufficiency. Diuresing well with Lasix. * Altered MS- resolved. * Hypotension: Resolved * KATY- creatinine normalized. Excellent diuresis with Lasix.. * Hypokalemia: On replacement protocol. * Chronic pain- On oral pain medications, with adequate control. * GRICEL with CSA: ASV titration 01/19/17 showed persistent events despite ASV, possibly due to large leak with mask. ASV now contraindicated with low EF. May need AVAPS or BiPAP ST if CO2 retention persists in the future, however will continue oxygen alone post extubation. * Tachycardia: Resolved. * Anticoagulation: On full-dose enoxaparin and Coumadin. INR no therapeutic, can DC enoxaparin. Plan: Will continue care in the intensive care unit, nasal cannula oxygen, and bronchopulmonary therapies. Continue aggressive diuresis, following laboratory and chest x-ray. Will continue Coreg, spironolactone and lisinopril, monitoring BP to avoid hypotension. Continue antibiotics, Coumadin. Will get fluoroscopy of the right hemidiaphragm tomorrow to rule out paresis/paralysis. Discussed with the patient, family, nursing, hospitalist, and the ICU multi disciplinary team. 35 min of critical care time was spent directly with the patient. Subjective: Up in the chair. Denies significant shortness of breath. Denies chest pain. No cough or mucus. Has chronic right arm and neck pain. Objective: Vital Signs Temp Pulse Resp BP Pulse Ox 37.0 C 64 12 99/56 L 94 02/15/17 11:57 02/15/17 11:57 02/15/17 11:57 02/15/17 11:57 02/15/17 11:57 Laboratory Results 02/15/17 04:40 02/15/17 04:40 02/14/17 02/15/17 02/16/17 05:59 05:59 05:59 Intake Total 1733 1350 Output Total 5125 3325 Balance -3392 -1974 PT 24.9 SEC (12.0-15.0) H 02/15/17 04:40 INR 2.23 (0.83-1.16) H 02/15/17 04:40 Laboratory Tests 02/15/17 02/15/17 04:40 04:40 PT 24.9 H INR 2.23 H Calcium 9.1 Total Bilirubin 0.7 AST 37 ALT 41 Albumin 3.8 CXR: Improving bibasilar infiltrates/atelectasis. The right hemidiaphragm appears high. Query paresis or paralysis. Physical Exam - Physical Exam General Appearance: alert, no apparent distress, obese, other (Up in the chair, but) EENT: PERRL/EOMI (Semi recumbent), other (Nasal cannula at 3 L) Neck: normal inspection (No obvious JVD), No lymphadenopathy (R), No lymphadenopathy (L), No thyromegaly Respiratory: lungs clear, decreased breath sounds (At the bases, more so on the right than the left), rales (Few rales posteriorly), No rhonchi, No wheezing Cardiac/Chest: regular rate, rhythm (Distant heart tones) Abdomen: normal bowel sounds, non-tender, soft (Obese) Pelvic Exam: other (Mars catheter removed) Skin: normal color, warm/dry Lymphatic: no adenopathy Extremities: pedal edema (1+) Neuro/Psych: no motor/sensory deficits (Moves all extremities), No cognition abnormalities ICD10 Worksheet Patient Problems: Problems Problem Status Onset Pneumonia Acute Hypoxemia Acute Narcotic overdose Acute Altered mental status Acute KATY (acute kidney injury) Acute Encephalopathy acute Acute Palliative care encounter Acute
--- NOTE | 2017-02-15 14:55 | PDCARPN ---
Cardiology Progress Note Assessment/Plan: Assessment/plan: 61 yo F with mixed sleep apnea awaiting outpt treatment, obesity, chronic hypoxic respiratory failure admitted 02/03 with altered mental status and acute renal failure. Initial picture consistent with poor metabolism of gabapentin and chronic narcotics resulting in hyerpcapnic resp failure. Course complicated by aspiration pneumonia, intubation, and NSTEMI. LVEF 30%, normal cors on cath. This likely represents Takotsubo CMP. 1. CMP and NSTEMI: likely stress induced CMP. Tolerating EDMUND-I, Full-dose coreg, aldactone. Responding well to diuresis. repeat limited echocardiogram tomorrow. She may require life vest upon discharge, especially in light of VT seen on telemetry. 2. Resp failure: Improving.chronic hypoxia, mixed sleep apnea, asp pna. Extubated February 13. 3. PAF: in the past. Currently NSR. On warfarin . 4. ARF: resolved 5. Anemia: chronic 6. Chronic pain with narcotic dependence: complicates care 7. Nonsustained VT: This may be related to her PICC line. Her PICC line was withdrawn 2 cm on February 15. She did have 2 short runs of VT overnight. Continue telemetry. Consider LifeVest as per 1. 02/15/17 14:54 Subjective: Velvet feels better. She did notice palpitations at 2:30 a.m. this morning when she had nonsustained VT. She was lying on her right side at the time, which was the same position when she had VT on 02/14. She had chest pressure associated with this. Her breathing feels overall better. She has walked today. Objective: Vital Signs (8 Hrs) Temp Pulse Resp BP Pulse Ox 02/15/17 11:57 37.0 C 64 12 99/56 L 94 02/15/17 09:29 95 02/15/17 07:36 36.2 C 86 18 126/73 H 91 L Intake/Output (24 Hrs) 02/14/17 02/15/17 02/16/17 05:59 05:59 05:59 Intake Total 1733 1350 Output Total 4872 3674 Balance -3391 Intake: Oral (ml) 1150 750 IV Intake (ml) 464 IV Infused (ml) 119 600 Dexmedetomidine HCl 400 92 mcg In Ns 100 ml @ Titrate IV CONT [facility] Rx#: [id number] Ns 1,000 ml @ 100 mls/hr 500 IV CONT [facility] Rx#: [id number] Piperacillin/Tazo 3.375 100 gm/Dex 50 ml @ 100 mls/hr IV Q8 [facility] Rx#:[id number] fentaNYL/NACL 100 ml @ As 27 Directed IV CONT [facility] Rx# :[id number] Output: Urine (ml) 4525 1425 Bedside Commode 250 Catheter 4525 1175 Liquid Stool (ml) 600 1900 Bedside Commode 1900 Catheter 600 Other: Weight 111.9 kg 113.6 kg Intake Quantity Yes Sufficient Number of Voids Bedside Commode 1 Bladder Scan Volume (ml) Bedside Commode 255 No acute distress. Sitting up in chair JVP less than 10. Regular rate and rhythm without murmur or gallop Decreased breath sounds at the right base. Otherwise clear without wheezes rhonchi or rales Extremities are warm and well perfused with 1+ edema to the midshin bilaterally Result Diagrams: 02/15/17 04:40 02/15/17 04:40 Telemetry: NSR. Two short Runs of nonsustained VT at 2:30 a.m.. ICD10 Worksheet Patient Problems: Problems Problem Status Onset Pneumonia Acute Hypoxemia Acute Narcotic overdose Acute Altered mental status Acute KATY (acute kidney injury) Acute Encephalopathy acute Acute Palliative care encounter Acute
[2017-02-15] MEDS: ACETAMINOPHEN 325 MG TAB PO PRN (15:48)
--- NOTE | 2017-02-15 16:03 | WOCRNPDOC ---
[facility] Advanced Assessment Note - Skin Integrity Problem, Advanced Assess Gluteal Cleft Dressing Type: Open to Air Wound Bed Constitution: Healed Skin Integrity Problem Comment: [place] and intact, skin soiled, having just been up with PT to use toilet. Assisted with marilin care using marilin wipe after BM, just prior to assessment, revealing healed and intact tissue. PARAG Murphy present. Right Buttock Abrasion Dressing Type: Open to Air Wound Bed Constitution: Healed ([place] and intact, skin soiled, having just been up with PT to use toilet. Assisted with marilin) Skin Integrity Problem Comment: [place] and intact, skin soiled, having just been up with PT to use toilet. Assisted with marilin and skin care using marilin wipe after BM, just prior to assessment, revealing healed and intact tissue. Left Buttock Pressure Injury Dressing Type: Open to Air Marilin Wound Swelling: None Wound Bed Constitution: Healed (non-blanchable erythema) Site Measurement - Head-to-Toe Length X Width X Depth (cm): 0.3 x 3.5 x 0 Skin Integrity Problem Comment: A non-blanching, intact, thin horizontal line is visible along buttock, resembles a discoloration sometimes associated with sitting on wrinkled bed linens. Skin turgor is WDL, and surrounding skin is intact, pink, without erythema. Patient is remobilizing for ADL's with PT, and spending time up in chair. No perceived need for continuing monitoring by Wound Care indicated at this time, as staff may continue care as covered by protocol. Will see patient if new concerns. Coccyx Pressure Injury Dressing Type: Open to Air Marilin Wound Tissue: Blanching Wound Bed Constitution: Healed Skin Integrity Problem Comment: Clean, pink, intact, blanchable. Staff continuing with care per protocol.
--- NOTE | 2017-02-15 16:14 | HOSPPROG ---
Hospitalist Progress Note Assessment/Plan: * Acute respiratory failure - extubated * Acute on chronic systolic CHF - EF 30% - suspect takotsubo's -change to PO lasix -continue lisinopril, Coreg, Aldactone * NSTEMI - troponin 10 -cath with normal coronaries * V tach -PICC line withdrawn -consider life vest at discharge * Morbid obesity BMI 42 - suspect GRICEL/OHS * Continuous narcotic dependency -poor combination with chronic respiratory insufficiency -holding OxyContin -restart gabapentin at lower dose * Aspiration PNA - IV Zosyn to stop tomorrow * Elevated right hemidiaphragm -Sniff test in am * Afib -warfarin therapeutic * Metabolic encephalopathy - improved * ARF due to hypovolemia - resolved * Myoclonus due to high dose Neurontin -low dose restart but would not escalate back to previous doses Subjective: no new complaints. Objective: Vital Signs Temp Pulse Resp BP Pulse Ox 36.7 C 67 16 105/68 93 02/15/17 15:20 02/15/17 15:20 02/15/17 15:20 02/15/17 15:20 02/15/17 15:20 Laboratory Results 02/15/17 04:40 02/15/17 04:40 02/14/17 02/15/17 02/16/17 05:59 05:59 05:59 Intake Total 1733 1350 Output Total 5125 3325 Balance -2 -1974 PT 24.9 SEC (12.0-15.0) H 02/15/17 04:40 INR 2.23 (0.83-1.16) H 02/15/17 04:40 CXR viewed, my personal interpretation is - elevated right hemidiaphragm pelvic US - fibroid of uterus - Physical Exam Constitutional: no apparent distress, appears nourished, not in pain Cardiovascular: regular rate and rhythym, no murmur, rub, or gallop Respiratory: no respiratory distress, no rales or rhonchi, clear to auscultation Gastrointestinal: normoactive bowel sounds, soft, non-tender abdomen, no palpable masses Skin: no rashes or abrasions, no fluctuance, no induration Neurologic: AAOx3, sensation intact bilaterally Psychiatric: interacting appropriately, not anxious, not encephalopathic, thought process linear ICD10 Worksheet Patient Problems: Problems Problem Status Onset KATY (acute kidney injury) Acute Encephalopathy acute Acute Palliative care encounter Acute Altered mental status Acute Hypoxemia Acute Narcotic overdose Acute Pneumonia Acute
--- NOTE | 2017-02-15 16:29 | PDPCPN ---
Palliative Care Progress Note Assessment/Plan: HPI: Velvet Philippe is a 61 yo female with PMH asthma, PNA, chronic resp failure, and chronic pain admitted to the hospital with increasing resp failure. Recent hospitalization for similar issue Nov 2016. On admission with sepsis 2/2 possible PNA. Required intubation and ICU level care, had to be re intubated emergently following self extubation. Hospitalization complicated by ongoing resp failure requiring intubation as well as new onset cardiomyopathy. Now extubated with improvement in resp failure. Palliative care consulted for complex medical decision making. Pain is tolerable today. Abdominal pain almost gone from yesterday. Neck pain is chronic but improved. Using oxycodone a couple of times a day. Per Velvet Quinonez it helps with her mobility to be able to get out of bed. Moving around more and improving. Spoke with yesterday about possible rehab at discharge depending on how she does. Assessment: Physical: - Pain: chronic cervical neuropathy - oxycodone PRN - lidoderm patch - re add gabapentin at lower dose 300mg TID (home 900 mg TID) - constipation - at risk while on opiates - bowel regimen as able with senna and colace liquids Emotional/psychological: hx of depression - seeing outpatient therapist prior to hospitalization - might consider as outpt changing zoloft to cymbalta to help with pain Advanced Care Planning: Is patient decisional?: Yes Code Status: Full MD POA: Denny is MDPOA. Plan: Continue medical interventions. To wean down opiates. Follows with Dr Morales as outpt Subjective: my pain is tolerable today Objective: Vital Signs Temp Pulse Resp BP Pulse Ox 36.7 C 67 16 105/68 93 02/15/17 15:20 02/15/17 15:20 02/15/17 15:20 02/15/17 15:20 02/15/17 15:20 Laboratory Results 02/15/17 04:40 02/15/17 04:40 02/14/17 02/15/17 02/16/17 05:59 05:59 05:59 Intake Total 1733 1350 Output Total 0630 0816 Balance -3392 -1975 PT 24.9 SEC (12.0-15.0) H 02/15/17 04:40 INR 2.23 (0.83-1.16) H 02/15/17 04:40 Physical Exam - Physical Exam General Appearance: alert, no apparent distress Respiratory: No respiratory distress, No accessory muscle use Skin: normal color, warm/dry Extremities: pedal edema Neuro/Psych: alert, oriented x 3 ICD10 Worksheet Patient Problems: Problems Problem Status Onset KATY (acute kidney injury) Acute Encephalopathy acute Acute Palliative care encounter Acute Altered mental status Acute Hypoxemia Acute Narcotic overdose Acute Pneumonia Acute - ICD10 Problem Qualifiers (1) Palliative care encounter
[2017-02-15] MEDS: WARFARIN SODIUM 2 MG TAB TUBE SCH (18:07)
[2017-02-15 18:40] LABS: POTASSIUM 3.7 mEq/L (3.5-5.2)
[2017-02-15] MEDS ORDERED: POTASSIUM CL 20 MEQ/15 ML UDCUP PO PRN (20:05)
[2017-02-15] MEDS: CETIRIZINE 10 MG TAB PO SCH (20:29)
[2017-02-15] MEDS: LISINOPRIL 10 MG TAB PO SCH (20:29)
[2017-02-15] MEDS: PATCH REMOVAL 1 EA PATCH TD SCH (21:07)
[2017-02-16] MEDS: PIPERACILLIN/TAZO 3.375 GM/DEX 50 ML IV SCH (04:16)
[2017-02-16 04:26] LABS: % IMMATURE GRANULYOCYTES 0.7 % (0.0-1.1); ADD DIFF? NO; ADD MORPH? NO; ADD SCAN? NO; ATYPICAL LYMPHOCYTE FLAG 10 (0-99); FRAGMENT RBC FLAG 0 (0-99); HEMATOCRIT 35.8 % (38.0-47.0); HEMOGLOBIN 12.1 g/dL (12.6-16.3); LEFT SHIFT FLG 0 (0-99); LIPEMIA HEMOLYSIS FLAG 90 (0-99); MEAN CELL HEMOGLOBIN 30.1 pg (27.9-34.1); MEAN CELL HEMOGLOBIN CONCENTR. 33.8 g/dL (32.4-36.7); MEAN CELL VOLUME 89.1 fL (81.5-99.8); MEAN PLATELET VOLUME 10.9 fL (8.7-11.7); PLATELET CLUMPS FLAG 0 (0-99); PLATELET COUNT 293 10^3/uL (150-400); RED BLOOD CELL COUNT 4.02 10^6/uL (4.18-5.33); RED CELL DISTRIBUTION WIDTH 12.2 % (11.5-15.2)
[2017-02-16 04:37] LABS: INR 2.72 (0.83-1.16); PROTIME(PATIENT) 29.2 SEC (12.0-15.0)
[2017-02-16 04:46] LABS: ANION GAP 9 mEq/L (8-16); CARBON DIOXIDE 34 mEq/l (22-31); CHLORIDE 101 mEq/L (97-110); CREATININE 1.3 mg/dL (0.6-1.0); GLOMERULAR FILTRATION RATE 42; GLUCOSE 108 mg/dL (70-100); MAGNESIUM 2.2 mg/dL (1.6-2.3); POTASSIUM 3.2 mEq/L (3.5-5.2); SODIUM 144 mEq/L (134-144)
[2017-02-16] MEDS: CARVEDILOL 25 MG TAB PO SCH ×2 (09:03→18:42)
[2017-02-16] MEDS: GABAPENTIN 300 MG CAP PO SCH ×3 (09:03→20:19)
[2017-02-16] MEDS: FUROSEMIDE 40 MG TAB PO SCH (09:03)
[2017-02-16] MEDS: LISINOPRIL 10 MG TAB PO SCH ×2 (09:03→20:21)
[2017-02-16] MEDS: LOPERAMIDE HCL 2 MG CAP PO PRN (09:04)
[2017-02-16] MEDS: SERTRALINE HCL 100 MG TAB PO SCH (09:04)
[2017-02-16] MEDS: SPIRONOLACTONE 25 MG TAB PO SCH (09:04)
[2017-02-16] MEDS: LIDOCAINE 5% 1 EA PATCH TD SCH (09:06)
[2017-02-16] MEDS: oxyCODONE IR 5 MG TAB PO PRN ×4 (09:14→23:17)
[2017-02-16] MEDS ORDERED: POTASSIUM CL 10 MEQ TAB PO ONE ×3 (09:26→19:32)
[2017-02-16] MEDS: ACETAMINOPHEN 325 MG TAB PO PRN (10:31)
--- NOTE | 2017-02-16 10:40 | ECHO ---
[id number] + + [address] : : [place] [address] : : [phone] + + Adult Echocardiographic Report + -----+ :Name: HERNÁN OVERTON JStudy Date: 02/16/2017 07:58 AM : : Hospital Admission Number: [id number] Location : 243: :: 1955 Gender: Female Height: 64 in : :Age: 61 yrs Race: Weight: 250 lb : :Reason For Study: LTD echo to reassess LVEF : : BSA: 2.2 meters2 : :History: LTD echo to reassess LVEF : + -----+ MMode/2D Measurements \T\ Calculations IVSd: 1.0 cm LVIDd: 4.2 cmFS: 32.2 % LVLd ap4: 9.5 cm LVPWd: 0.94 cm LVIDs: 2.8 cmEDV(Teich): 78.6 mlEDV(MOD-sp4): 135.0 ml ESV(Teich): 30.8 mlLVLs ap4: 7.3 cm EF(Teich): 60.8 % ESV(MOD-sp4): 50.0 ml EF(MOD-sp4): 63.0 % SV(MOD-sp4): 85.0 ml Normal Measurement Values: + + :LVIDd (3.5-5.7cm) IVSd (0.6-1.1cm) LVPWd (0.6-1.1cm) Aortic Root (2.0-3.7cm)Left Atrium (1.5-4.0cm): :LV Vol(d) (76-115ml) LV Vol(s) (29-48ml) Ejec Fraction (50-65%)PV Kishore (0.6- 1.2m/s) TV Kishore (0.4-1.0m/s) : :MV E Kishore (0.8-1.0m/s)MV A Kishore (0.3-1.0m/s)LVOT Kishore (0.7-1.2m/s) Asc Ao Kishore ( 0.9-1.8m/s) : + + Left Ventricle The left ventricle is normal in size and function. Ejection Fraction = 55- 60%. Residual mild apical hypokinesis. Conclusion Limited echocardiogram to reassess LVEF. Since previous echocardiogram 02/08/2017 the left ventricular ejection fraction has increased from 25% on 02/08/2017 to 55-60% on echo today. The left ventricle is normal in size and function. Ejection Fraction = 55-60%. Residual mild apical hypokinesis. Final Reading Physician: Dr Miya Grant electronically signed on 02/16/2017 10:39 AM Ordering Physician: Miya Grant Performed By: Mackenzie Garzon
--- NOTE | 2017-02-16 12:28 | PDIAF ---
- Diagnosis Code Status: Full Code - Medication Management Discharge Medications: Medications to Continue on Transfer Fluticasone/Salmeter 250/50Mcg [Advair 250/50 (*)] 1 puffs IH BID 08/30/14 [ Last Taken 02/03/17] HYDROcodone/APAP 10325 [[place] 10325 (*)] 1 tab PO BID PRN 08/30/14 [Last Taken 11/23/16] Montelukast Sodium [Singulair 10 mg (*)] 10 mg PO DAILY@20 08/30/14 [Last Taken 11/23/16] Sertraline HCl [Zoloft 100mg (*)] 150 mg PO DAILY 09/03/16 [Last Taken 02/03/17] Acetaminophen/Caffeine [Excedrin Tension Headache Cplt] 2 each PO TID PRN [Last Taken Unknown] Cetirizine [ZyrTEC 10 mg (*)] 10 mg PO DAILY@199911/24/16 [Last Taken 11/23/16] Cholecalciferol Vit D3 [Vitamin D3 2000 units tab (OTC)] 2,000 units PO DAILY@ 199911/24/16 [Last Taken 02/03/17] Herbals/Supplements -Info Only 1 ea PO AD 11/24/16 [Last Taken Unknown] Ipratropium/Albuterol [Duoneb (*)] 3 ml IH TID@,, PRN 11/24/16 [Last Taken Unknown] Multivitamins [Multivitamin (*)] 1 each PO DAILY@199911/24/16 [Last Taken 11/23] [place]er-3 Fatty Acids [Fish Oil 1000 mg (*)] 2,000 mg PO DAILY@129911/24/16 [ Last Taken 11/23/16] Sennosides/Docusate Sodium [Senokot-S] 1 each PO DAILY PRN 11/24/16 [Last Taken Unknown] Acetaminophen [Tylenol ES 500 mg (*)] 1,000 mg PO TID PRN 02/03/17 [Last Taken Unknown] Ipratropium/Albuterol [Duoneb (*)] 3 ml IH HS 02/03/17 [Last Taken Unknown] Warfarin Sodium 2.5 mg PO DAILY@19002/03/17 [Last Taken Unknown] Carvedilol [Coreg (*)] 25 mg PO BIDMEAL #0 tab 02/16/17 [Last Taken Unknown] Furosemide [Lasix 40 MG (*)] 40 mg PO DAILY #0 tab 02/16/17 [Last Taken Unknown] Gabapentin [Neurontin 300 MG (*)] 300 mg PO TID #0 cap 02/16/17 [Last Taken Unknown] Lisinopril [Zestril 10 mg (*)] 10 mg PO BID #0 tab 02/16/17 [Last Taken Unknown] Spironolactone [Aldactone 25 MG (*)] 25 mg PO DAILY #0 tab 02/16/17 [Last Taken Unknown] Discharge Medications: Refer to the Discharge Home Medication list for PRN reason. - Orders Services needed: Physical Therapy, Occupational Therapy, Speech Language Pathologist Diet Recommendation: no restrictions on diet Diet Texture: Regular Texture Diet, Thin Liquids, Meds Whole w/Liquids - Follow Up Care Current Providers and Referrals: Grady Bonds MD [Primary Care Provider] - As per Instructions
--- NOTE | 2017-02-16 12:58 | PDCARPN ---
Cardiology Progress Note Assessment/Plan: Assessment/plan: 61 yo F with mixed sleep apnea awaiting outpt treatment, obesity, chronic hypoxic respiratory failure admitted 02/03 with altered mental status and acute renal failure. Initial picture consistent with poor metabolism of gabapentin and chronic narcotics resulting in hyerpcapnic resp failure. Course complicated by aspiration pneumonia, intubation, and NSTEMI. LVEF 30%, normal cors on cath. This likely represents Takotsubo CMP. 1. CMP and NSTEMI: likely stress induced CMP. Tolerating EDMUND-I, Full-dose coreg, aldactone. Responding well to diuresis. repeat limited echocardiogram 02/16 shows normalization of LVEF. No Life Vest required. 2. Resp failure: Improving.chronic hypoxia, mixed sleep apnea, asp pna. Extubated February 13. 3. PAF: in the past. Currently NSR. On warfarin . 4. ARF: resolved but slight bump with diuresis. Follow as outpt 5. Anemia: chronic 6. Chronic pain with narcotic dependence: complicates care 7. Nonsustained VT: This may be related to her PICC line. Her PICC line was withdrawn 2 cm on February 15. She did have 2 short runs of VT again 0n 02/15 but none since. Continue BB. Continue telemetry Stable for discharge from cardiac standpoint 02/16/17 13:03 Subjective: Velvet slept well. No angina or SOB. Denies palpitaitons Reviewed/Discussed With: family, hospitalist Objective: Vital Signs (8 Hrs) Temp Pulse Resp BP Pulse Ox 02/16/17 12:00 36.6 C 61 17 93/51 L 97 02/16/17 07:35 36.4 C 73 15 119/69 92 Intake/Output (24 Hrs) 02/15/17 02/16/17 02/17/17 05:59 05:59 05:59 Intake Total 1350 600 Output Total 3325 -1974 600 Intake: Oral (ml) 750 600 IV Infused (ml) 600 Ns 1,000 ml @ 100 mls/hr 500 IV CONT [facility] Rx#: [id number] Piperacillin/Tazo 3.375 100 gm/Dex 50 ml @ 100 mls/hr IV Q8 [facility] Rx#:[id number] Output: Urine (ml) 1425 Bedside Commode 250 Catheter 1175 Liquid Stool (ml) 1900 Bedside Commode 1900 Other: Weight 113.6 kg 107.8 kg Number of Voids Bedside Commode 1 2 Toilet 1 Number of Stools Bedside Commode 1 Bladder Scan Volume (ml) Bedside Commode 255 NAD, lying flat JVP < 10. RRR no m/r/g Lungs CTAB Trace bilateral ant tib edema Result Diagrams: 02/16/17 04:05 02/16/17 04:05 Telemetry: NSR Occ PVCs ICD10 Worksheet Patient Problems: Problems Problem Status Onset Pneumonia Acute Hypoxemia Acute Narcotic overdose Acute Altered mental status Acute KATY (acute kidney injury) Acute Encephalopathy acute Acute Palliative care encounter Acute
--- NOTE | 2017-02-16 14:11 | PDIAF ---
- Diagnosis Code Status: Full Code - Medication Management Discharge Medications: Medications to Continue on Transfer Fluticasone/Salmeter 250/50Mcg [Advair 250/50 (*)] 1 puffs IH BID 08/30/14 [ Last Taken 02/03/17] HYDROcodone/APAP 10325 [[place] 10325 (*)] 1 tab PO BID PRN 08/30/14 [Last Taken 11/23/16] Montelukast Sodium [Singulair 10 mg (*)] 10 mg PO DAILY@20 08/30/14 [Last Taken 11/23/16] Sertraline HCl [Zoloft 100mg (*)] 150 mg PO DAILY 09/03/16 [Last Taken 02/03/17] Acetaminophen/Caffeine [Excedrin Tension Headache Cplt] 2 each PO TID PRN [Last Taken Unknown] Cetirizine [ZyrTEC 10 mg (*)] 10 mg PO DAILY@199911/24/16 [Last Taken 11/23/16] Cholecalciferol Vit D3 [Vitamin D3 2000 units tab (OTC)] 2,000 units PO DAILY@ 199911/24/16 [Last Taken 02/03/17] Herbals/Supplements -Info Only 1 ea PO AD 11/24/16 [Last Taken Unknown] Ipratropium/Albuterol [Duoneb (*)] 3 ml IH TID@,, PRN 11/24/16 [Last Taken Unknown] Multivitamins [Multivitamin (*)] 1 each PO DAILY@199911/24/16 [Last Taken 11/23] [place]wing-3 Fatty Acids [Fish Oil 1000 mg (*)] 2,000 mg PO DAILY@129911/24/16 [ Last Taken 11/23/16] Sennosides/Docusate Sodium [Senokot-S] 1 each PO DAILY PRN 11/24/16 [Last Taken Unknown] Acetaminophen [Tylenol ES 500 mg (*)] 1,000 mg PO TID PRN 02/03/17 [Last Taken Unknown] Ipratropium/Albuterol [Duoneb (*)] 3 ml IH HS 02/03/17 [Last Taken Unknown] Warfarin Sodium 2.5 mg PO DAILY@1900 03/25/17 [Last Taken Unknown] Carvedilol [Coreg (*)] 25 mg PO BIDMEAL #0 tab 02/16/17 [Last Taken Unknown] Furosemide [Lasix 40 MG (*)] 40 mg PO DAILY #0 tab 02/16/17 [Last Taken Unknown] Gabapentin [Neurontin 300 MG (*)] 300 mg PO TID #0 cap 02/16/17 [Last Taken Unknown] Lisinopril [Zestril 10 mg (*)] 10 mg PO BID #0 tab 02/16/17 [Last Taken Unknown] Spironolactone [Aldactone 25 MG (*)] 25 mg PO DAILY #0 tab 02/16/17 [Last Taken Unknown] Discharge Medications: Refer to the Discharge Home Medication list for PRN reason. - Orders Services needed: Physical Therapy, Occupational Therapy, Speech Language Pathologist Diet Recommendation: no restrictions on diet Diet Texture: Regular Texture Diet, Thin Liquids, Meds Whole w/Liquids Equipment: IS hourly while awake for lung expansion (paralyzed right hemidiaphragm) - Follow Up Care Current Providers and Referrals: Grady Bonds MD [Primary Care Provider] - As per Instructions Miya Grant MD [Medical Doctor] - (please call for appointment. 2 weeks. )
--- NOTE | 2017-02-16 15:54 | SOAPPROG ---
SOAP Progress Note Assessment/Plan: Assessment: 61 F with resolving respiratory failure secondary to congestive heart failure and possible pneumonia. She has a history of obstructive and central sleep apnea (AHI= 68), on supplemental oxygen alone at home. Has not yet been treated with ASV device, admitted on numerous occasions with hypercapnic respiratory failure in conjunction with chronic narcotic dependency following remote cervical spine surgery. She had a reported mechanical fall [employer] and decreased urination associated with increasing confusion. On arrival she was found to be intermittently obtunded with KATY (Cr 5.6), and pH 7.23 with CO2 59. She was thought to have poor clearance of her chronic narcotics resulting in acute respiratory failure so was placed on Bipap overnight, but this was largely unsuccessful and required intubation the morning of 02/04. Extubated 02/13. * Respiratory failure with hypercapnea: Recurrent. Intubated 02/04, self- extubated 02/06, re-intubated 02/09 AM. Extubated 02/13 after tolerating prolonged CPAP weans. Chest x-ray improving but still abnormal. On 2-3 L. Clinically doing well from a pulmonary standpoint. 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 This probably has been present since her neck surgery 7 years ago * Pneumonia: Off antibiotics. Doing well. Pneumonia resolved. Chest x-ray will always been normal in the right side. * History of asthma: Lifelong. She is seeing Dr. Chong in the office. Pulmonary function tests are recommended. * Cardiomyopathy: ECHO with WMA anterior/apical, EF 20-25%. Cath negative for CAD, c/w Takasubo's.. Likely a major cause of respiratory failure and renal insufficiency. Diuresing well with Lasix. * Altered MS- resolved. * Hypotension: Resolved * KATY- creatinine normalized. Excellent diuresis with Lasix.. * Hypokalemia: On replacement protocol. * Chronic pain- On oral pain medications, with adequate control. * GRICEL with CSA: ASV titration 01/19/17 showed persistent events despite ASV, possibly due to large leak with mask. ASV now contraindicated with low EF. May need AVAPS or BiPAP in the future, however will continue oxygen alone for now. She is to have follow up at the [facility] in with Dr. chong. * Tachycardia: Resolved. * Anticoagulation: On full-dose enoxaparin and Coumadin. INR no therapeutic, can DC enoxaparin. Plan: Continue present care, diuresis, bronchopulmonary therapies and oxygen. Outpatient follow-up for best options regarding her sleep apnea. In addition, she should have complete pulmonary function studies done in our office when she follows up with Dr. Chong. Pulmonary issues, paralyzed diaphragm, and recommendations for pulmonary follow- up all discussed with the patient and her family. I will sign off at this point in time. She will be discharged to SNF in the next day or 2. Subjective: Doing well. Denies shortness of breath. No cough or mucus. Denies chest pain. Shoulder pain is present, chronic. Objective: Vital Signs Temp Pulse Resp BP Pulse Ox 36.6 C 61 17 93/51 L 97 02/16/17 12:00 02/16/17 12:00 02/16/17 12:00 02/16/17 12:00 02/16/17 12:00 Laboratory Results 02/16/17 04:05 02/16/17 04:05 02/15/17 02/16/17 02/17/17 05:59 05:59 05:59 Intake Total 1350 600 Output Total 3325 Balance -1975 600 PT 29.2 SEC (12.0-15.0) H 02/16/17 04:05 INR 2.72 (0.83-1.16) H 02/16/17 04:05 Sniff test: Right hemidiaphragm is paralyzed. Physical Exam - Physical Exam General Appearance: alert, no apparent distress EENT: other (Nasal cannula 2-3 L) Neck: normal inspection (Large neck) Respiratory: lungs clear (Anteriorly), decreased breath sounds (Right brace verses left. Few rales present at the right base.), rales (Few present at the right base), No rhonchi, No wheezing Cardiac/Chest: regular rate, rhythm Abdomen: normal bowel sounds, non-tender, soft Skin: normal color, warm/dry Extremities: pedal edema Neuro/Psych: no motor/sensory deficits, No cognition abnormalities ICD10 Worksheet Patient Problems: Problems Problem Status Onset KATY (acute kidney injury) Acute Encephalopathy acute Acute Palliative care encounter Acute Altered mental status Acute Hypoxemia Acute Narcotic overdose Acute Pneumonia Acute
--- NOTE | 2017-02-16 16:35 | HOSPPROG ---
Hospitalist Progress Note Assessment/Plan: * Acute respiratory failure - extubated * Acute on chronic systolic CHF - EF 30% - suspect takotsubo's -change to PO lasix -continue lisinopril, Coreg, Aldactone -Ef improved on follow-up ECHO * NSTEMI - troponin 10 -cath with normal coronaries * V tach -improved * Morbid obesity BMI 42 - suspect GRICEL/OHS * Continuous narcotic dependency -poor combination with chronic respiratory insufficiency -holding OxyContin -restart gabapentin at lower dose * Aspiration PNA - IV Zosyn complete * Afib -warfarin therapeutic * Metabolic encephalopathy - improved * ARF due to hypovolemia - resolved * Myoclonus due to high dose Neurontin -low dose restart but would not escalate back to previous doses * 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 Miya Grant - no need for life vest SNIFF test - right hemidiaphragm paralysis confirmed - Physical Exam Constitutional: no apparent distress, appears nourished, not in pain Cardiovascular: regular rate and rhythym, no murmur, rub, or gallop Respiratory: no respiratory distress, no rales or rhonchi, clear to auscultation Gastrointestinal: normoactive bowel sounds, soft, non-tender abdomen, no palpable masses Skin: no rashes or abrasions, no fluctuance, no induration Neurologic: AAOx3, sensation intact bilaterally ICD10 Worksheet Patient Problems: Problems Problem Status Onset KATY (acute kidney injury) Acute Encephalopathy acute Acute Palliative care encounter Acute Altered mental status Acute Hypoxemia Acute Narcotic overdose Acute Pneumonia Acute
[2017-02-16 18:34] LABS: POTASSIUM 3.7 mEq/L (3.5-5.2)
[2017-02-16] MEDS ORDERED: WARFARIN SODIUM 2 MG TAB PO SCH (19:00)
[2017-02-16] MEDS ORDERED: MONTELUKAST SODIUM 10 MG TAB PO SCH (20:00)
[2017-02-16] MEDS: CETIRIZINE 10 MG TAB PO SCH (20:19)
[2017-02-16] MEDS: PATCH REMOVAL 1 EA PATCH TD SCH (20:25)
[2017-02-17 04:39] LABS: % IMMATURE GRANULYOCYTES 0.5 % (0.0-1.1); ABSOLUTE IMMATURE GRANULOCYTES 0.08 10^3/uL (0.00-0.10); ADD DIFF? NO; ADD MORPH? NO; ADD SCAN? NO; ATYPICAL LYMPHOCYTE FLAG 0 (0-99); FRAGMENT RBC FLAG 0 (0-99); HEMATOCRIT 32.5 % (38.0-47.0); HEMOGLOBIN 10.8 g/dL (12.6-16.3); LEFT SHIFT FLG 0 (0-99); LIPEMIA HEMOLYSIS FLAG 80 (0-99); MEAN CELL HEMOGLOBIN 30.3 pg (27.9-34.1); MEAN CELL HEMOGLOBIN CONCENTR. 33.2 g/dL (32.4-36.7); MEAN PLATELET VOLUME 11.1 fL (8.7-11.7); PLATELET CLUMPS FLAG 0 (0-99); PLATELET COUNT 268 10^3/uL (150-400); RED BLOOD CELL COUNT 3.57 10^6/uL (4.18-5.33); RED CELL DISTRIBUTION WIDTH 12.1 % (11.5-15.2)
[2017-02-17 04:50] LABS: ANION GAP 11 mEq/L (8-16); CALCIUM 8.8 mg/dL (8.5-10.4); CARBON DIOXIDE 28 mEq/l (22-31); CHLORIDE 102 mEq/L (97-110); GLOMERULAR FILTRATION RATE 56; GLUCOSE 100 mg/dL (70-100); POTASSIUM 3.4 mEq/L (3.5-5.2); SODIUM 141 mEq/L (134-144)
[2017-02-17 04:51] LABS: INR 3.08 (0.83-1.16); PROTIME(PATIENT) 32.2 SEC (12.0-15.0)
[2017-02-17] MEDS ORDERED: POTASSIUM CL 10 MEQ TAB PO ONE ×2 (08:08→19:43)
[2017-02-17] MEDS: FUROSEMIDE 40 MG TAB PO SCH (09:01)
[2017-02-17] MEDS: LISINOPRIL 10 MG TAB PO SCH (09:01)
[2017-02-17] MEDS: SPIRONOLACTONE 25 MG TAB PO SCH (09:01)
[2017-02-17] MEDS: CARVEDILOL 25 MG TAB PO SCH ×2 (09:01→17:44)
[2017-02-17] MEDS: SERTRALINE HCL 100 MG TAB PO SCH (09:02)
[2017-02-17] MEDS: GABAPENTIN 300 MG CAP PO SCH ×3 (09:03→21:27)
[2017-02-17] MEDS: LIDOCAINE 5% 1 EA PATCH TD SCH (09:03)
[2017-02-17] MEDS: LOPERAMIDE HCL 2 MG CAP PO PRN ×2 (09:07→19:31)
[2017-02-17] MEDS: ONDANSETRON DISINTEGRATING 4 MG TAB PO PRN (09:08)
[2017-02-17] MEDS: oxyCODONE IR 5 MG TAB PO PRN ×3 (09:08→19:31)
[2017-02-17] MEDS: ACETAMINOPHEN 325 MG TAB PO PRN ×2 (11:54→21:31)
[2017-02-17] MEDS ORDERED: NS 500 ML IV ONE (15:00)
[2017-02-17] MEDS ORDERED: IPRATROPIUM/ALBUTEROL 3 ML DEYVIAL IH PRN (15:45)
[2017-02-17] MEDS ORDERED: LISINOPRIL 5 MG TAB PO SCH (15:48)
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
[2017-02-17] MEDS: WARFARIN SODIUM 2.5 MG TAB PO SCH (17:46)
[2017-02-17 18:27] LABS: POTASSIUM 3.7 mEq/L (3.5-5.2)
[2017-02-17] MEDS: CETIRIZINE 10 MG TAB PO SCH (19:31)
[2017-02-17] MEDS: PATCH REMOVAL 1 EA PATCH TD SCH (21:37)
[2017-02-17] MEDS: FLUTICASONE/SALMETER 250/50MCG DISKUS IH SCH (21:53)
[2017-02-18] MEDS: oxyCODONE IR 5 MG TAB PO PRN ×6 (00:06→20:32)
[2017-02-18 04:46] LABS: % IMMATURE GRANULYOCYTES 0.3 % (0.0-1.1); ABSOLUTE IMMATURE GRANULOCYTES 0.05 10^3/uL (0.00-0.10); ADD DIFF? NO; ADD MORPH? NO; ADD SCAN? NO; ATYPICAL LYMPHOCYTE FLAG 10 (0-99); FRAGMENT RBC FLAG 0 (0-99); HEMATOCRIT 32.5 % (38.0-47.0); HEMOGLOBIN 10.9 g/dL (12.6-16.3); LEFT SHIFT FLG 0 (0-99); LIPEMIA HEMOLYSIS FLAG 80 (0-99); MEAN CELL HEMOGLOBIN 30.3 pg (27.9-34.1); MEAN CELL HEMOGLOBIN CONCENTR. 33.5 g/dL (32.4-36.7); MEAN CELL VOLUME 90.3 fL (81.5-99.8); MEAN PLATELET VOLUME 11.3 fL (8.7-11.7); PLATELET CLUMPS FLAG 0 (0-99); PLATELET COUNT 274 10^3/uL (150-400); RED CELL DISTRIBUTION WIDTH 12.3 % (11.5-15.2)
[2017-02-18] MEDS: ACETAMINOPHEN 325 MG TAB PO PRN ×3 (04:52→16:12)
[2017-02-18 04:55] LABS: INR 2.69 (0.83-1.16); PROTIME(PATIENT) 28.9 SEC (12.0-15.0)
[2017-02-18 05:16] LABS: ANION GAP 7 mEq/L (8-16); CARBON DIOXIDE 29 mEq/l (22-31); CHLORIDE 106 mEq/L (97-110); GLOMERULAR FILTRATION RATE 56; GLUCOSE 107 mg/dL (70-100); SODIUM 142 mEq/L (134-144)
[2017-02-18] MEDS: GABAPENTIN 300 MG CAP PO SCH ×3 (08:38→22:15)
[2017-02-18] MEDS: CARVEDILOL 25 MG TAB PO SCH ×2 (08:38→17:27)
[2017-02-18] MEDS: SERTRALINE HCL 100 MG TAB PO SCH (08:39)
[2017-02-18] MEDS: SPIRONOLACTONE 25 MG TAB PO SCH (08:39)
[2017-02-18] MEDS ORDERED: LISINOPRIL 5 MG TAB PO SCH (09:00)
[2017-02-18] MEDS: FLUTICASONE/SALMETER 250/50MCG DISKUS IH SCH ×2 (09:13→19:57)
[2017-02-18] MEDS: LIDOCAINE 5% 1 EA PATCH TD SCH ×2 (10:17→10:18)
[2017-02-18] MEDS: FUROSEMIDE 20 MG TAB PO SCH (10:20)
[2017-02-18] MEDS: LOPERAMIDE HCL 2 MG CAP PO PRN ×2 (12:34→20:32)
[2017-02-18] MEDS: ONDANSETRON DISINTEGRATING 4 MG TAB PO PRN (12:34)
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
[2017-02-18] MEDS: WARFARIN SODIUM 2.5 MG TAB PO SCH (17:27)
[2017-02-18 18:16] LABS: POTASSIUM 4.5 mEq/L (3.5-5.2)
[2017-02-18] MEDS: LISINOPRIL 5 MG TAB PO SCH (20:33)
[2017-02-18] MEDS: PATCH REMOVAL 1 EA PATCH TD SCH (20:33)
[2017-02-18] MEDS: CETIRIZINE 10 MG TAB PO SCH (20:33)
[2017-02-19] MEDS: oxyCODONE IR 5 MG TAB PO PRN ×3 (00:20→09:32)
[2017-02-19 05:46] LABS: % IMMATURE GRANULYOCYTES 0.4 % (0.0-1.1); ABSOLUTE IMMATURE GRANULOCYTES 0.04 10^3/uL (0.00-0.10); ADD DIFF? NO; ADD MORPH? NO; ADD SCAN? NO; ATYPICAL LYMPHOCYTE FLAG 20 (0-99); FRAGMENT RBC FLAG 0 (0-99); LEFT SHIFT FLG 0 (0-99); LIPEMIA HEMOLYSIS FLAG 80 (0-99); MEAN CELL HEMOGLOBIN 30.3 pg (27.9-34.1); MEAN CELL HEMOGLOBIN CONCENTR. 33.3 g/dL (32.4-36.7); MEAN CELL VOLUME 90.9 fL (81.5-99.8); PLATELET CLUMPS FLAG 30 (0-99); PLATELET COUNT 263 10^3/uL (150-400); RED CELL DISTRIBUTION WIDTH 12.4 % (11.5-15.2)
[2017-02-19 05:56] LABS: INR 2.72 (0.83-1.16); PROTIME(PATIENT) 29.2 SEC (12.0-15.0)
[2017-02-19 06:02] LABS: ANION GAP 7 mEq/L (8-16); CALCIUM 8.9 mg/dL (8.5-10.4); CARBON DIOXIDE 27 mEq/l (22-31); CHLORIDE 109 mEq/L (97-110); CREATININE 0.8 mg/dL (0.6-1.0); GLOMERULAR FILTRATION RATE > 60; GLUCOSE 111 mg/dL (70-100); POTASSIUM 4.1 mEq/L (3.5-5.2); SODIUM 143 mEq/L (134-144)
[2017-02-19] MEDS: FLUTICASONE/SALMETER 250/50MCG DISKUS IH SCH (08:06)
[2017-02-19] MEDS: ACETAMINOPHEN 325 MG TAB PO PRN (09:14)
[2017-02-19] MEDS: GABAPENTIN 300 MG CAP PO SCH (09:15)
[2017-02-19] MEDS: CARVEDILOL 25 MG TAB PO SCH (09:15)
[2017-02-19] MEDS: SERTRALINE HCL 100 MG TAB PO SCH (09:15)
[2017-02-19] MEDS: LIDOCAINE 5% 1 EA PATCH TD SCH (09:16)
[2017-02-19] MEDS: FUROSEMIDE 20 MG TAB PO SCH (09:16)
[2017-02-19] MEDS: SPIRONOLACTONE 25 MG TAB PO SCH (09:16)
[2017-02-19] MEDS: LISINOPRIL 5 MG TAB PO SCH (09:17)
[2017-02-19] MEDS: LOPERAMIDE HCL 2 MG CAP PO PRN (10:27)
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
[2017-02-19] MEDS ORDERED: LOPERAMIDE HCL 2 MG CAP PO ONE (12:15)
[2017-02-19 12:21] VITALS: BP 138/66; PULSE 73; RESP 16; TEMP 98.5; O2SAT 94
--- NOTE | 2017-02-19 12:42 | PDIAF ---
- Diagnosis Diagnosis: Acute encephalopathy, acute on chronic respiratory failure, NSTEMI, pna Code Status: Full Code - Medication Management Discharge Medications: Medications to Continue on Transfer Fluticasone/Salmeter 250/50Mcg [Advair 250/50 (*)] 1 puffs IH BID 08/30/14 [ Last Taken 02/03/17] HYDROcodone/APAP 10/325 [[place] 10/325 (*)] 1 tab PO BID PRN 08/30/14 [Last Taken 11/23/16] Montelukast Sodium [Singulair 10 mg (*)] 10 mg PO DAILY@20 08/30/14 [Last Taken 11/23/16] Sertraline HCl [Zoloft 100mg (*)] 150 mg PO DAILY 09/03/16 [Last Taken 02/03/17] Acetaminophen/Caffeine [Excedrin Tension Headache Cplt] 2 each PO TID PRN [Last Taken Unknown] Cetirizine [ZyrTEC 10 mg (*)] 10 mg PO DAILY@199911/24/16 [Last Taken 11/23/16] Cholecalciferol Vit D3 [Vitamin D3 2000 units tab (OTC)] 2,000 units PO DAILY@ 199911/24/16 [Last Taken 02/03/17] Herbals/Supplements -Info Only 1 ea PO AD 11/24/16 [Last Taken Unknown] Ipratropium/Albuterol [Duoneb (*)] 3 ml IH TID@,, PRN 11/24/16 [Last Taken Unknown] Multivitamins [Multivitamin (*)] 1 each PO DAILY@199911/24/16 [Last Taken 11/23] [place]-3 Fatty Acids [Fish Oil 1000 mg (*)] 2,000 mg PO DAILY@129911/24/16 [ Last Taken 11/23/16] Sennosides/Docusate Sodium [Senokot-S] 1 each PO DAILY PRN 11/24/16 [Last Taken Unknown] Acetaminophen [Tylenol ES 500 mg (*)] 1,000 mg PO TID PRN 02/03/17 [Last Taken Unknown] Ipratropium/Albuterol [Duoneb (*)] 3 ml IH HS 02/03/17 [Last Taken Unknown] Warfarin Sodium 2.5 mg PO DAILY@1900 02/03/17 [Last Taken Unknown] Gabapentin [Neurontin 300 MG (*)] 300 mg PO TID #0 cap 02/16/17 [Last Taken Unknown] Spironolactone [Aldactone 25 MG (*)] 25 mg PO DAILY #0 tab 02/16/17 [Last Taken Unknown] Carvedilol [Coreg (*)] 12.5 mg PO BIDMEAL #0 tab 02/18/17 [Last Taken Unknown] Fluticasone/Salmeter 250/50Mcg [Advair 250/50 (*)] 1 puffs IH BID #0 disk [Last Taken Unknown] Furosemide [Lasix 20 MG (*)] 20 mg PO DAILY #0 tab 02/18/17 [Last Taken Unknown] Lidocaine 5% [Lidoderm 5% Patch (*)] 1 ea TD DAILY #0 patch 02/18/17 [Last Taken Unknown] Lisinopril [Zestril 5 mg (*)] 5 mg PO BID #0 tab 02/18/17 [Last Taken Unknown] oxyCODONE IR [Oxycodone Ir (*)] 5 - 10 mg PO Q4 PRN #0 tab 02/19/17 [Last Taken Unknown] Discharge Medications: Refer to the Discharge Home Medication list for PRN reason. - Orders Services needed: Registered Nurse, Physical Therapy, Occupational Therapy, Speech Language Pathologist Diet Recommendation: no restrictions on diet Weigh Patient: daily Equipment: IS hourly while awake for lung expansion (paralyzed right hemidiaphragm) - Labs/Radiology BMP Date: 02/21/17 (weekly) CBC Date: 02/21/17 (weekly) PT/INR Date: 02/21/17 (q 3days) - Follow Up Care Current Providers and Referrals: Grady Bonds MD [Primary Care Provider] - As per Instructions Miya Grant MD [Medical Doctor] - (please call for appointment. 2 weeks. )
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
== END 2017-02-19 13:02 | DRG 682 ==
LOC: F2N 17:12 → F2W 02-15 16:37 → F3N 02-16 18:51
PROVIDERS: ADMIT Family Medicine; ATTEND Nurse Practitioner Family
PROC: 02HV33Z Insertion of Infusion Device into Superior Vena Cava, Percutaneous Approach (ICD-10-PCS; 2017-02-04)
PROC: 02HV33Z Insertion of Infusion Device into Superior Vena Cava, Percutaneous Approach (ICD-10-PCS; 2017-02-07)
PROC: 3E0G76Z Introduction of Nutritional Substance into Upper GI, Via Natural or Artificial Opening (ICD-10-PCS; 2017-02-07)
PROC: B2151ZZ Fluoroscopy of Left Heart using Low Osmolar Contrast (ICD-10-PCS; 2017-02-08)
PROC: 4A023N7 Measurement of Cardiac Sampling and Pressure, Left Heart, Percutaneous Approach (ICD-10-PCS; 2017-02-08)
PROC: B2111ZZ Fluoroscopy of Multiple Coronary Arteries using Low Osmolar Contrast (ICD-10-PCS; 2017-02-08)
PROC: 0BH18EZ Insertion of Endotracheal Airway into Trachea, Via Natural or Artificial Opening Endoscopic (ICD-10-PCS; principal; 2017-02-09)
PROC: 5A1945Z Respiratory Ventilation, 24-96 Consecutive Hours (ICD-10-PCS; principal; 2017-02-09)
PROC: 0BH18EZ Insertion of Endotracheal Airway into Trachea, Via Natural or Artificial Opening Endoscopic (ICD-10-PCS; 2017-02-09)
PROC: 5A1955Z Respiratory Ventilation, Greater than 96 Consecutive Hours (ICD-10-PCS; 2017-02-09)
DX: N17.9 Acute kidney failure, unspecified (principal); J96.22 Acute and chronic respiratory failure with hypercapnia; G92 Toxic encephalopathy; I50.23 Acute on chronic systolic (congestive) heart failure; J69.0 Pneumonitis due to inhalation of food and vomit; I21.4 Non-ST elevation (NSTEMI) myocardial infarction; I51.81 Takotsubo syndrome; G47.33 Obstructive sleep apnea (adult) (pediatric); G47.31 Primary central sleep apnea; G25.3 Myoclonus; T43.8X5A Adverse effect of other psychotropic drugs, initial encounter; J45.909 Unspecified asthma, uncomplicated; E66.01 Morbid (severe) obesity due to excess calories; F11.23 Opioid dependence with withdrawal; D64.9 Anemia, unspecified; J98.6 Disorders of diaphragm; I10 Essential (primary) hypertension; D72.829 Elevated white blood cell count, unspecified; M48.02 Spinal stenosis, cervical region; R26.89 Other abnormalities of gait and mobility; R29.6 Repeated falls; I48.0 Paroxysmal atrial fibrillation; Z68.41 Body mass index [BMI] 40.0-44.9, adult; Z88.2 Allergy status to sulfonamides; Z79.51 Long term (current) use of inhaled steroids; Z96.651 Presence of right artificial knee joint; Z96.652 Presence of left artificial knee joint; Z91.011 Allergy to milk products; Z87.01 Personal history of pneumonia (recurrent); Z91.81 History of falling; Z79.01 Long term (current) use of anticoagulants; Z86.010 Personal history of colon polyps; Z86.73 Personal history of transient ischemic attack (TIA), and cerebral infarction without residual deficits
CPT/HCPCS: 82947-QW; 85520-90; 92523-GN; 92610-GN; 97116-GP; 97162-GP; 97166-GO; 97168-GO; 97530-GO; 97530-GP; 97535-GO; C1751; C1769; C8924; J0153; J0330; J0360; J1450; J1644; J1650; J1815; J2060; J2250; J2405; J2543; J2704; J3010; J3370; J3475; Q9957; Q9967

== ENCOUNTER → 2017-08-23 | Outpatient (CLI) | payer OTHER | LOC: FIMAGING 08:56 | PROVIDERS: ATTEND Internal Medicine Critical Care Medicine | DX: K22.4 Dyskinesia of esophagus (principal); K44.9 Diaphragmatic hernia without obstruction or gangrene; K21.9 Gastro-esophageal reflux disease without esophagitis ==

== ENCOUNTER → 2017-10-02 | Outpatient (CLI) | payer OTHER | LOC: FIMAGING 11:34 | PROVIDERS: ATTEND Obstetrics & Gynecology | DX: Z12.31 Encounter for screening mammogram for malignant neoplasm of breast (principal) | CPT/HCPCS: G0202 ==

== ENCOUNTER → 2017-10-23 | Outpatient (CLI) | payer OTHER | LOC: FIMAGING 11:31 | PROVIDERS: ATTEND Internal Medicine Critical Care Medicine | DX: R06.00 Dyspnea, unspecified (principal) ==

== ENCOUNTER → 2017-10-24 | Outpatient (CLI) | payer OTHER | PROVIDERS: ATTEND Internal Medicine Gastroenterology | DX: R13.10 Dysphagia, unspecified (principal); K21.9 Gastro-esophageal reflux disease without esophagitis; K22.8 Other specified diseases of esophagus | CPT/HCPCS: 92611-GN ==

== ENCOUNTER 2018-04-04 10:53 | Inpatient (IN) | payer OTHER ==
[2018-04-04] MEDS ORDERED: IPRATROPIUM/ALBUTEROL 3 ML DEYVIAL IH ONE (13:18)
[2018-04-04] MEDS ORDERED: ALBUTEROL 3 ML DEYVIAL IH ONE (13:18)
[2018-04-04] MEDS ORDERED: methylPREDNISolone SOD SUCC 125 MG/2 ML VIAL IVP ONE (13:18)
--- NOTE | 2018-04-04 13:38 | EDPHY ---
H & P Time Seen by Provider: 04/04/18 13:09 HPI/ROS: CHIEF COMPLAINT: Coughing for 10 days and severe shortness of breath HISTORY OF PRESENT ILLNESS: Patient is a history of asthma and had the admission last year she was intubated. She was last on steroids in December of this year. She presents today with cough and congestion for the last 10 days. Not improved by her albuterol and Atrovent nebulizer treatments. She was 75% oxygen saturation last night on her usual home oxygen. She does have production of green sputum. She has some left-sided chest pain which occurs when she is coughing. She does not have leg pain or leg swelling. Shortness of breath is worse with exertion. REVIEW OF SYSTEMS: Eye: no change in vision ENT: no sore throat Cardiac: No palpitations or syncope Pulmonary: HPI Abdomen: No abdominal pain but decreased oral intake, no bowel movement for the last week Musculoskeletal: As chronic pain, no change. Skin: no rash Neuro: no headache Constitutional: no fever : no urinary symptoms A comprehensive 10 point review of systems is otherwise negative aside from elements mentioned in the history of present illness. PAST MEDICAL HISTORY: Includes appendectomy, cervical fusion, chronic pain, knee replacement, hypertension, asthma. Cardiomyopathy, migraine headaches, previous atrial fibrillation but not on anticoagulation. Social history: Nonsmoker General Appearance: Alert and conversant, cooperative. Eyes: No scleral icterus. ENT, Mouth: Normal mucous membranes. Respiratory: Decreased breath sounds bilaterally and does have extra work of breathing, tachypneic. Cardiovascular: Regular rate and rhythm. Gastrointestinal: Abdomen is soft and non tender. Neurological: Alert, face symmetric, normal motor and sensory in extremities. Skin: Warm and dry, no rashes. Musculoskeletal: No peripheral edema. Psychiatric: Not agitated. Emergency Department course/MDM: Chest x-ray reviewed before my evaluation shows bilateral infiltrates consistent with pneumonia. [facility]. Patient does not have SIRS criteria. Appears to have pneumonia but does not have severe sepsis or septic shock. I think ACS or pulmonary embolism are much less likely than pneumonia. No hospitalizations in the last 6 months, IV fluids and Levaquin 750. DuoNeb and 125 mg IV Solu-Medrol. Smoking Status: Never smoked Constitutional: Initial Vital Signs Temperature (C) 36.6 C 04/04/18 10:58 Heart Rate 68 04/04/18 10:58 Respiratory Rate 20 04/04/18 10:58 Blood Pressure 113/75 04/04/18 10:58 O2 Sat (%) 88 L 04/04/18 10:58 O2 Delivery Mode Nasal Cannula O2 (L/minute) 3 Allergies/Adverse Reactions: pregabalin [From Lyrica] Allergy (Severe, Verified 04/04/18 10:56) MOUTH SORES/ AFFECTS VISION Sulfa (Sulfonamide Antibiotics) Allergy (Severe, Verified 04/04/18 10:56) Anaphylaxis niacin [From Niaspan Extended-Release] Allergy (Intermediate, Verified 04/04/18 10:56) FLUSHING EXTREME ketorolac tromethamine [From Toradol] Allergy (Mild, Verified 04/04/18 10:56) DOESN'T WORK atorvastatin calcium [From Lipitor] Allergy (Unknown, Verified 04/04/18 10:56) MOLDS Allergy (Intermediate, Uncoded 08/30/14 10:44) WHEEZING /HIVES ENVIRONMENTAL Allergy (Mild, Uncoded 08/30/14 10:44) RUNNY NOSE/NASAL CONGESTION Home Medications: Medication Instructions Recorded Montelukast Sodium [Singulair 10 10 mg PO HS 08/30/14 mg (*)] Acetaminophen/Caffeine [Excedrin 2 each PO TID PRN 11/24/16 Tension Headache Cplt] Cholecalciferol Vit D3 [Vitamin D3 4,000 units PO HS 11/24/16 2000 units tab (OTC)] Herbals/Supplements -Info Only 1 ea PO AD 11/24/16 Multivitamins [Multivitamin (*)] 1 each PO HS 11/24/16 [place]-3 Fatty Acids [Fish Oil 1000 1,000 mg PO DAILY 11/24/16 mg (*)] Spironolactone [Aldactone 25 MG 25 mg PO DAILY #0 tab 02/16/17 (*)] Carvedilol [Coreg (*)] 6.25 mg PO BID 04/04/18 Cyclobenzaprine [Flexeril 10 MG 10 mg PO TID 04/04/18 (*)] DULoxetine [Cymbalta 60 MG (*)] 60 mg PO DAILY 04/04/18 Gabapentin [Neurontin 300 MG (*)] 900 mg PO TID 04/04/18 Loratadine [Claritin 10 mg] 10 mg PO HS 04/04/18 Losartan Potassium [Cozaar 25 mg 25 mg PO HS 04/04/18 (*)] Naproxen Sodium [Aleve 220 MG (*)] 440 mg PO BID PRN 04/04/18 Tiotropium Inhaler [Spiriva 1 inh IH DAILY 04/04/18 Inhaler] amLODIPine BESYLATE [Norvasc 5 mg 5 mg PO HS 04/04/18 (*)] traMADol [Ultram 50 mg (*)] 2 mg PO TID PRN 04/04/18 Medical Decision Making - Diagnostics Imaging Results: Imaging Impressions Chest X-Ray 04/04/18 12:23 Impression: Bibasilar consolidation - pneumonia versus atelectasis. Imaging: I viewed and interpreted images myself Differential Diagnosis: Differential diagnosis considered for shortness of breath including but not limited to pulmonary infectious process, COPD, asthma, pulmonary embolus and congestive heart failure. - Data Points Medications Given: Levofloxacin/Dextrose (Levaquin 750 Mg (Premix)) 150 mls @ 100 mls/hr IV EDNOW ONE PRN Reason: Protocol Stop: 04/04/18 15:33 Last Admin: 04/04/18 14:31 Dose: 150 mls Discontinued Medications Albuterol (Proventil Neb) 3 ml IH EDNOW ONE Stop: 04/04/18 13:19 Last Admin: 04/04/18 14:31 Dose: 3 ml Albuterol/Ipratropium (Duoneb) 3 ml IH EDNOW ONE Stop: 04/04/18 13:19 Last Admin: 04/04/18 14:31 Dose: 3 ml Methylprednisolone Sodium Succinate (Solu-Medrol) 125 mg IVP EDNOW ONE Stop: 04/04/18 13:19 Last Admin: 04/04/18 14:31 Dose: 125 mg Departure - Departure Disposition: [facility] Acute Clinical Impression: Exacerbation of asthma Qualifiers: Asthma severity: moderate Asthma persistence: unspecified Qualified Code(s): J45.901 - Unspecified asthma with (acute) exacerbation Pneumonia Qualifiers: Pneumonia type: due to unspecified organism Laterality: bilateral Lung location : lower lobe of lung Qualified Code(s): J18.1 - Lobar pneumonia, unspecified organism
[2018-04-04 13:53] LABS: PLATELET COUNT 219 10^3/uL (150-400)
[2018-04-04 14:15] LABS: INR 1.08 (0.83-1.16); PROTIME(PATIENT) 14.2 SEC (12.0-15.0)
[2018-04-04] MEDS ORDERED: NS 1,000 ML IV ONE ×2 (14:53→15:13)
[2018-04-04] MEDS ORDERED: ONDANSETRON DISINTEGRATING 4 MG TAB PO PRN (15:13)
[2018-04-04] MEDS ORDERED: PROMETHAZINE HCL 25 MG/ML INJ IVP PRN (15:13)
[2018-04-04] MEDS ORDERED: ONDANSETRON 4 MG/2 ML VIAL IVP PRN (15:13)
[2018-04-04] MEDS ORDERED: oxyCODONE IR 5 MG TAB PO PRN (15:13)
[2018-04-04] MEDS ORDERED: ALBUTEROL 3 ML DEYVIAL IH PRN (15:13)
[2018-04-04] MEDS ORDERED: LORazepam 0.5 MG TAB PO PRN (15:13)
[2018-04-04] MEDS ORDERED: traMADol 50 MG TAB PO PRN (15:17)
[2018-04-04] MEDS ORDERED: CAFFEINE PO PRN (15:17)
[2018-04-04] MEDS ORDERED: ACETAMINOPHEN PO PRN (15:17)
[2018-04-04] MEDS ORDERED: NAPROXEN SODIUM 220 MG TAB PO PRN (15:17)
[2018-04-04] MEDS ORDERED: HYDROmorphONE/DILAUDID 1 MG/ML INJ IVP PRN (15:47)
[2018-04-04] MEDS ORDERED: IOPAMIDOL (ISOVUE 370) 100 ML BTL IV ONE (16:09)
--- NOTE | 2018-04-04 16:35 | GHP ---
[f rep st] HISTORY AND PHYSICAL DATE OF ADMISSION: 04/04/2018 CHIEF COMPLAINT: Shortness of breath. HISTORY: This is a 62-year-old female with past medical history of asthma as well as chronic aspirat ion and recurrent aspiration pneumonia, who presents with shortness of breath and increased sputum pr oduction. The patient notes that this has been worsening over the last week. She has been doing usu al treatments at home including albuterol and Atrovent nebulizers, and despite that, her shortness of breath, cough have gotten worse. She notes that she is intermittently able to get sputum up and dante t when she does it is very thick and green to brown in color. She also complains of some severe ches t pain that is present with coughing and with deep breaths. She notes that this has not been present in the past when she has asthma exacerbations. She denies fevers or chills. She denies any leg swe lling or pain. PAST MEDICAL HISTORY: Includes: 1. Asthma/severe with prior intubations. 2. Recurrent aspiration and aspiration pneumonia. 3. Morbid obesity. 4. Chronic right diaphragm paralysis. 5. History of Takotsubo's with associated systolic heart failure. 6. NSTEMI. 7. AFib. 8. GRICEL. PAST SURGICAL HISTORY: 1. Bilateral knee replacements. 2. Right foot surgery. SOCIAL HISTORY: Patient is . She is a nonsmoker, nondrinker, nondrug user. FAMILY HISTORY: Reviewed and noncontributory. REVIEW OF SYSTEMS: 10-point review of systems obtained and negative except as per HPI. HOME MEDICATIONS: 1. Naproxen. 2. Loratadine. 3. Tramadol. 4. Losartan. 5. Duloxetine. 6. Cyclobenzaprine. 7. Amlodipine. 8. Carvedilol. 9. Excedrin. 10. Gabapentin. 11. Cholecalciferol. 12. [place]-3 fatty acid. 13. Multivitamin. 14. Singulair. 15. Spiriva. 16. Spironolactone. ALLERGIES: Multiple. Please see list in EHR. PHYSICAL EXAM: VITAL SIGNS: BP 91/53, heart rate 62, respiratory rate 18, O2 sats 91% on 3.5 L, tem perature is 36.9. GENERAL APPEARANCE: This is an obese female. She is awake and alert. She is in no acute distress. EYES: Anicteric. HENT: Oropharynx clear. CARDIOVASCULAR: Regular r ate and rhythm. No MRG. PULMONARY: Coarse upper airway breath sounds, productive cough, expiratory wheeze. ABDOMEN: Obese, soft, nontender. EXTREMITIES: No clubbing, cyanosis, or edema. SKIN: W arm, dry, well perfused. NEURO/PSYCH: Oriented and appropriate. CLINICAL DATA: Labs reviewed, notable for white blood cell count of 15.59. Chemistry is unremarkabl e except for a bilirubin of 1.5. Chest x-ray personally reviewed and interpreted, shows bilateral lower lobe opacities consistent with pneumonia. ASSESSMENT/PLAN: This is a 62-year-old female with past medical history of asthma, presenting with a sthma exacerbation in the setting of pneumonia. 1. Acute asthma exacerbation, likely secondary to pneumonia: The patient will be treated with sched uled DuoNebs, p.r.n. albuterol, and IV steroids for the time being. She has a history of severe pneu monia previously requiring intubation. 2. Community-acquired pneumonia with bibasilar infiltrates appreciated on chest x-ray: She will be treated with ceftriaxone and Levaquin. Sputum cultures have been sent and are pending, as are blood cultures. Respiratory panel PCR is negative. 3. Acute hypoxic respiratory failure secondary to above: She is currently saturating in the low 90s on 3-4 L. At baseline, she does not require supplemental oxygen. 4. Chest pain: The patient states this is not typical for her asthma exacerbations in the past. We will obtain EKG, troponin, and chest CT angiogram to rule out deep vein thrombosis or other etiology for her chest pain. We will provide pain medications as needed with some caution as patient has pre viously had history of opiate dependency and has worked very hard to get off opiates. 5. Morbid obesity: We will ask for a dietary consult while in-house. 6. Chronic aspiration: The patient states she follows lifestyle modifications to treat this. She h as been worked up previously. We will ask Speech and Language Pathology to evaluate. 7. History of congestive heart failure secondary to Takotsubo's: The patient currently appears euvo lemic. Her last echocardiogram was performed in February of 2017, at which time her ejection fraction h ad normalized. 8. Disposition: Inpatient status. Suspect she will need greater than 48 hours stay for evaluation and management of above. Patient is new to my care. Old records reviewed, summarized as per HPI and Past Medical History. Ca re plan reviewed with patient's present at bedside. /[id number]/MODL
--- NOTE | 2018-04-04 16:37 | CPEKG ---
Heart Rate: 77 RR Interval: 779 P-R Interval: 204 QRSD Interval: 90 QT Interval: 400 QTC Interval: 453 P [place]: 54 QRS [place]: -8 T Wave [place]: 43 EKG Severity - NORMAL ECG - EKG Impression: SINUS RHYTHM Electronically Signed By: Brad Javier 04-Apr-2018 17:33:28
[2018-04-04] MEDS: IPRATROPIUM/ALBUTEROL 3 ML DEYVIAL IH SCH ×2 (17:01→21:46)
[2018-04-04] MEDS: CYCLOBENZAPRINE 10 MG TAB PO SCH ×2 (17:27→21:16)
[2018-04-04] MEDS: GABAPENTIN 300 MG CAP PO SCH ×2 (17:27→21:16)
[2018-04-04] MEDS: methylPREDNISolone SOD SUCC 125 MG/2 ML VIAL IVP SCH ×2 (17:28→23:01)
[2018-04-04] MEDS: traMADol 50 MG TAB PO PRN (17:54)
[2018-04-04] MEDS ORDERED: BISACODYL 10 MG SUPP PR PRN (17:57)
[2018-04-04] MEDS ORDERED: LACTULOSE 20 GM/30 ML UDCUP PO PRN (17:57)
[2018-04-04] MEDS ORDERED: MAGNESIUM HYDROXIDE 30 ML UDCUP PO PRN (17:57)
[2018-04-04] MEDS ORDERED: POLYETHYLENE GLYCOL 3350 17 GM PKT PO PRN (17:57)
[2018-04-04] MEDS: CHOLECALCIFEROL VIT D3 2,000 UNITS TAB/CAP PO SCH (21:15)
[2018-04-04] MEDS: MULTIVITAMINS 1 EACH TAB PO SCH (21:16)
[2018-04-04] MEDS: MONTELUKAST SODIUM 10 MG TAB PO SCH (21:16)
[2018-04-04] MEDS: guaiFENesin 600 MG TAB.ER PO SCH (21:16)
[2018-04-04] MEDS: SENNOSIDES/DOCUSATE SODIUM TAB PO SCH (21:16)
[2018-04-05] MEDS: traMADol 50 MG TAB PO PRN (01:24)
--- NOTE | 2018-04-05 04:33 | PDMN ---
Medical Necessity Medical necessity: Pt meets INPT criteria per MD and [facility] M-[id number] Pneumonia, Community Acquired (with bibasilar infiltrates, acute asthma exacerbation, acute hypoxic respiratory failure, O2 sat 88% on 4L, chest pain, morbid obesity , chronic aspiration; hx CHF 2/2 Takotsubo's; est. LOS >2 MN).
[2018-04-05] MEDS: methylPREDNISolone SOD SUCC 125 MG/2 ML VIAL IVP SCH ×2 (05:02→11:42)
[2018-04-05 05:06] LABS: PLATELET COUNT 231 10^3/uL (150-400)
[2018-04-05] MEDS: IPRATROPIUM/ALBUTEROL 3 ML DEYVIAL IH SCH ×4 (05:16→20:54)
[2018-04-05] MEDS: ENOXAPARIN 40 MG/0.4 ML SYR SC SCH (08:06)
[2018-04-05] MEDS: SENNOSIDES/DOCUSATE SODIUM TAB PO SCH ×2 (08:07→22:21)
[2018-04-05] MEDS: guaiFENesin 600 MG TAB.ER PO SCH ×2 (08:07→22:22)
[2018-04-05] MEDS: CYCLOBENZAPRINE 10 MG TAB PO SCH ×3 (08:07→22:22)
[2018-04-05] MEDS: GABAPENTIN 300 MG CAP PO SCH ×3 (08:08→22:22)
[2018-04-05] MEDS: CETIRIZINE 10 MG TAB PO SCH (08:08)
[2018-04-05] MEDS: DULoxetine 60 MG CAP PO SCH (08:08)
[2018-04-05] MEDS: OMEGA-3 FATTY ACIDS 1,000 MG CAP PO SCH (08:08)
[2018-04-05] MEDS ORDERED: D50W 25 GM/50 ML SYR IVP PRN (09:31)
[2018-04-05] MEDS: INSULIN LISPRO 100 UNIT/ML SC SCH ×2 (11:42→17:59)
[2018-04-05] MEDS ORDERED: PEG 3350/NA SULF,BICARB,CL/KCL (GAVILYTE-G) 4000 ML BTL PO ONE (12:44)
--- NOTE | 2018-04-05 12:45 | HOSPPROG ---
Hospitalist Progress Note Assessment/Plan: 62 yo F with PMH of severe asthma pw acute asthma exacerbation in setting of RLL PNA # acute asthma exacerbation: improving overnight s/p BD's, IV steroids, abx for PNA. Will transition to oral abx in am. Continue scheduled nebs for now. # RLL PNA: sputum and blood cultures with ngtd, resp viral PCR negative. Clinically improved with ctx/levofloxacin. Plan to dc ctx in am. Personally reviewed chest CTA with dense RLL consolidation/air bronchograms # acute hypoxic respiratory failure: continues to require 3-4L of oxygen to maintain o2 sats in the low 90s, 2/2 above. At baseline does use o2 at night for sleep apnea and suspect a component of OHS contributing as well. # chest pain: has resolved, trops/ecg not c/w ischemia, CTA without PE # chronic aspiration: possible aspiration pna , patient reports hx of chronic aspiration as above. CLOTH STRETCHER consulted. # morbid obesity: BMI of 44, dietary consulted # constipation: no BM x 7 days, had what appears to be allergic reaction to lactulose, will try golytely--patient states this has helped in the past # IP status, will require > 48 hours stay Subjective: patient states she is overall feeling better today, able to ambulate , cough decreased, had allergic response to lactulose better after benadryl Objective: Vital Signs Temp Pulse Resp BP Pulse Ox 36.7 C 100 16 107/70 91 L 04/05/18 11:31 04/05/18 11:31 04/05/18 11:31 04/05/18 11:31 04/05/18 11:31 Microbiology 04/04/18 15:30 - Final Sputum, Expectorated 04/04/18 13:50 Respiratory Panel (PCR) - Final Nasal, Sinus - Swab No Organism Detected Laboratory Results 04/05/18 04:54 04/05/18 04:54 04/04/18 04/05/18 04/06/18 05:59 05:59 05:59 Intake Total 2319 Balance 2319 PT 14.2 SEC (12.0-15.0) 04/04/18 13:50 INR 1.08 (0.83-1.16) 04/04/18 13:50 awake alert anicteric op clear rrr no mrg dec bs throughout, occ wheeze obese soft nt nd no cce warm dry well perfused oriented appropriate - Time Spent With Patient Time Spent with Patient: greater than 35 minutes Time Spent with Patient: Greater than 35 minutes spent on this patients care, greater than 50% of time spent counseling, educating, and coordinating care regarding the above mentioned plan. ICD10 Worksheet Patient Problems: Problems Problem Status Onset Pneumonia Acute Hypoxemia Acute Narcotic overdose Acute Altered mental status Acute KATY (acute kidney injury) Acute Encephalopathy acute Acute Palliative care encounter Acute Exacerbation of asthma Acute
[2018-04-05] MEDS: ACETAMINOPHEN 325 MG TAB PO PRN (14:02)
--- NOTE | 2018-04-05 15:57 | ASMTCMCOM ---
CM Note CM Note Notes: Pt cleared by PT/OT for home, pt lives with who can assist. She uses 2L O2 at baseline, anticipate will dc home when medically stable. CM available for any changes. DC Plan: Independent Date Signed: 04/05/2018 03:56 PM Electronically Signed By:Britta Briseno RN
[2018-04-05] MEDS: CHOLECALCIFEROL VIT D3 2,000 UNITS TAB/CAP PO SCH (22:22)
[2018-04-05] MEDS: MONTELUKAST SODIUM 10 MG TAB PO SCH (22:22)
[2018-04-05] MEDS: MULTIVITAMINS 1 EACH TAB PO SCH (22:22)
[2018-04-06] MEDS: IPRATROPIUM/ALBUTEROL 3 ML DEYVIAL IH SCH ×4 (06:21→20:53)
[2018-04-06] MEDS: INSULIN LISPRO 100 UNIT/ML SC SCH ×3 (08:56→17:17)
[2018-04-06] MEDS: GABAPENTIN 300 MG CAP PO SCH ×3 (08:57→21:06)
[2018-04-06] MEDS: CETIRIZINE 10 MG TAB PO SCH (08:57)
[2018-04-06] MEDS: DULoxetine 60 MG CAP PO SCH (08:57)
[2018-04-06] MEDS: guaiFENesin 600 MG TAB.ER PO SCH ×2 (08:57→21:05)
[2018-04-06] MEDS: predniSONE 20 MG TAB PO SCH (08:57)
[2018-04-06] MEDS: SENNOSIDES/DOCUSATE SODIUM TAB PO SCH ×2 (08:57→21:06)
[2018-04-06] MEDS: ENOXAPARIN 40 MG/0.4 ML SYR SC SCH (08:57)
[2018-04-06] MEDS: OMEGA-3 FATTY ACIDS 1,000 MG CAP PO SCH (08:57)
[2018-04-06] MEDS: CYCLOBENZAPRINE 10 MG TAB PO SCH ×3 (08:58→21:06)
--- NOTE | 2018-04-06 14:07 | HOSPPROG ---
Hospitalist Progress Note Assessment/Plan: 62 yo F with PMH of severe asthma pw acute asthma exacerbation in setting of RLL PNA # acute asthma exacerbation: improving overnight s/p BD's, IV steroids, abx for PNA. Will transition to oral abx in am as next. Continue scheduled nebs for now. # RLL PNA: sputum and blood cultures with ngtd, resp viral PCR negative. Clinically improved with ctx/levofloxacin. Reviewed CT findings with patient at bedside, with hx of chronic aspiration will transition abx to augmentin and monitor for continued improvement. # acute hypoxic respiratory failure: continues to require 3-4L of oxygen to maintain o2 sats in the low 90s, 2/2 above. At baseline does use o2 at night for sleep apnea and suspect a component of OHS contributing as well. # chest pain: has resolved, trops/ecg not c/w ischemia, CTA without PE # chronic aspiration: possible aspiration pna , patient reports hx of chronic aspiration as above. ENCYCLOPEDIA RESEARCH WORKER consulted. # morbid obesity: BMI of 44, dietary consulted # constipation: no BM x 7 days on arrival, had large BM yesterday post golytely # IP status, will require > 48 hours stay Subjective: no significant overnight events, patient continues to feel well today, ambulating she still has been desaturating to mid 80s however Objective: Vital Signs Temp Pulse Resp BP Pulse Ox 37 C 89 20 147/86 H 96 04/06/18 08:00 04/06/18 08:00 04/06/18 08:00 04/06/18 08:00 04/06/18 08:00 Microbiology 04/04/18 15:30 - Final Sputum, Expectorated Sputum Culture - Final Laboratory Results 04/05/18 04:54 04/05/18 04:54 04/05/18 04/06/18 04/07/18 05:59 05:59 05:59 Intake Total 2319 655 Output Total 1050 Balance 2319 -395 PT 14.2 SEC (12.0-15.0) 04/04/18 13:50 INR 1.08 (0.83-1.16) 04/04/18 13:50 awake alert cachectic anicteric op clear rrr no mrg cta b soft nt nd no cce warm dry well perfused oriented appropriate - Time Spent With Patient Time Spent with Patient: greater than 35 minutes Time Spent with Patient: Greater than 35 minutes spent on this patients care, greater than 50% of time spent counseling, educating, and coordinating care regarding the above mentioned plan. ICD10 Worksheet Patient Problems: Problems Problem Status Onset Exacerbation of asthma Acute Pneumonia Acute KATY (acute kidney injury) Acute Altered mental status Acute Encephalopathy acute Acute Hypoxemia Acute Narcotic overdose Acute Palliative care encounter Acute
[2018-04-06] MEDS: traMADol 50 MG TAB PO PRN (21:05)
[2018-04-06] MEDS: MONTELUKAST SODIUM 10 MG TAB PO SCH (21:05)
[2018-04-06] MEDS: CHOLECALCIFEROL VIT D3 2,000 UNITS TAB/CAP PO SCH (21:06)
[2018-04-06] MEDS: MULTIVITAMINS 1 EACH TAB PO SCH (21:06)
[2018-04-06] MEDS: AMOXICILLIN/CLAVULANATE POT 875/125 MG TAB PO SCH (21:06)
[2018-04-06] MEDS: ACETAMINOPHEN 325 MG TAB PO PRN (22:59)
[2018-04-07] MEDS: IPRATROPIUM/ALBUTEROL 3 ML DEYVIAL IH SCH ×2 (05:43→10:58)
[2018-04-07 08:45] VITALS: BP 134/79
[2018-04-07] MEDS: INSULIN LISPRO 100 UNIT/ML SC SCH (09:16)
[2018-04-07] MEDS: guaiFENesin 600 MG TAB.ER PO SCH (09:16)
[2018-04-07] MEDS: GABAPENTIN 300 MG CAP PO SCH (09:16)
[2018-04-07] MEDS: predniSONE 20 MG TAB PO SCH (09:16)
[2018-04-07] MEDS: DULoxetine 60 MG CAP PO SCH (09:16)
[2018-04-07] MEDS: CYCLOBENZAPRINE 10 MG TAB PO SCH (09:16)
[2018-04-07] MEDS: ENOXAPARIN 40 MG/0.4 ML SYR SC SCH (09:17)
[2018-04-07] MEDS: AMOXICILLIN/CLAVULANATE POT 875/125 MG TAB PO SCH (09:17)
[2018-04-07] MEDS: SENNOSIDES/DOCUSATE SODIUM TAB PO SCH (09:17)
[2018-04-07] MEDS: OMEGA-3 FATTY ACIDS 1,000 MG CAP PO SCH (09:17)
[2018-04-07] MEDS: CETIRIZINE 10 MG TAB PO SCH (09:17)
--- NOTE | 2018-04-07 12:41 | GDS ---
[f rep st] DISCHARGE SUMMARY DISCHARGE DIAGNOSES: 1. Acute asthma exacerbation. 2. Right lower lobe pneumonia, presumed aspiration. 3. Acute on chronic hypoxic respiratory failure. 4. Chest pain. 5. Chronic aspiration. 6. Morbid obesity. 7. Constipation. CONSULTATIONS: None. PROCEDURES PERFORMED: Chest and thorax CT angiogram. HOSPITAL COURSE: 1. Acute asthma exacerbation in the setting of acute pneumonia as per right lower lobe pneumonia, im proved significantly with scheduled nebulizer treatments, initially IV steroids and antibiotics. Tanisha flowers will be discharged on her usual bronchodilator regimen, as well as a steroid taper as she notes that she does poorly when steroids are abruptly discontinued. Treatment for pneumonia as per right l ower lobe pneumonia. 2. Right lower lobe pneumonia. Sputum and blood cultures have been negative. Respiratory viral PCR also likewise negative. On CT imaging, there is a notable medial right lower lobe infiltrate with a reas of subsegmental atelectasis and other minimal infiltrates elsewhere in the right lower lobe. Amanda lyons was treated with ceftriaxone and Levaquin initially, but transitioned to oral Augmentin for presume d aspiration pneumonia. She has clinically improved on this regimen will be discharged with a plan t o complete a total of 10 day antibiotic course. 3. Acute on chronic hypoxic respiratory failure. Patient at baseline requires oxygen only at night, but has been requiring 3-4 L of O2 while in-house. She was initially having significant desaturatio ns to the 80s even on 4 L with ambulation, but this has since resolved. She will be discharged home on continuous O2 and states she has all of the needed equipment for this as she has previously been o n continuous oxygen, but self titrated off. She will follow up with her primary care physician, as vitaly cleaning as with [facility] to determine when to go back to nocturnal only oxygen. 4. Obstructive sleep apnea/obesity hyperventilation syndrome. She does utilize a CPAP type machine at home and this will be continued. 5. Morbid obesity. BMI of 44. Recommending lifestyle modification. 6. Hypertension. Blood pressures were initially soft and so her blood pressure medications were hel d while in-house. This is likely related to her acute infection. She has had increased blood pressu res and will be resumed on her usual home medications, but this will need to be followed up with her primary care physician to ensure that these remain appropriate. ITEMS FOR FOLLOW UP: 1. Ongoing monitoring of blood pressure. 2. Ongoing management of recurrent aspiration pneumonia and chronic severe asthma. 3. Patient discharged to home in good condition. Patient to follow up with her primary care prema mcclain, Dr. Bonds, as well as Dr. Stern at [facility]. Greater than 35 minutes spent in discharge of this patient, more than half in coordination of care. Copy requested to: Dr. Stern [facility] /[id number]/MODL
== END 2018-04-07 11:29 | disposition home or self-care (01) | DRG 177 ==
LOC: OBSVTOIN 13:40 → INTOOBSV 13:40 → F3E 15:17
PROVIDERS: ADMIT Internal Medicine; ATTEND Internal Medicine
DX: J69.0 Pneumonitis due to inhalation of food and vomit (principal); J45.901 Unspecified asthma with (acute) exacerbation; J96.21 Acute and chronic respiratory failure with hypoxia; E66.2 Morbid (severe) obesity with alveolar hypoventilation; Z68.41 Body mass index [BMI] 40.0-44.9, adult; I51.81 Takotsubo syndrome; I50.20 Unspecified systolic (congestive) heart failure; R07.9 Chest pain, unspecified; R21 Rash and other nonspecific skin eruption; K59.00 Constipation, unspecified; T47.3X5A Adverse effect of saline and osmotic laxatives, initial encounter; K21.9 Gastro-esophageal reflux disease without esophagitis; I48.91 Unspecified atrial fibrillation; G89.29 Other chronic pain; I25.2 Old myocardial infarction; G43.909 Migraine, unspecified, not intractable, without status migrainosus; E11.9 Type 2 diabetes mellitus without complications; Z79.51 Long term (current) use of inhaled steroids; Z96.653 Presence of artificial knee joint, bilateral; Z87.01 Personal history of pneumonia (recurrent); Z88.2 Allergy status to sulfonamides
CPT/HCPCS: 92526-GN; 92610-GN; 97116-GP; 97161-GP; 97165-GO; J0696; J1200; J1650; J1815; J1956; J2930; J7512; J7613; Q9967

== ENCOUNTER 2018-11-20 10:37 | Emergency (ER) | payer OTHER ==
[2018-11-20] MEDS ORDERED: NS 1,000 ML IV ONE (11:01)
[2018-11-20 11:09] LABS: PLATELET COUNT 224 10^3/uL (150-400)
--- NOTE | 2018-11-20 11:09 | EDPHY ---
H & P Time Seen by Provider: 11/20/18 11:04 HPI/ROS: Chief complaint. Abdominal pain HPI. Patient is 63-year-old female presents emergency department with abdominal pain. She has had left side abdominal pain for 5 days. She has a history of diverticulitis with previous recommendation for surgery. Last diverticulitis flare-up was 10 years ago. She feels it is the same as previous presentations. Pain is in the left lower quadrant and crampy. No radiation to back. She had diarrhea and nausea but no vomiting. Recent pneumonia and antibiotics. Denies fever. No chest pain or shortness breath ROS 10 systems were reviewed and negative with the exception of the elements mentioned in the history of present illness Past Medical/Surgical History: Diverticulitis, neck fusion, appendectomy, chronic pain, sleep apnea, hypertension, tack Alyssa bow syndrome Social History: , nonsmoker, no alcohol Smoking Status: Never smoked Physical Exam: General Appearance: Alert pleasant well-developed female moderate distress vital signs are stable Eyes: Pupils equal and round no pallor or injection. ENT, Mouth: Mucous membranes are moist. Respiratory: There are no retractions, lungs are clear to auscultation. Cardiovascular: Regular rate and rhythm. Gastrointestinal: Abdomen is soft with tenderness in the left lower quadrant. No masses. Normal bowel sounds Neurological: Awake and alert, sensory and motor exams grossly normal. Skin: Warm and dry, no rashes. Musculoskeletal: Neck is supple nontender. Extremities symmetrical, full range of motion. Psychiatric: Patient is oriented X 3, there is no agitation. Constitutional: Initial Vital Signs Temperature (C) 36.6 C 11/20/18 10:38 Heart Rate 86 11/20/18 10:38 Respiratory Rate 18 11/20/18 10:38 Blood Pressure 126/92 H 11/20/18 10:38 O2 Sat (%) 97 11/20/18 10:38 O2 Delivery Mode Room Air Allergies/Adverse Reactions: pregabalin [From Lyrica] Allergy (Severe, Verified 11/20/18 10:38) MOUTH SORES/ AFFECTS VISION Sulfa (Sulfonamide Antibiotics) Allergy (Severe, Verified 11/20/18 10:38) Anaphylaxis lactulose Allergy (Intermediate, Verified 11/20/18 10:38) Dyspnea niacin [From Niaspan Extended-Release] Allergy (Intermediate, Verified 11/20/18 10:38) FLUSHING EXTREME ketorolac tromethamine [From Toradol] Allergy (Mild, Verified 11/20/18 10:38) DOESN'T WORK atorvastatin calcium [From Lipitor] Allergy (Unknown, Verified 11/20/18 10:38) MOLDS Allergy (Intermediate, Uncoded 11/20/18 10:38) WHEEZING /HIVES ENVIRONMENTAL Allergy (Mild, Uncoded 11/20/18 10:38) RUNNY NOSE/NASAL CONGESTION Home Medications: Medication Instructions Recorded Montelukast Sodium [Singulair 10 10 mg PO HS 08/30/14 mg (*)] Acetaminophen/Caffeine [Excedrin 2 each PO TID PRN 11/24/16 Tension Headache Cplt] Cholecalciferol Vit D3 [Vitamin D3 4,000 units PO HS 11/24/16 2000 units tab (OTC)] Herbals/Supplements -Info Only 1 ea PO AD 11/24/16 Multivitamins [Multivitamin (*)] 1 each PO HS 11/24/16 [place]-3 Fatty Acids [Fish Oil 1000 1,000 mg PO DAILY 11/24/16 mg (*)] Spironolactone [Aldactone 25 MG 25 mg PO DAILY #0 tab 02/16/17 (*)] Carvedilol [Coreg (*)] 6.25 mg PO BID 04/04/18 Cyclobenzaprine [Flexeril 10 MG 10 mg PO TID 04/04/18 (*)] DULoxetine [Cymbalta 60 MG (*)] 60 mg PO DAILY 04/04/18 Gabapentin [Neurontin 300 MG (*)] 900 mg PO TID 04/04/18 Loratadine [Claritin 10 mg] 10 mg PO HS 04/04/18 Losartan Potassium [Cozaar 25 mg 25 mg PO HS 04/04/18 (*)] Naproxen Sodium [Aleve 220 MG (*)] 440 mg PO BID PRN 04/04/18 Tiotropium Inhaler [Spiriva 1 inh IH DAILY 04/04/18 Inhaler (RX)] amLODIPine BESYLATE [Norvasc 5 mg 5 mg PO HS 04/04/18 (*)] traMADol [Ultram 50 mg (*)] 100 mg PO TID PRN 04/04/18 Amoxicillin/Clavulanate Pot 875 mg PO BID #14 tab 04/07/18 [Augmentin 875 MG TAB (*)] guaiFENesin [Mucinex 600 MG (*)] 1,200 mg PO BID tab.er 04/07/18 predniSONE 40 mg PO DAILY 16 Days 04/07/18 Metronidazole 500 mg PO QID #28 tablet 11/20/18 levOFLOXACIN [levAQUIN (*)] 750 mg PO DAILY #10 tab 11/20/18 Medical Decision Making - Diagnostics Imaging Results: Imaging Impressions Abdomen CT 11/20/18 11:21 Impression: 1. Mild sigmoid diverticulitis without perforation or abscess. 2. 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 3. Additional findings as above.. Findings discussed with Dr. Hoang Carlisle on 11/20/2018 at 12:54. CT abdomen pelvis with IV contrast reviewed by me and discussed with Dr. Cho shows mild sigmoid diverticulitis. No evidence for perforation or abscess Procedures: IV normal saline. Toradol IV for pain. Patient refuses narcotics ED Course/Re-evaluation: Re-evaluation 1:00 p.m. Patient is stable. She and I discussed imaging and lab results. We discussed treatment plan including criteria for return and importance of follow-up and further evaluation. She expresses understanding and agreement. She is offered admission but feels well to go home Differential Diagnosis: Abdominal pain with CT findings of diverticulitis. History of diverticulitis. No evidence for perforation or abscess. I also considered urinary tract infection and small-bowel obstruction. - Data Points Laboratory Results: Laboratory Results 11/20/18 10:55 11/20/18 10:55 11/20/18 11/20/18 11/20/18 12:05 10:55 10:55 WBC 13.23 10^3/uL H 10^3/uL (3.80-9.50) RBC 4.85 10^6/uL 10^6/uL (4.18-5.33) Hgb 14.7 g/dL g/dL (12.6-16.3) Hct 43.6 % % (38.0-47.0) MCV 89.9 fL fL (81.5-99.8) MCH 30.3 pg pg (27.9-34.1) MCHC 33.7 g/dL g/dL (32.4-36.7) RDW 13.0 % % (11.5-15.2) Plt Count 224 10^3/uL 10^3/uL (150-400) MPV 10.3 fL fL (8.7-11.7) Neut % (Auto) 74.3 % H % (39.3-74.2) Lymph % (Auto) 14.5 % L % (15.0-45.0) [place] % (Auto) 7.5 % % (4.5-13.0) Eos % (Auto) 2.8 % % (0.6-7.6) Baso % (Auto) 0.4 % % (0.3-1.7) Nucleat RBC Rel Count 0.0 % % (0.0-0.2) Absolute Neuts (auto) 9.84 10^3/uL H 10^3/uL (1.70-6.50) Absolute Lymphs (auto) 1.92 10^3/uL 10^3/uL (1.00-3.00) Absolute Monos (auto) 0.99 10^3/uL H 10^3/uL (0.30-0.80) Absolute Eos (auto) 0.37 10^3/uL 10^3/uL (0.03-0.40) Absolute Basos (auto) 0.05 10^3/uL 10^3/uL (0.02-0.10) Absolute Nucleated RBC 0.00 10^3/uL 10^3/uL (0-0.01) Immature Gran % 0.5 % % (0.0-1.1) Immature Gran # 0.06 10^3/uL 10^3/uL (0.00-0.10) Sodium 140 mEq/L mEq/L (135-145) Potassium 4.3 mEq/L mEq/L (3.5-5.2) Chloride 108 mEq/L mEq/L (97-110) Carbon Dioxide 26 mEq/l mEq/l (22-31) Anion Gap 6 mEq/L mEq/L (6-14) BUN 15 mg/dL mg/dL (7-23) Creatinine 0.6 mg/dL mg/dL (0.6-1.0) Estimated GFR > 60 Glucose 109 mg/dL H mg/dL (70-100) Calcium 9.5 mg/dL mg/dL (8.5-10.4) Urine Color PALE YELLOW Urine Appearance CLEAR Urine pH 8.0 H (5.0-7.5) Ur Specific [place] 1.003 (1.002-1.030) Urine Protein NEGATIVE (NEGATIVE) Urine Ketones NEGATIVE (NEGATIVE) Urine Blood NEGATIVE (NEGATIVE) Urine Nitrate NEGATIVE (NEGATIVE) Urine Bilirubin NEGATIVE (NEGATIVE) Urine Urobilinogen NEGATIVE EU EU (0.2-1.0) Ur Leukocyte Esterase NEGATIVE (NEGATIVE) Urine RBC NONE SEEN /hpf /hpf (0-3) Urine WBC 1-3 /hpf /hpf (0-3) Ur Epithelial Cells NONE SEEN /lpf /lpf (NONE-1+) Urine Mucus TRACE /lpf /lpf (NONE-1+) Urine Glucose NEGATIVE (NEGATIVE) Medications Given: Discontinued Medications Sodium Chloride (Ns) 1,000 mls @ 0 mls/hr IV ONCE ONE PRN Reason: Wide Open Stop: 11/20/18 11:02 Last Admin: 11/20/18 11:01 Dose: 1,000 mls Ketorolac Tromethamine (Toradol) 30 mg IVP EDNOW ONE Stop: 11/20/18 11:21 Last Admin: 11/20/18 11:34 Dose: 30 mg Departure - Departure Disposition: Home, Routine, Self-Care Clinical Impression: Diverticulitis Condition: Good Instructions: Diverticulitis (ED), Diverticulitis Diet (ED) Additional Instructions: Drink plenty of fluids and stay hydrated. Metronidazole and Levaquin is antibiotics. Return for worsening symptoms. Recheck in 2-3 days if not improved Referrals: Grady Bonds MD [Primary Care Provider] - 2-3 days, if not improved Prescriptions: levOFLOXACIN [levAQUIN (*)] 750 mg PO DAILY #10 tab Metronidazole 500 mg PO QID #28 tablet
[2018-11-20] MEDS ORDERED: KETOROLAC 30 MG/1 ML SDV IVP ONE (11:20)
[2018-11-20] MEDS ORDERED: IOPAMIDOL (ISOVUE-300) 200 ML BTL ONE (11:49)
[2018-11-20 13:30] VITALS: BP 122/69
== END 2018-11-20 13:27 | disposition home or self-care (01) ==
DX: K57.32 Diverticulitis of large intestine without perforation or abscess without bleeding (principal)
CPT/HCPCS: 96374; J1885; Q9967

== ENCOUNTER → 2019-02-18 | Outpatient (CLI) | payer OTHER | LOC: FIMAGING 11:13 | PROVIDERS: ATTEND Family Medicine | DX: Z12.31 Encounter for screening mammogram for malignant neoplasm of breast (principal); R92.8 Other abnormal and inconclusive findings on diagnostic imaging of breast ==

== ENCOUNTER → 2019-03-14 | Outpatient (CLI) | payer OTHER | LOC: FIMAGING 09:44 | PROVIDERS: ATTEND Family Medicine | DX: R92.8 Other abnormal and inconclusive findings on diagnostic imaging of breast (principal) ==